=== PATIENT | female | born 1965 | race Caucasian/White ===

== ENCOUNTER 2016-12-23 05:15 | Inpatient (IN) ==
--- NOTE | 2016-12-21 15:31 | EKG Report ---
Test Performed on : 12/21/2016 3:25:10 PM Test Reason : surgery Blood Pressure : / mmHG Vent. Rate : 094 BPM Atrial Rate : 141 BPM P-R Int : 000 ms QRS Dur : 094 ms QT Int : 346 ms P-R-T Axes : 000 045 229 degrees QTc Int : [address] \T\ T wave abnormality, consider inferolateral ischemia Abnormal ECG When compared with ECG of 25-MAR-2016 05:51, No significant change was found Confirmed by Jose Miguel RICO, Kendrick Li ([id number]) on 12/23/2016 2:55:13 PM
[2016-12-21 16:06] LABS: HEMATOCRIT 31.7 % (37.0-47.0); HEMOGLOBIN 9.6 g/dL (12.0-16.0); MCH 25.2 PG (27-31); MCHC 30.3 g/dL (33-37); MCV 83.2 FL (81-99); MPV 9.9 FL (7.4-10.4); RBC 3.81 XMIL (4.2-5.4)
[2016-12-21 16:15] LABS: PROTIME 10.5 Seconds (9.2-11.7); PTT 26.1 Seconds (22.0-36.0)
[2016-12-21 16:46] LABS: CALCIUM 9.8 mg/dL (8.8-10.2); POTASSIUM 3.6 mmol/L (3.5-5.1)
[2016-12-23] MEDS ORDERED: PEPCID ONE (05:48)
[2016-12-23] MEDS ORDERED: TRANSDERM-SCOP ONE (05:48)
[2016-12-23] MEDS ORDERED: VALIUM ONE (05:48)
[2016-12-23] MEDS ORDERED: LR 1,000 ML ONE (05:49)
[2016-12-23] MEDS ORDERED: KEFZOL 2 GM/D5W 2 GM/50 ML IVPB ONE (05:49)
[2016-12-23] MEDS ORDERED: XYLOCAINE-MPF 2% ONE (06:47)
[2016-12-23] MEDS ORDERED: NEO-SYNEPHRINE ONE (07:30)
[2016-12-23] MEDS ORDERED: NORCURON ONE ×3 (07:38→11:06)
[2016-12-23] MEDS ORDERED: SODIUM CHLORIDE 0.9% 10 ML ONE ×2 (07:39→11:06)
[2016-12-23] MEDS ORDERED: QUELICIN (DOSE) ONE (08:11)
[2016-12-23] MEDS ORDERED: SODIUM CHLORIDE 0.9% 20 ML ONE (09:15)
[2016-12-23 09:33] LABS: URINE SOURCE CATH
[2016-12-23 09:43] LABS: BILIRUBIN URINE NEGATIVE (NEGATIVE); BLOOD URINE TRACE (NEGATIVE); COLOR YELLOW; GLUCOSE URINE NEGATIVE (NEGATIVE); LEUKOCYTES URINE LARGE (NEGATIVE); NITRITE URINE NEGATIVE (NEGATIVE); PH URINE 6.5; PROTEIN URINE 70 mg/dL (NEGATIVE); SP GRAVITY URINE 1.007; TURBIDITY URINE HAZY (CLEAR); URINE MICRO REVIEW NEEDED? YES; UROBILINOGEN URINE NORMAL (NORMAL)
[2016-12-23 09:53] LABS: UR EPITHELIAL CELLS <10 /HPF (<10); URINE BACTERIA NEGATIVE /HPF; URINE WBC TNTC /HPF (<10)
[2016-12-23 09:57] LABS: URINE CASTS NONE SEEN; URINE CRYSTALS NONE SEEN; URINE SMALL ROUND CELLS NONE SEEN
[2016-12-23] MEDS ORDERED: ZOFRAN ONE (10:32)
[2016-12-23] MEDS ORDERED: DECADRON ONE (10:33)
[2016-12-23] MEDS ORDERED: HEPARIN ONE (13:42)
[2016-12-23] MEDS ORDERED: DIPRIVAN 1% ONE (14:44)
[2016-12-23] MEDS ORDERED: FENTANYL ONE (14:44)
--- NOTE | 2016-12-23 14:54 | Diag Imaging Result Doc PS360 ---
CHEST-PORTABLE - 12/23/2016 INDICATION: ET tube placement TECHNIQUE: COMPARISON: 10/02/2015 FINDINGS: There is an endotracheal tube in good position at T3. Stable cardiomegaly. The pulmonary vascular congestion and edema has resolved. No pneumothorax or large effusion. IMPRESSION: 1. Good endotracheal tube placement. 2. Cardiomegaly. Electronically signed by Leon Méndez 12/23/2016 2:51 PM
[2016-12-23 15:03] LABS: ALLEN TEST YES; BE -1.8 mmoll (-3.0-3.0); BLOOD TYPE ARTERIAL; DRAW SITE R RADIAL; METHB 1.3 % (0.0-1.5); O2(CT) 11.8 mL/dL (15.0-23.0); PO2(98.6) 109 mmHg (60-100); SAMPLE BLOOD; SAO2 98.6 % (95.0-100.0); SRATE 12 BPM; THB 8.6 g/dL (11.5-17.4); TVOL 800 mL; pH(98.6) 7.29 (7.35-7.45)
[2016-12-23 15:07] LABS: MODALITY VENTILATOR; PCO2(98.6) 52 mmHg (35-45)
[2016-12-23] MEDS: MORPHINE ONE ×2 (15:14→15:20)
[2016-12-23] MEDS ORDERED: LR 3,000 ML ONE ×2 (15:14)
[2016-12-23 15:20] LABS: HEMATOCRIT 31.3 % (37.0-47.0); HEMOGLOBIN 9.4 g/dL (12.0-16.0); MCH 25.2 PG (27-31); MCV 83.9 FL (81-99); MPV 9.4 FL (7.4-10.4); RBC 3.73 XMIL (4.2-5.4)
[2016-12-23 15:59] LABS: ALLEN TEST NO; BE -0.5 mmoll (-3.0-3.0); BLOOD TYPE ARTERIAL; DRAW SITE R BRACHIAL; METHB 1.7 % (0.0-1.5); O2(CT) 11.8 mL/dL (15.0-23.0); PCO2(98.6) 43 mmHg (35-45); PO2(98.6) 71 mmHg (60-100); SAMPLE BLOOD; SAO2 96.6 % (95.0-100.0); SRATE 12 BPM; TVOL 800 mL; pH(98.6) 7.37 (7.35-7.45)
[2016-12-23 16:00] LABS: MODALITY VENTILATOR
[2016-12-23 16:12] LABS: CALCIUM 8.9 mg/dL (8.8-10.2)
[2016-12-23 16:13] LABS: POTASSIUM 6.2 mmol/L (3.5-5.1)
[2016-12-23] MEDS ORDERED: TYLENOL PO PRN (16:23)
[2016-12-23] MEDS ORDERED: SODIUM CHLORIDE 0.9% INJ PRN (16:23)
[2016-12-23] MEDS ORDERED: BENADRYL IV PRN (16:23)
[2016-12-23] MEDS ORDERED: PHENERGAN IV PRN (16:23)
[2016-12-23] MEDS ORDERED: DITROPAN PO PRN (16:23)
[2016-12-23] MEDS ORDERED: B & O 15A SUPP PR PRN (16:23)
[2016-12-23] MEDS ORDERED: PHENERGAN PR PRN (16:23)
[2016-12-23] MEDS ORDERED: ZOFRAN IV PRN (16:23)
[2016-12-23] MEDS ORDERED: BENADRYL LIQUID PO PRN (16:23)
[2016-12-23] MEDS ORDERED: SODIUM BICARBONATE 8.4% IV PUSH ONE (16:25)
[2016-12-23] MEDS ORDERED: HUMULIN R IV ONE (16:26)
[2016-12-23] MEDS ORDERED: D50W SYRINGE IV ONE (16:26)
[2016-12-23] MEDS: ZOSYN 3.375 GM/NS 3.375 GM/50 ML IVPB IV SCH ×2 (16:35→22:21)
[2016-12-23] MEDS: LR 1,000 ML IV SCH ×2 (16:36→20:41)
[2016-12-23 17:23] LABS: ALLEN TEST YES; BE 1.4 mmoll (-3.0-3.0); BLOOD TYPE ARTERIAL; DRAW SITE R BRACHIAL; O2(CT) 11.7 mL/dL (15.0-23.0); PCO2(98.6) 44 mmHg (35-45); PO2(98.6) 72 mmHg (60-100); SAMPLE BLOOD; SAO2 96.8 % (95.0-100.0); THB 8.8 g/dL (11.5-17.4); pH(98.6) 7.39 (7.35-7.45)
[2016-12-23 17:24] LABS: MODALITY VENTILATOR
[2016-12-23] MEDS: LABETALOL IV PRN ×3 (18:23→22:20)
[2016-12-23 18:36] LABS: CALCIUM 9.1 mg/dL (8.8-10.2); MAGNESIUM 1.7 mg/dL (1.5-2.7); POTASSIUM 5.8 mmol/L (3.5-5.1)
[2016-12-23] MEDS ORDERED: NS NEB INH SCH (18:45)
[2016-12-23] MEDS ORDERED: CARDIZEM 100 MG/NS 100 MG/100 ML IVPB IV PRN (18:46)
[2016-12-23] MEDS: MORPHINE IV PRN ×2 (19:19→21:17)
[2016-12-23] MEDS: XOPENEX NEB INH SCH ×2 (19:31→22:46)
[2016-12-23] MEDS: ATROVENT NEB INH SCH ×2 (19:31→22:46)
[2016-12-23] MEDS: PULMICORT INH SCH (19:32)
[2016-12-23] MEDS: NORCO-7.5 PO PRN (19:46)
[2016-12-23] MEDS: COLACE PO SCH (20:41)
[2016-12-23] MEDS: HUMULIN R SUBQ SCH (21:10)
--- NOTE | 2016-12-23 22:41 | OPERATIVE NOTE ---
PROCEDURE DATE: 12/23/2016 PREOPERATIVE DIAGNOSES: 1. Left-sided urothelial cancer. 2. History of right-sided renal cell carcinoma. 3. Cirrhosis. 4. History of diverticulitis. POSTOPERATIVE DIAGNOSES: 1. Left-sided urothelial cancer. 2. History of right-sided renal cell carcinoma. 3. Cirrhosis. 4. History of diverticulitis. PROCEDURES PERFORMED: 1. Robotic mobilization of the sigmoid colon and small intestine with lysis of adhesions. 2. 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 SURGEON: Rakesh Beckwith MD ESTIMATED BLOOD LOSS: Per Dr. Coppola's note but at my portion of the operation was less than 10 mL. SPECIMENS: None. INDICATIONS: This is a 51-year-old female, patient of Dr. Coppola's, who is known to me, for whom I have performed an open liver biopsy. She has a history of renal cell carcinoma on the right, status post partial nephrectomy, and was found to have a 2nd urothelial cancer on the left. Dr. Coppola was planning left nephroureterectomy on the left side robotically. During this operation, he encountered significant adhesions in her sigmoid colon to the lateral pelvic sidewall from previous diverticulitis. He felt that he encountered some mucosa during this dissection and consulted me. OPERATIVE FINDINGS: There was evidence of an enterocolonic colonic fistula between the small bowel and the mid sigmoid colon. There was a contained abscess in the lateral pelvic sidewall with a focal amount of pus here but otherwise healthy proximal and distal small bowel and proximal and distal colon. There were chronic changes consistent with her known diverticulitis. OPERATIVE NOTE: I was consulted intraoperatively. The robot t was already docked to the patient. Dr. Coppola was mobilizing the sigmoid colon. I inspected and it was felt that there was an opening in the sigmoid and possible small bowel. He mobilized this completely off the lateral sidewall with me present. There was exposed mucosa, but it was unclear if this was coming from the colon or small bowel. As such, I took over the robotic console. I dissected these areas and it became clear there was a hole in both the small bowel and the colon where these were fistulized together and stuck to the pelvic sidewall at the site of this contained abscess. We debrided these areas laparoscopically and them robotically and, using a 3-0 Prolene suture, we whipstitched these holes closed to prevent contamination. There was no spillage of succus during this at all. At this point, we placed the small bowel and the colon back in their anatomic location. Dr. Coppola completed this nephroureterectomy with more complete mobilization of the sigmoid colon. For details, please see the dictated operative note of Dr. Coppola. After he made the lower midline incision to extract the specimen, we came back into the operating room to definitively examine and repair these areas. He had created an approximately 10-12 cm lower midline incision and he had extracted the port through this. There was a previous drain from his portion in the left lower quadrant of the abdomen. We placed a large Devon wound protector in this area, identified the area of small bowel that we had tagged with a Prolene suture, removed the suture, and debrided back the edges. There was some granulation tissue here, but we were able to get back to healthy bleeding mucosa and full-thickness bowel. Using a running 3-0 Vicryl suture, we closed transversely full-thickness layer and imbricated this with interrupted 3-0 Vicryl Lembert sutures. There was good closure here with no narrowing of the lumen and felt to be good 2 layered closure. This was a very small opening, approximately 1.5 cm, and was felt amenable to primary repair and not resection. We inspected this and placed it back into the abdomen. There was no spillage of succus during this. At this point, we turned our attention to the colon. It was already mobilized. We brought this out into the wound the best that we could. The patient's abdominal wall was very redundant and she was in modified right lateral decubitus position, but we were able to identify this area. There was quite a lot of indurated granulation tissue, but we debrided this back to healthy, full- thickness colon and, again, this was an approximately 1-2 cm area here and, in similar fashion, transversely, using a running 3-0 Vicryl suture, closed this with full- thickness bites in a running fashion and then imbricated this with interrupted 3-0 Vicryl Lembert sutures. There was felt to be good closure here with no encroachment on the lumen and no stricturing of the area and the proximal and distal colon felt adequate. She was hypercapnic and acidotic throughout this long case and a formal colectomy was felt not appropriate given her clinical condition and given the size of her abdominal wall an end-colostomy would be very difficult. As such, we felt primary repair of both these was safe. There was no gross contamination in the abdomen. We left a drain by the sigmoid colon and placed omentum over this. Dr. Coppola irrigated the wound and closed the fascia. For details, please see his dictated operative note. We will continue to follow the patient. There was no evidence of other injury. We will continue to follow along. cc: MD Moris Bella MD MTDD
[2016-12-24] MEDS: NORCO-7.5 PO PRN ×5 (00:01→16:32)
[2016-12-24] MEDS: ATROVENT NEB INH SCH ×6 (03:11→22:38)
[2016-12-24] MEDS: XOPENEX NEB INH SCH ×6 (03:11→22:38)
[2016-12-24] MEDS: MORPHINE IV PRN ×8 (04:00→22:21)
[2016-12-24] MEDS: LABETALOL IV PRN (04:01)
[2016-12-24] MEDS: ZOSYN 3.375 GM/NS 3.375 GM/50 ML IVPB IV SCH ×4 (04:02→21:14)
[2016-12-24] MEDS: LR 1,000 ML IV SCH ×3 (04:13→20:08)
--- NOTE | 2016-12-24 05:06 | CONSULTATION ---
DATE OF CONSULTATION: 12/23/2016 ADMITTING PHYSICIAN: Viet Coppola MD HISTORY: She had been worked up for a left hydronephrosis, microhematuria. Cystoscopy done on 11/08/2016 showed bilateral retrograde pyelograms. Left ureteroscopy with biopsy of ureteral lesion. Placement of ureteral stent. Bladder biopsy. This is a 50-year-old with a history of right renal cell carcinoma. Had a partial nephrectomy a number months ago. Followup CT revealed no evidence of disease recurrence on the right but it did show left hydronephrosis and noted to have microhematuria. Cystoscopy revealed solitary bladder tumor approximately 1.5 cm that was papillary in nature. The patient underwent surgery today and it was a prolonged surgery with apparently a jd of the small bowel and that was repaired. She had prolonged intubation postop. PAST HISTORY: She had previous perirectal abscess and drainage. SOCIAL HISTORY: Nonsmoker. No alcohol or illicit drugs. FAMILY HISTORY: Noncontributory. ALLERGIES: None. REVIEW OF SYSTEMS: Unable to obtain her review of systems. PHYSICAL EXAMINATION: Vital Signs: In the unit, temp 99.5 degrees, pulse 89, respirations 17, blood pressure 128/71. Height 5 feet 7 inches. HEENT: The pupils are equal. Lungs: Clear in all lung bryant. Cardiovascular: Regular rate without murmur or S3. Abdomen: Soft. Skin: Warm and dry. : Urine output was almost 4 L. LABORATORIES: From today, white count 13,410, hematocrit 31, platelet count 266,000. Sodium 130, potassium 6.2, chloride 93, bicarb 26, BUN 30, creatinine 1.7. Blood sugar was 166, 226 and 374. ASSESSMENT/PLAN: 1. Postoperative intubation. I suspect that we will be able to extubate her fairly quickly. She does have some hyperkalemia. She is a little bit volume depleted with a creatinine up to 1.7. I did give her an amp of bicarb, 1/2 amp of D50 since her blood sugar was 374, and 10 units of insulin. Recheck her electrolytes. She is waking up and requesting to be extubated. Gas exchange looks good. 2. Mild acute kidney injury. I suspect just from the volume. We will give her IV fluids and recheck tomorrow. 3. History of diabetes mellitus type 2. Follow sugars closely. cc: Moris Barakat MD
[2016-12-24 05:20] LABS: HEMATOCRIT 28.1 % (37.0-47.0); HEMOGLOBIN 8.4 g/dL (12.0-16.0); MCH 24.9 PG (27-31); MCHC 29.9 g/dL (33-37); MCV 83.4 FL (81-99); MPV 9.8 FL (7.4-10.4); RBC 3.37 XMIL (4.2-5.4)
--- NOTE | 2016-12-24 06:02 | Diag Imaging Result Doc PS360 ---
EXAM: CHEST-PORTABLE HISTORY: extubated TECHNIQUE: Portable COMPARISON: 12/23/2016 FINDINGS: The lungs are well expanded. The patient is rotated to the right. The heart is enlarged. Increased markings in the left hilum believed to be the vasculature. No consolidation. No pleural effusions identified. IMPRESSION: Cardiomegaly. Electronically signed by Nikolai Noonan 12/24/2016 6:00 AM
--- NOTE | 2016-12-24 06:07 | Diag Imaging Result Doc PS360 ---
EXAM: KUB ABDOMEN HISTORY: s/p surgery TECHNIQUE: Portable supine COMPARISON: None. FINDINGS: There are surgical clips in the right upper quadrant consistent with cholecystectomy. Skin gutierrez overlie the right pelvis. There is a surgical drain in the left pelvis. No bowel obstruction. No organomegaly. IMPRESSION: Recent surgery, but otherwise negative exam. Electronically signed by Nikolai Noonan 12/24/2016 6:05 AM
[2016-12-24 06:41] LABS: CALCIUM 8.9 mg/dL (8.8-10.2); POTASSIUM 4.4 mmol/L (3.5-5.1)
[2016-12-24] MEDS: HUMULIN R SUBQ SCH ×4 (06:52→21:08)
[2016-12-24] MEDS: PULMICORT INH SCH ×2 (07:33→19:17)
[2016-12-24] MEDS: PHENERGAN PO PRN ×2 (08:27→16:32)
[2016-12-24] MEDS: LANOXIN IV SCH (08:29)
[2016-12-24] MEDS: COLACE PO SCH ×2 (08:29→20:09)
--- NOTE | 2016-12-24 10:13 | PROGRESS NOTE ---
DATE: 12/24/2016 SUBJECTIVE: Extubated overnight. Feels well. She is hungry. OBJECTIVE: Vital Signs: No fevers. Low-grade tachycardia, 100s. Blood pressure 125/82. Oxygen saturation 97% on supplemental mask. Abdomen: Soft. Appropriately tender. Incisions clean, dry, intact. Some mild serosanguineous drainage from her dressing. STEVEN drain serosanguineous. Labs: White count is 5, hematocrit is 28. Creatinine is 1.7, glucose 231. ASSESSMENT/PLAN: A 51-year-old female status post left ureteronephrectomy with Dr. Coppola. She had a small bowel to colon fistula from chronic diverticulitis that we took down and repaired at the same time. We will need to monitor these. Would keep her just medications and ice chips for comfort. As she has return of bowel function, we will gradually begin advancing her diet slowly over the next couple days. I would keep her drain in until she is tolerating a diet. We will continue to follow along. cc: MD Moris Bella MD
--- NOTE | 2016-12-24 18:10 | PROGRESS NOTE ---
DATE: 12/24/2016 SUBJECTIVE: She is feeling much better. She is taking sips of water and ice tolerating it well.Vital signs: Temperature 97.2 degrees, pulse 85, respirations 19 and blood pressure 120/70. HEENT: Pupils are equal and round. Lungs: Clear in all lung bryant. Cardiovascular: Regular rhythm and rate without murmur or S3. Abdomen: Soft. Urine output over 1600 mL. REVIEW OF LABORATORY: White count 5980, hematocrit 28, and platelet count 220,000. Sodium 135, potassium 4.4, chloride 96, bicarb 28, BUN 35, and creatinine 1.7. Chest x-ray done this morning. Cardiomegaly otherwise clear. ASSESSMENT AND PLAN: 1. Status post left ureter nephrectomy per She had small bowel and colon fistula from chronic diverticulitis that they took down and repaired DrIngrid and Dr. Beckwith. It seems to be healing well. We will need to monitor this closely. 2. Mild acute kidney injury. Serum creatinine. Will watch and continue fluids. 3. History of diabetes mellitus type 2. Follow sugars. 4. Hyperkalemia, prolonged intubation from Surgery. She was weaned yesterday. Respiratory status appears to be doing good. Review of orders, I do not see anything to change at this point. She is on Zosyn 3.375 mg IV q.6 hours. She is on lactated Ringer's 110 mL an hour. She is on a Cardizem drip if needed. She is getting digoxin 250 mcg IV daily and Colace 100 mg. b.i.d. cc: Moris Barakat MD
--- NOTE | 2016-12-24 19:19 | PROGRESS NOTE ---
DATE: 12/24/2016 SUBJECTIVE: General: Ms. Koch is feeling better today. She is currently on nasal cannula. She reports pain, but it is controlled with pain medications. She wants to get out of bed. Vital signs: Temperature 97.2, pulse 107, blood pressure 120/70. General: No acute distress. Cardiovascular: Tachycardic, but regular rhythm. Pulmonary: Bilateral breath sounds. Abdomen: Nontender. Nondistended. No bowel sounds, incisions are clean, dry, and intact. PERTINENT LABORATORIES: Her white cell count of 6000, hematocrit is 28. Creatinine is 1.7. ASSESSMENT: 1. A 51-year-old female who is morbidly obese and has history of previous abdominal surgery as well as extensive diverticulitis who underwent left robotic assisted laparoscopic nephroureterectomy as well as a primary repair of small and large bowel injury. She is currently doing well. We discussed advancing diet per Dr. Beckwith. 2. Out of bed and ambulate. 3. Keep Marshall to gravity drainage and Paul drain to bulb suction today. We will get rid of both of those tomorrow if permissible. 4. Appreciate Dr. Barakat's recommendations. cc: MD Moris Patrick MD
[2016-12-24] MEDS: PERCOCET-10 PO PRN (19:45)
[2016-12-24 23:45] LABS: CREATININE BODY FLUID 1.4 mg/dL
[2016-12-25] MEDS: PERCOCET-10 PO PRN ×6 (00:13→20:22)
[2016-12-25] MEDS: MORPHINE IV PRN ×8 (00:16→17:18)
[2016-12-25] MEDS: LABETALOL IV PRN ×2 (00:48→06:49)
[2016-12-25] MEDS: ZOSYN 3.375 GM/NS 3.375 GM/50 ML IVPB IV SCH ×3 (03:18→15:47)
[2016-12-25] MEDS: ATROVENT NEB INH SCH ×4 (03:22→15:55)
[2016-12-25] MEDS: XOPENEX NEB INH SCH ×4 (03:23→15:55)
[2016-12-25] MEDS: HUMULIN R SUBQ SCH ×4 (06:45→20:35)
[2016-12-25] MEDS: LR 1,000 ML IV SCH (06:48)
[2016-12-25] MEDS ORDERED: NS 1,000 ML IV SCH (06:54)
[2016-12-25] MEDS: PULMICORT INH SCH ×2 (07:43→19:25)
[2016-12-25 08:15] LABS: HEMOGLOBIN 7.3 g/dL (12.0-16.0); MCH 25.2 PG (27-31); MCHC 29.2 g/dL (33-37); MCV 86.2 FL (81-99); MPV 8.9 FL (7.4-10.4); RBC 2.9 XMIL (4.2-5.4)
[2016-12-25] MEDS: COLACE PO SCH ×2 (08:22→20:21)
[2016-12-25] MEDS: LANOXIN IV SCH (08:22)
[2016-12-25 08:30] LABS: CALCIUM 8.8 mg/dL (8.8-10.2); POTASSIUM 4.5 mmol/L (3.5-5.1)
--- NOTE | 2016-12-25 16:10 | PROGRESS NOTE ---
DATE: 12/25/2016 SUBJECTIVE: Ms. Koch feels much better. They took the drain out of the left side today. She has not had a bowel movement. She does feel like she can feel some rumbling. OBJECTIVE: Vital signs: Temp 97.8 degrees, pulse 119, respirations 19, blood pressure 127/69. HEENT: Pupils are equal, round. Lungs: Clear in all lung bryant. Cardiovascular: Regular rhythm and rate without murmur or S3. Abdomen: Soft. Skin: Warm and dry. Intake and output: Urine output over 4.7 L. LAB: Reviewed from today. White count 6,480, hematocrit 25, platelet count 175,000. Chemistry: Sodium 137, potassium 4.5, chloride 98, bicarb 31, BUN 20, creatinine 1.2. Blood sugar 184, 175, 218. ASSESSMENT AND PLAN: 1. This is a 51-year-old, morbidly obese, history of previous abdominal surgery as well as extensive diverticulitis, underwent left robotic-assisted laparoscopic nephroureterectomy as well as primary repair of small and large bowel injury. She is doing well. Dr. Beckwith is on the case. Drain has been pulled. Hemodynamically good. She was extubated. Breathing, respiratory status good. 2. Out of bed to ambulate. 3. Keep Marshall to gravity drainage and Paul drain to bulb suction today. Hopefully DC both of those tomorrow. 4. Hyperkalemia which has resolved. 5. Review of lab today. Electrolytes look good. Renal function looks good at 1.2. 6. Diabetes mellitus type 2. Continue sliding scale. 7. Review of orders. I do not see any change at this point. cc: Moris Barakat MD
--- NOTE | 2016-12-25 16:44 | PROGRESS NOTE ---
DATE: 12/25/2016 SUBJECTIVE: She feels well with minimal pain. She is passing gas, voiding without difficulty. Dr. Coppola was by and removed her drain and her Marshall catheter. No nausea or vomiting. She is hungry. She has been on a diltiazem drip for her atrial fibrillation. OBJECTIVE: Vital Signs: No fevers overnight. Pulse has been in the low 100s to one teens. Blood pressure 127/69 and oxygen saturation is low 90s on 4 liters nasal cannula. Abdomen: Dressing is in place. Scant amount of drainage. The port sites are intact. The abdomen is soft and appropriately tender. I do not see any left lower quadrant pain. No peritonitis. ASSESSMENT AND PLAN: This is a 51-year-old female, status post left ureteronephrectomy with Dr. Coppola. She had a chronic abscess causing fistula between her small bowel and her colon on the left side that created a colotomy and an enterotomy during mobilization of the colon. These were both repaired primarily. She seems to be doing okay. She is tolerating clear liquids. We will plan to advance her diet over the weekend if she tolerates. Further urologic and medical care per the hospitalist and Dr. Coppola's team. cc: MD Moris Bella MD
[2016-12-25] MEDS ORDERED: INSULIN DEGLUDEC 34 UNIT SQ SCH (17:27)
[2016-12-25] MEDS: LOPRESSOR PO SCH (17:42)
[2016-12-25] MEDS: GLUCOPHAGE PO SCH (17:42)
[2016-12-25] MEDS: FLAGYL PO SCH (20:21)
[2016-12-25] MEDS: LIPITOR PO SCH (20:21)
[2016-12-25] MEDS: KLOR-CON PO SCH (20:22)
[2016-12-25] MEDS: NEURONTIN PO SCH (20:22)
[2016-12-25] MEDS: AMBIEN PO SCH (20:22)
[2016-12-26] MEDS: PERCOCET-10 PO PRN ×4 (00:24→18:08)
[2016-12-26] MEDS: MORPHINE IV PRN ×4 (02:05→22:39)
[2016-12-26] MEDS: FLAGYL PO SCH ×3 (05:18→22:37)
[2016-12-26] MEDS: HUMULIN R SUBQ SCH ×4 (06:17→22:40)
[2016-12-26 06:19] LABS: MANUAL DIFF NEEDED? NO
[2016-12-26 06:33] LABS: BASO% 0.2 % (0.0-0.8); EOS# 0.19 X1000 (0.0-0.7); EOS% 3.6 % (0.0-10.0); HEMATOCRIT 24.5 % (37.0-47.0); HEMOGLOBIN 7.1 g/dL (12.0-16.0); LYMPH# 0.89 X1000 (1.2-3.4); MCH 24.9 PG (27-31); MONO# 0.36 X1000 (0.11-0.59); MONO% 6.9 % (1.7-9.3); MPV 9.7 FL (7.4-10.4); NEUT% 72.3 % (42.2-75.2); PLT 198 X1000 (130-400); RBC 2.85 XMIL (4.2-5.4)
[2016-12-26 06:55] LABS: CALCIUM 8.6 mg/dL (8.8-10.2); POTASSIUM 4.4 mmol/L (3.5-5.1)
[2016-12-26] MEDS: PULMICORT INH SCH (07:56)
[2016-12-26] MEDS: NEURONTIN PO SCH ×2 (08:32→22:38)
[2016-12-26] MEDS: LOPRESSOR PO SCH ×3 (08:32→16:04)
[2016-12-26] MEDS: GLUCOPHAGE PO SCH ×2 (08:32→16:03)
[2016-12-26] MEDS: ALDACTAZIDE 25/25 PO SCH (08:33)
[2016-12-26] MEDS: GLUCOSAMINE 500 MG/CHONDROITIN 400 MG PO SCH (08:33)
[2016-12-26] MEDS: LEVAQUIN PO SCH (08:33)
[2016-12-26] MEDS: LEXAPRO PO SCH (08:33)
[2016-12-26] MEDS: KLOR-CON PO SCH ×2 (08:33→22:38)
[2016-12-26] MEDS: COLACE PO SCH ×2 (08:33→22:38)
[2016-12-26] MEDS: LASIX PO SCH (08:33)
[2016-12-26] MEDS: ZYLOPRIM PO SCH (08:35)
--- NOTE | 2016-12-26 09:11 | PROGRESS NOTE ---
DATE: 12/26/2016 SUBJECTIVE: She feels really well. She is having bowel function and bowel movements. No nausea. She is hungry. She does have a persistent tachycardia. She has been on diltiazem drip. She has been in atrial fibrillation. It is up to the 130s to 140s today. No fevers. Abdomen is soft, nontender. Incision is clean, dry, and intact. She is on 4 L of nasal cannula. LABORATORY DATA: White count down to 5, hematocrit is down, trending to 24. Creatinine is 1.2. Glucose has down 151. ASSESSMENT AND PLAN: A 51-year-old female status post left ureteral nephrectomy for urothelial cancer. She also had a history of a right partial nephrectomy and cirrhosis. She had repair of small bowel and colon fistula from chronic diverticulitis with a contained perforation. From an abdominal standpoint, she seemed to be doing well. She had return of bowel function. I think it would be okay to gradually advance her diet. She is persistently tachycardic and is gradually down trending hematocrit and requiring quite a bit of oxygen. She will need to mobilize today, but I think we could slowly advance her diet to soft today. cc: MD Moris Bella MD
[2016-12-26] MEDS ORDERED: NON-FORMULARY BULK MED SUBQ SCH (09:30)
[2016-12-26] MEDS ORDERED: INSULIN PEN NEEDLES ONE (09:45)
[2016-12-26] MEDS: AZULFIDINE PO SCH ×3 (09:51→22:36)
--- NOTE | 2016-12-26 11:12 | PROGRESS NOTE ---
DATE: 12/26/2016 SUBJECTIVE: Ms. Koch is feeling good. She has had a couple of bowel movements and urinating fine. Marshall catheter out. Her drain is out. She has been getting up and walking, and she is tolerating a soft diet. OBJECTIVE: Temperature 98.7 degrees, pulse 140, respirations 18, blood pressure 110/74. Pupils are equal and round. Lungs are clear in all lung bryant. Cardiovascular: Regular rhythm and rate without murmur or S3. Abdomen is soft. Skin is warm and dry. Urine output almost 2 L. Blood sugar is 184, 202, 191. White blood cell count from yesterday: Hematocrit was 24, white count was 5230, hemoglobin 7.1, platelet count 198,000. Sodium 130, potassium 4.4, chloride 100. BUN 15, creatinine 0.1-0.2. Blood sugar 213, 191. ASSESSMENT AND PLAN: 1. Status post left ureteral nephrectomy per Dr. Coppola. She had a chronic abscess causing fistula between her small bowel and colon on the left side. I created a colotomy enterotomy during mobilization of the colon, and these both repaired primarily productive. According to Dr. Coppola, she is doing well. Advanced diet. Increase activity. 2. Get her out of bed and ambulate. The Marshall catheter is out. Drains out. Clerk Of Court her to a regular floor. 3. Diabetes mellitus. Blood sugars appear well controlled so we will move her to the floor. Ambulate. Note: Renal function looks good with creatinine 1.2. Home either in the morning or possibly this afternoon depending on how she does. She is on Azulfidine 500 mg p.o. She is on spironolactone hydrochlorothiazide combination 25/25 one a day, Ambien 10 mg at bedtime, Bentyl 20 mg p.r.n., Flagyl 500 mg p.o. q. 8 hours, Lopressor 25 mg p.o. t.i.d., Glucophage a 1000 mg b.i.d., Levaquin 500 mg a day, Lasix 40 mg a day, Lipitor 20 mg every evening, Lexapro 10 mg a day. cc: Moris Barakat MD
[2016-12-26] MEDS ORDERED: BENTYL PO SCH (21:00)
[2016-12-26] MEDS: LIPITOR PO SCH (22:37)
[2016-12-26] MEDS: AMBIEN PO SCH (22:38)
[2016-12-27] MEDS: MORPHINE IV PRN (03:46)
[2016-12-27] MEDS: PERCOCET-10 PO PRN ×2 (05:09→09:49)
[2016-12-27] MEDS: FLAGYL PO SCH (05:09)
--- NOTE | 2016-12-27 09:07 | PROGRESS NOTE ---
DATE: 12/27/2016 SUBJECTIVE: She feels very well. She is passing gas. No nausea or vomiting. She tolerated a soft diet. Minimal pain. OBJECTIVE: Vital Signs: No fevers. Heart rate has been much better, 60s to 91 this morning. Blood pressure 155/92. Abdomen: Soft, nontender. Incision is clean, dry, and intact. ASSESSMENT AND PLAN: A 51-year-old female status post left ureteronephrectomy with repair of the small bowel and colon fistula from chronic diverticulitis. She is doing very well. She is tolerating a diet with normal bowel function. I think it is okay for her to go home today. She will follow up with Dr. Coppola. If he has any concerns, she can see me back. They have my contact information as I have operated on her before. If she develops fevers, worsening pain, nausea, vomiting, or changes in her bowel movements, she will need to see me. Otherwise, would recommend a course of oral antibiotics at home for her contained diverticular abscess which she is on currently. cc: MD Moris Bella MD
[2016-12-27] MEDS: AZULFIDINE PO SCH (09:49)
[2016-12-27] MEDS: GLUCOSAMINE 500 MG/CHONDROITIN 400 MG PO SCH (09:50)
[2016-12-27] MEDS: LEXAPRO PO SCH (09:50)
[2016-12-27] MEDS: ALDACTAZIDE 25/25 PO SCH (09:50)
[2016-12-27] MEDS: LASIX PO SCH (09:51)
[2016-12-27] MEDS: ZYLOPRIM PO SCH (09:51)
[2016-12-27] MEDS: COLACE PO SCH (09:52)
[2016-12-27] MEDS: GLUCOPHAGE PO SCH (09:52)
[2016-12-27] MEDS: NEURONTIN PO SCH (09:53)
[2016-12-27] MEDS: LEVAQUIN PO SCH (09:53)
[2016-12-27] MEDS: LOPRESSOR PO SCH (09:53)
[2016-12-27] MEDS: KLOR-CON PO SCH (09:54)
--- NOTE | 2016-12-27 11:51 | DISCHARGE SUMMARY ---
ADMISSION DATE: 12/23/2016 DISCHARGE DATE: HOSPITAL COURSE: She was put in the hospital on 12/23/2016. Dr. Viet Coppola had performed ureteral nephrectomy and she had colon inflammation probably from diverticulosis, diverticulitis with a beginning of a fistula between the small and large bowel. This was repaired and required a little longer surgical time, prolonged intubation but was able to extubate a couple hours after she got out of surgery. She had to drain on the left side left lower quadrant and this was discontinued the following day. She started having bowel activity and having bowel movements and tolerating p.o. food. Hemodynamically stable. We did note that hemoglobin was 7, hematocrit was 24 but was fairly stable. When she came in the hospital hemoglobin was 9.6 and hematocrit 31. She was anxious and ready to go home and so discharged on 12/27/2016. DISCHARGE MEDICATIONS: Lipitor 20 mg a day, allopurinol 300 mg a day, she takes Bentyl p.r.n. 20 mg, Lexapro 10 mg a day, Lasix 40 mg a day, gabapentin 600 mg b.i.d., she takes glucosamine combination with chondroitin 1 a day, she is on Tresiba Flex Touch 34 units I believe she takes once a day. She is on iron tablet already, it is Integra Plus capsule 1 b.i.d. She was taking Levaquin 500 mg a day which I think we can stop. Metformin 1000 mg b.i.d., Lopressor 25 mg t.i.d. She was on Flagyl 500 mg IV t.i.d., I think she had that for 21 days. Percocet 10 1 q.6 h. p.r.n., Klor-Con 20 mEq b.i.d., spironolactone hydrochlorothiazide combination 25/25 1 a day, Sulfazine 500 mg p.o. daily, Ambien 10 mg at bedtime p.r.n. sleep. Follow up with Dr. Coppola. cc: Moris Barakat MD
[2016-12-27 12:15] VITALS: BP 120/68
--- NOTE | 2017-02-10 15:23 | OPERATIVE NOTE ---
PROCEDURE DATE: 12/23/2016 SURGEON: Viet Coppola MD. PREOPERATIVE DIAGNOSES: 1. Left ureteral cancer. 2. Morbid obesity with body mass index of 40. 3. History of previous abdominal surgeries. PRIMARY PROCEDURES: 1. Extensive laparoscopic lysis of adhesions and left robotic-assisted laparoscopic nephroureterectomy. Those were done by mt. 2. Dr. Ean Beckwith who was consulted intraoperatively performed robotic mobilization of the colon with lysis of adhesions and primary repair of enter colonic fistula. INDICATIONS: This is a 51-year-old female who was seen by me in the past secondary to right-sided renal cell carcinoma for which she underwent robotic partial nephrectomy. She presented with hydronephrosis of the opposite side on routine surveillance. 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 She was counselled on partial ureterectomy versus nephroureterectomy and elected to proceed with the latter. She is obese and has had abdominal surgeries before. She was counseled on the multiple risks. FINDINGS: Significant adhesions of mesentery of the bowel to the ventral wall requiring laparoscopic takedown. Significant inflammatory reaction around the kidney and the ureter. A phlegmon of small and large bowel adhered to the left hemipelvis which during dissection resulted in enterotomy that required intraoperative consultation by Dr. Ean Beckwith. PROCEDURE IN DETAIL: After obtaining informed consent, patient was brought to the operating room. Perioperative antibiotics and general endotracheal anesthesia were administered. She was placed at first in a modified flank position with the left side up and upper lower extremities appropriately padded. I used some of the trocar sites from previous partial nephrectomy along her midline. We used the left upper quadrant to make a small stab incision and introduced a Veress needle. We confirmed positive drop test, followed by insufflation of pneumoperitoneum pressure to 15 mmHg. Once that was done, we marked out the trocar sites in a standard nephrectomy fashion. A 5 mm camera was used after 8 mm dental chairside assistant trocar was introduced in the left upper quadrant. We inspected the abdominal cavity and were able to see that there was significant amount of adhesions from the ventral wall involving mainly mesentery. I then placed another 8 mm trocar and under direct vision carefully and sharply took down the adhesions. Once that was done , I was able to place the rest of the trocars under direct vision. We then docked the robot. At the beginning of the operation her bladder was drained by introducing a 16- Chinese Marshall catheter in a sterile field. We began by identifying Gerota's fascia and reflected her descending colon. She appeared to have significant inflammatory reaction throughout her Gerota's fascia and perinephric space. I was eventually able to mobilize the colon enough and incise Gerota's fascia, allowing me to identify the left lower renal pole and the ureter. That was placed by traction and I dissected along the ureter and what I identified as the gonadal vein toward the hilum. Eventually, the renal vein and renal artery were seen. I secured the renal artery with an endovascular ELIZABETH stapler, followed by securing of the vein. That allowed us to have vascular control. I then dissected superiorly, posteriorly, and laterally, allowing us to therefore mobilize the kidney once again. She had quite a bit perinephric inflammation making the procedure difficult. Please note that I spent approximately 30 minutes taking down the adhesions. Once the kidney was free, I dissected alongside of her ureter until it was near crossing over the iliac vessels. At that point, the instruments were removed, robot was undocked , and brought out at the angle fashion from her feet. I then re-docked the robot and introduced 1 other 8 mm trocar. We then used vessel loop and placed it around the ureter and retracted the ureter anteriorly. Due to periureteral inflammatory reaction as well, I spent a considerable amount of time meticulously dissecting the ureter off the iliacs and her reproductive organs. We made sure there was no injury to the ovaries or fallopian tubes. As we dissected more inferiorly it was apparent that there was a loop of bowel overlying and adhered to the pelvic sidewall. I originally assumed and thought it was small bowel but with meticulous dissection , I realized that there was actually a combination of small and large bowel which appeared to be densely adhered to each other and then in turn adhered to the pelvic sidewall. Sharp dissection then took place and in the process of dissecting it from the wall, I made an inadvertent enterotomy. A large amount of purulent material was noted. There appeared to be a phlegmon where the small and large bowel connected together and forming a possible fistula. At that time given the exposure of the bowel integrity, I consulted Dr. Ean Beckwith who graciously came in. Please see his operative report for the details of his procedure. The agreement was for me to complete nephroureterectomy with subsequently him coming back and through an infraumbilical incision repairing the bowel injury. Since I was able to reflect the bowel and exposed the ureter, dissection continued until I was able to appreciate detrusor muscle. I then inflated the bladder with sterile saline to about 180 mL. This allowed me to dissect the detrusor fibers until I was able to see the mucosa of the bladder. I placed a hemoclip distally and then excised the mucosa with an approximately 1 cm margin. There was no obvious evidence of cancer. Following that, 2-0 V-Lock was used to close the bladder mucosa in a figure-of- eight fashion x2. We then and re-distended the bladder and there was no obvious evidence of leakage of urine from the bladder. Following that, the kidney and the ureter were free. I decreased pneumoperitoneal pressure to 3 mmHg without evidence of active bleeding. Again, I re-examined specifically the renal hilar area and it appeared to be hemostatically adequate. We then undocked the robot and I extended the infraumbilical incision which allowed me to remove the kidney and ureter in 1 piece without difficulties. This was sent off to the pathologist. I then asked for Dr. Beckwith to step back in and he completed his part of the operation. After he was satisfied with the results, I used #2 loop PDS to close the patient's fascia in a running fashion. The wound was copiously irrigated. Zero Vicryl was used to reapproximate subcutaneous tissues. Ayden were used to close the skin. Her wound was dressed and taped. The robotic trocars were closed with 4-0 Monocryl suture in a subcuticular fashion followed by application of Dermabond skin adhesive. She was kept on the ventilator and turned over to recovery room for further care. ESTIMATED BLOOD LOSS: 800 mL. COMPLICATIONS: Bowel injury secondary to a phlegmon of the small and large bowel. DRAINS: A 16-Chinese Marshall catheter and Paul drain was introduced at the end of the case via 1 of the trocar sites and secured to skin with 2-0 nylon. cc: MD Moris Patrick MD [facility]
== END 2016-12-27 12:03 | disposition home or self-care (01) ==
LOC: ICU 05:15 → PAT 05:15 → EDSTATUS 07:00 → OBSVTOIN 14:12 → 4N 12-26 16:39
PROVIDERS: ADMIT Emergency Medicine; ATTEND Urology

== ENCOUNTER 2018-10-11 18:06 | Inpatient (IN) ==
[2018-10-11 19:18] LABS: BASO# 0.01 X1000 (0.0-0.2); BASO% 0.1 % (0.0-0.8); EOS# 0.04 X1000 (0.0-0.7); EOS% 0.4 % (0.0-10.0); HEMATOCRIT 26.7 % (37.0-47.0); HEMOGLOBIN 7.9 g/dL (12.0-16.0); IMM GRAN# 0.04 X1000 (0.0-0.04); IMM GRAN% 0.4 % (0.0-0.5); LYMPH# 0.77 X1000 (1.2-3.4); LYMPH% 8.2 % (20.5-51.1); MCH 24.9 PG (27-31); MCHC 29.6 g/dL (33-37); MCV 84.2 FL (81-99); MONO# 0.66 X1000 (0.11-0.59); MONO% 7.1 % (1.7-9.3); MPV 8.8 FL (7.4-10.4); NEUT# 7.83 X1000 (1.4-6.5); NEUT% 83.8 % (42.2-75.2); PLT 334 X1000 (130-400); RBC 3.17 XMIL (4.2-5.4); WBC 9.35 X1000 (4.8-10.8)
[2018-10-11 19:43] LABS: ALB/GLOB RATIO 0.5; ALBUMIN 2.3 g/dL (3.5-5.0); CALCIUM 8.9 mg/dL (8.8-10.2); CREATININE 1.5 mg/dL (0.5-0.9); POTASSIUM 4.1 mmol/L (3.5-5.1); TOTAL BILIRUBIN 0.32 mg/dL (0.20-1.00)
[2018-10-11 19:58] LABS: URINE SOURCE CLEAN CATCH
[2018-10-11 20:06] LABS: BILIRUBIN URINE NEGATIVE (NEGATIVE); BLOOD URINE SMALL (NEGATIVE); COLOR YELLOW; GLUCOSE URINE NEGATIVE (NEGATIVE); KETONE URINE NEGATIVE (NEGATIVE); LEUKOCYTES URINE LARGE (NEGATIVE); NITRITE URINE NEGATIVE (NEGATIVE); PH URINE 5.5; PROTEIN URINE TRACE mg/dL (NEGATIVE); SP GRAVITY URINE 1.013; TURBIDITY URINE CLEAR (CLEAR); UR EPITHELIAL CELLS <10 /HPF (<10); URINE BACTERIA NEGATIVE /HPF; URINE RBC <10 /HPF (<10); URINE WBC TNTC /HPF (<10); UROBILINOGEN URINE NORMAL (NORMAL)
[2018-10-11] MEDS ORDERED: NS 1,000 ML IV ONE (20:55)
[2018-10-11] MEDS ORDERED: VANCOMYCIN 1 GM/NS 1 GM/250 ML IVPB IV ONE (23:38)
[2018-10-11] MEDS ORDERED: ZOSYN 4.5 GM in NS 100 ML IV ONE (23:39)
[2018-10-11] MEDS ORDERED: MORPHINE IV ONE (23:43)
--- NOTE | 2018-10-12 00:46 | PROVIDER DOCUMENTATION ---
This chart was entered by Marva Zaragoza Scribe, acting as scribe for Rocío Mckenzie MD. HPI-Abdominal Pain/GI Problem - General Chief Complaint: Abdominal Pain Stated Complaint: LOWER LEFT ABD PAIN Time Seen by Provider: 10/11/18 21:03 Source: patient, family Allergies/Adverse Reactions: Patient Allergies Allergy/AdvReac Type Severity Reaction Status Date / Time adhesive tape AdvReac Intermediate RASH Verified 10/12/18 00:31 latex AdvReac Intermediate RASH Verified 10/12/18 00:31 Home Medications: Home Medication List Medication Instructions Recorded Confirmed Last Taken Type Allopurinol 300 mg PO DAILY 09/27/15 10/12/18 09/09/18 History Dicyclomine [Bentyl] 20 mg PO BID 09/27/15 10/12/18 09/09/18 History Escitalopram Oxalate [Lexapro] 10 mg PO DAILY 09/27/15 10/12/18 09/09/18 History Furosemide 40 mg PO DAILY 09/27/15 10/12/18 09/09/18 History Gabapentin 600 mg PO TID 09/27/15 10/12/18 09/09/18 History Glucosam/MSM/Chond/Hyaluron AC [Sv 1 tab PO DAILY 09/27/15 10/12/18 09/08/18 History Glucosamine-Chondroitin Tab] Iron Fum,Ps/Folic/Bcomp,C No.9 1 cap PO BID 09/27/15 10/12/18 09/09/18 History [Integra Plus Capsule] Metformin [Glucophage] 1,000 mg PO BID 09/27/15 10/12/18 09/09/18 History Potassium Chloride [Klor-Con] 20 meq PO BID 09/27/15 10/12/18 09/09/18 History ATORVAstatin [Lipitor] 20 mg PO DAILY 03/18/16 10/12/18 09/08/18 History Ondansetron HCl [Zofran] 4 mg PO PRN PRN 03/18/16 10/12/18 09/09/18 History Spironolact/Hydrochlorothiazid 1 each PO DAILY 03/18/16 10/12/18 09/09/18 History [Spironolactone-Hctz 25-25 Tab] Metoprolol [Lopressor] 25 mg PO BID 04/23/16 10/12/18 09/09/18 History Insulin Degludec [Tresiba 85 unit SQ DIRECTED 12/21/16 10/12/18 09/08/18 History Flextouch U-100] Digoxin 250 mcg PO HS 12/17/17 10/12/18 09/08/18 History Mesalamine D.r. [Lialda] 1.2 gm PO DAILY 12/17/17 10/12/18 09/08/18 History Trazodone [Desyrel] 100 mg PO QHS 12/17/17 10/12/18 09/08/18 History Apixaban [Eliquis] 5 mg PO BID #0 12/21/17 10/12/18 09/09/18 Rx Estradiol [Divigel] 1 gm VAG DIRECTED 06/10/18 10/12/18 1 Week Ago History ~09/02/18 Cefdinir 300 mg PO BID #20 cap 09/09/18 10/12/18 Unknown Rx Levofloxacin 1 tab PO DAILY 09/09/18 10/12/18 09/08/18 History Oseltamivir [Tamiflu] 75 mg PO BID #10 cap 09/09/18 10/12/18 Unknown Rx Oxycodone HCl/Acetaminophen 1 tab PO TID 09/09/18 10/12/18 09/09/18 History [Oxycodon-Acetaminophen 7.5-325] - History of Present Illness-ABD Nature of Presenting Problems: 52 yof c/o pt referred to er by pcp. States she began to have llq pain starting wednesday and states this has been becoming gradually worse. pt has diarrhea since pain started and fevers to 102 at home. has a known entero-cutaneous fistula which she states has not been draining much and is being watched and is thought to be due to her crohn's. Was also recently diagnosed with a uti and has been on amoxicillin for this. No nausea or vomiting. Abdominal Pain Onset Location: reports: LLQ Pain Radiation: reports: no radiation Quality of Pain: reports: aching Severity in ED: reports: mild Review of Systems - Adult - REVIEW OF SYSTEMS - ADULT Constitutional: reports: see HPI, fever (at home 103.7 today). denies: chills, fatique, night sweats Eyes: reports: no symptoms reported Ears, Nose, Mouth & Throat: reports: no symptoms reported Cardiovascular: reports: no symptoms reported Respiratory: reports: no symptoms reported Gastrointestinal: reports: see HPI, abdominal pain (llq), diarrhea, other. denies: difficulty swallowing, frequent heartburn, nausea, rectal bleeding, vomiting Genitourinary: reports: no symptoms reported Musculoskeletal: reports: no symptoms reported Integumentary: reports: no symptoms reported Neurological: reports: no symptoms reported Psychiatric: reports: no symptoms reported Endocrine: reports: no symptoms reported Hematologic/Lymphatic: reports: no symptoms reported Allergic/Immunologic: reports: no symptoms reported All Other Systems: Reviewed and Negative Past History - Adult - PAST MEDICAL HISTORY-ADULT Review of Records: reports: Old Records Reviewed, Nursing Assessment Review, Medications Reviewed, Social history reviewed & non-contributory. Major Childhood Illnesses: reports: denies history Cardiovascular: reports: A-Fib, HTN, hyperlipidemia Respiratory: reports: denies history Gastrointestinal: reports: Crohn's, colitis, diverticulosis Obstetrical/Gynecological: reports: denies history Genitourinary: reports: cancer (L sided renal cell carcinoma without mets), kidney disease, kidney stones, other (R ureteral mass) Musculoskeletal: reports: denies history Neurological: reports: denies history Endocrine/Immune: reports: anemia, Diabetes Other Conditions: reports: denies history - PRIOR SURGERIES/PROCEDURES Surgical/Procedure History: reports: cholecystectomy, , other (uterine ablasion) - IMMUNIZATION STATUS Childhood Immunizations: See Nurse Assessment Flu Vaccine: See Nurse Assessment - FAMILY HISTORY Family History: reviewed, not pertinent - SOCIAL HISTORY Smoking: cigarettes, other (former) Substance Use: none/never Physical Exam-General - PHYSICAL EXAM-ADULT Initial Vital Signs Reviewed: Yes - CONSTITUTIONAL General Appearance: appears well, alert, no apparent distress, obese. negative: thin, anxious, lethargic, slow to respond - EYES Eyes: PERRL/EOMI - HEAD, EARS, NOSE, MOUTH & THROAT HENMT: normocephalic/atraumatic, moist mucous membranes, normal ENT inspection - NECK Neck: non-tender, full range of motion, supple, normal inspection - RESPIRATORY Respiratory: chest non-tender, lungs clear, normal breath sounds - CARDIOVASCULAR Cardiovascular: normal peripheral pulses, regular rate, rhythm - GASTROINTESTINAL (ABDOMEN) Abdominal Exam: normal bowel sounds, soft, no organomegaly, no pulsatile mass, tenderness (llq), other (cutaneous fistula at superior aspect of mons pubis, 3cm x 2cm area of eccymosis inferior to this, no active drainage). negative: non tender, abdominal bruit, abnormal bowel sounds, distended, guarding - GENITOURINARY Female Genitalia/Pelvic Exam: negative: active bleeding, blood, tender uterus, ulcers Hemoccult Exam: deferred - LYMPHATIC Lymphatic: no adenopathy - MUSCULOSKELETAL Back Exam: normal inspection, no CVA tenderness, no vertebral tenderness Extremity: normal range of motion, non-tender, normal inspection Peripheral Pulses: radial (R): 2+, radial (L): 2+ - SKIN Integumentary: normal color, normal turgor, warm/dry - NEUROLOGIC Neurologic: grossly normal, no motor/sensory deficits - PSYCHIATRIC Psych/Mental Status: normal mood/affect, normal thought content, normal thought process, oriented x 3 Progress - PLAN OF CARE/RESULTS Progress/Plan/Lab Results: Vital Signs - 8 hr 10/11/18 18:11 10/11/18 20:25 10/11/18 20:31 Temperature 97.8 F Pulse Rate 116 H Respiratory Rate 16 Blood Pressure 144/77 143/78 147/61 O2 Sat by Pulse Oximetry 95 94 L 94 L Laboratory Results - last 24 hr 10/11/18 10/11/18 10/11/18 18:30 18:30 19:38 WBC 9.35 RBC 3.17 L Hgb 7.9 L Hct 26.7 L MCV 84.2 MCH 24.9 L MCHC 29.6 L RDW Std Deviation 20.0 H Plt Count 334 MPV 8.8 Immature Gran % (Auto) 0.4 Neut % (Auto) 83.8 H Lymph % (Auto) 8.2 L Harvey % (Auto) 7.1 Eos % (Auto) 0.4 Baso % (Auto) 0.1 Immature Gran # (Auto) 0.04 Neut # (Auto) 7.83 H Lymph # (Auto) 0.77 L Harvey # (Auto) 0.66 H Eos # (Auto) 0.04 Baso # (Auto) 0.01 Sodium 129 L Potassium 4.1 Chloride 94 L Carbon Dioxide 24 L Anion Gap 11 BUN 30 H Creatinine 1.5 H Estimated GFR/1.73 m2 36 BUN/Creatinine Ratio 20 Glucose 182 H Calculated Osmolality 270 Calcium 8.9 Total Bilirubin 0.32 AST 16 ALT 17 Alkaline Phosphatase 84 Total Protein 7.0 Albumin 2.3 L Globulin 4.7 Albumin/Globulin Ratio 0.5 Lipase 14 Urine Source CLEAN CATCH Urine Color YELLOW Urine Turbidity CLEAR Urine pH 5.5 Ur Specific [place] 1.013 Urine Protein TRACE A Ur Glucose (Stick) NEGATIVE Ur Ketones (Stick) NEGATIVE Urine Blood SMALL A Urine Nitrite NEGATIVE Urine Bilirubin NEGATIVE Urobilinogen Dipstick NORMAL Urine Leukocytes LARGE A Urine WBC (Auto) TNTC A Urine RBC (Auto) <10 U Epithel Cells (Auto) <10 Urine Bacteria (Auto) NEGATIVE Orders Category Date Time Status NPO Diet 10/11/18 18:[address] ABD/PELVIS W/PO AND IV CON [CT] Stat Exams 10/11/18 20:55 Ordered CBC WITH DIFF [HEME] Stat Lab 10/11/18 18:30 Completed COMPREHENSIVE METABOLIC PANEL [CHEM] Stat Lab 10/11/18 18:30 Completed LIPASE [CHEM] Stat Lab 10/11/18 18:30 Completed URINALYSIS [URINALYSIS] Stat Lab 10/11/18 19:38 Completed 0.9% Sodium Chloride Inj [Ns] 1,000 ml Med 10/11/18 20:55 Active IV 999 mls/hr Abd Pain/OB <20 weeks Stat Oth 10/11/18 18:52 Ordered Result Diagrams: 10/11/18 18:30 10/11/18 18:30 - REASSESSMENT Reassessment #1 Status: unchanged (Continued LLQ pain, likely due to large intra-abdominal abscess. Discussed case with Dr. Dudley, general surgeon solar installation helper, who feels abscess would be best treated with percutaneous drainage but will follow care. Treated with kylie del valle and will admit to the Hospitalist. Discussed case with Dr. Boland, hospitalist solar installation helper, who will see and admit pt.) - CT/MRI 1 CT Study: Abdomen, Pelvis (Findings:Bowel/Mesentery: Mild stool and gas within the colon. Diverticulosis of the sigmoid colon. Adjacent to the proximal sigmoid colon is marked inflammation laterally, large left inguinal multicolored abscess measuring about 7 x 7 x 6 cm: surrounding inflammation/phlegmonous changes that extend into the abdominal wall extending inferiorly and superiorly. Additional phelgmonous changes containing gas in the lateral aspect of the left iliac fossa extending into the oblique musculature. Significant progression of these findings compared to previous. Nondilated small bowel. Unremarkable stomach. No free intrapersonal air or fluid. Impression: Multioculated abscess and phlegmonous chanes left inguinal region and left iliac fossa w/marked anterior pelvoabdominal wall edema. Findings comparable with diverticular or small bowel fistula w/abscess formation. Findings show significant progression compared to previous. 2. Stable right adrenal nodule. Stable cirrhotic appearing liver and mild splenomegaly.) Impression: Abnormal Comparison with other Films: changes noted Departure - Departure Date of Disposition Decision: 10/12/18 Time of Disposition Decision: 00:43 DIAGNOSIS: Abscess of abdominal cavity Disposition: ADMITTED INPATIENT 09 Certified Medical Emergency: Emergent Condition: Fair Referrals and Follow-Ups: Jl Hall MD [Primary Care Provider] - - Critical Care Note This patient required my direct & personal management of CC.: No Attestation - Physician/ JOSE DAVID Attestation Patient care was provided by Advanced Practice Provider:: No The physician spent face to face time with patient:: Yes Advanced Practice Provider documentation review:: Supervising physician onsite and consulted in the evaluation and care of this patient. The physician did have a face to face encounter with the patient. This chart was documented by the indicated scribe, (Marva Zaragoza Scribe) and accurately reflects the services I performed and decisions made by me, Rocío Mckenzie MD, as attested by the provider's signature.
[2018-10-12] MEDS ORDERED: TRESIBA FLEXTOUCH U-100 SUBQ SCH (02:57)
[2018-10-12] MEDS ORDERED: ESTRADIOL 1 GM VAG SCH (02:57)
[2018-10-12] MEDS: ZOSYN 3.375 GM in NS 50 ML IV SCH ×4 (04:36→21:47)
[2018-10-12] MEDS: NS 1,000 ML IV SCH ×2 (04:37→14:54)
--- NOTE | 2018-10-12 07:50 | Diag Imaging Result Doc PS360 ---
EXAM: CT ABD/PELVIS W/PO AND IV CON INDICATION: LLQ pain with known Crohn's and fistula TECHNIQUE: This exam was performed using automated exposure control, adjustment of mA or kV according to patient size, and/or use of iterative reconstruction technique. COMPARISON: 07/26/2018 FINDINGS: There is minimal subsegmental atelectasis at the lung bases. There has been a prior cholecystectomy. The contour of the liver is nodular and the liver is prominent suggesting cirrhosis. There is splenomegaly with the spleen measuring up to 18.8 cm in craniocaudal length. There is stable low dense right adrenal nodule measuring up to 2.8 cm, statistically most likely an adenoma. The pancreas is unremarkable. There has been a prior left nephrectomy. There appear to be postsurgical changes at the inferomedial aspect of the right kidney. There is stable mild prominence of the right renal collecting system. The urinary bladder is only slightly distended and is essentially unremarkable, otherwise. At the posterior margin of the uterus on the left, there is an exophytic mass measuring up to 4.1 cm with suggestion of mild calcification at its border, likely an exophytic uterine fibroid but is nonspecific. Consider follow-up with pelvic ultrasound. There is sigmoid colonic diverticulosis. Adjacent to the proximal sigmoid colon, there is extensive inflammation and a fluid collection with internal gas consistent with an abscess measuring 7 x 7 x 6 cm. It tracks along the anterior abdominal/pelvic wall. Phlegmonous changes extend superiorly and inferiorly along the lateral aspect of the iliac fossa into the oblique musculature. These changes have progressed significantly since the previous study. The remainder of the GI tract is essentially unremarkable. There is prominent body wall anasarca. IMPRESSION: 1.Prominent abscess adjacent to the sigmoid colon tracking along the ventral abdominal wall of the pelvis on the left as described. 2.Stable exophytic nodule at the posterior aspect of the uterus on the left as described. 3.Stable right adrenal nodule. 4.Body wall anasarca. 5.Other incidental/nonacute findings detailed above. Electronically signed by Brock Zaragoza 10/12/2018 7:48 AM
--- NOTE | 2018-10-12 08:00 | HISTORY AND PHYSICAL ---
A patient of Dr. Jl Hall. REASON FOR ADMISSION: One-week history of left lower quadrant pain and three to four day history of intermittent fever. HISTORY OF PRESENT ILLNESS: Ms. Padma Koch is a 52-year-old lady with a past medical history of atrial fibrillation, hypertension, type 2 diabetes, hyperlipidemia, Crohn's disease. She also has a history of left ureteral cancer, status post ureteronephrectomy and renal cell cancer on the right side with partial nephrectomy. 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 It was noticed that over the last 1 week, she had been having pain in that area. She said the pain has been constant with paroxysms of transient sharp pain superimposed over a dull achy pain. Pain is exacerbated when she makes sudden movements or tries to bend down. Two days ago, she started having intermittent fevers and chills, about 101. Last night, the fever spiked at 103 with chills. She has also had simultaneous diarrhea which has been slightly increased from 1 to 2 BMs a day to about 3 to 4 loose stools, nonbloody. No genitourinary complaints. Patient says the aforementioned pain does not radiate anywhere. No cardiorespiratory complaints. No palpitations, polyuria, or polydipsia. REVIEW OF SYSTEMS: Twelve system review was done with positive findings per HPI. No heat intolerance. No rash or arthralgias. ALLERGIES: Latex, sulfa, and adhesive tape. HOME MEDICATIONS: Patient is taking trazodone 100 mg at bedtime, allopurinol 200 mg daily, Bentyl 20 mg b.i.d., digoxin 250 mcg at bedtime, estradiol 1 g vaginally as directed, Lasix 40 mg daily, gabapentin 600 mg t.i.d., metformin 1000 mg b.i.d., multivitamin tablets 1 b.i.d., potassium chloride 20 mEq b.i.d., Lexapro 10 mg daily, mesalamine 1.2 g daily, Lipitor 20 mg daily, Lopressor 25 mg b.i.d., Percocet 1 tablet t.i.d., Aldactazide 1 tablet daily, glucosamine/chondroitin 1 tablet daily, Tresiba 85 units daily, Zofran 4 mg q.4 p.r.n., apixaban 5 mg b.i.d. SURGICAL HISTORY: Partial right nephrectomy, a total left nephrectomy with left ureteral excision, and port placement. SOCIAL HISTORY: She does not smoke, drink, or use drugs. Lives with her . FAMILY HISTORY: Notable for renal cell cancer, diabetes, strokes. PAST MEDICAL HISTORY: Includes cirrhosis. LABORATORY WORK: White count 9000, hemoglobin and hematocrit 8 and 26, platelets 334,000 with 20 RDW, normal differential. Sodium is 129, BUN is 30, creatinine is 1.5, glucose is 182. Lipase and lactate are normal. Urinalysis shows WBCs too numerous to count and large leukocytes. CT scan of the abdomen and pelvis shows a multiloculated abscess measuring 7 x 7 x 6. There are phlegmonous changes in the left inguinal region, left lateral iliac fossa with marked anterior pelviabdominal wall edema. These findings are suggestive of a diverticula or small-bowel fistula with abscess formation. PHYSICAL EXAMINATION: GENERAL: Morbidly obese, pleasant, middle-aged, woman who is not in acute distress. VITAL SIGNS: Her blood pressure is 172/83, heart rate is 116, temperature is 97.8, she is 95% on room air. HEENT: Head is normocephalic, atraumatic. Eyes, PERRLA, EOMI. Sclerae anicteric. Not pale. ENT and oropharynx exam is grossly normal. NECK: Supple, short, and thick. No JVD. No carotid bruit. CHEST: Clear to auscultation. Good air entry in both lung bryant. CARDIOVASCULAR: First and second heart sounds heard. A 2/6 ejection systolic murmur is heard. Rhythm is irregular. There is a Mediport in the right pectoral area. No areas of erythema or infection at the site. ABDOMEN: Protuberant, soft, with tenderness confined to the left lower quadrant area, with questionable peritoneal signs. Bowel sounds are hyperactive. No mass or organomegaly appreciated. RECTAL: Examination is deferred. EXTREMITIES: Patient has trace edema in the lower extremities distally. Pulses distally in the lower extremities have good volume, symmetrical but irregular. No clubbing or peripheral cyanosis. NEUROLOGICAL EXAMINATION: No gross focal deficits. SKIN: Intact with no breakdown, lesions, or erythema. ASSESSMENT: 1. Pelvic abscess emanating from enterocutaneous fistula in the left inguinal area. 2. Cirrhosis. 3. Type 2 diabetes. 4. Atrial fibrillation. 5. Hypertension. 6. Anemia of chronic inflammation. 7. Hypotonic, hypovolemic hyponatremia. 8. Stage III chronic kidney disease. 9. Urinary tract infection. PLAN: 1. The patient will be treated with Zosyn and interventional radiology will be consulted for CT- guided versus sonogram-guided drainage, catheter drainage insertion. Conferred with Dr. Westbrook, the patient's business services director, for his input. Antibiotics of Zosyn should be adequate to cover pathogens and abscess, and also cover for urinary tract infection. 2. The patient will continue with Tresiba long-acting insulin along with low-dose sliding scale. Continue other home medications, include digoxin and beta-blockers for rate control. However, we will hold Eliquis pending procedure tomorrow. Once the procedure has been performed, await final cultures from drained abscess specimen sent off. cc: MD Jl Yan MD
[2018-10-12] MEDS: HUMALOG SUBQ SCH ×3 (10:19→21:46)
[2018-10-12] MEDS: ALDACTAZIDE 25/25 PO SCH (10:20)
[2018-10-12] MEDS: LEXAPRO PO SCH (10:21)
[2018-10-12] MEDS: BENTYL PO SCH ×2 (10:21→21:48)
[2018-10-12] MEDS: PERCOCET-5 PO SCH ×3 (10:23→18:12)
[2018-10-12] MEDS: LOPRESSOR PO SCH ×2 (10:24→21:48)
[2018-10-12] MEDS: LIALDA PO SCH (10:24)
[2018-10-12] MEDS: LASIX PO SCH (10:25)
[2018-10-12] MEDS: ZYLOPRIM PO SCH (10:25)
[2018-10-12] MEDS: NEURONTIN PO SCH ×3 (10:25→18:12)
[2018-10-12] MEDS: LIPITOR PO SCH (10:26)
[2018-10-12] MEDS: KLOR-CON POWDER PACKET PO SCH ×2 (10:28→21:48)
--- NOTE | 2018-10-12 14:23 | GASTROENTEROLOGY CONSULTATION ---
DATE: 10/12/2018 REASON FOR CONSULTATION: History of Crohn disease with history of abscess/fistula. HISTORY OF PRESENT ILLNESS: This is a 52-year-old, former patient of Dr. Gann, who had last seen Dr. Gann in the office in June 2018. The patient was started on Remicade following with Dr. Benjamin. She states she was doing fairly well until approximately a week ago she started having left lower quadrant abdominal pain, fever reported up to 103.8 degrees, she has noticed some increase in diarrhea. She has had worsening left lower quadrant abdominal pain that brought her in to the hospital for evaluation. A CT scan was done that showed prominent abscess adjacent to the sigmoid colon tracking along the ventral abdominal wall of the pelvis on the left, stable nodule posterior aspect of the uterus on the left, stable right adrenal nodule, body wall anasarca, sigmoid colonic diverticulosis, inflammation and fluid collection with internal gas consistent with an abscess that measures 7 x 7 x 6 cm tracking along the anterior abdominal pelvic wall. Her last colonoscopy by Dr. Gann was in 2016 that showed colitis, diverticulosis and hemorrhoids. Patient denies chest pain or shortness of breath. She has reported some diarrhea but no reported blood in the stool. She does report left lower quadrant pain and has some occasional drainage around an area at the left pubic area. PAST MEDICAL HISTORY: Atrial fibrillation, hypertension, type 2 diabetes, hyperlipidemia, Crohn disease, history left ureteral cancer, history of renal cancer on the right side. History of enterocutaneous fistulas to the left groin. PAST SURGICAL HISTORY: Surgery for left ureteral cancer, ureteronephrectomy and right partial nephrectomy. section x2. Last colonoscopy was 2015. Cholecystectomy 2003. ALLERGIES: Tape causing a rash. Latex causes rash. HOME MEDICATIONS: Allopurinol 300 mg daily, Eliquis 5 mg twice a day, Lipitor 20 mg daily, Cefdinir 300 mg twice a day, Bentyl 20 mg twice a digoxin 250 mcg every night, Lexapro 10 mg daily, Lasix 40 mg daily, gabapentin 600 mg 3 times a day. Glucosamine Chondroitin daily, insulin, Tresiba 85 units subcutaneous as directed, iron capsule twice daily, levofloxacin daily, Lialda 1.2 g daily, metformin 1000 mg twice a day, Lopressor 25 mg twice a day, Zofran 4 mg as needed, oxycodone 3 times a day, Spironolactone/hydrochlorothiazide 25/25 daily, trazodone 100 mg every night. SOCIAL HISTORY: Denies tobacco or alcohol use. She lives with her . She works in [email or web address]. OBJECTIVE: Vital signs: Temperature 98 degrees pulse 92, respirations 20, blood pressure 130/56. Generally: Patient is awake and alert. No acute distress. Her is at the bedside. HEENT: Normocephalic atraumatic. Pupils equal, round, reactive to light. Sclerae nonicteric. Respiratory: Lung sounds essentially clear. Cardiovascular: Irregular rate, history of atrial fibrillation. Abdomen: Obese. Tenderness in the left lower quadrant. She points to an area in the pubic area that she states drains and had some bleeding and time. Extremities: Mild lower extremity edema noted. Pedal pulses present bilaterally. Neurologic: Cranial nerves 2- 12 grossly intact. Patient is awake, alert, oriented to person, place, and time. LABORATORY: Hematology 9.35, hemoglobin 7.9, hematocrit 26.2, MCV 84.2, platelet 334,000. Chemistry sodium 129, potassium 4.1, chloride 94, CO2 24, BUN 32, creatinine 1.5, glucose 182. Total bilirubin 0.32, AST 16, ALT 17, alkaline phosphatase 84, albumin 2.3. ASSESSMENT AND PLAN: 1. Recent fever. 2. Left lower quadrant abdominal pain. 3. Pelvic abscess noted per CT scan. 4. Anemia. 5. Crohn disease. Patient follows with Dr. Benjamin for Remicade infusions. Patient reports receiving approximately 3 infusions since onset. She is now on every 8 week regimen. PLAN: Continue antibiotics. There was mention about possible radiology guided drainage of abscess. Will follow up on those results. I have discussed this case with Dr. Westbrook. Further plans will be made by him. Thank you for this consultation. Dictated by PETER Doyle for Tito Westbrook MD cc: PETER Chaudhry MD [facility]
[2018-10-12] MEDS: TYLENOL PO PRN (14:54)
--- NOTE | 2018-10-12 15:43 | PROGRESS NOTE ---
DATE: 10/12/2018 INTERVAL HISTORY: The patient still has some left lower quadrant abdominal pain, but fairly well controlled at this time. He is afebrile this morning. Still no nausea, vomiting, or diarrhea. No acute events overnight. No new complaints. REVIEW OF SYSTEMS: Twelve point review of systems negative except as per interval history. LABORATORY: Glucose 135. Lactate 1.5. VITALS: T-max 99.5 degrees, pulse 92, respirations 20, blood pressure 130/56, and O2 saturation 96% on room air. PHYSICAL EXAMINATION: General: No acute distress. Vitals: As above. HEENT: Normocephalic, atraumatic. Moist mucous membranes. No cervical adenopathy. Cardiovascular: Irregular rhythm but normal rate. Pulmonary: Clear to auscultation bilaterally. Abdomen: Soft. Moderate left lower quadrant tenderness remains without rebound or guarding. Bowel sounds essentially normal. Extremities: Peripheral pulses intact. No clubbing, cyanosis, or edema. Neurologic: Cranial nerves grossly intact. No focal deficits identified. Psychiatric: Normal mood and affect. Awake, alert, oriented x3. Skin: No new rashes or lesions identified. ASSESSMENT AND PLAN: 1. Pelvic abscess, likely pericolonic. Patient with previously diagnosed fistula which I suspect is the source of the infection. The patient with reported fevers at home, but none so far here. Continue antibiotics with Zosyn for now. Asking IR to evaluate patient for possible CT- guided drainage in the morning. GI consulted and recommendations pending. If abscess is not amenable to percutaneous drain, then may have to consult surgery. Patient has seen Dr. Beckwith in the past. 2. Crohn's. The patient reports improvement on Remicade. Patient not due for another dose for quite some time. Monitor. 3. Atrial fibrillation, rate controlled at this time. 4. Hypertension, well controlled currently on home hydrochlorothiazide, spironolactone. Lasix, and metoprolol. If any hypotension develops, then we will stop diuretics. 5. Diabetes mellitus. Sugars reasonably well controlled. Continue to monitor. 6. Cirrhosis. LFTs, bilirubin, alkaline phosphatase within normal limits. Continue to monitor. 7. Possible UTI should be treated by Zosyn started for abscess. Urine culture pending. 8. Hyperlipidemia. Continue home statin.
[2018-10-12] MEDS: LANOXIN PO SCH (21:48)
[2018-10-12] MEDS: DESYREL PO SCH (21:48)
[2018-10-13] MEDS: ZOSYN 3.375 GM in NS 50 ML IV SCH ×4 (02:25→21:56)
[2018-10-13] MEDS: TYLENOL PO PRN (05:50)
[2018-10-13] MEDS: HUMALOG SUBQ SCH ×4 (06:36→21:58)
[2018-10-13 07:04] LABS: BASO# 0.01 X1000 (0.0-0.2); BASO% 0.1 % (0.0-0.8); EOS# 0.08 X1000 (0.0-0.7); EOS% 0.9 % (0.0-10.0); HEMATOCRIT 24.5 % (37.0-47.0); HEMOGLOBIN 7.3 g/dL (12.0-16.0); IMM GRAN# 0.02 X1000 (0.0-0.04); IMM GRAN% 0.2 % (0.0-0.5); LYMPH# 0.79 X1000 (1.2-3.4); MCHC 29.8 g/dL (33-37); MCV 83.9 FL (81-99); NEUT# 7.14 X1000 (1.4-6.5); NEUT% 81.8 % (42.2-75.2); PLT 271 X1000 (130-400); RBC 2.92 XMIL (4.2-5.4); WBC 8.74 X1000 (4.8-10.8)
[2018-10-13 07:05] LABS: INR 1.44; PROTIME 18.7 Seconds (11.0-16.0)
[2018-10-13 07:08] LABS: ALB/GLOB RATIO 0.5; CALCIUM 8.6 mg/dL (8.8-10.2); CREATININE 1.5 mg/dL (0.5-0.9); MAGNESIUM 1.7 mg/dL (1.5-2.7); POTASSIUM 4.2 mmol/L (3.5-5.1); TOTAL BILIRUBIN 0.35 mg/dL (0.20-1.00); TOTAL PROTEIN 6.3 g/dL (6.3-8.3)
[2018-10-13] MEDS: ALDACTAZIDE 25/25 PO SCH (08:50)
[2018-10-13] MEDS: PERCOCET-5 PO SCH ×3 (08:50→18:17)
[2018-10-13] MEDS: BENTYL PO SCH ×2 (08:50→21:57)
[2018-10-13] MEDS: LEXAPRO PO SCH (08:51)
[2018-10-13] MEDS: LIPITOR PO SCH (08:51)
[2018-10-13] MEDS: NEURONTIN PO SCH ×3 (08:51→18:18)
[2018-10-13] MEDS: KLOR-CON POWDER PACKET PO SCH ×2 (08:51→21:56)
[2018-10-13] MEDS: ZYLOPRIM PO SCH (08:52)
[2018-10-13] MEDS: LOPRESSOR PO SCH ×2 (08:52→21:57)
[2018-10-13] MEDS: LASIX PO SCH (08:52)
[2018-10-13] MEDS: LIALDA PO SCH (08:52)
--- NOTE | 2018-10-13 13:31 | Diag Imaging Result Doc PS360 ---
EXAM: CT GUIDE ABD DRAINAGE W/CATH INDICATION: CT guided abscess draining TECHNIQUE: COMPARISON: 10/11/2018 FINDINGS: Risks, benefits, and alternatives were discussed with the patient and informed consent was obtained. Patient was prepped and draped in sterile fashion and local anesthesia was achieved with 1% lidocaine solution. Using CT guidance, a 15 cm 10-Monegasque pigtail drainage catheter was inserted into the left lower quadrant peritoneal abscess and bloody purulent fluid was aspirated. There were no known complications. The catheter was secured with a catheter dressing. IMPRESSION: Technically successful CT-guided abdominal pigtail drainage catheter placement. Electronically signed by Brock Zaragoza 10/13/2018 1:29 PM
--- NOTE | 2018-10-13 15:50 | GASTROENTEROLOGY PROGRESS NOTE ---
DATE: 10/13/2018 Ms. Koch will be scheduled for CT-guided drainage of her abscess. I have spoken to Dr. Linn. She will be scheduled and the fluid will be sent for culture and sensitivity. In the meantime, continue antibiotic and continue other treatment. Will follow after the procedure. cc: Tito Westbrook MD
--- NOTE | 2018-10-13 16:40 | PROGRESS NOTE ---
DATE: 10/13/2018 INTERVAL HISTORY: The patient is status post drainage and drain placement of pelvic abscess. Reports some improvement in her abdominal pain after drainage. Afebrile overnight, but did have another fever up to 101 this afternoon. No other new complaints. No other acute events overnight. REVIEW OF SYSTEMS: A 12 point review of systems negative except as per Interval History. LABORATORIES: WBC 8.7, hemoglobin 7.3, hematocrit 24.5, platelets 271,000. Sodium 129, potassium 4.2, BUN 29, creatinine 1.5, glucose 124. VITALS: T-max 101.1 degrees, pulse 112, respirations 20, blood pressure 136/93, O2 saturation 94% on room air. PHYSICAL EXAMINATION: General: No acute distress. Vitals: As above. HEENT: Normocephalic, atraumatic. Moist mucous membranes. No cervical adenopathy. Cardiovascular: Irregular rhythm. Normal rate at the time of my exam. Pulmonary: Clear to auscultation bilaterally. Abdomen: Soft. Mild left lower quadrant tenderness, somewhat improved. No rebound or guarding. Drain tube noted with dark red drainage. Bowel sounds are decreased, but present. Extremities: Peripheral pulses intact. No clubbing, cyanosis, or edema. Neurologic: Cranial nerves grossly intact. No focal deficits identified. Psychiatric: Normal mood and affect. Awake, alert, oriented x3. Skin: No new rashes or lesions identified. ASSESSMENT AND PLAN: 1. Pelvic abscess, likely pericolonic. Patient with previously diagnosed fistula, which is the likely source infection. He has had a couple of fevers here. Status post IR drainage and drain placement. Continue antibiotics with Zosyn for now, and we will await culture data from drain. Gastroenterology on board. Further recommendations pending. 2. Crohn's disease. Patient reports improvement on Remicade. Patient not due for another dose for quite some time. Monitor. 3. Atrial fibrillation has been largely rate controlled with only occasional mild elevation. Continue to monitor. 4. Hypertension, well controlled on home hydrochlorothiazide, spironolactone, Lasix, metoprolol. Monitor. 5. Diabetes mellitus. Sugars are reasonably controlled on current regimen. Continue to monitor. 6. Cirrhosis. LFTs normal. Monitor. 7. Possible urinary tract infection. Will be adequately treated by the Zosyn she is on for her abscess. Culture pending. 8. Hyperlipidemia. Continue home statin.
[2018-10-13] MEDS: LANOXIN PO SCH (21:56)
[2018-10-13] MEDS: DESYREL PO SCH (21:57)
[2018-10-14] MEDS: ZOSYN 3.375 GM in NS 50 ML IV SCH ×5 (04:09→23:54)
[2018-10-14] MEDS: HUMALOG SUBQ SCH ×3 (06:57→17:35)
[2018-10-14] MEDS: BENTYL PO SCH ×2 (09:48→21:45)
[2018-10-14] MEDS: LIPITOR PO SCH (09:49)
[2018-10-14] MEDS: ALDACTAZIDE 25/25 PO SCH (09:49)
[2018-10-14] MEDS: PERCOCET-5 PO SCH (09:50)
[2018-10-14] MEDS: LOPRESSOR PO SCH ×2 (09:51→21:45)
[2018-10-14] MEDS: LEXAPRO PO SCH (09:51)
[2018-10-14] MEDS: LIALDA PO SCH (09:51)
[2018-10-14] MEDS: ZYLOPRIM PO SCH (09:52)
[2018-10-14] MEDS: LASIX PO SCH (09:52)
[2018-10-14] MEDS: NEURONTIN PO SCH ×3 (09:52→17:35)
[2018-10-14] MEDS: KLOR-CON POWDER PACKET PO SCH ×2 (09:52→21:45)
[2018-10-14] MEDS: PERCOCET-5 PO PRN ×3 (13:36→21:46)
--- NOTE | 2018-10-14 14:16 | GASTROENTEROLOGY PROGRESS NOTE ---
DATE: 10/14/2018 The patient was coming back from the bathroom. She did have a drain placed for drainage of pelvic abscess. She currently has drainage noted in the bag rust purulent drainage. Patient states abdominal pain has improved slightly since drain was placed. Microbiology showing gram-negative rods. Gram stain showing gram-negative rods, 3+ gram positive cocci few. Patient is on antibiotics, Zosyn. OBJECTIVE: Vital Signs: Temperature 98.2 degrees, pulse 91, respirations 20, blood pressure 135/75. General: Patient is awake, alert, in no acute distress. She is walking from the bathroom to her bed. She does have her drain in place with rust color purulent drainage noted. LABORATORY: Hematology. WBC 8.74, hemoglobin 7.3, hematocrit 24.5, MCV 83.9. Chemistry. Sodium 129, potassium 4.2, chloride 95, CO2 21, BUN 29, creatinine 1.5, glucose 124. Microbiology showing gram-negative rods and gram-positive cocci. ASSESSMENT AND PLAN: 1. Pelvic abscess. The patient has had drain placed. Continue antibiotics. 2. Crohn disease. Patient is on Remicade. 3. Other medical problems including atrial fibrillation, hypertension, diabetes, history of cirrhosis. Will continue to follow and further plans to be made according to her progress. I have discussed this case with Dr. Westbrook. Dictated by PETER Doyle for Tito Westbrook MD cc: PETER Chaudhry MD
--- NOTE | 2018-10-14 15:53 | PROGRESS NOTE ---
DATE: 10/14/2018 INTERVAL HISTORY: The patient reports feeling better overall but still some left lower quadrant abdominal pain where her drain is placed. Still significant output from the drain. Still with intermittent fevers although they do appear to be trending down slightly. No other acute events. No new complaints. REVIEW OF SYSTEMS: Twelve point review of systems negative except as per interval history. LABS: Glucose 254. VITALS: T-max 100.9 degrees, pulse 91, respirations 20, blood pressure 135/75, O2 saturation 98% on room air. PHYSICAL EXAM: General: No acute distress. Vitals: As above. HEENT: Normocephalic, atraumatic. Moist mucous membranes. No cervical adenopathy. Cardiovascular: Irregular rhythm. Normal rate at the time of my exam. Pulmonary: Clear to auscultation bilaterally. Abdomen: Soft. Still with mild left lower quadrant tenderness. No rebound or guarding. Drainage tube noted in left lower abdomen with continued dark red drainage. Bowel sounds decreased but present. Extremities: Peripheral pulses intact. No clubbing, cyanosis, or edema. Neurologic: Cranial nerves grossly intact. No focal deficits identified. Psychiatric: Normal mood and affect. Awake, alert, oriented x3. Skin: No new rashes or lesions identified. ASSESSMENT AND PLAN: 1. Pelvic abscess, likely pericolonic. Patient with history of Crohn's and previously diagnosed fistula which is the likely source. On Zosyn and status post interventional radiology drainage of abscess with drain placement but still having low-grade fevers. Clinically stable. Will ask for Infectious Disease opinion and if fevers persist then will consider repeat CT scan. Drain cultures growing gram-negative rods. 2. Crohn disease. Patient reports improvement in her disease prior to admission on Remicade. Monitor. 3. Atrial fibrillation, occasional elevations in heart rate but has been largely rate controlled on current medications. Continue to monitor. 4. Hypertension well controlled on home hydrochlorothiazide, spironolactone, Lasix, metoprolol. Continue to monitor. 5. Diabetes mellitus. Some elevated sugars today but has not received any insulin in the last 24 hours. Will see what the sliding scale does. Holding home insulin currently as it seems likely that 85 units of long-acting would be too much at this point. Continue to monitor sugars. 6. Cirrhosis. Liver function tests normal. Monitor. 7. Possible urinary tract infection should be treated adequately by the Zosyn she is on for her abscess. Urine culture pending. 8. Hyperlipidemia. Continue home statin.
[2018-10-14] MEDS ORDERED: ZOSYN 4.5 GM in NS 100 ML IV SCH (16:07)
[2018-10-14 16:51] LABS: BASO# 0.01 X1000 (0.0-0.2); BASO% 0.1 % (0.0-0.8); EOS# 0.06 X1000 (0.0-0.7); EOS% 0.8 % (0.0-10.0); HEMATOCRIT 23.8 % (37.0-47.0); HEMOGLOBIN 7.2 g/dL (12.0-16.0); IMM GRAN# 0.04 X1000 (0.0-0.04); IMM GRAN% 0.5 % (0.0-0.5); LYMPH# 0.54 X1000 (1.2-3.4); MCH 25.1 PG (27-31); MCHC 30.3 g/dL (33-37); MCV 82.9 FL (81-99); MONO# 0.54 X1000 (0.11-0.59); MPV 8.7 FL (7.4-10.4); NEUT# 6.55 X1000 (1.4-6.5); NEUT% 84.6 % (42.2-75.2); PLT 275 X1000 (130-400); RBC 2.87 XMIL (4.2-5.4); RDW 19.3 % (11.5-14.5); WBC 7.74 X1000 (4.8-10.8)
[2018-10-14] MEDS ORDERED: ZOSYN 3.375 GM in NS 100 ML IV SCH (17:00)
[2018-10-14 17:04] LABS: CALCIUM 8.2 mg/dL (8.8-10.2); CREATININE 1.5 mg/dL (0.5-0.9); POTASSIUM 4.3 mmol/L (3.5-5.1)
--- NOTE | 2018-10-14 17:55 | INFECTIOUS DISEASE CONSULT REP ---
DATE: 10/14/2018 CONCLUSION: The patient has a pelvic abscess which has been drained and the patient is on good antibiotic coverage with Zosyn, but the patient still continues to have fever. The abscess has been drained now, and I think that will help bring the patient's fever down. Also, the identity of the gram-negative catrina organism isolated from the abscess will help to see if she is on an appropriate antibiotic in Zosyn, which I suspect will be very appropriate for it. RECOMMENDATIONS: For now, I think we can continue with Zosyn and wait and see what the identity of the organism is, and also waiting a day or 2 will help to drain the abscess, which should bring down the fever. In view of the patient's many infections, I am going to check her immunoglobulins. DISCUSSION: The patient was admitted the hospital with left lower quadrant pain and fever. She was found on CT scan to have a pelvic abscess. This was drained percutaneously. The gram- negative rods are growing from the patient's abscess. The patient has been receiving Zosyn. DIAGNOSTIC STUDIES: Laboratory studies thus far show a CBC with a white count of 8740, hemoglobin 7.3, and platelet count 271,000. The patient's creatinine is 1.5, GFR is 36, the patient's glucose is 124. Liver function studies are normal. Urinalysis shows white cells, but no bacteria. The patient's abdominal abscess as mentioned above are growing gram-negative rods. Blood cultures are sterile. The Gram stain of the abdominal abscess showed gram-negative rods and gram-positive cocci. PAST MEDICAL HISTORY/REVIEW OF SYSTEMS: Eyes and Ears: She does not have any trouble seeing or hearing. Neck: No pain with movement of the neck. Respiratory: No cough or shortness of breath. Cardiac: No chest pain or palpitations. Gastrointestinal: No nausea or vomiting. Genitourinary: No dysuria or flank pain. Neurologic: No seizures. No loss of motor or sensory function recently. Integument: No rash. OBSTETRICAL/GYNECOLOGICAL HISTORY: She is a 3, para 2, AB1. She has had a tubal ligation. PREVIOUS HOSPITALIZATIONS AND OPERATIONS: The patient has had labor and delivery, a miscarriage, a tubal ligation. She has also had a partial right nephrectomy and a total left nephrectomy with left ureteral excision. She has also had placement of a Port-A-Cath. MEDICAL DISEASES: Include atrial fibrillation, hypertension, diabetes mellitus, hyperlipidemia, Crohn's disease, left ureteral cancer, and renal cell cancer. 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 INFECTIOUS DISEASE HISTORY: Positive for urinary tract infection, pelvic abscess, and pneumonia. FAMILY HISTORY: Positive for diabetes mellitus, hypertension, stroke, and cancer. SOCIAL HISTORY: [place] She is . She has cats for pets. 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 ALLERGIES: She is allergic to sulfa HOME MEDICATIONS: Include the following: Allopurinol, Eliquis, Lipitor, Bentyl, digoxin, Lexapro, estradiol, furosemide, gabapentin, mesalamine, metformin, metoprolol, Zofran, oxycodone, spironolactone/hydrochlorothiazide, and Desyrel. PHYSICAL EXAMINATION: Vital Signs: Temperature is 98.8 degrees, pulse 115, respirations 20, blood pressure 153/65. Height/weight: Patient is 5 feet 7 inches tall. She weighs 303 pounds. General: This is an obese, middle-aged female. She is in no acute distress. Head, Eyes, Ears, Nose, and Throat: She can hear my spoken words and see near objects. She does not have any white coating on her tongue. There is no drainage from her nose or ears. Neck: There is no pain when she moves her head. Lungs: Clear to auscultation. Cardiovascular: Regular heart rate. Thorax: The patient has a Port-A-Cath in place. The site is not red or swollen. Abdomen: Soft and nontender. In the left lower quadrant, there is a drain in place, draining the pelvic abscess. The drainage is a dark brown in color. Neurologic: Patient is alert. She can move her extremities. There is no tremor. Her sensation is intact to touch. Her memory as regarding her medical history is intact. Thank you for the consult. cc: Drew Aceves MD
[2018-10-14] MEDS: DESYREL PO SCH (21:45)
[2018-10-14] MEDS: LANOXIN PO SCH (21:51)
[2018-10-15] MEDS: HUMALOG SUBQ SCH ×3 (01:13→19:00)
[2018-10-15] MEDS: PERCOCET-5 PO PRN ×5 (04:18→20:58)
[2018-10-15] MEDS: TYLENOL PO PRN (04:18)
[2018-10-15] MEDS: ZOSYN 3.375 GM in NS 50 ML IV SCH ×3 (04:28→19:53)
[2018-10-15 06:18] LABS: EOS# 0.07 X1000 (0.0-0.7); EOS% 1.2 % (0.0-10.0); HEMATOCRIT 22.2 % (37.0-47.0); HEMOGLOBIN 6.6 g/dL (12.0-16.0); IMM GRAN# 0.02 X1000 (0.0-0.04); IMM GRAN% 0.3 % (0.0-0.5); LYMPH# 0.65 X1000 (1.2-3.4); LYMPH% 11.1 % (20.5-51.1); MCH 24.7 PG (27-31); MCHC 29.7 g/dL (33-37); MCV 83.1 FL (81-99); MONO# 0.57 X1000 (0.11-0.59); MONO% 9.7 % (1.7-9.3); NEUT# 4.54 X1000 (1.4-6.5); NEUT% 77.7 % (42.2-75.2); PLT 252 X1000 (130-400); RBC 2.67 XMIL (4.2-5.4); RDW 19.3 % (11.5-14.5); WBC 5.85 X1000 (4.8-10.8)
[2018-10-15 06:34] LABS: ALB/GLOB RATIO 0.4; ALBUMIN 1.7 g/dL (3.5-5.0); CALCIUM 7.6 mg/dL (8.8-10.2); CREATININE 1.4 mg/dL (0.5-0.9); POTASSIUM 4.2 mmol/L (3.5-5.1); TOTAL BILIRUBIN 0.22 mg/dL (0.20-1.00)
[2018-10-15 06:35] LABS: INR 1.2; PROTIME 16.1 Seconds (11.0-16.0); PTT 35.8 Seconds (22.3-41.8)
--- NOTE | 2018-10-15 07:45 | Diag Imaging Result Doc PS360 ---
EXAM: CHEST-1 VIEW 10/15/2018 HISTORY: sepsis screen TECHNIQUE: AP portable upright at 0702 COMMENT: Considering differences in technique there has been some improvement in subsegmental atelectasis in the left upper lobe but otherwise are has been no appreciable change since 09/09/2018. IMPRESSION: Improved atelectasis. Electronically signed by Clayton Linn 10/15/2018 7:43 AM
[2018-10-15] MEDS: LIPITOR PO SCH (08:40)
[2018-10-15] MEDS: BENTYL PO SCH ×2 (08:41→20:57)
[2018-10-15] MEDS: ALDACTAZIDE 25/25 PO SCH (08:41)
[2018-10-15] MEDS: ZYLOPRIM PO SCH (08:41)
[2018-10-15] MEDS: LIALDA PO SCH (08:41)
[2018-10-15] MEDS: LEXAPRO PO SCH (08:42)
[2018-10-15] MEDS: LOPRESSOR PO SCH ×2 (08:42→20:57)
[2018-10-15] MEDS: LASIX PO SCH (08:42)
[2018-10-15] MEDS: NEURONTIN PO SCH ×3 (08:43→16:32)
[2018-10-15] MEDS: KLOR-CON POWDER PACKET PO SCH ×2 (08:43→20:57)
[2018-10-15] MEDS ORDERED: VANCOMYCIN IV PER PHARMACY MISC SCH (13:15)
[2018-10-15] MEDS ORDERED: VANCOMYCIN 1,800 MG in NS 500 ML IV SCH (14:00)
--- NOTE | 2018-10-15 14:08 | PROGRESS NOTE ---
DATE: 10/15/2018 INTERVAL HISTORY: The patient with worsening fevers this morning. Not really any new symptoms other than the fever itself. Denies nausea or vomiting, cough, dyspnea, dysuria, diarrhea. Abdominal drain still in place and draining dark red fluid. No new complaints. No other acute events overnight. REVIEW OF SYSTEMS: Twelve point review of systems negative, except as per interval history. LABS: WBC is 5.8, hemoglobin 6.6, hematocrit 22.2, platelets 252. Sodium 129, potassium 4.2. BUN 20, creatinine 1.4, glucose 148, lactate is 1.5 and repeat 1.3. OBJECTIVE: Vitals: T-max 102.9 degrees, pulse 128, respirations 18, blood pressure 150/80, O2 saturation 97% on room air. General: On physical examination, no acute distress. Vitals: As above. HEENT: Normocephalic, atraumatic. Moist mucous membranes. Neck: No cervical adenopathy. Cardiovascular: Irregular and slightly tachycardic. No murmurs noted. Port in right upper chest with no erythema, fluctuance, induration, or other sign of infection. Pulmonary: Clear to auscultation bilaterally. No wheezing, rales or rhonchi. Abdomen: Soft, nontender, aside from right around drain. Drain noted in left lower quadrant with continued reddish drainage. Extremities: Peripheral pulses intact. No clubbing, cyanosis or edema. Neurologic: Cranial nerves are grossly intact. No focal deficits identified. Psychiatric: Normal mood and affect. Awake, alert and oriented x3. Skin: No new rashes or lesions identified. ASSESSMENT AND PLAN: 1. Pelvic abscess, likely pericolonic. Patient with history of Crohn and previously-diagnosed fistula, which is the likely source. Remains on Zosyn currently. Status post IR drainage of abscess with drain placement. She is having low-grade fevers, but these fevers are worsening today as below. Clinically stable with no new symptoms, but given ongoing fever and tachycardia, we are repeating blood cultures and adding vancomycin. Infectious Disease consulted yesterday. We will await further recommendations from them. Drain cultures growing Escherichia coli sensitive to Zosyn. Original blood cultures negative so far. 2. Sepsis. Patient with worsening fevers and tachycardia as above. Checking blood cultures. Lactate times two normal. Port site looks good, but there is some concern for possible port infection. Adding vancomycin to Zosyn above until further determination can be made. 3. Crohn disease. Patient reports improvement in her disease prior to admission on Remicade. Monitor. 4. Atrial fibrillation. Some elevations in heart rate associated with fevers, but otherwise has been reasonably controlled. If heart rate remains persistently elevated, then may have to ask Cardiology to see her. Holding home diuretics for now. 5. Hypertension has been well controlled on home hydrochlorothiazide, spironolactone Lasix, metoprolol. Holding diuretics for now given fever and tachycardia. Continue to monitor. 6. Cirrhosis. Liver function tests normal. Monitor. 7. Possible urinary tract infection. Should be treated actually by the Zosyn she is using for abscess. 8. Hyperlipidemia. Continue home statin.
[2018-10-15] MEDS ORDERED: NS 500 ML ONE (15:34)
--- NOTE | 2018-10-15 16:31 | GASTROENTEROLOGY PROGRESS NOTE ---
DATE: 10/15/2018 SUBJECTIVE: Patient states she does not feel well today. She has had a fever up to 102.9. She had an interventional radiology drainage of abscess and drain placement. She is on Zosyn. Patient has also been seen by Dr. Aceves. OBJECTIVE: Vital Signs: Temperature 102.9 degrees, pulse 128, respirations 18, blood pressure 150/80. General: Patient is awake and alert. She states she does not feel well today due to fever. Still has some pain on the left lower quadrant. Abdomen with drainage tube in place with dark red drainage noted in bag. LABORATORY AND HEMATOLOGY: WBC 5.85, hemoglobin 6.6, hematocrit 22.2, MCV 83.1, platelets 252,000. Chemistry: Sodium 129, potassium 4.2, chloride 97, CO2 of 23, BUN 20, creatinine 1.1, glucose 148. Total bilirubin 0.22, AST 23, ALT 22, alkaline phosphatase 78. ASSESSMENT AND PLAN: 1. Pelvic abscess, history of Crohn's disease and history of fistula. Patient has had an interventional radiology drainage of the abscess and drain placed. She has had fevers up to 102.9 today. She is being followed with Infectious Disease on antibiotics. Microbiology showed Escherichia coli and gram-positive cocci. 2. Crohn's disease on Remicade. 3. Other medical problems including atrial fibrillation, hypertension, diabetes, hyperlipidemia, possible cirrhosis. PLAN: We will continue to follow during the hospital course. Further plans will be made according to her progress. Continue to follow with infectious disease for antibiotic coverage. I have discussed this case with Dr. Westbrook. Dictated by PETER Doyle for Tito Westbrook MD cc: PETER Chaudhry MD
[2018-10-15 17:25] LABS: URINE SOURCE CLEAN CATCH
[2018-10-15 17:31] LABS: BILIRUBIN URINE NEGATIVE (NEGATIVE); BLOOD URINE SMALL (NEGATIVE); COLOR YELLOW; GLUCOSE URINE NEGATIVE (NEGATIVE); KETONE URINE NEGATIVE (NEGATIVE); LEUKOCYTES URINE MODERATE (NEGATIVE); NITRITE URINE NEGATIVE (NEGATIVE); PROTEIN URINE NEGATIVE (NEGATIVE); SP GRAVITY URINE 1.003; TURBIDITY URINE CLEAR (CLEAR); UROBILINOGEN URINE NORMAL (NORMAL)
[2018-10-15 17:32] LABS: UR EPITHELIAL CELLS <10 /HPF (<10); URINE BACTERIA NEGATIVE /HPF; URINE RBC <10 /HPF (<10)
[2018-10-15] MEDS: DESYREL PO SCH (20:57)
[2018-10-15] MEDS: LANOXIN PO SCH (21:01)
[2018-10-16] MEDS: PERCOCET-5 PO PRN ×6 (02:00→22:20)
[2018-10-16] MEDS: ZOSYN 3.375 GM in NS 50 ML IV SCH (02:59)
[2018-10-16 06:34] LABS: BASO# 0.01 X1000 (0.0-0.2); BASO% 0.2 % (0.0-0.8); EOS# 0.14 X1000 (0.0-0.7); EOS% 2.1 % (0.0-10.0); HEMATOCRIT 23.7 % (37.0-47.0); HEMOGLOBIN 7.4 g/dL (12.0-16.0); IMM GRAN# 0.09 X1000 (0.0-0.04); IMM GRAN% 1.4 % (0.0-0.5); LYMPH% 10.6 % (20.5-51.1); MCH 25.9 PG (27-31); MCHC 31.2 g/dL (33-37); MCV 82.9 FL (81-99); MPV 9.1 FL (7.4-10.4); NEUT# 5.09 X1000 (1.4-6.5); NEUT% 76.7 % (42.2-75.2); PLT 175 X1000 (130-400); RBC 2.86 XMIL (4.2-5.4); WBC 6.63 X1000 (4.8-10.8)
[2018-10-16 06:51] LABS: CALCIUM 8.2 mg/dL (8.8-10.2); CREATININE 1.3 mg/dL (0.5-0.9); POTASSIUM 4.4 mmol/L (3.5-5.1)
[2018-10-16] MEDS: KLOR-CON POWDER PACKET PO SCH ×2 (08:21→22:25)
[2018-10-16] MEDS: BENTYL PO SCH ×2 (08:21→22:23)
[2018-10-16] MEDS: LEXAPRO PO SCH (08:21)
[2018-10-16] MEDS: ZYLOPRIM PO SCH (08:21)
[2018-10-16] MEDS: LOPRESSOR PO SCH ×2 (08:22→22:24)
[2018-10-16] MEDS: MAXIPIME 2 GM in NS 100 ML IV SCH ×2 (08:22→22:00)
[2018-10-16] MEDS: NEURONTIN PO SCH ×3 (08:22→17:23)
[2018-10-16] MEDS: HUMALOG SUBQ SCH ×4 (08:30→16:02)
[2018-10-16] MEDS ORDERED: TYGACIL 50 MG in NS 50 ML IV SCH (09:00)
--- NOTE | 2018-10-16 09:06 | PROGRESS NOTE ---
DATE: 10/16/2018 SUBJECTIVE: The patient notes that she is feeling fine. Denies any current complaints. No further events. PHYSICAL EXAMINATION: Vital Signs: Temperature 97.9, pulse 87, respiratory rate 18, BP 96/72. General: The patient is a morbidly obese female who is pleasant. She is sitting up in bed, watching television, waiting for breakfast to arrive. HEENT: Normocephalic. Neck: Supple. Cardiovascular: Regular rate. No murmurs. Chest: Clear, nonlabored. Abdomen: Soft, nontender. Drain noted. Extremities: No edema. Moves all extremities. Neurologic: No focal changes. She is awake, alert, and oriented. ASSESSMENT: 1. Pelvic abscess in a patient with a known history of Crohn's and a previously diagnosed fistula. 2. Sepsis with fever and tachycardia. 3. Crohn's disease. 4. Atrial fibrillation. 5. Wound culture with Escherichia coli, extended spectrum beta-lactamase negative, currently on Zosyn, and new culture with Enterococcus faecium, vancomycin resistant. Therefore, we will stop vancomycin, and place her on Tigicillin. Will talk with Infectious Disease about further changes. 6. Cirrhosis. 7. Hypertension. 8. Morbid obesity. cc: Rafita Vallejo MD MTDD
--- NOTE | 2018-10-16 09:23 | INFECTIOUS DISEASE PROGRESS NO ---
DATE: 10/16/2018 The patient's pelvic abscess grew E coli and Enterococcus faecium. I have switched the patient from tigecycline and Zosyn to a combination of daptomycin and Maxipime. I have discontinued atorvastatin because it can interact with daptomycin and increase the risk of muscle toxicity. cc: Drew Aceves MD
[2018-10-16] MEDS: LIALDA PO SCH (09:50)
[2018-10-16] MEDS: CUBICIN 800 MG in NS 100 ML IV SCH (09:51)
--- NOTE | 2018-10-16 14:05 | GASTROENTEROLOGY PROGRESS NOTE ---
DATE: 10/16/2018 The patient is resting comfortably. She has not had any fever since yesterday. She is currently on antibiotic Zosyn. She denies any new complaints.Vital signs: Temperature 98.1 degrees, pulse 113 per minute, breathing 24, blood pressure 137/83. Abdomen: Has got the pigtail drain present otherwise slightly tender, no mass or visceromegaly noted. Bowel sounds are audible. LABS: Reviewed which showed WBC is down to 6.63, hemoglobin 7.4, hematocrit 23.7, MCV 82.5, platelets 175,000. IMPRESSION: Pelvic abscess secondary to Crohn disease and fistula. She is currently on multiple antibiotic for Escherichia coli and enterococcus faecium. No new suggestion from GI perspective. She will be due for her Remicade in November. At this point I would continue current treatment as per suggestion by Dr. Aceves, the infectious disease on board. Will follow. cc: Tito Westbrook MD MTDD
[2018-10-16] MEDS: DESYREL PO SCH (22:23)
[2018-10-16] MEDS: LANOXIN PO SCH (22:26)
[2018-10-17] MEDS: HUMALOG SUBQ SCH ×5 (01:38→21:45)
[2018-10-17] MEDS: PERCOCET-5 PO PRN ×5 (03:49→21:42)
[2018-10-17 06:00] LABS: HEMATOCRIT 23.3 % (37.0-47.0); MCH 25.1 PG (27-31); MCV 83.5 FL (81-99); MPV 8.5 FL (7.4-10.4); RBC 2.79 XMIL (4.2-5.4); RDW 18.8 % (11.5-14.5); WBC 7.1 X1000 (4.8-10.8)
[2018-10-17 06:19] LABS: ALB/GLOB RATIO 0.5; ALBUMIN 1.9 g/dL (3.5-5.0); CALCIUM 8.2 mg/dL (8.8-10.2); CREATININE 1.3 mg/dL (0.5-0.9); MAGNESIUM 1.9 mg/dL (1.5-2.7); POTASSIUM 4.3 mmol/L (3.5-5.1); TOTAL BILIRUBIN 0.24 mg/dL (0.20-1.00)
[2018-10-17] MEDS: MAXIPIME 2 GM in NS 100 ML IV SCH ×2 (08:00→21:44)
[2018-10-17] MEDS: LEXAPRO PO SCH (08:58)
[2018-10-17] MEDS: KLOR-CON POWDER PACKET PO SCH ×2 (08:58→21:45)
[2018-10-17] MEDS: LIALDA PO SCH (08:58)
[2018-10-17] MEDS: LOPRESSOR PO SCH ×2 (08:58→21:37)
[2018-10-17] MEDS: ZYLOPRIM PO SCH (08:58)
[2018-10-17] MEDS: CUBICIN 800 MG in NS 100 ML IV SCH (08:58)
[2018-10-17] MEDS: BENTYL PO SCH ×2 (08:58→21:44)
[2018-10-17] MEDS: NEURONTIN PO SCH ×3 (08:59→18:11)
--- NOTE | 2018-10-17 12:50 | PROGRESS NOTE ---
DATE: 10/17/2018 SUBJECTIVE: Patient reports he is still complaining of abdominal pain in the left quadrant. No fever over the last 24 hours. OBJECTIVE: Vital Signs: Temperature 98 degrees, heart rate 116, respiratory rate 21, blood pressure 124/58, and O2 saturation 96% on room air. General: This is a morbidly obese and chronically ill appearing 52-year-old female lying in bed in no acute distress. HEENT: Head is normocephalic and atraumatic. Neck: No JVD noted. No carotid bruits. No lymphadenopathy. No thyromegaly. Cardiovascular: S1, S2 heard. Irregularly irregular. No murmurs, gallops, or rubs noted. Slightly tachycardic. There is a port in the right upper chest with no erythema, fluctuance or induration. Respiratory: Clear bilaterally to auscultation. No work of breathing or using accessory muscles. Abdomen: Soft. Mildly tender to palpation in the left lower quadrant aside from the right drain. Drain continues to have brownish drainage. Extremities: No clubbing, cyanosis, or edema. Peripheral pulses present in both legs. Neurological: Patient is alert and oriented x3. Moves 4 extremities. Cranial nerves 2-12 grossly normal. LABORATORY DATA: White cell count 7.1, hemoglobin 10, hematocrit 33.3 and platelets 266,000. BMP remarkable for sodium 125, creatinine 1.3, glucose 124 and albumin 1.9. ASSESSMENT AND PLAN: 1. Pelvic abscess. Patient has history of chronic disease. The patient had CT-guided incision and drainage. It looks like there is definitely less drainage noted. Considering that she had recent fever yesterday and also shrimp peeling machine tender to palpation in that left lower quadrant, I prefer to go ahead and check a CT of the abdomen with and without contrast to check how this abscess looks like. Dr. Aceves from Infectious Disease has changed antibiotics to daptomycin and cefepime. Today is day #2 of that treatment. The drain cultures grew E. Coli and also Enterobacter. 2. Crohn's disease. The patient is stable. GI is following this patient. She is on Remicade due next month of November. We will continue to monitor. 3. Atrial fibrillation. Heart rate is under control. We will continue with same management. 4. Hypertension well controlled with current medications. In this case, Lasix, spironolactone and hydrochlorothiazide. 5. Liver cirrhosis. Liver function is normal. 6. Hyperlipidemia. The patient has been held statin because it can interact with daptomycin. At this point, that medication is not going to be given to this patient. 7. Disposition. At this point, we will continue to monitor this patient. We will see what the CT scan shows. cc: Devaughn Joya MD
--- NOTE | 2018-10-17 15:36 | INFECTIOUS DISEASE PROGRESS NO ---
DATE: 10/17/2018 PRESENT ILLNESS: Ms Koch is being treated for a pelvic abscess which has grown a vancomycin-resistant Enterococcus and Escherichia coli. She is complaining of a vaginal yeast infection today. MEDICATIONS: Yesterday she was started on daptomycin 800 mg IV every 24 hours and cefepime 2 g IV every 12 hours. PHYSICAL EXAMINATION: Vital Signs: Temperature is 99.7 degrees, pulse rate 118, respiratory rate 18, blood pressure 124/85, O2 saturation 95% on room air. General: This is a chronically ill- appearing morbidly obese female. She is lying in bed currently in no acute distress. HEENT: Atraumatic, normocephalic. Oral mucous membranes are pink and moist. Conjunctivae are pale. Neck: Supple. Trachea is midline. Cardiovascular: Irregularly irregular. Atrial fibrillation on the monitor. Respiratory: Lung sounds are clear in the upper lobes. There are some rales noted to the left lower lobe and diminished in the bases bilaterally. Abdomen: Soft, obese, nontender on the right, extremely tender on the left where there is an accordion drain with cloudy brown drainage in the bag. Extremities: She has 2+ pitting edema pretibially. Integumentary: There is a right chest Port-A-Cath, site is without edema, erythema or drainage. Neuro: She is awake, alert and oriented. LABORATORY AND X-RAY: Today her white count is 7.1, hemoglobin 7.0, and she is receiving a blood transfusion at this time. Platelet count is 266,000, creatinine 1.3, GFR 43, total bilirubin is 0.24, AST 23, ALT 27, alkaline phosphatase 95. Her abdominal culture has grown Escherichia coli and vancomycin- resistant enterococcus. No imaging reports today. ASSESSMENT AND PLAN: Ms. Koch has vancomycin-resistant Enterococcus and Escherichia coli growing from her pelvic abscess. Yesterday she was switched to daptomycin and cefepime which we will continue. She is also complaining of vaginal burning which we will treat with clotrimazole cream at bedtime. These plans have been discussed with and recommended by Dr. Aceves. COMORBIDITIES: Include that she is morbidly obese with Crohn's disease and a fistula. She is also anemic with atrial fibrillation, diabetes mellitus and stage III chronic kidney disease. Dictated by PETER Salgado for Drew Aceves MD cc: Drew Aceves MD MTDD
[2018-10-17] MEDS: ZOFRAN IV PRN (18:10)
[2018-10-17] MEDS: NS 1,000 ML IV SCH (18:23)
--- NOTE | 2018-10-17 18:29 | GASTROENTEROLOGY PROGRESS NOTE ---
DATE: 10/17/2018 SUBJECTIVE: Patient is now in isolation for a vancomycin-resistant enterococcus and Escherichia coli from her pelvic abscess. Dr. Aceves is following and has adjusted her antibiotics. Patient complains of not being able to sleep. OBJECTIVE: Vital Signs: Temperature 99.2, pulse 118, respirations 20, blood pressure 164/69. General: Patient is awake and alert, in no acute distress. LABORATORY: Hematology: WBC 7.10, hemoglobin 7.0 hematocrit 23.3, MCV 83.5. Chemistry: Sodium 125, potassium 4.3, chloride 97, CO2 of 22, BUN 19, creatinine 1.3, glucose 124. ASSESSMENT AND PLAN: 1. Pelvic abscess with vancomycin resistant enterococcus ad Escherichia coli, continuing antibiotics. Continue recommendations by Dr. Aceves. 2. Crohn disease. The patient had been started on Remicade. 3. Other medical problems, including history of atrial fibrillation, hypertension, liver cirrhosis, hyperlipidemia. 4. GI I will continue to follow and further plans will be made according to her progress. 5. I have discussed this case with Dr. Westbrook. Dictated by PETER Doyle for Tito Westbrook MD cc: PETER Chaudhry MD
[2018-10-17] MEDS: LANOXIN PO SCH (21:37)
[2018-10-17] MEDS: DESYREL PO SCH (21:44)
[2018-10-18] MEDS: GYNE-LOTRIMIN VAGINAL CREAM VAG SCH (01:46)
[2018-10-18] MEDS: PERCOCET-5 PO PRN ×5 (03:12→20:24)
[2018-10-18 06:28] LABS: BASO# 0.01 X1000 (0.0-0.2); BASO% 0.1 % (0.0-0.8); EOS# 0.08 X1000 (0.0-0.7); HEMATOCRIT 24.5 % (37.0-47.0); HEMOGLOBIN 7.5 g/dL (12.0-16.0); IMM GRAN# 0.08 X1000 (0.0-0.04); LYMPH# 0.71 X1000 (1.2-3.4); LYMPH% 8.5 % (20.5-51.1); MCH 25.5 PG (27-31); MCHC 30.6 g/dL (33-37); MCV 83.3 FL (81-99); MONO# 0.76 X1000 (0.11-0.59); MONO% 9.1 % (1.7-9.3); MPV 8.6 FL (7.4-10.4); NEUT% 80.3 % (42.2-75.2); PLT 262 X1000 (130-400); RBC 2.94 XMIL (4.2-5.4); RDW 18.6 % (11.5-14.5); WBC 8.34 X1000 (4.8-10.8)
[2018-10-18] MEDS: HUMALOG SUBQ SCH ×3 (06:49→17:25)
[2018-10-18 06:52] LABS: CALCIUM 8.5 mg/dL (8.8-10.2); CREATININE 1.4 mg/dL (0.5-0.9); POTASSIUM 5.2 mmol/L (3.5-5.1)
[2018-10-18] MEDS: LIALDA PO SCH (08:23)
[2018-10-18] MEDS: LOPRESSOR PO SCH ×2 (08:24→20:35)
[2018-10-18] MEDS: ZYLOPRIM PO SCH (08:24)
[2018-10-18] MEDS: NEURONTIN PO SCH ×3 (08:25→17:25)
[2018-10-18] MEDS: BENTYL PO SCH ×2 (08:25→20:35)
[2018-10-18] MEDS: LEXAPRO PO SCH (08:25)
[2018-10-18] MEDS: MAXIPIME 2 GM in NS 100 ML IV SCH ×2 (08:26→20:35)
[2018-10-18] MEDS: KLOR-CON POWDER PACKET PO SCH (08:26)
[2018-10-18] MEDS: ZOFRAN IV PRN (10:16)
--- NOTE | 2018-10-18 10:28 | PROGRESS NOTE ---
DATE: 10/18/2018 SUBJECTIVE: Patient reports having had fever last night. We have checked and she had 101.2 temperature. Reports tenderness in the left lower quadrant is better. No other complaints noted. OBJECTIVE: Vital Signs: Temperature 98.1, heart rate 87, respiratory rate 19, blood pressure 126/61, O2 saturation 100% on room air. General: This is the morbidly obese, 52-year-old female lying in bed, in no acute distress. HEENT: Head is normocephalic, atraumatic. Neck: No JVD noted. No carotid bruits. No lymphadenopathy. No thyromegaly. Cardiovascular: S1, S2 heard. Irregularly irregular. No murmurs, gallops, or rubs noted. There is a port catheter in the right upper chest with no erythema, fluctuance or induration. Respiratory: Clear bilaterally to auscultation. No work of breathing or using accessory muscles. Abdomen: Soft. A little bit tender to palpation in the left lower quadrant next to the drain which has no drainage during the last 48 hours. Extremities: No clubbing, cyanosis, or edema. Peripheral pulses present in both legs. Neurological: Patient is alert and oriented x3. Moves 4 extremities. LABORATORY DATA: White cell count 8.34, hemoglobin 7.5, hematocrit 24.5, platelets 262,000 with BMP that shows sodium 128, potassium 5.2. ASSESSMENT AND PLAN: 1. Pelvic abscess. The patient had a CT-guided incision and drainage of that abscess performed by interventional radiologist. For the last 48 hours there has not been any drainage noted. Considering that she has an episode of fever yesterday and mildly tender to palpation around that area, I prefer to go ahead and do a CT of the abdomen and pelvis with and without contrast. Dr. Aceves is directing antibiotics. Currently, she is receiving daptomycin and cefepime for vancomycin resistant Enterococcus. Today is day #3 of treatment. We will continue with the same management. 2. Crohn's disease. The patient is stable. The patient is on Remicade she is due for her next dose in November at the beginning. We will continue to monitor. 3. Atrial fibrillation. Heart rate is under control. We will continue with same management. 4. Hypertension. Blood pressure is under control. We will continue with same medications, Lasix, spironolactone and hydrochlorothiazide. 5. Liver cirrhosis. Aware. 6. Hyperlipidemia, aware. 7. Disposition. At this point, we will see what the CT scan shows and will go from there. cc: Devaughn Joya MD
--- NOTE | 2018-10-18 11:36 | Diag Imaging Result Doc PS360 ---
EXAM: CT ABD/PELVIS W/PO AND IV CON 10/18/2018 HISTORY: pelvic abscess TECHNIQUE: This exam was performed using automated exposure control, adjustment of mA or kV according to patient size, and/or use of iterative reconstruction technique. COMMENT: The current study is compared with 10/11/2018. There are platelike opacities present in both lower lobes which are similar in appearance to the previous study and most likely represent atelectasis. There is edema in the subcutaneous fat in both flanks. This was not as severe on the previous examination. The spleen is enlarged measuring over 17.5 cm. This is slightly larger than the 17.1 cm on the previous study. There is marked beam hardening artifact over the abdomen which was not the case previously presumably secondary to the subcutaneous edema. There is stool in the colon. The aorta is not distended. There are atherosclerotic calcifications. The mesenteric and right renal arteries appear to be patent. There is a fluid collection in what appears to be a small ventral hernia superiorly. The liver is nodular in contour consistent with cirrhosis. There has been cholecystectomy. There are some calcifications in the anteromedial inferior right renal capsule which may be due to previous surgery. The pancreas is stable in appearance. There is enlargement of the medial lobe of the right adrenal gland which has not changed significantly since the previous study. There is no evidence of bowel obstruction. Multiple subcentimeter retroperitoneal nodes are present in the periaortic region below the level of the renal vessels. This was also the case previously. Pelvis: There is a large amount of stool present in the colon. The appendix is normal in caliber. There is worsened subcutaneous edema. There is an abscess in the anterior left lateral pelvic wall which has been previously drained with pigtail catheter. This is essentially unchanged in size if not slightly larger than it was. There is also a gas containing fluid collection extending from the area of the iliac crest on the left and iliac fossa caudally to about the level of the other abscess begins. This is very likely in contact with if not contiguous with the sigmoid colon. The possibility of a fistulous connection between the abscesses and the sigmoid colon is suspected. There is some gas in the urinary bladder which is slightly more distended than it was on the previous study. There is also gas in the bladder at that time. Unless there has been instrumentation of the bladder recently, the possibility of a colovesical fistula should be considered. The regional skeleton is stable in appearance. IMPRESSION: Pelvic abscesses which may be fistulously connected to the sigmoid colon. Gas in the urinary bladder which may indicate a colovesical fistula. Worsening anasarca. Electronically signed by Clayton Linn 10/18/2018 11:34 AM
[2018-10-18] MEDS: TYLENOL PO PRN (11:37)
[2018-10-18] MEDS: CUBICIN 800 MG in NS 100 ML IV SCH (11:48)
--- NOTE | 2018-10-18 15:27 | INFECTIOUS DISEASE PROGRESS NO ---
DATE: 10/18/2018 PRESENT ILLNESS: The patient has pelvic abscesses which appear to have a fistulous connection to the colon and the bladder. She also has Mirta vaginitis. MEDICATIONS: The patient is on a combination of daptomycin and cefepime. She also has started yesterday clotrimazole. PHYSICAL EXAMINATION: Vital Signs: Temperature is 98.2 degrees, pulse 130, respirations 20, blood pressure 120/60. General: This is an morbidly obese, ill-appearing female. She is in no acute distress. Head, eyes, ears, nose, throat: She can hear my spoken words and see near objects. She does not have any white patches on her tongue. Neck: There is no pain when the patient turns her head. Cardiovascular: The patient's heart rate is irregular. Abdomen: Soft. It is not tender. The patient has a drain in place. The left flank of the patient's abdomen is erythematous. I think this is due the fact that the patient is morbidly obese and the erythematous area is where fluid is accumulating. Neurologic: The patient is awake. She can move her extremities. There is no tremor. LAB AND X-RAY: CBC today shows a white count of 8,340, hemoglobin 7.5, and platelet count is 262,000. Creatinine is 1.4. GFR is 39. IgG and IgA levels are normal. CT scan of the pelvis shows a possible fistulous connection with the colon and the bladder. CT scan of the chest shows bibasilar atelectasis. ASSESSMENT AND PLAN: The patient has a pelvic abscess with possible fistulous connections to the bladder and colon. A drain is in place. I have consulted Dr. Ean Beckwith. For now I will continue with the daptomycin and cefepime, which is day 2 of treatment with both of those antibiotics. COMORBIDITIES: She is morbidly obese. 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 cc: Drew Aceves MD
[2018-10-18] MEDS: SODIUM CHLORIDE 0.9% INJ SCH (16:22)
[2018-10-18] MEDS: PROTONIX IV SCH (16:22)
[2018-10-18] MEDS: CULTURELLE PO SCH ×2 (16:22→20:35)
[2018-10-18] MEDS: NS 1,000 ML IV SCH (17:48)
--- NOTE | 2018-10-18 18:30 | GASTROENTEROLOGY PROGRESS NOTE ---
DATE: 10/18/2018 SUBJECTIVE: Patient states she was able to sleep a little bit last night. She is still having some fevers. She is following with Dr. Aceves for antibiotics for pelvic abscesses. At the time of my evaluation, she had just had a CT scan. CT scan results now showing pelvic abscesses which maybe fistulously connected to the sigmoid colon. There is gas in the urinary bladder which may indicate a colovesicular fistula, worsening anasarca. I believe [facility] have been consulted. OBJECTIVE: Vital Signs: Temperature 98.2 degrees, pulse 97, respirations 19, blood pressure 145/58. General: Patient is awake, alert, in no acute distress. LABORATORY: Hematology: WBC 8.34, hemoglobin 7.5, hematocrit 24.5, MCV 83.3, platelets 262,000. Chemistry: Sodium 128, potassium 5.2, chloride 100, CO2 of 23, BUN 20, creatinine 1.4, glucose 114. ASSESSMENT AND PLAN: 1. Pelvic abscess with vancomycin-resistant enterococcus and Escherichia coli. Continue on antibiotics. Following by Dr. Aceves. 2. Crohn disease. The patient had been started on Remicade. 3. Imaging. CT today showed pelvic abscesses which may be fistulously connected to the sigmoid colon with gas in the urinary bladder. [facility] has been consulted. Will continue to follow and follow [facility]'s recommendation. I have discussed this case with Dr. Westbrook. Further plans will be made as needed. Dictated by PETER Doyle for Tito Westbrook MD cc: PETER Chaudhry MD
[2018-10-18] MEDS: LANOXIN PO SCH (20:35)
[2018-10-18] MEDS: DESYREL PO SCH (20:35)
[2018-10-19] MEDS: HUMALOG SUBQ SCH ×5 (00:53→22:03)
[2018-10-19] MEDS: GYNE-LOTRIMIN VAGINAL CREAM VAG SCH ×2 (00:54→20:07)
[2018-10-19] MEDS: PERCOCET-5 PO PRN ×5 (03:09→19:56)
[2018-10-19 06:17] LABS: BASO# 0.01 X1000 (0.0-0.2); BASO% 0.1 % (0.0-0.8); EOS# 0.06 X1000 (0.0-0.7); EOS% 0.8 % (0.0-10.0); HEMATOCRIT 25.4 % (37.0-47.0); HEMOGLOBIN 7.7 g/dL (12.0-16.0); IMM GRAN# 0.09 X1000 (0.0-0.04); IMM GRAN% 1.2 % (0.0-0.5); LYMPH# 0.95 X1000 (1.2-3.4); LYMPH% 12.6 % (20.5-51.1); MCH 25.2 PG (27-31); MCHC 30.3 g/dL (33-37); MCV 83.3 FL (81-99); MONO# 0.69 X1000 (0.11-0.59); MONO% 9.1 % (1.7-9.3); MPV 8.8 FL (7.4-10.4); NEUT# 5.76 X1000 (1.4-6.5); NEUT% 76.2 % (42.2-75.2); PLT 281 X1000 (130-400); RBC 3.05 XMIL (4.2-5.4); RDW 18.7 % (11.5-14.5); WBC 7.56 X1000 (4.8-10.8)
[2018-10-19 06:43] LABS: CALCIUM 8.3 mg/dL (8.8-10.2); CREATININE 1.3 mg/dL (0.5-0.9); POTASSIUM 4.8 mmol/L (3.5-5.1)
[2018-10-19] MEDS: LOPRESSOR PO SCH ×2 (08:50→20:02)
[2018-10-19] MEDS: LEXAPRO PO SCH (08:50)
[2018-10-19] MEDS: LIALDA PO SCH (08:50)
[2018-10-19] MEDS: NEURONTIN PO SCH ×4 (08:50→16:03)
[2018-10-19] MEDS: MAXIPIME 2 GM in NS 100 ML IV SCH ×2 (08:50→20:00)
[2018-10-19] MEDS: BENTYL PO SCH ×2 (08:50→20:01)
[2018-10-19] MEDS: ZYLOPRIM PO SCH (08:50)
[2018-10-19] MEDS: CULTURELLE PO SCH ×2 (08:50→20:01)
[2018-10-19] MEDS: CUBICIN 800 MG in NS 100 ML IV SCH (09:40)
--- NOTE | 2018-10-19 12:29 | PROGRESS NOTE ---
DATE: 10/19/2018 SUBJECTIVE: The patient reports that she is still hurting from the left lower quadrant. No other issues noted. OBJECTIVE: Vital Signs: Temperature 98.5 degrees, heart rate 94, respiratory rate 16, blood pressure 123/60, O2 saturation 97% on room air. General: This is a is a chronically ill- appearing, 52-year-old, female, lying in bed in no acute distress. HEENT: Head is normocephalic, atraumatic. Neck: No JVD noted. No carotid bruits. No lymphadenopathy. No thyromegaly. Cardiovascular: S1, S2 heard. No murmurs, gallops, or rubs. Irregularly irregular heart rhythm. There is a port in the right upper chest with no erythema, fluctuance, or induration. Respiratory: Clear bilaterally to auscultation. No work of breathing or using accessory muscles. Abdomen: Soft, mildly tender to palpation in the left lower quadrant. There is a catheter in place with almost no drainage coming out from there. Extremities: No clubbing, cyanosis, or edema. Peripheral pulses present in all legs. Neurological: The patient is alert and oriented x3. Moves all 4 extremities. LABORATORY DATA: White cell count 7.56, hemoglobin 7.7, hematocrit 25.4, platelets 281. Sodium 128, creatinine 1.3. ASSESSMENT AND PLAN: 1. Pelvic abscess. The patient was admitted to the hospital for this condition. Initially, he had CT-guided incision and drainage, but apparently there was not too much drainage coming out lastly, so I decided to do another CT scan considering that she started having fever since yesterday. The CT scan basically showed an abscess that is basically unchanged with fistula, so we have consulted Dr. Beckwith from General Surgery, who has seen this patient before. The patient is going to be taken to the operating room. Will follow recommendations. Dr. Aceves from Infectious Disease is also following this patient. We have found so far, vancomycin- resistant enterococcus VRE, so currently this patient is on daptomycin and cefepime. Today is day #3 of both medications. It also grew Escherichia coli. Will continue with the same management. 2. Crohn's disease. The patient is stable. Gastroenterology is following this patient. The patient is on Remicade that she is due next month, in November. Will continue to monitor. 3. Atrial fibrillation. Heart rate is under control. Will continue with the same management. 4. Hypertension. The patient is well controlled with current medication. Will continue with the same management. 5. Liver cirrhosis. Aware. 6. Hyperlipidemia. Aware. The patient is not getting any statin because she is on daptomycin. 7. Disposition. At this point, we will follow recommendations from General Surgery regarding management of this abscess. Will monitor this patient closely. cc: Devaughn Joya MD
--- NOTE | 2018-10-19 13:59 | INFECTIOUS DISEASE PROGRESS NO ---
DATE: 10/19/2018 PRESENT ILLNESS: Ms. Koch has left-sided pelvic abscesses. Based on repeat CT scan, abscesses have fistulas connecting the sigmoid colon, and possibly the urinary bladder. There is vancomycin resistant Enterococcus and Escherichia coli growing. She also has a vaginal yeast infection. MEDICATIONS: She is on day 3 of daptomycin 800 mg IV every 24 hours and cefepime 2 grams IV every 12 hours. She has also been started on Gyne-Lotrimin vaginally at bedtime. PHYSICAL EXAMINATION: Vital Signs: Temperature is 98.5 degrees, pulse rate 94 respiratory rate 16, blood pressure 123/60. O2 saturations 97% on room air. General: This is a chronically ill- appearing, morbidly obese, middle-aged female. She is sitting up in bed, currently in no acute distress. HEENT: Atraumatic, normocephalic. Oral mucous membranes are pink and moist. Conjunctivae are pale. Neck: Supple. Trachea is midline. Respiratory: Lung sounds are clear to auscultation bilaterally. Cardiovascular: Irregularly irregular with atrial fibrillation on the monitor. Abdomen: Soft, obese and tender on the left side where there is increased edema and scattered erythematous patches as well as an accordion drain with a dressing in place to that site. Integumentary: She has a Port-A-Cath in place to the right chest without edema, erythema, or drainage to the site. Neurologic: She is awake, alert, oriented, able to ambulate with assistance. LABORATORY AND X-RAY: Today her white count is 7.56, hemoglobin 7.7, platelet count 281,000, creatinine is 1.3. GFR 43. Her previous abdominal drainage grew a vancomycin- resistant enterococcal faecium and an Escherichia coli. No imaging reports today. ASSESSMENT AND PLAN: Ms. Koch, unfortunately has had an increase in the size of her pelvic abscesses with fistulas. Today she tells me that Dr. Beckwith plans to do surgery tomorrow to clean out the area of left pelvic infection and place a larger bore drain. She is on day 3 of antibiotics, which include cefepime and daptomycin, which we will continue at this time. She has also been placed on Gyne-Lotrimin vaginally at bedtime for complaints of burning pain from vaginal yeast. These plans have been discussed with and recommended by Dr. Aceves. COMORBIDITIES: For Ms. Koch include that she is morbidly obese with diabetes mellitus, Crohn's disease, anemia, atrial fibrillation and stage III chronic kidney disease. Dictated by PETER Salgado for Drew Aceves MD cc: Drew Aceves MD [facility]
--- NOTE | 2018-10-19 15:11 | GASTROENTEROLOGY PROGRESS NOTE ---
DATE: 10/19/2018 SUBJECTIVE: Patient states she still has some pain. She has been seen by Dr. Beckwith and there are plans for surgery tomorrow. She is being treated for vancomycin-resistant enterococcus and Escherichia coli pelvic abscess. OBJECTIVE: Vital Signs: Temperature 98.5 degrees, pulse 94, respirations 16, blood pressure 123/60. General: Patient is awake, alert, no acute distress. LABORATORY: Hematology: WBC 7.56, hemoglobin 7.7, hematocrit 25.4, MCV 83.3, platelets 201,000. Chemistry: Sodium 128, potassium 4.8, chloride 100, CO2 21, BUN 23, creatinine 1.3, glucose 142. ASSESSMENT AND PLAN: 1. Pelvic abscess. Patient has not had improvement. She continues to have fevers. She is being treated with antibiotics, following with Dr. Aceves. I believe there are plans for surgery tomorrow by Dr. Beckwith. Continue to follow their recommendations. 2. Crohn disease. Patient is on Remicade infusions and will be due for her next infusion in November. Will continue to follow. 3. Other medical problems, atrial fibrillation, hypertension, cirrhosis of the liver, hyperlipidemia. 4. GI will continue to be available as needed. Will follow during her hospital course and recommend she follow up with us as an outpatient after discharge. I have discussed this case with Dr. Westbrook. Dictated by PETER Doyle for Tito Westbrook MD cc: PETER Chaudhry MD
--- NOTE | 2018-10-19 19:49 | GENERAL SURGERY CONSULTATION ---
DATE: 10/19/2018 HISTORY OF PRESENT ILLNESS: This is a 52-year-old female who has an extensive medical history including obesity and cirrhosis. She also has history of Crohn disease, history of right renal cell carcinoma and left urothelial carcinoma. I have met her at several points along the way. Most recently, I was intraoperatively consulted when Dr. Coppola was performing a left nephrectomy. He encountered a coloenteric fistula that we repaired at that time. She did well from this repair and was subsequently diagnosed with Crohn disease. Since, she has had recurrent UTIs. She has also had left flank induration and pain. She was admitted and found to have left anterior abdominal wall and subcutaneous abscess concerning for a fistula and air within the bladder concerning for possible colovesicular fistula. She had a percutaneous drain placed that has not really put anything out, but it did improve to some degree the urologic symptoms. I was consulted for further management. 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 PAST SURGICAL HISTORY: She has had a liver biopsy. She has had repair of a coloenteric fistula, left nephrectomy, partial right nephrectomy. She has also had a port placed. SOCIAL HISTORY: No current tobacco, alcohol or drugs. She is . She works. FAMILY HISTORY: Reviewed and noncontributory. REVIEW OF SYSTEMS: 10 point negative other than HPI PHYSICAL EXAMINATION: On exam, she is febrile at 101.6 degrees, pulse 98, blood pressure 131/68, oxygen saturation is 98%. General: She is obese, in no acute distress. HEENT: There is no scleral icterus. No cervical mass. Cardiovascular: Normal rate. Pulmonary: No increased work of breathing. Abdomen is obese, soft. She has large pannus with induration of the left lower quadrant. Percutaneous drain with minimal feculent-appearing drainage. Integument: Warm and dry. Lower extremity edema. Psychiatric: Appropriate affect. Neurologic: No gross deficits or asterixis. LABORATORY DATA: White count is 7, hematocrit 25, platelets 281,000. Creatinine is 1.3, glucose 150s to 160s. Urinalysis on admission showed moderate leukocytes, white blood cells and small blood, but was clear on urinalysis. DIAGNOSTIC DATA: I reviewed her CT scan and her percutaneous drainage images. 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 She needs more adequate source control. It is possible she has a colovesical fistula. This is all in the setting of Crohn disease. She is on monthly infusions for this. There are numerous other issues. I have discussed options. I have recommended, as initial therapy, more definitive drainage of this in the operating room. Hopefully this one of 2 things resolves this abscess, or number 2, create a more controlled colocutaneous fistula that we can treat with an ostomy appliance. It will hopefully allow, if there is an impending fistula with the bladder, to heal. Otherwise she may require a more significant operation including colon resection, diversion and repair of fistulas. I discussed this in detail with the family. We will make her NPO at midnight and to the operating room tomorrow. cc: Rakesh Beckwith MD [facility]
[2018-10-19] MEDS: DESYREL PO SCH (20:02)
[2018-10-19] MEDS: LANOXIN PO SCH (20:02)
[2018-10-19] MEDS: PROTONIX IV SCH (22:03)
[2018-10-19] MEDS: SODIUM CHLORIDE 0.9% INJ SCH (22:03)
[2018-10-20] MEDS: PERCOCET-5 PO PRN ×3 (01:49→09:34)
[2018-10-20] MEDS: HUMALOG SUBQ SCH ×3 (06:21→16:10)
[2018-10-20 06:25] LABS: BASO# 0.01 X1000 (0.0-0.2); BASO% 0.1 % (0.0-0.8); EOS# 0.06 X1000 (0.0-0.7); EOS% 0.8 % (0.0-10.0); HEMATOCRIT 24.4 % (37.0-47.0); HEMOGLOBIN 7.4 g/dL (12.0-16.0); IMM GRAN# 0.08 X1000 (0.0-0.04); IMM GRAN% 1.1 % (0.0-0.5); LYMPH# 0.75 X1000 (1.2-3.4); LYMPH% 10.2 % (20.5-51.1); MCH 25.6 PG (27-31); MCHC 30.3 g/dL (33-37); MCV 84.4 FL (81-99); MONO# 0.55 X1000 (0.11-0.59); MONO% 7.5 % (1.7-9.3); MPV 8.9 FL (7.4-10.4); NEUT# 5.93 X1000 (1.4-6.5); NEUT% 80.3 % (42.2-75.2); PLT 272 X1000 (130-400); RBC 2.89 XMIL (4.2-5.4); RDW 18.9 % (11.5-14.5); WBC 7.38 X1000 (4.8-10.8)
[2018-10-20 07:10] LABS: CREATININE 1.3 mg/dL (0.5-0.9); POTASSIUM 5.2 mmol/L (3.5-5.1)
[2018-10-20] MEDS: MAXIPIME 2 GM in NS 100 ML IV SCH ×2 (07:55→21:03)
[2018-10-20] MEDS: LOPRESSOR PO SCH ×3 (07:56→21:03)
[2018-10-20] MEDS: CUBICIN 800 MG in NS 100 ML IV SCH (08:34)
[2018-10-20] MEDS: NEURONTIN PO SCH ×3 (11:59→21:04)
[2018-10-20] MEDS ORDERED: XYLOCAINE-MPF 2% ONE (12:23)
[2018-10-20] MEDS ORDERED: DIPRIVAN 1% ONE (12:23)
[2018-10-20] MEDS ORDERED: QUELICIN (DOSE) ONE (12:30)
[2018-10-20] MEDS ORDERED: ZOFRAN ONE (12:54)
[2018-10-20] MEDS ORDERED: FENTANYL ONE (12:58)
[2018-10-20] MEDS ORDERED: DEMEROL ONE (13:27)
[2018-10-20 13:29] LABS: URINE SOURCE CATH
[2018-10-20 13:33] LABS: BILIRUBIN URINE NEGATIVE (NEGATIVE); BLOOD URINE MODERATE (NEGATIVE); COLOR YELLOW; GLUCOSE URINE NEGATIVE (NEGATIVE); KETONE URINE NEGATIVE (NEGATIVE); LEUKOCYTES URINE LARGE (NEGATIVE); NITRITE URINE NEGATIVE (NEGATIVE); PROTEIN URINE 30 mg/dL (NEGATIVE); SP GRAVITY URINE 1.008; TURBIDITY URINE HAZY (CLEAR); UROBILINOGEN URINE NORMAL (NORMAL)
[2018-10-20 13:35] LABS: UR EPITHELIAL CELLS <10 /HPF (<10); URINE BACTERIA 2+ /HPF; URINE WBC TNTC /HPF (<10)
[2018-10-20 13:41] LABS: URINE YEAST NONE SEEN
[2018-10-20] MEDS: DILAUDID ONE ×2 (13:45→13:55)
[2018-10-20] MEDS ORDERED: LOPRESSOR PO ONE (14:46)
[2018-10-20] MEDS ORDERED: LANOXIN IV ONE (14:46)
[2018-10-20 14:57] LABS: IRON SATURATION 9 %; TIBC 108 ug/dL; TOTAL IRON 10 ug/dL (49-151); UNBOUND IRON 98 ug/dL (112-346)
[2018-10-20] MEDS: LIALDA PO SCH (15:23)
[2018-10-20] MEDS: CULTURELLE PO SCH ×2 (15:23→21:04)
[2018-10-20] MEDS: BENTYL PO SCH ×2 (15:23→21:03)
[2018-10-20] MEDS: ZYLOPRIM PO SCH (15:23)
[2018-10-20] MEDS: LEXAPRO PO SCH (15:23)
[2018-10-20] MEDS: NS 1,000 ML IV SCH ×2 (15:38→18:36)
[2018-10-20] MEDS: DILAUDID IV PRN ×2 (15:38→18:36)
--- NOTE | 2018-10-20 15:38 | EKG Report ---
Test Performed on : 10/20/2018 3:18:53 PM Test Reason : Atrial fibrillation Blood Pressure : / mmHG Vent. Rate : 110 BPM Atrial Rate : 267 BPM P-R Int : 000 ms QRS Dur : 084 ms QT Int : 286 ms P-R-T Axes : 000 045 262 degrees QTc Int : 387 ms Atrial fibrillation. with rapid ventricular response. Low voltage QRS Cannot rule out Anterior infarct (cited on or before 17-DEC-2017) Abnormal ECG When compared with ECG of 09-SEP-2018 16:14, Nonspecific T wave abnormality has replaced inverted T waves in Lateral leads Confirmed by Elis RICO, Gee ([id number]) on 10/21/2018 11:41:12 AM
--- NOTE | 2018-10-20 16:22 | PROGRESS NOTE ---
DATE: 10/20/2018 INTERVAL HISTORY: Ms. Koch continued to have fever spike yesterday. She underwent CT scan of the abdomen and pelvis previously which had detected that she had pelvic abscesses which may be causing a fistula connected to the sigmoid colon. There was also gas in the urinary bladder suggestive of colovesical fistula and worsening anasarca. So, surgery was reconsulted and patient underwent a surgical procedure today, the details of which are unclear at the moment since Surgery note is pending. SUBJECTIVE: Patient is denying any chest pain or shortness of breath. She continues to complain of abdominal pain at the site of surgery where a new drain has been placed. OBJECTIVE: Vital signs: Temperature of 98.4 degrees, pulse of 115, respiratory rate 15, blood pressure 140/78, saturating 96% on 2 L nasal cannula. General: Morbidly obese, not in any acute distress. HEENT: Oral cavity is moist. She does have conjunctival pallor. No cyanosis, clubbing, or icterus. Lungs: Air entry bilaterally equal. No wheeze, rhonchi, or crackles. Cardiovascular: Irregularly irregular heart rhythm. Tachycardic. No murmur, rub, or gallop. Abdomen: Soft, obese. Significant tenderness in the left lower quadrant where she has some subcutaneous edema, as well as intra-abdominal edema and an intra-abdominal drain. LABS: Suggestive of no leukocytosis, normocytic anemia, persistent hyponatremia, hyperkalemia, what appears to be elevated BUN and creatinine. The iron panel is suggestive of low saturation with high ferritin, though her TIBC is in normal range. This is likely also a component of iron deficiency. MICROBIOLOGY: Urine culture repeat is in lab. ASSESSMENT AND PLAN: 1. Sepsis due to pelvic abscess which recurred despite CT-guided drainage and now developing into coloenteric fistula and colovesical fistula in the setting of Crohn disease with previous drain culture growing Escherichia coli and enterococcus faecium group D. She is now status post surgical debridement, the details of which are pending. I will continue the patient on intravenous cefepime and intravenous daptomycin as per ID recommendations. Follow up repeat culture and sensitivity report as well as urine analysis report. Continue intravenous hydromorphone for pain management with p.o. Percocet as needed. 2. History of Crohn disease with persistent diarrhea. Continue patient on home dicyclomine and mesalamine. GI on board. Continue also patient on probiotics. 3. Atrial fibrillation with rapid ventricular rate. Give patient 1 time intravenous digoxin and continue home regimen of metoprolol and digoxin. We are holding her Eliquis considering recent surgical procedure and I will resume it as tolerated. 4. Hyponatremia with acute kidney injury. Start patient on intravenous fluid and follow up with BMP tomorrow. 5. History of chronic anemia with a degree of iron deficiency. Start patient on iron, multivitamin. 6. Others including anxiety, insomnia, and chronic pain. Continue patient on home trazodone, escitalopram, gabapentin. 7. Others. 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 8. Disposition. Patient remains inside the hospital for need for intravenous antibiotics and postoperative follow-up. Plan of care discussed with the patient and at bedside. All of their questions have been answered. cc: Farhad Souza MD
--- NOTE | 2018-10-20 18:08 | OPERATIVE NOTE ---
PROCEDURE DATE: 10/20/2018 PREOPERATIVE DIAGNOSES: 1. Crohn's disease. 2. Intra-abdominal abscess with abdominal wall colonic fistula, possible colovesicular fistula. PROCEDURE PERFORMED: Open drainage of intra-abdominal abscess. ANESTHESIA: General. SPECIMENS: Abscess fluid for culture. INDICATIONS: A 52-year-old female with history of Crohn's disease. She also has history of renal cell carcinoma and urothelial cell carcinoma. She has had a coloenteric fistula in the past that has been repaired greater than year ago. She presents now with abdominal wall abscess and intra- abdominal abscess, most likely related to a colocolonic fistula. There is a possibility of a colovesicular fistula based off history and imaging. OPERATIVE FINDINGS: There was a percutaneous drain that had been placed that had not completely accessed the cavity. There was a large purulent and feculent cavity within the deep abdominal wall panniculus, as well as intra-abdominally. OPERATIVE NOTE: Risks, benefits, alternatives were discussed with the patient, and she consented to the procedure. She was seen preoperatively and the surgical site was confirmed. She was taken to the operating room and placed in supine position. General anesthesia was induced without complication. All bony prominences were padded. Her abdomen is prepped with Betadine and draped in the usual fashion. After time-out, we made an incision around the drain and carried this down through subcutaneous tissue and bluntly entered an abscess cavity. This was under a lot of pressure and a large amount of feculent and purulent output was expressed. We disrupted the wall of this cavity. It was a relatively simple cavity, but quite large. It was located in the left lower quadrant of the abdomen and abdominal wall panniculus. We irrigated this copiously, noted hemostasis, and there was no further drainage of feculent material. We then placed a sump-type silicone drain into this, secured it with nylon sutures circumferentially. Dressing was applied. She was woken and transferred to Recovery. We did place a Marshall catheter at the end of the case. She tolerated it well with no complications. cc: Rakesh Beckwith MD [facility]
[2018-10-20] MEDS: LANOXIN PO SCH (21:03)
[2018-10-20] MEDS: SODIUM CHLORIDE 0.9% INJ SCH (21:04)
[2018-10-20] MEDS: PROTONIX IV SCH (21:04)
[2018-10-21] MEDS: PERCOCET-5 PO PRN ×4 (00:39→23:42)
[2018-10-21] MEDS: DESYREL PO SCH (05:49)
[2018-10-21] MEDS: HUMALOG SUBQ SCH ×4 (05:50→18:40)
[2018-10-21] MEDS: NS 1,000 ML IV SCH (05:50)
[2018-10-21] MEDS: PERIDEX MT SCH ×3 (05:50→21:05)
[2018-10-21] MEDS: GYNE-LOTRIMIN VAGINAL CREAM VAG SCH ×2 (05:50→21:08)
[2018-10-21 07:04] LABS: BASO# 0.01 X1000 (0.0-0.2); BASO% 0.2 % (0.0-0.8); EOS# 0.06 X1000 (0.0-0.7); EOS% 1.1 % (0.0-10.0); HEMATOCRIT 23.7 % (37.0-47.0); HEMOGLOBIN 7.1 g/dL (12.0-16.0); IMM GRAN# 0.08 X1000 (0.0-0.04); IMM GRAN% 1.5 % (0.0-0.5); LYMPH# 0.74 X1000 (1.2-3.4); MCH 25.4 PG (27-31); MCV 84.9 FL (81-99); MONO# 0.41 X1000 (0.11-0.59); MONO% 7.7 % (1.7-9.3); NEUT% 75.5 % (42.2-75.2); PLT 267 X1000 (130-400); RBC 2.79 XMIL (4.2-5.4); RDW 19.1 % (11.5-14.5)
[2018-10-21 07:27] LABS: CALCIUM 8.5 mg/dL (8.8-10.2); MAGNESIUM 2.2 mg/dL (1.5-2.7); PHOSPHORUS 4.2 mg/dL (2.7-4.5)
[2018-10-21] MEDS: DILAUDID IV PRN ×4 (08:47→18:36)
[2018-10-21] MEDS: NEURONTIN PO SCH ×3 (09:28→17:50)
[2018-10-21] MEDS: LOPRESSOR PO SCH ×2 (09:29→21:06)
[2018-10-21] MEDS: LIALDA PO SCH (09:30)
[2018-10-21] MEDS: CUBICIN 800 MG in NS 100 ML IV SCH (09:32)
[2018-10-21] MEDS: CULTURELLE PO SCH ×2 (09:33→21:05)
[2018-10-21] MEDS: ZYLOPRIM PO SCH (09:33)
[2018-10-21] MEDS: LEXAPRO PO SCH (09:34)
[2018-10-21] MEDS: BENTYL PO SCH ×2 (09:34→21:05)
[2018-10-21] MEDS: ICAR-C PO SCH (09:34)
[2018-10-21] MEDS: THERA M PLUS PO SCH (09:35)
--- NOTE | 2018-10-21 14:20 | INFECTIOUS DISEASE PROGRESS NO ---
DATE: 10/21/2018 PRESENT ILLNESS: Ms. Koch has left-sided pelvic abscesses and is status post open drainage with the insertion of a larger bore drain. There is an Escherichia coli and enterococcal faecium growing from that wound. There is also a Mirta vaginitis and a possible urinary tract infection. MEDICATIONS: She is on day 5 of cefepime 2 g IV every 12 hours and daptomycin 800 mg IV daily. She also has a Gyne-Lotrimin vaginal cream ordered for bedtime. PHYSICAL EXAMINATION: Vital Signs: Temperature is 98.2 degrees, pulse rate 106, respiratory rate 18, blood pressure 161/55, O2 saturation is 98% on room air. General: This is a morbidly obese chronically ill-appearing middle-aged female. She is lying in bed currently in no acute distress talking on the phone. HEENT: Atraumatic, normocephalic. Oral mucous membranes are pink and moist. Conjunctivae are pale. Neck: Supple. Trachea is midline. Cardiovascular: Irregularly irregular with atrial fibrillation on the monitor. Respiratory: Lung sounds are clear to auscultation bilaterally. Abdomen: Soft, obese and tender to the left side which has some increased edema and erythema as well as a large bore drain which is draining cloudy brown fluid to bedside bag. There is a Port-A-Cath in place to her right chest. That site is without edema, erythema or drainage. Neurologic: She is awake, alert, oriented and able to move around in the bed independently. LABORATORY AND X-RAY: Today her white count is 5.3, hemoglobin 7.1, platelet count 267,000, creatinine is 1, GFR is 58. She has had a Marshall catheter inserted in surgery yesterday and the urinalysis shows 2+ bacteria and WBCs too numerous to count. Urine culture is pending. The Gram stain from her abdominal abscess showed rare WBCs and there is an anaerobic culture and routine culture pending. Initially there was an E coli as well as an enterococcus to her abdominal wound. Blood cultures have shown no growth on this admission. Her EKG shows atrial fibrillation and rapid ventricular response at time. No imaging reports today. ASSESSMENT AND PLAN: Ms. Koch is being treated for enterococcal and Escherichia coli infection to the left pelvic abscess which has been opened and drained. There is also a vaginal yeast infection as well as a urinary tract infection. She is receiving daptomycin, cefepime and Gyne-Lotrimin all of which we will continue at this time. It looks as though there is a urinary tract infection, which is not unusual for this patient. We see her occasionally in the office for symptomatic urinary tract infections. We are awaiting the final culture. These plans have been discussed with and recommended by Dr. Aceves. COMORBIDITIES: Include that she is morbidly obese with diabetes mellitus, Crohn's disease, anemia, chronic kidney disease and atrial fibrillation. Dictated by PETER Salgado for Drwe Aceves MD cc: Drew Aceves MD [facility]
--- NOTE | 2018-10-21 15:25 | GASTROENTEROLOGY PROGRESS NOTE ---
DATE: 10/21/2018 SUBJECTIVE: Patient had open drainage of intra-abdominal abscess by Dr. Beckwith on 10/20/2018. Currently patient denies complaints. She has had some bleeding or leakage around the drain from her incision. OBJECTIVE: Vital Signs: Temperature 98.2 degrees, pulse 100, respirations 18, blood pressure 161/55. General: Patient is awake, alert, in no acute distress. LABORATORY: Hematology: WBC 5.30, hemoglobin 7.1, hematocrit 23.7, MCV 84.9, platelets 267. Chemistry: Sodium 130, potassium 5.0, chloride 102, CO2 of 22. BUN 19, creatinine 1.0, glucose 102. ASSESSMENT AND PLAN: 1. Pelvic abscess with recent open drainage of intra-abdominal abscess. Patient has a drain in place. 2. History of Crohn disease. Continue current management. 3. Other medical problems: Atrial fibrillation, hypertension, cirrhosis of the liver, hyperlipidemia. GI will continue to be available during her hospital course, and recommend she follow up with us as an outpatient after discharge. I have discussed this case with Dr. Westbrook. Dictated by PETER Doyle for Tito Westbrook MD cc: PETER Chaudhry MD [facility]
[2018-10-21] MEDS: MAXIPIME 2 GM in NS 100 ML IV SCH ×2 (17:48→21:04)
--- NOTE | 2018-10-21 18:42 | GENERAL SURGERY PROGRESS NOTE ---
DATE: 10/21/2018 SUBJECTIVE: No more fevers overnight. Some drainage. No obvious feculent output. Her labs were reviewed. Drain is in place. Abdomen is much more soft with less induration. ASSESSMENT AND PLAN: A 52-year-old female status post drainage of left lower quadrant abdominal abscess. We will continue antibiotics. Drain care through the weekend. cc: Rakesh Beckwith MD [facility]
--- NOTE | 2018-10-21 19:03 | PROGRESS NOTE ---
DATE: 10/21/2018 INTERVAL HISTORY: Yesterday after digoxin intravenous loading, her heart rate had started to come under well controlled. The patient's digoxin level was in acceptable range. Her kidney function has improved. Her abdominal drain is draining a lot of pus and blood-filled material OBJECTIVE: Vitals: Currently detect temperature of 99.5 degrees, pulse of 76, respiratory rate of 18, blood pressure of 121/54, saturating 100% on room air. General: Does not appear in any acute distress, morbidly obese. HEENT: Oral cavity is moist. Mild conjunctival pallor. No cyanosis, clubbing or icterus. Respiratory: Air entry bilaterally equal. No wheeze, rhonchi or crackles. Cardiovascular: S1, S2 normal. Irregularly irregular. No murmur, rub, or gallop. Abdomen: Soft, obese, significant tenderness in left lower quadrant where she has subcutaneous edema as well as intraabdominal drain, which is draining pus-like and bloody material. LABORATORY DATA: Today suggestive of normocytic anemia, normal platelet count, improving hyponatremia, improving acute kidney injury. MICROBIOLOGY: Gram stain and abscess culture are pending. IMAGING: No new imaging today. Yesterday, she underwent open drainage of intraabdominal abscess. ASSESSMENT AND PLAN: 1. 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 Continue abdominal drain management as per surgery recommendation. Continue intravenous cefepime and intravenous daptomycin as per ID. Follow up with final abdominal drain culture report. Continue intravenous hydromorphone and p.o. Percocet as needed for pain management. 2. History of Crohn disease with persistent diarrhea. Continue patient on home dicyclomine, mesalamine and probiotics. 3. Chronic atrial fibrillation with current rapid ventricular rate. Continue current dose of digoxin, metoprolol. I am holding Eliquis considering possible further surgical intervention. I will start her on enoxaparin therapeutic dose 48 hours after surgical procedure, which is going to be Wednesday onwards. I will appreciate surgery recommendation if I need to hold it in future. 4. Hyponatremia with acute kidney injury because of volume depletion, now improving. Monitor. I will stop intravenous fluid and encourage p.o. intake. 5. History of chronic iron deficiency anemia. Currently, she does have a mild degree of iron deficiency with low saturation and normal ferritin. Continue iron, multivitamin supplementation. 6. Others: Continue trazodone, escitalopram, and gabapentin for anxiety, insomnia, chronic pain; allopurinol for history of gout. 7. 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 DISPOSITION: Patient remains inside the hospital for need for intravenous antibiotics and postoperative followup. Plan of care discussed with the patient and at bedside. All of the questions have been answered. cc: Farhad Souza MD
[2018-10-21] MEDS: PROTONIX IV SCH (21:05)
[2018-10-21] MEDS: SODIUM CHLORIDE 0.9% INJ SCH (21:05)
[2018-10-21] MEDS: LANOXIN PO SCH (21:05)
[2018-10-22] MEDS: DESYREL PO SCH ×2 (01:07→20:52)
[2018-10-22] MEDS: HUMALOG SUBQ SCH ×6 (01:09→20:53)
[2018-10-22] MEDS: DILAUDID IV PRN ×7 (04:12→22:55)
[2018-10-22] MEDS: PERCOCET-5 PO PRN ×4 (05:22→20:51)
[2018-10-22] MEDS: MAXIPIME 2 GM in NS 100 ML IV SCH ×2 (09:41→20:53)
[2018-10-22] MEDS: LIALDA PO SCH (09:42)
[2018-10-22] MEDS: CUBICIN 800 MG in NS 100 ML IV SCH (09:42)
[2018-10-22] MEDS: BENTYL PO SCH ×2 (09:43→20:52)
[2018-10-22] MEDS: LEXAPRO PO SCH (09:43)
[2018-10-22] MEDS: THERA M PLUS PO SCH (09:43)
[2018-10-22] MEDS: CULTURELLE PO SCH ×2 (09:43→20:52)
[2018-10-22] MEDS: NEURONTIN PO SCH ×3 (09:44→16:44)
[2018-10-22] MEDS: ICAR-C PO SCH (09:44)
[2018-10-22] MEDS: ZYLOPRIM PO SCH (09:44)
[2018-10-22] MEDS: PERIDEX MT SCH ×2 (09:44→20:50)
[2018-10-22] MEDS: LOPRESSOR PO SCH ×2 (09:44→20:51)
--- NOTE | 2018-10-22 09:48 | PROGRESS NOTE ---
DATE: 10/22/2018 SUBJECTIVE: Ms. Koch is a 52-year-old, morbidly obese white female, who has Crohn. She has developed fistula secondary to her Crohn, and one caused an infection of her subcutaneous tissue left pannus, which Dr. Beckwith is treating with a large drain. We are also concerned that she has a fistula involving her bladder with recurrent UTIs. Dr. Westbrook is treating her Crohn and Dr. Beckwith the complications of her Crohn. She has a Marshall catheter tube in place. She is awake, cooperative, seems to be comfortable. OBJECTIVE: Her heart rate is 82 to 107, blood pressure is 158/71, O2 saturation 98%. She is afebrile. She is able to the eat. She has a tube to gravity draining her infection, left abdomen. She has a Marshall catheter tube in place. She is she is on Maxipime and Cubicin. LABS: Her white blood cell count is normal. Her hematocrit is low at 24%. BUN and creatinine 19 and 1.0. Her serum glucose is 142. PLAN: We will continue wound care, left abdomen, Marshall and IV antibiotics. cc: Janeth Dudley MD
--- NOTE | 2018-10-22 17:57 | PROGRESS NOTE ---
DATE: 10/22/2018 INTERVAL HISTORY: No acute events overnight. SUBJECTIVE: She is complaining of left flank pain. She states that the drain was not putting out something, so it was put to low intermittent suction. However, she still continues to have excruciating pain in the left lower quadrant. The patient's is at bedside. I discussed with them about iron deficiency findings. I answered all of their questions. PHYSICAL EXAMINATION: Vitals: Detect temperature of 98.8, pulse 73, respiratory rate 20, blood pressure 150/59, saturating 98% on room air. General: On physical examination, she does not appear in any acute distress. Morbidly obese. HEENT: Oral cavity is moist. Conjunctival pallor. No cyanosis, clubbing or icterus. Lungs: Air entry bilaterally equal. No wheeze, rhonchi or crackles. Cardiovascular: S1, S2 normal. Irregularly irregular, tachycardic. No murmur, rub, or gallop. Abdomen: Soft, obese. Significant tenderness in left lower quadrant where she has subcutaneous edema, as well as intraabdominal drain which is draining bloody pus- like material. LAB DATA: No CBC or BMP today. Microbiology data: The abdomen wound abscess culture is growing gram-positive cocci, gram-negative catrina, likely E coli and Enterococcus. ASSESSMENT AND PLAN: 1. 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 Continue intraabdominal drain management as per surgery recommendation. Continue intravenous hydromorphone for pain, intravenous cefepime and intravenous daptomycin. I will discuss with Infectious disease about changing cefepime to ceftriaxone since E coli was sensitive. Continue Percocet as needed for pain with intravenous hydromorphone. 2. History of Crohn disease with persistent diarrhea. Continue home dicyclomine, mesalamine and probiotics. 3. Chronic atrial fibrillation with rapid ventricular rate, currently rate in acceptable range. Continue home digoxin, and metoprolol. I will hold Eliquis considering her abdominal drain is draining bloody output, as well as because of the fact that she may need further surgical intervention and I will discontinue her on enoxaparin at prophylactic doses. 4. History of chronic iron deficiency anemia due to Crohn disease. Continue iron and multivitamin. She had previously needed intravenous iron by Hematology as outpatient that she should follow up with. 5. Others. Her acute kidney injury because of volume depletion on top of chronic kidney disease stage 3, appears to be stable. I will follow up with [facility] tomorrow; I will continue trazodone, citalopram and gabapentin for anxiety, insomnia and chronic pain; add allopurinol for chronic gout. 6. 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 7. Disposition: Patient remains inside the hospital for need for intravenous antibiotics and intraabdominal drain management. Plan of care discussed with the patient, her at bedside and son on phone. All of their questions have been answered. cc: Farhad Souza MD
[2018-10-22] MEDS: LANOXIN PO SCH (20:51)
[2018-10-22] MEDS: PROTONIX IV SCH (20:52)
[2018-10-22] MEDS: SODIUM CHLORIDE 0.9% INJ SCH (20:53)
[2018-10-22] MEDS: LOVENOX SUBQ SCH (20:56)
[2018-10-23] MEDS: GYNE-LOTRIMIN VAGINAL CREAM VAG SCH ×2 (00:29→21:24)
[2018-10-23] MEDS: DILAUDID IV PRN ×7 (02:55→21:21)
[2018-10-23] MEDS: PERCOCET-5 PO PRN ×5 (03:38→19:50)
[2018-10-23] MEDS: HUMALOG SUBQ SCH ×4 (06:17→21:24)
[2018-10-23 07:00] LABS: BASO# 0.01 X1000 (0.0-0.2); BASO% 0.2 % (0.0-0.8); EOS# 0.09 X1000 (0.0-0.7); EOS% 1.8 % (0.0-10.0); HEMATOCRIT 25.5 % (37.0-47.0); HEMOGLOBIN 7.5 g/dL (12.0-16.0); LYMPH# 0.87 X1000 (1.2-3.4); LYMPH% 17.6 % (20.5-51.1); MCHC 29.4 g/dL (33-37); MONO# 0.37 X1000 (0.11-0.59); MONO% 7.5 % (1.7-9.3); MPV 8.8 FL (7.4-10.4); NEUT# 3.51 X1000 (1.4-6.5); NEUT% 70.9 % (42.2-75.2); PLT 293 X1000 (130-400); RDW 19.1 % (11.5-14.5); WBC 4.95 X1000 (4.8-10.8)
[2018-10-23 07:15] LABS: CALCIUM 8.6 mg/dL (8.8-10.2); MAGNESIUM 2.1 mg/dL (1.5-2.7); PHOSPHORUS 3.9 mg/dL (2.7-4.5); POTASSIUM 4.9 mmol/L (3.5-5.1)
[2018-10-23] MEDS ORDERED: LOVENOX SUBQ SCH ×2 (09:00)
[2018-10-23] MEDS: LIALDA PO SCH (09:17)
[2018-10-23] MEDS: BENTYL PO SCH ×3 (09:18→21:23)
[2018-10-23] MEDS: PERIDEX MT SCH ×3 (09:18→21:23)
[2018-10-23] MEDS: ICAR-C PO SCH (09:18)
[2018-10-23] MEDS: LOPRESSOR PO SCH ×3 (09:20→21:23)
[2018-10-23] MEDS: ZYLOPRIM PO SCH (09:20)
[2018-10-23] MEDS: LEXAPRO PO SCH (09:20)
[2018-10-23] MEDS: NEURONTIN PO SCH ×3 (09:21→17:30)
[2018-10-23] MEDS: MAXIPIME 2 GM in NS 100 ML IV SCH (09:22)
[2018-10-23] MEDS: THERA M PLUS PO SCH (09:28)
[2018-10-23] MEDS: CULTURELLE PO SCH ×3 (09:28→21:24)
[2018-10-23] MEDS: CUBICIN 800 MG in NS 100 ML IV SCH (10:46)
--- NOTE | 2018-10-23 15:46 | PROGRESS NOTE ---
DATE: 10/23/2018 INTERVAL HISTORY: No acute event overnight. Her intra-abdominal drain was put to suction. It was functioning for some time, and then it has stopped functioning again. Right now, she has some fecal material pouring out of her left lower quadrant intra-abdominal drain. Currently, the patient is denying any nausea, vomiting. She is complaining of left lower abdominal pain. I discussed with them about my discussion with the surgical team, and that we might have to wait for the primary surgeon to come by and evaluate her tomorrow to decide if she would need further surgical intervention. The patient's is at bedside. All of the questions have been answered. OBJECTIVE: Vital Signs: Currently, temperature 99.4 degrees, pulse 86, respiratory rate 20, blood pressure 140/66, saturating 99% on room air. General: She is teary because of lower quadrant pain and current situation, not in any acute distress though, morbidly obese. HEENT: Oral cavity is moist. Conjunctival pallor is present. No cyanosis, clubbing, or icterus. Lungs: Air entry bilaterally equal. No wheeze, rhonchi, or crackles. Cardiovascular: S1, S2 normal. Irregularly irregular. Tachycardic. No murmur, rub, or gallop. Her heart rate is in 90s right now. Abdomen: Soft, obese. Significant tenderness in left lower quadrant, where there is subcutaneous edema and feculent material leaking around the intra-abdominal drain. There is also some bloody material in the tube. LABORATORY DATA: Labs are suggestive of normocytic anemia. Normal platelet count. Acceptable range of hyponatremia. What appears to be chronic kidney disease stage IIIA. MICROBIOLOGY: Both cultures have been growing Enterococcus faecium and Escherichia coli. IMAGING: No new imaging. ASSESSMENT AND PLAN: 1. 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 Continue intra-abdominal drain management as per Surgery recommendation. Continue intravenous daptomycin, and change to intravenous ceftriaxone. Continue Percocet and intravenous hydromorphone as needed for pain. Will appreciate Surgery recommendation, if she would need further surgical exploration for her persistent feculent output and dysfunction of the intra-abdominal drain. 2. History of Crohn's disease with complications of colovesical and colocutaneous fistula. Continue home dicyclomine, mesalamine, and probiotics. 3. History of chronic atrial fibrillation with rapid ventricular rate, currently in acceptable range with intermittent tachycardia. Continue home digoxin, and increase metoprolol. I am holding Eliquis considering bloody output through the intra-abdominal drain and anticipating further surgery. Continue enoxaparin at prophylactic dose. 4. History of chronic iron-deficiency anemia due to Crohn's disease. Continue iron and multivitamin. She would need outpatient Hematology followup for need for intravenous iron. 5. Others. Acute kidney injury because of volume depletion on chronic kidney disease stage 3, stable. Continue trazodone, citalopram, and gabapentin for anxiety, insomnia, and chronic pain; allopurinol for chronic gout. 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 6. Disposition. The patient remains inside the hospital for need for intravenous antibiotics and anticipated further surgical exploration of her left abdominal abscess/pelvic abscess. Plan of care discussed with the patient and her at bedside. All of the questions have been answered. cc: Farhad Souza MD
[2018-10-23] MEDS: ROCEPHIN 2 GM in NS 50 ML IV SCH (17:29)
--- NOTE | 2018-10-23 18:04 | PROGRESS NOTE ---
DATE: 10/23/2018 Ms. Koch has Crohn disease. She has a fistula involving her left lower quadrant of her abdomen. She is morbidly obese. We also worry about a fistula to her bladder with multiple urinary tract infections. She has a Marshall catheter tube in place. We have put the drain to suction over the weekend because she felt increasing fullness and pain in the area of her left lower quadrant of her abdomen. She feels better today. Her white blood cell count is normal. Hematocrit is 25%. She is able to eat. She seems to be resting comfortably. IV antibiotics continue. Her heart rate is 88, blood pressure 144/66, O2 saturation 97%. She has a low-grade temperature of 99.4 degrees. cc: Janeth Dudley MD
[2018-10-23] MEDS: LANOXIN PO SCH ×2 (19:52→21:23)
[2018-10-23] MEDS: DESYREL PO SCH ×2 (19:52→21:24)
[2018-10-23] MEDS: SODIUM CHLORIDE 0.9% INJ SCH (19:53)
[2018-10-23] MEDS: PROTONIX IV SCH ×2 (19:53→21:23)
[2018-10-23] MEDS: LOVENOX SUBQ SCH ×2 (19:53→21:23)
[2018-10-24] MEDS: DILAUDID IV PRN ×6 (04:34→20:41)
[2018-10-24] MEDS: PERCOCET-5 PO PRN ×5 (04:58→18:15)
[2018-10-24] MEDS: ROCEPHIN 2 GM in NS 50 ML IV SCH ×2 (05:14→17:13)
[2018-10-24] MEDS: HUMALOG SUBQ SCH ×4 (07:34→22:17)
[2018-10-24] MEDS: BENTYL PO SCH ×2 (08:09→20:12)
[2018-10-24] MEDS: ZYLOPRIM PO SCH (08:09)
[2018-10-24] MEDS: NEURONTIN PO SCH ×3 (08:09→17:13)
[2018-10-24] MEDS: PERIDEX MT SCH ×2 (08:09→20:13)
[2018-10-24] MEDS: LEXAPRO PO SCH (08:09)
[2018-10-24] MEDS: LOPRESSOR PO SCH ×2 (08:09→20:13)
[2018-10-24] MEDS: CULTURELLE PO SCH ×2 (08:09→20:13)
[2018-10-24] MEDS: THERA M PLUS PO SCH (08:09)
[2018-10-24] MEDS: ICAR-C PO SCH (08:10)
[2018-10-24] MEDS: CUBICIN 800 MG in NS 100 ML IV SCH (09:19)
[2018-10-24] MEDS: LIALDA PO SCH (09:19)
[2018-10-24] MEDS: ZOFRAN IV PRN ×2 (10:01→19:22)
--- NOTE | 2018-10-24 15:54 | INFECTIOUS DISEASE PROGRESS NO ---
DATE: 10/24/2018 PRESENT ILLNESS: Ms. Koch has had an open drainage of left pelvic abscesses with abdominal wall colonic fistula. There is a wall suction placed to the left pelvic wound which is growing Escherichia coli and vancomycin resistant Enterococcus. There is also Mirta vaginitis, which has improved. MEDICATIONS: Today is day 8 of daptomycin 800 mg IV daily and day 1 of Rocephin 2 g IV every 12 hours. She is also receiving Gyne-Lotrimin vaginal cream at bedtime. PHYSICAL EXAMINATION: Vital Signs: Temperature earlier was 101 degrees, pulse rate 84, respiratory rate 20, blood pressure 143/64, O2 saturation 99% on room air. General: This is a morbidly obese, chronically ill-appearing, middle-aged female. She is sitting up in bed, currently in no acute distress. HEENT: Atraumatic, normocephalic. Oral mucous membranes are pink and moist. Conjunctivae are pale. Neck: Supple. Trachea is midline. Cardiovascular: Irregularly irregular. Atrial fibrillation on the monitor. Respiratory: Lung sounds are clear in the upper lobes. Diminished in the bases. Abdomen: Soft, obese, tender on the left side with a dressing in place and a large bore drain hooked up to wall suction. She also has a Port-A-Cath to her right chest. That site is without edema, erythema, or drainage. Neurologic: She is awake, alert, oriented, and able to move around with assistance. LABORATORY AND X-RAY: Today her creatinine kinase is 102 0. Yesterday, her white count was 4.95, hemoglobin 7.5, platelet count 293,000. Creatinine 1, GFR 58. Her urine culture has shown no growth. From surgery, she had no anaerobes and grew vancomycin resistant Enterococcus and Escherichia coli to abdominal drainage, the same as the previous drainage culture one week ago. No imaging reports today. ASSESSMENT AND PLAN: Ms. Koch is being treated for a left pelvic abscess that has been opened and drained and is growing an Escherichia coli and vancomycin-resistant Enterococcus. For now, we will continue the Rocephin and daptomycin as ordered. She did have a fever earlier, however, that has resolved. We will continue to watch her progress. She states the vaginal yeast has improved and she is not having any more symptoms. However, I told her to continue to use this at bedtime for prevention. We will continue daptomycin, Rocephin and Gyne-Lotrimin as ordered. These plans have been discussed with and recommended by Dr. Aceves. COMORBIDITIES: For Ms. Koch is that she is morbidly obese with diabetes mellitus, Crohn's disease, anemia, chronic kidney disease and atrial fibrillation. Dictated by PETER Salgado for Drew Aceves MD cc: Drew Aceves MD [facility]
--- NOTE | 2018-10-24 16:56 | GASTROENTEROLOGY PROGRESS NOTE ---
DATE: 10/24/2018 SUBJECTIVE: The patient was seen today by Dr. Westbrook. She had reported some fevers. They have now placed her drainage to intermittent wall suction which seems to have improved her symptoms per her report. She is being treated with antibiotics for Escherichia coli and vancomycin-resistant enterococcus, following with Dr. Aceves. She is also being treated for Mirta vaginitis. OBJECTIVE: Vital Signs: Temperature 101, pulse 84, respirations 20, blood pressure 143/64. General: The patient is awake, alert, no acute distress. LABORATORY DATA: Hematology: WBC 4.95, hemoglobin 7.5, hematocrit 25.5, MCV 85.0, platelets 293,000. Chemistry: Sodium 135, potassium 4.9, chloride 103, CO2 24, BUN 14, creatinine 1.0, glucose 117. ASSESSMENT AND PLAN: 1. Sepsis related to pelvic abscesses following with [facility]. 2. History of Crohn disease. The patient is on Remicade. She will need her next Remicade in November. Continue current medications. 3. Anemia. Continue to monitor and transfuse packed red blood cells as needed. PLAN: The patient continues on antibiotics. She has her drain to intermittent suction. Continue to follow with [facility]. Gastroenterology will continue to be available as needed. The patient was seen by Dr. Westbrook today. Dictated by PETER Doyle for Tito Westbrook MD cc: PETER Chaudhry MD
--- NOTE | 2018-10-24 18:07 | PROGRESS NOTE ---
DATE: 10/24/2018 INTERVAL HISTORY: No acute events overnight. SUBJECTIVE: She is feeling fine. Denies any new complaints. She mentions to me that yesterday night, some changes were made in her intraabdominal drain suction pressure after which it has been draining appropriately, though previously there was recent reports of colovesical fistula. Her urine catheter is just having clean urine output PHYSICAL EXAMINATION: Vital Signs: Currently vitals, temperature of 101, pulse of 84, respiratory rate 20, blood pressure 143/64, saturating 99% on room air. General: On physical examination, morbidly obese, not in any acute distress. Vital Signs: Oral cavity is moist. Conjunctival pallor is present. No cyanosis, clubbing or icterus. lungs: Air entry bilaterally equal. No wheeze, rhonchi, crackles. S1, S2 normal. Irregularly irregular. No murmur, rub, or gallop. Abdomen: Soft obese. Significant tenderness in left lower quadrant where she has bandage and intraabdominal drain, which is hooked up with suction. : There is also urine catheter. The suction has a feculent material. Urine catheter drains are clear urine. LABS: No CBC or BMP today. Her blood sugars have been acceptable range. Microbiology: All cultures growing Enterococcus faecium and E coli. Urine culture did not have any growth. No new imaging. ASSESSMENT AND PLAN: 1. Sepsis due to pelvic abscess due to Escherichia coli and enterococcus faecium due to colocutaneous fistula, status post failed CT-guided drainage initially and now status post surgical exploration and intraabdominal drain on 10/20/2018. Continue intraabdominal drain management as per surgery recommendation. Continue intravenous daptomycin and intravenous ceftriaxone. Continue Percocet and hydromorphone as needed for pain. 2. History of Crohn disease with complication of colocutaneous fistula. Continue home dicyclomine, mesalamine, probiotics and low-fiber diet. Her urine appears clear at the moment though previously there were concerns of colovesical fistula. 3. History of chronic atrial fibrillation with rapid ventricular rate, currently in acceptable range with intermittent tachycardia. Continue home digoxin. Current dose of metoprolol. Holding Eliquis as I am awaiting further surgery recommendation if they would plan any surgical intervention. Continue enoxaparin at prophylactic dose. I will consider increasing the dose according to patient's clinical condition. 4. History of chronic iron deficiency anemia due to Crohn disease. Continue iron, multivitamin and she should follow up outpatient Hematology for intravenous iron. 5. Acute kidney injury because of volume depletion on chronic kidney disease stage 3, stable; continue trazodone, citalopram, and gabapentin for anxiety, insomnia and chronic pain; allopurinol for chronic gout. 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 6. Disposition. Patient remains inside the hospital for surgical management of pelvic abscesses. Plan of care discussed with the patient and her at bedside. All of the questions have been answered. cc: Farhad Souza MD
--- NOTE | 2018-10-24 18:44 | GENERAL SURGERY PROGRESS NOTE ---
DATE: 10/24/2018 SUBJECTIVE: Feels okay. Some low-grade fevers reported by the patient and 101 actually documented. The left lower quadrant abdominal wall is less indurated. There is feculent output through her drain which is placed to wall suction. LABORATORY DATA: Yesterday white count remained normal. Creatinine is 1.0. Glucose 121. No new labs yet this morning. ASSESSMENT AND PLAN: This is a 52-year-old female enterocutaneous fistula or colocutaneous fistula, possible colovesicular fistula. Continue percutaneous drain and management of the drain at this point. Clinically, I do think she is improving. If she were to worsen, we will need to get another scan to evaluate this. We will follow along surgically. cc: Rakesh Beckwith MD MTDD
[2018-10-24] MEDS: LANOXIN PO SCH (20:12)
[2018-10-24] MEDS: LOVENOX SUBQ SCH (20:13)
[2018-10-24] MEDS: PROTONIX IV SCH (20:13)
[2018-10-24] MEDS: SODIUM CHLORIDE 0.9% INJ SCH (20:13)
[2018-10-24] MEDS: DESYREL PO SCH (20:13)
[2018-10-24] MEDS: GYNE-LOTRIMIN VAGINAL CREAM VAG SCH (20:19)
[2018-10-25] MEDS: DILAUDID IV PRN ×6 (03:27→20:17)
[2018-10-25] MEDS: PERCOCET-5 PO PRN ×5 (04:09→21:04)
[2018-10-25] MEDS: ZOFRAN IV PRN ×3 (05:08→13:59)
[2018-10-25] MEDS: ROCEPHIN 2 GM in NS 50 ML IV SCH ×2 (05:45→16:47)
[2018-10-25] MEDS ORDERED: CALMOSEPTINE OINTMENT TOP PRN (06:11)
[2018-10-25 06:36] LABS: BASO# 0.01 X1000 (0.0-0.2); BASO% 0.2 % (0.0-0.8); EOS# 0.09 X1000 (0.0-0.7); EOS% 1.8 % (0.0-10.0); HEMATOCRIT 24.5 % (37.0-47.0); HEMOGLOBIN 7.2 g/dL (12.0-16.0); IMM GRAN# 0.05 X1000 (0.0-0.04); LYMPH# 0.77 X1000 (1.2-3.4); LYMPH% 15.5 % (20.5-51.1); MCH 25.2 PG (27-31); MCHC 29.4 g/dL (33-37); MCV 85.7 FL (81-99); MONO# 0.36 X1000 (0.11-0.59); MONO% 7.2 % (1.7-9.3); NEUT# 3.69 X1000 (1.4-6.5); NEUT% 74.3 % (42.2-75.2); PLT 265 X1000 (130-400); RBC 2.86 XMIL (4.2-5.4); RDW 19.6 % (11.5-14.5); WBC 4.97 X1000 (4.8-10.8)
[2018-10-25] MEDS: HUMALOG SUBQ SCH ×4 (06:46→21:33)
[2018-10-25 07:00] LABS: CALCIUM 8.3 mg/dL (8.8-10.2); CREATININE 1.2 mg/dL (0.5-0.9); MAGNESIUM 1.8 mg/dL (1.5-2.7); PHOSPHORUS 3.5 mg/dL (2.7-4.5); POTASSIUM 4.8 mmol/L (3.5-5.1)
[2018-10-25] MEDS: CUBICIN 800 MG in NS 100 ML IV SCH (08:38)
[2018-10-25] MEDS: CULTURELLE PO SCH ×2 (08:39→20:27)
[2018-10-25] MEDS: LIALDA PO SCH (08:39)
[2018-10-25] MEDS: NEURONTIN PO SCH ×3 (08:39→16:50)
[2018-10-25] MEDS: THERA M PLUS PO SCH (08:39)
[2018-10-25] MEDS: LEXAPRO PO SCH (08:40)
[2018-10-25] MEDS: LOPRESSOR PO SCH ×2 (08:40→20:26)
[2018-10-25] MEDS: ZYLOPRIM PO SCH (08:40)
[2018-10-25] MEDS: ICAR-C PO SCH (08:41)
[2018-10-25] MEDS: PERIDEX MT SCH ×2 (08:41→20:27)
[2018-10-25] MEDS: BENTYL PO SCH ×2 (08:41→20:26)
--- NOTE | 2018-10-25 09:37 | GENERAL SURGERY PROGRESS NOTE ---
DATE: 10/25/2018 SUBJECTIVE: Feels okay. No fevers overnight. OBJECTIVE: White count remains normal. Drainage persist through her drain. Creatinine is 1.2. ASSESSMENT AND PLAN: A 49-year-old female with colocutaneous fistula, status post drainage of intra-abdominal abscess. Will keep drain to suction to help establish this fistulous connection. Hopefully this will serve as a diversion. Unclear she has a colovesicular fistula. It is possible. It is okay to cap the drain to allow her to ambulate, shower. We will continue his drain for indefinite future. She is on appropriate antibiotics. cc: Rakesh Beckwith MD
--- NOTE | 2018-10-25 16:08 | PROGRESS NOTE ---
DATE: 10/25/2018 INTERVAL HISTORY: Patient did have a fever episode with temperature of 101 degrees yesterday, after which she has not had any fever episode. SUBJECTIVE: She is feeling fine. Denies new complaints. She is happy that after increasing suction pressure, it is putting out more drain from intra-abdominal drain. Currently denies new complaints. VITALS: Temperature 98 degrees, pulse 98, respiratory rate is 18, blood pressure 150/67, saturating 97% on room air. PHYSICAL EXAMINATION: General: Morbidly obese. Not in any acute distress. HEENT: Oral cavity is moist. Conjunctival pallor is present. No cyanosis, clubbing or icterus. Lungs: Air entry bilaterally equal. No wheeze, rhonchi, crackles. Heart: S1 and S2 normal. Irregularly irregular. No murmur, rub, or gallop. Abdomen: Soft, obese. Slight tenderness in left lower quadrant where she has bandage over intra-abdominal drain, and some feculent material leaking from around the drain. Genitourinary: There is a urine catheter in place which is draining clear urine. Suction drain is draining a feculent, bloody looking material. Input and output suggests - 3.6 L so far. LABS: Suggestive of normocytic anemia, normal platelet count, normal electrolytes, chronic kidney disease stage III. ASSESSMENT AND PLAN: 1. 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 Continue drain management as per Surgery recommendation. Continue intravenous daptomycin and ceftriaxone as per Infectious Disease. Continue Percocet and hydromorphone as needed for pain. 2. History of Crohn disease with complication of colocutaneous fistula and suspected colovesical fistula. Continue home dicyclomine, mesalamine, probiotics and low-fiber diet. She is also receiving Remicade infusion as an outpatient. 3. History of chronic atrial fibrillation with rapid ventricular rate, currently in acceptable range. Continue home digoxin, metoprolol and continue to hold Eliquis. Continue enoxaparin at prophylactic dose. 4. History of chronic iron deficiency anemia due to Crohn disease. Continue iron, multivitamin and she should follow up with outpatient Hematology for intravenous iron. 5. Chronic kidney disease stage III, appears stable. Her acute kidney injury has resolved. 6. Others: Continue citalopram and trazodone for anxiety and insomnia, gabapentin for chronic peripheral neuropathy, allopurinol for chronic gout. 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 7. Disposition: Patient remains inside the hospital for management of intra-abdominal drain. The eventual plan would be to stop the intra- abdominal drain from suction and attach a portable back to it at the time of discharge. However considering her current output, she would need intra-abdominal drain suction as per Surgery recommendations. cc: Farhad Souza MD
--- NOTE | 2018-10-25 17:58 | GASTROENTEROLOGY PROGRESS NOTE ---
DATE: 10/25/2018 SUBJECTIVE: Patient is lying in bed in no acute distress. She has had her drain suction to intermittent suction, and they have recently increased the suction. She has having purulent bloody drainage into suction canister. OBJECTIVE: Vital Signs: Temperature 98.0 degrees, pulse 98, respirations 18, blood pressure 158/67. Generally, patient is awake and alert, no acute distress. LABORATORY: Hematology: WBC 4.97 hemoglobin 7.2, hematocrit 24.5, MCV 85.7, platelet 265,000. Chemistry: Sodium 133, potassium 4.8, chloride 101, CO2 of 28, BUN 15, creatinine 1.2, glucose 146. ASSESSMENT AND PLAN: 1. Colocutaneous fistula status post drainage of intra-abdominal abscess. She has drain to low intermittent suction. Continue to follow with [facility]. 2. Crohn's disease. Patient is on Remicade. She will be due for her next infusion in November. Would recommend to continue her current Remicade regimen if okay with Infectious Disease due to her current infection status. Will ask for Dr. Aceves' input on whether it is okay for her to have her regularly scheduled Remicade in November. We will continue to follow and recommend she follow up with us as an outpatient. We will continue to follow during her hospital course. 3. Anemia. Continue to monitor hemoglobin and hematocrit and transfuse packed red blood cells as needed. I have discussed this case with Dr. Westbrook. Dictated by PETER Doyle for Tito Westbrook MD cc: PETER Chaudhry MD
[2018-10-25] MEDS: LANOXIN PO SCH (20:26)
[2018-10-25] MEDS: DESYREL PO SCH (20:27)
[2018-10-25] MEDS: GYNE-LOTRIMIN VAGINAL CREAM VAG SCH (20:27)
[2018-10-25] MEDS: PROTONIX IV SCH (20:28)
[2018-10-25] MEDS: SODIUM CHLORIDE 0.9% INJ SCH (20:28)
[2018-10-25] MEDS: ELIQUIS PO SCH (20:32)
[2018-10-26] MEDS: ROCEPHIN 2 GM in NS 50 ML IV SCH ×2 (04:31→17:51)
[2018-10-26] MEDS: DILAUDID IV PRN ×6 (04:37→21:11)
[2018-10-26] MEDS: PERCOCET-5 PO PRN ×5 (06:33→23:12)
[2018-10-26] MEDS: HUMALOG SUBQ SCH ×4 (06:38→21:17)
[2018-10-26] MEDS: PERIDEX MT SCH ×2 (08:05→21:15)
[2018-10-26] MEDS: THERA M PLUS PO SCH (08:06)
[2018-10-26] MEDS: CULTURELLE PO SCH ×2 (08:07→21:16)
[2018-10-26] MEDS: LOPRESSOR PO SCH ×2 (08:08→21:14)
[2018-10-26] MEDS: ZYLOPRIM PO SCH (08:08)
[2018-10-26] MEDS: NEURONTIN PO SCH ×3 (08:08→17:53)
[2018-10-26] MEDS: ELIQUIS PO SCH ×2 (08:08→21:14)
[2018-10-26] MEDS: LEXAPRO PO SCH (08:09)
[2018-10-26] MEDS: BENTYL PO SCH ×2 (08:10→21:15)
[2018-10-26] MEDS: ICAR-C PO SCH (08:10)
[2018-10-26] MEDS: LIALDA PO SCH (08:10)
[2018-10-26] MEDS: CUBICIN 800 MG in NS 100 ML IV SCH (08:10)
--- NOTE | 2018-10-26 14:42 | INFECTIOUS DISEASE PROGRESS NO ---
DATE: 10/26/2018 PRESENT ILLNESS: Ms. Kohc is being treated for a left pelvic abscess infection with colonic fistula that is growing a vancomycin-resistant Enterococcus and an Escherichia coli. She also has a Mirta vaginitis which has improved. MEDICATIONS: Today is day 10 of IV daptomycin 800 mg daily and day 3 of Rocephin 2 g IV every 12 hours. She is also receiving Gyne-Lotrimin cream vaginally at bedtime. PHYSICAL EXAMINATION: Vital Signs: Temperature is 99.8 degrees, pulse rate 85, respiratory rate 16, blood pressure 160/67, O2 saturation is 98% on room air. General: This is a morbidly obese, chronically ill-appearing, middle-aged female. She is sitting up in the bed, currently in better spirits. HEENT: She is atraumatic, normocephalic. Oral mucous membranes are pink and moist. Conjunctivae are pale. Neck: Supple. Trachea is midline. Respiratory: Lung sounds are clear to auscultation bilaterally. Diminished in the bases. Cardiovascular: Irregularly irregular with atrial fibrillation on the monitor. Abdomen: Soft, obese and tender to the left side. The dressing to the left pelvic drain is loose, and the site looks much less erythematous with less edema. The wall suction has more bloody drainage, instead of brown-colored drainage which was coming out previously. There is a Port-A-Cath in place to her right chest without edema, erythema or drainage to the site. Neurologic: She is awake, alert, oriented, and able to get up to the bathroom with assistance. LABORATORY AND X-RAY: None available today. However, yesterday her white count was 4.97, hemoglobin 7.2, platelet count 265,000. Creatinine 1.2. GFR 47. Her abdominal wound has twice grown an Escherichia coli and a vancomycin-resistant Enterococcus. No imaging reports today. ASSESSMENT AND PLAN: Ms. Koch is receiving Rocephin and daptomycin for a left pelvic abscess with colonic fistula. For now, we will continue these medications as ordered. She also has a yeast infection which she states is much better. A note from Dr. Westbrook is inquiring regarding the use of Remicade next month as part of her regular routine. At this point, Dr. Aceves would like to wait on further doses of Remicade until more wound healing has been accomplished. COMORBIDITIES: Comorbidities for Ms. Koch include that she is morbidly obese with diabetes mellitus, chronic pain kidney disease, atrial fibrillation, anemia of chronic disease and Crohn's disease. Dictated by PETER Salgado for Drew Aceves MD cc: Drew Aceves MD [facility]
--- NOTE | 2018-10-26 16:02 | GASTROENTEROLOGY PROGRESS NOTE ---
DATE: 10/26/2018 SUBJECTIVE: Patient is awake and alert. She is eating lunch. She is in no acute distress. She is feeling better with increased drainage from her abscess. They have increased the intermittent suction, and she is having better drainage and less pain. OBJECTIVE: Vital Signs: Temperature 99.8 degrees, pulse 85, respirations 16, blood pressure 160/67. General: Currently patient is awake and alert, in no acute distress. LABORATORY: Hematology: WBC 4.97, hemoglobin 7.2, hematocrit 24.5, MCV 85.7. Chemistry: Sodium 133, potassium 4.8, chloride 101, CO2 of 28, BUN 15, creatinine 1.2, glucose 146. ASSESSMENT AND PLAN: 1. Colocutaneous fistula status post drainage of intra-abdominal abscess and drain in place to intermittent suction. Continuing to follow with [facility]. 2. Anemia. Continue to monitor hemoglobin and hematocrit and transfuse packed red blood cells as needed. 3. Crohn's disease. Patient is on Remicade. Appreciate Infectious Disease input on when to resume that. They recommend holding her May Remicade infusion until her infection is improved. We will continue to follow and resume her Remicade when able. We will continue to follow during her hospital course, and further plans will be made according to her progress. I have discussed this case with Dr. Westbrook. Dictated by PETER Doyle for Tito Westbrook MD cc: PETER Chaudhry MD
--- NOTE | 2018-10-26 18:11 | GENERAL SURGERY PROGRESS NOTE ---
DATE: 10/26/2018 SUBJECTIVE: Doing okay. Feels alright. Persistent drainage from her drain. White count was normal yesterday. OBJECTIVE: I reviewed her vital signs. Abdomen is soft. There is much less and near-complete resolution of the cellulitis of her panniculus and induration here. ASSESSMENT AND PLAN: A 52-year-old female with colocutaneous fistula. We will keep her drain in place. I suspect she will be here next couple of days, maybe plan on CT scan on Wednesday to re- evaluate the abscess, assuming things remain the same. cc: Rakesh Beckwith MD
--- NOTE | 2018-10-26 20:47 | PROGRESS NOTE ---
DATE: 10/26/2018 INTERVAL HISTORY: No acute event overnight. The patient did have a fever spike. She denies new complaints. OBJECTIVE: Vital signs: Temperature of 100.7 degrees, pulse 95, respiratory rate 16, blood pressure 130/62, saturating 97% on room air. General: Does not appear in acute distress, morbidly obese. HEENT: Oral cavity moist. Conjunctival pallor is present. No cyanosis, clubbing or icterus. Respiratory: Air entry bilaterally equal. No wheeze, rhonchi, crackles. Cardiovascular: S1, S2 normal. Irregularly irregular. No murmur, rub, or gallop. Abdomen: Soft, nontender, obese. She does have though tenderness in left lower quadrant where she has bandage over intra-abdominal drain, which is draining feculent bloody material. Genitourinary: There is a urine catheter, which is draining clear urine. LABORATORY DATA: No CBC or BMP today. ASSESSMENT AND PLAN: 1. 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 Continue drain with suction management as per surgery recommendation. Continue intravenous daptomycin, intravenous ceftaroline as per ID. I would appreciate ID recommendation about p.o. antibiotics versus continued IV antibiotics through her chest port at the time of discharge. Continue Percocet and hydromorphone as needed for pain. Surgery is planning a repeat CT scan on or Wednesday, and further recommendations are pending based on that in terms of long-term drain management. 2. History of Crohn disease with complications of colocutaneous fistula and suspected colovesical fistula. Continue home dicyclomine, mesalamine and probiotics and low-fiber diet. She is also receiving Remicade infusion as an outpatient. After discussion with Gastroenterology, it would be okay to postpone Remicade infusion about a week or 2 than her routine schedule if she has ongoing infection going on; however, the schedule would also depend on the duration of antibiotic the patient would remain on. 3. History of chronic atrial fibrillation with rapid ventricular rate, currently in acceptable range. Continue home digoxin, metoprolol and I have resumed her home Eliquis. Follow up with CBC tomorrow. Her drain does have some bloody output, but her hemoglobin has been stable. So based on that, I will decide further Eliquis dosing or stopping it. 4. History of chronic iron deficiency anemia due to Crohn disease. She receives intravenous iron outpatient by Hematology. Continue current home iron multivitamin. 5. Chronic kidney disease stage III, appears stable. Her acute kidney injury on chronic kidney disease has resolved. 6. Others: Continue citalopram and trazodone for anxiety and insomnia, gabapentin for chronic peripheral neuropathy, allopurinol for chronic gout. 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 7. Disposition: The patient is pending a repeat CT evaluation of colocutaneous fistula by surgical team on or Wednesday. Depending on that surgery, we will give recommendation about need for intra-abdominal drain and the drain management. I will also appreciate ID recommendation about long-term antibiotic plan. Plan of care discussed with the patient. All of her questions have been answered. cc: Farhad Souza MD
[2018-10-26] MEDS: SODIUM CHLORIDE 0.9% INJ SCH (21:15)
[2018-10-26] MEDS: LANOXIN PO SCH (21:15)
[2018-10-26] MEDS: PROTONIX IV SCH (21:15)
[2018-10-26] MEDS: DESYREL PO SCH (21:15)
[2018-10-26] MEDS: GYNE-LOTRIMIN VAGINAL CREAM VAG SCH (21:16)
[2018-10-27] MEDS: DILAUDID IV PRN ×8 (00:12→22:58)
[2018-10-27] MEDS: ROCEPHIN 2 GM in NS 50 ML IV SCH ×2 (06:06→16:29)
[2018-10-27] MEDS: PERCOCET-5 PO PRN ×4 (06:15→21:12)
[2018-10-27] MEDS: HUMALOG SUBQ SCH ×4 (07:10→23:38)
[2018-10-27] MEDS: NEURONTIN PO SCH ×3 (10:16→17:17)
[2018-10-27] MEDS: LIALDA PO SCH (10:17)
[2018-10-27] MEDS: THERA M PLUS PO SCH (10:17)
[2018-10-27] MEDS: LOPRESSOR PO SCH ×2 (10:17→21:11)
[2018-10-27] MEDS: BENTYL PO SCH ×2 (10:18→21:11)
[2018-10-27] MEDS: ZYLOPRIM PO SCH (10:18)
[2018-10-27] MEDS: ELIQUIS PO SCH ×2 (10:18→21:10)
[2018-10-27] MEDS: CULTURELLE PO SCH ×2 (10:20→21:10)
[2018-10-27] MEDS: LEXAPRO PO SCH (10:20)
[2018-10-27] MEDS: PERIDEX MT SCH ×2 (10:21→21:10)
[2018-10-27] MEDS: CUBICIN 800 MG in NS 100 ML IV SCH (10:21)
[2018-10-27] MEDS: ICAR-C PO SCH (10:21)
--- NOTE | 2018-10-27 14:48 | INFECTIOUS DISEASE PROGRESS NO ---
DATE: 10/27/2018 PRESENT ILLNESS: Patient has the following infection, a pelvic abscess with a colonic fistula and a vancomycin-resistant Enterococcus and E. coli being cultured from the abscess. The patient also has Mirta vaginitis. MEDICATIONS: This is the 11th day of treatment with daptomycin and the 4th day of treatment with Rocephin. The patient also takes Gyne-Lotrimin vaginally at night. PHYSICAL EXAMINATION: Vital Signs: Temperature is 99 degrees, pulse 80, respirations 20, blood pressure 140/70. General: This is an obese, middle-aged female. She appears to be in no acute distress. Head, eyes, ears, nose, throat: She can hear my spoken words and see near objects. She does not have any white coating on her tongue. Neck: It does not hurt her when she moves her neck. Lungs: Clear to auscultation. Cardiovascular: Regular heart rate. Abdomen: Soft and nontender. A large sump drain is in place. Neurologic: Patient is alert. She can move her extremities. There is no tremor. She is able to ambulate. LAB AND X-RAY: There is no new lab for today except for the culture from the patient's abscess which again grew E. coli and Enterococcus. There is no new radiographic study either. ASSESSMENT AND PLAN: Patient has a pelvic abscess with a colonic fistula. The plan is to continue the current antibiotics and obtain tomorrow a CT scan of the pelvis and then most likely keep the patient over the weekend. The latter processes, namely doing the CT scan and keeping the patient over the weekend was what Dr. Ean Beckwith felt best to do. COMORBIDITIES: She is morbidly obese. She is a diabetic. She has chronic pain and kidney disease. She has anemia of chronic disease and she also has Crohn disease. cc: Drew Aceves MD
--- NOTE | 2018-10-27 15:37 | GENERAL SURGERY PROGRESS NOTE ---
DATE: 10/27/2018 SUBJECTIVE: She feels better. OBJECTIVE: A low-grade temperature but no high spikes. Pulse is 80, blood pressure 151/72. Abdomen is much more soft with less induration. There is persistent purulent drainage. She did have a formed stool, and her urine is clear in her Marshall. ASSESSMENT AND PLAN: A 52-year-old female with colocutaneous fistula. We will keep the drain in place. Plan on repeating her CT scan tomorrow with labs. I suspect she will be here through the weekend for IV antibiotics and drain care. cc: Rakesh Beckwith MD
--- NOTE | 2018-10-27 18:05 | PROGRESS NOTE ---
DATE: 10/27/2018 SUBJECTIVE: No acute events overnight. No new complaints. OBJECTIVE: Vital Signs: Temperature 99.7 degrees, pulse 82, respiratory rate 20, blood pressure 150/69, oxygen saturation 94% on room air. HEENT: Head normocephalic, no trauma. PERRLA. Neck: Supple. No JVD. No masses. Central trachea. Chest: Clear to auscultation. No wheezing. No rales. Cardiovascular: Irregularly irregular rate and rhythm. Abdomen: Soft, obese. She does have some tenderness at the level of the left abdominal area, and she has a drain coming out from that area as well, covered with a dressing. Neurological: The patient is alert and oriented x3. No focal deficits. LABORATORY: Glucose 154. ASSESSMENT AND PLAN: 1. Sepsis due to pelvic abscess due to Escherichia coli and Enterococcus faecium, and this is related to a fistula secondary to her Crohn disease. It is a colocutaneous fistula. The plan is to continue with antibiotics and draining this. Infectious Disease Department on board as well as Surgery Department. Continue pain management. 2. History of Crohn's disease with complication of colocutaneous fistula and suspected colovesical fistula. Continue with the same management. 3. History of chronic atrial fibrillation with rapid ventricular response. Currently heart rate is stable. Continue with same management and anticoagulation. 4. History of chronic iron deficiency anemia. 5. Chronic kidney disease, stage 3, stable. 6. Anxiety. Continue with same management. 7. Peripheral neuropathy. Continue with gabapentin. 8. Gout. Continue with allopurinol. 9. History of renal cell carcinoma status post partial nephrectomy on the right side and left urethral carcinoma, status post left lateral nephrectomy in 2014, Likely this patient will be getting treatment during the weekend. Probably we need to repeat a CT scan again to evaluate the abscess. Continue with antibiotics. She seems to be stable. cc: Davide Sharpe MD
[2018-10-27] MEDS: GYNE-LOTRIMIN VAGINAL CREAM VAG SCH (20:02)
[2018-10-27] MEDS: DESYREL PO SCH (21:10)
[2018-10-27] MEDS: SODIUM CHLORIDE 0.9% INJ SCH (21:11)
[2018-10-27] MEDS: PROTONIX IV SCH (21:11)
[2018-10-27] MEDS: LANOXIN PO SCH (21:15)
[2018-10-28] MEDS: ROCEPHIN 2 GM in NS 50 ML IV SCH ×2 (05:04→16:42)
[2018-10-28] MEDS: DILAUDID IV PRN ×6 (05:08→21:07)
[2018-10-28] MEDS: PERCOCET-5 PO PRN ×5 (06:21→22:58)
[2018-10-28 06:47] LABS: BASO# 0.01 X1000 (0.0-0.2); BASO% 0.3 % (0.0-0.8); EOS# 0.11 X1000 (0.0-0.7); EOS% 2.8 % (0.0-10.0); HEMATOCRIT 22.4 % (37.0-47.0); HEMOGLOBIN 6.6 g/dL (12.0-16.0); LYMPH# 0.65 X1000 (1.2-3.4); LYMPH% 16.6 % (20.5-51.1); MCH 26.1 PG (27-31); MCHC 29.5 g/dL (33-37); MCV 88.5 FL (81-99); MONO# 0.37 X1000 (0.11-0.59); MONO% 9.4 % (1.7-9.3); MPV 8.7 FL (7.4-10.4); NEUT# 2.78 X1000 (1.4-6.5); NEUT% 70.9 % (42.2-75.2); PLT 227 X1000 (130-400); RBC 2.53 XMIL (4.2-5.4); RDW 20.2 % (11.5-14.5); WBC 3.92 X1000 (4.8-10.8)
[2018-10-28] MEDS: HUMALOG SUBQ SCH ×4 (06:48→23:35)
[2018-10-28 07:29] LABS: CALCIUM 8.1 mg/dL (8.8-10.2); POTASSIUM 4.6 mmol/L (3.5-5.1)
[2018-10-28] MEDS: CULTURELLE PO SCH ×2 (08:01→21:06)
[2018-10-28] MEDS: PERIDEX MT SCH ×2 (08:01→21:05)
[2018-10-28] MEDS: THERA M PLUS PO SCH (08:01)
[2018-10-28] MEDS: LIALDA PO SCH (08:01)
[2018-10-28] MEDS: LOPRESSOR PO SCH ×2 (08:01→21:06)
[2018-10-28] MEDS: BENTYL PO SCH ×2 (08:01→21:06)
[2018-10-28] MEDS: ZYLOPRIM PO SCH (08:01)
[2018-10-28] MEDS: LEXAPRO PO SCH (08:01)
[2018-10-28] MEDS: ICAR-C PO SCH (08:01)
[2018-10-28] MEDS: NEURONTIN PO SCH ×3 (08:02→16:42)
[2018-10-28] MEDS: CUBICIN 800 MG in NS 100 ML IV SCH (08:02)
[2018-10-28] MEDS: ELIQUIS PO SCH ×2 (08:02→21:06)
--- NOTE | 2018-10-28 12:15 | GENERAL SURGERY PROGRESS NOTE ---
DATE: 10/28/2018 SUBJECTIVE: Feels okay. No dysuria. She is having bowel function. Her drain output comes and goes. White count is 3, hematocrit 22, creatinine is 1.0. ASSESSMENT/PLAN: A 52-year-old female with Crohn and an intra-abdominal abscess. I am going to order a CT scan on her today to follow this up and monitor her improvement. Otherwise, continue antibiotics, drain care. cc: Rakesh Beckwith MD
--- NOTE | 2018-10-28 13:28 | GASTROENTEROLOGY PROGRESS NOTE ---
DATE: 10/28/2018 SUBJECTIVE: The patient denies complaints today .she states she will be getting a CT scan today for evaluation of abscess and fistula. OBJECTIVE: Vital Signs: Temperature 98.6 degrees, pulse 91, respirations 22, blood pressure 149/69. General: Patient is awake and alert. No acute distress. LABORATORY: Hematology. WBC 3.92, hemoglobin 6.6, hematocrit 22.4, MCV 88.5. Chemistry. Sodium 133, potassium 4.6, chloride 99, CO2 27, BUN 14, creatinine 1.0, glucose 122, calcium 8.1. ASSESSMENT AND PLAN: 1. Sepsis due to abscess and colocutaneous fistula. Patient has drain in place. Following with [facility] and Infectious Disease. 2. History of Crohn disease. Patient would have her regular scheduled Remicade dose in November. I have spoken with Dr. Aceves who recommends postponing the Remicade for 1 to 2 weeks from when she was due so we will recommend she have the Remicade infusion the 3rd week or end of November. She receives the Remicade infusions from Dr. Benjamin. She can call and reschedule that infusion depending on her progress. 3. Chronic atrial fibrillation. Continue management. 4. Anemia. Continue to monitor. Transfuse packed red blood cells as needed. I believe she has orders to receive 2 units of packed red blood cells today because of her drop in hemoglobin and hematocrit. 5. GI will continue to follow. Further plans will be made according to her progress. I have discussed this case with Dr. Westbrook. I have also discussed the case with Dr. Aceves. Dictated by PETER Doyle for Tito Westbrook MD cc: PETER Chaudhry MD
--- NOTE | 2018-10-28 14:09 | Diag Imaging Result Doc PS360 ---
EXAM: CT ABDOMEN/PELVIS W/WO CONTRAS - 10/28/2018 HISTORY: abscess TECHNIQUE: CT abdomen/pelvis without and with contrast. Images are obtained prior to and following intravenous contrast administration. There is oral contrast administered. COMPARISON: 10/18/2018 FINDINGS: The abscess at the left anterior pelvis/anterior pelvic wall has decreased in size by about 80-90%. There is a percutaneous drainage catheter which extends to the superior medial most portion of this abscess. There is residual gas in the more superior lateral left pelvic wall. These may have fistulous connections with the sigmoid colon. The urinary bladder is largely decompressed by Marshall catheter. There is no evidence of bowel obstruction. There is no free intracranial air identified in the abdomen. There is hepatosplenomegaly similar to prior. There is no pancreatic mass or inflammation identified. The left kidney is absent. IMPRESSION: Substantial interval decrease in size of the abscess at the anterior left pelvis/pelvic wall. There is residual gas in the more superior lateral left pelvic wall. These may have fistulous connections with the sigmoid colon. This exam was performed using automated exposure control, adjustment of mA or kV according to patient size, and/or use of iterative reconstruction technique. Electronically signed by Dereck Calderon 10/28/2018 2:06 PM
[2018-10-28] MEDS ORDERED: NS 500 ML ONE (14:21)
--- NOTE | 2018-10-28 15:53 | INFECTIOUS DISEASE PROGRESS NO ---
DATE: 10/28/2018 PRESENT ILLNESS: Ms. Koch is being treated for pelvic abscess with a colonic fistula and has grown a vancomycin-resistant Enterococcus and an Escherichia coli. There is also candidal vaginitis. MEDICATIONS: Today is day 12 of treatment with daptomycin 800 mg IV daily and day 5 of treatment with her Rocephin 2 g IV every 12 hours. She is also receiving Gyne-Lotrimin vaginal cream at bedtime. PHYSICAL EXAMINATION: Vital Signs: Temperature is 98.6 degrees, pulse rate 91, respiratory rate 22, blood pressure 149/69, O2 saturation is 96% on room air. General: This is a chronically ill- appearing morbidly obese female. She is lying in the bed, currently in no acute distress. HEENT: Atraumatic, normocephalic. Oral mucous membranes are pink and moist. Conjunctivae are pale. Neck is supple. Trachea is midline. Respiratory: Lung sounds are clear to auscultation bilaterally. Cardiovascular: Heart rate irregularly irregular. Abdomen is soft, obese, nontender on the right, with mild tenderness on the left side. Integumentary: There is a pelvic drain in place to the left. The site has a small amount of bloody drainage, but there is no erythema, and edema has decreased considerably to the left abdomen. Neurologic: She is awake, alert, oriented, and able to ambulate with assistance. DIAGNOSTIC STUDIES: Today her white count is 3.92, hemoglobin 6.6, platelet count 227,000. Creatinine is 1, GFR is 58. Creatine kinase is 229. Both of her abdominal cultures on this admission have grown Escherichia coli and enterococcus. Abdominal/pelvic CT done today shows substantial interval decrease in the size of the abscess with possible fistulous connections to the sigmoid colon. ASSESSMENT AND PLAN: Ms. Koch is being treated for left pelvic abscess with colonic fistula which has significantly decreased in size based on her CT today. For now, we will continue her daptomycin and Rocephin as ordered. There is also a vaginal Mirta so we will continue the Gyne- Lotrimin as well. These plans have been discussed with and recommended by Dr. Aceves. COMORBIDITIES: For Ms. Koch include: 1. Morbid obesity. 2. Diabetes mellitus. 3. Chronic kidney disease. 4. Anemia of chronic disease. 5. Crohn's disease. Dictated by PETER Salgado for Drew Aceves MD cc: Drew Aceves MD [facility]
--- NOTE | 2018-10-28 16:54 | PROGRESS NOTE ---
DATE: 10/28/2018 SUBJECTIVE: No acute events overnight, hemoglobin today 6.6 and I will transfuse this lady with 2 units of PRBCs. OBJECTIVE: Vital Signs: Temperature 98.9 degrees, pulse 72, respiratory rate 16, blood pressure 147/73, oxygen saturation 94 on room air. HEENT: Head normocephalic. No trauma. PERRLA. Neck: Supple. No JVD. No masses. Central trachea. Chest: Clear to auscultation. No wheezing. No rales. Cardiovascular: Irregularly irregular rate and rhythm. Abdomen: Soft, obese. She does have some tenderness to palpation at the level of the left abdominal area, she has a drain coming out from that area as well covered with a dressing, looks clean. Neurological: Alert and oriented x3. No focal deficits. LABORATORY: WBC 3.2, hemoglobin 6.6, hematocrit 22.4, platelets 227,000. Sodium 133, potassium 4.6, chloride 99, bicarbonate 27, BUN 14, creatinine 1, glucose 122, calcium 8.1. ASSESSMENT AND PLAN: 1. Sepsis due to pelvic abscess due to Escherichia coli and enterococcus faecium, Infectious Disease Department following this patient closely. Will continue with antibiotics. CT scan of the abdomen showed a significant interval decrease in size of the abscess at the anterior left pelvic wall. 2. History of Crohn disease with complication of colocutaneous fistula and suspected colovesical fistula, continue with same management. 3. History of chronic atrial fibrillation with rapid ventricular response, currently heart rate controlled, continue with same management and anticoagulation. 4. History of chronic iron deficiency anemia aware. 5. Chronic kidney disease stage 3 stable. 6. Anxiety. Continue with same management. 7. Peripheral neuropathy. Continue with treatment 8. Gout. Continue with allopurinol. 9. 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 10. Anemia, hemoglobin dropped to 6.6. She is getting 2 units of packed red blood cells. cc: Davide Sharpe MD MTDD
[2018-10-28] MEDS: PROTONIX IV SCH (21:06)
[2018-10-28] MEDS: DESYREL PO SCH (21:06)
[2018-10-28] MEDS: LANOXIN PO SCH (21:06)
[2018-10-28] MEDS: SODIUM CHLORIDE 0.9% INJ SCH (21:07)
[2018-10-28] MEDS: GYNE-LOTRIMIN VAGINAL CREAM VAG SCH (23:33)
[2018-10-29] MEDS: DILAUDID IV PRN ×7 (05:45→23:20)
[2018-10-29] MEDS: ROCEPHIN 2 GM in NS 50 ML IV SCH ×2 (05:45→16:48)
[2018-10-29] MEDS: ZOFRAN IV PRN (06:22)
[2018-10-29] MEDS: PERCOCET-5 PO PRN ×5 (06:22→22:19)
[2018-10-29 06:28] LABS: HEMATOCRIT 26.1 % (37.0-47.0); HEMOGLOBIN 7.8 g/dL (12.0-16.0); MCH 25.7 PG (27-31); MCHC 29.9 g/dL (33-37); MCV 86.1 FL (81-99); MPV 9.2 FL (7.4-10.4); RBC 3.03 XMIL (4.2-5.4); WBC 4.94 X1000 (4.8-10.8)
[2018-10-29] MEDS: HUMALOG SUBQ SCH ×4 (06:41→22:18)
[2018-10-29 06:44] LABS: CALCIUM 8.4 mg/dL (8.8-10.2); CREATININE 1.1 mg/dL (0.5-0.9); POTASSIUM 4.6 mmol/L (3.5-5.1)
[2018-10-29] MEDS: PERIDEX MT SCH ×2 (08:55→20:38)
[2018-10-29] MEDS: CULTURELLE PO SCH ×2 (08:55→20:37)
[2018-10-29] MEDS: CUBICIN 800 MG in NS 100 ML IV SCH (08:55)
[2018-10-29] MEDS: BENTYL PO SCH ×2 (08:56→20:37)
[2018-10-29] MEDS: NEURONTIN PO SCH ×3 (08:56→16:48)
[2018-10-29] MEDS: LOPRESSOR PO SCH ×2 (08:56→20:38)
[2018-10-29] MEDS: LIALDA PO SCH (08:56)
[2018-10-29] MEDS: ELIQUIS PO SCH ×2 (08:56→20:38)
[2018-10-29] MEDS: LEXAPRO PO SCH (08:56)
[2018-10-29] MEDS: THERA M PLUS PO SCH (08:56)
[2018-10-29] MEDS: ZYLOPRIM PO SCH (08:57)
[2018-10-29] MEDS: ICAR-C PO SCH (08:57)
--- NOTE | 2018-10-29 10:26 | PROGRESS NOTE ---
DATE: 10/29/2018 SUBJECTIVE: No acute events overnight. Hemoglobin improved from 6.6 to 7.8 after 2 PRBCs. She is still getting some moderate amount of fluid coming out from her abdomen. Surgery Department on board. We will continue to monitor. OBJECTIVE: Vital Signs: Temperature 98.7 degrees, pulse 94, respiratory rate 16, blood pressure 145/76, oxygen saturation 97% on room air. HEENT: Head normocephalic, no trauma. PERRLA. Neck: Supple. No JVD. No masses. Central trachea. Chest: Clear to auscultation. No wheezing. Some crepitus on the left base. Cardiovascular: Irregularly irregular rate and rhythm. Abdomen: Soft, obese. She does have some tenderness to palpation at the level of the left abdominal area, and also abdominal wall edema, especially on the left flank. She has a drain coming out from that area and is working fine. Neurological examination: Alert and oriented x3. No focal deficits. LABORATORY: WBC 4.9, hemoglobin 7.8, hematocrit 26.1, platelets 236. Sodium 132, potassium 4.6, chloride 101, bicarbonate 23. BUN 14, creatinine 1.1, glucose 135, calcium 8.4. ASSESSMENT AND PLAN: 1. Sepsis due to pelvic abscess due to Escherichia coli and enterococcal faecium. Infectious Disease Department following this patient closely. We will continue with antibiotics. CT scan of the abdomen showed a significant interval decrease in size of the abscess at the anterior pelvic area. 2. History of Crohn disease with complication of colocutaneous fistula and suspected colovesical fistula. Continue with the same management. Surgery Department on board. 3. History of chronic atrial fibrillation with rapid ventricular response, currently rate controlled. Continue with same management. She is on blood thinners. 4. History of chronic iron-deficiency anemia, aware. She is status post 2 packed red blood cells. Hemoglobin improved from 6.6 to 7.8. 5. Chronic kidney disease stage III, stable. 6. Anxiety. Continue with same management. 7. Peripheral neuropathy. Continue with gabapentin. 8. Gout. Continue with allopurinol. 9. History of renal cell carcinoma, status post partial nephrectomy on the right side, and left urethral carcinoma, status post left lateral nephrectomy in 2014, aware. 10. Anemia. Like I mentioned before, hemoglobin dropped to 6.6. She received 2 units of packed red blood cells. Now the hemoglobin is 7.8. cc: Davide Sharpe MD
--- NOTE | 2018-10-29 13:01 | GENERAL SURGERY PROGRESS NOTE ---
DATE: 10/29/2018 SUBJECTIVE: She is feeling well. Urine is clear. Drain output is about the same. Her CT yesterday showed significant improvement in intra-abdominal abscess. There is still some inflammatory changes on the abdominal wall. OBJECTIVE: On exam, there is some persistent edema here, but the cellulitis and induration is improving. LABS: White count is normal at 4, hematocrit is 26 and creatinine is 1.1. ASSESSMENT AND PLAN: This is a 52-year-old female with an intra-abdominal abscess related to Crohn disease. There has been percutaneous drains. There was not obvious feculent output from her drain. It is purulent and bloody appearing. Her urine is clear. She is on appropriate antibiotics. We will see how she does through the weekend, and make determination for drain care. I do think she is going to need intravenous antibiotics at home for a long period of time. cc: Rakesh Beckwith MD
[2018-10-29] MEDS: LANOXIN PO SCH (20:37)
[2018-10-29] MEDS: SODIUM CHLORIDE 0.9% INJ SCH (20:38)
[2018-10-29] MEDS: DESYREL PO SCH (20:38)
[2018-10-29] MEDS: PROTONIX IV SCH (20:38)
[2018-10-29] MEDS: GYNE-LOTRIMIN VAGINAL CREAM VAG SCH (22:18)
[2018-10-30] MEDS: DILAUDID IV PRN ×7 (03:03→21:06)
[2018-10-30] MEDS: ROCEPHIN 2 GM in NS 50 ML IV SCH ×2 (05:44→17:56)
[2018-10-30 06:37] LABS: BASO# 0.01 X1000 (0.0-0.2); BASO% 0.2 % (0.0-0.8); EOS# 0.11 X1000 (0.0-0.7); EOS% 2.1 % (0.0-10.0); HEMATOCRIT 26.4 % (37.0-47.0); HEMOGLOBIN 7.9 g/dL (12.0-16.0); IMM GRAN# 0.02 X1000 (0.0-0.04); IMM GRAN% 0.4 % (0.0-0.5); LYMPH# 0.76 X1000 (1.2-3.4); LYMPH% 14.8 % (20.5-51.1); MCH 25.6 PG (27-31); MCHC 29.9 g/dL (33-37); MCV 85.7 FL (81-99); MONO# 0.44 X1000 (0.11-0.59); MONO% 8.6 % (1.7-9.3); MPV 8.9 FL (7.4-10.4); NEUT% 73.9 % (42.2-75.2); PLT 243 X1000 (130-400); RBC 3.08 XMIL (4.2-5.4); RDW 20.1 % (11.5-14.5); WBC 5.14 X1000 (4.8-10.8)
[2018-10-30 06:54] LABS: CALCIUM 8.3 mg/dL (8.8-10.2); CREATININE 1.1 mg/dL (0.5-0.9)
[2018-10-30] MEDS: PERCOCET-5 PO PRN ×4 (07:36→21:43)
[2018-10-30] MEDS: HUMALOG SUBQ SCH ×3 (07:37→18:59)
[2018-10-30] MEDS: LEXAPRO PO SCH (08:59)
[2018-10-30] MEDS: BENTYL PO SCH ×2 (08:59→21:04)
[2018-10-30] MEDS: ZYLOPRIM PO SCH (08:59)
[2018-10-30] MEDS: PERIDEX MT SCH ×2 (08:59→21:06)
[2018-10-30] MEDS: ELIQUIS PO SCH ×2 (08:59→21:04)
[2018-10-30] MEDS: LOPRESSOR PO SCH ×2 (08:59→21:05)
[2018-10-30] MEDS: ICAR-C PO SCH (08:59)
[2018-10-30] MEDS: NEURONTIN PO SCH ×3 (08:59→17:56)
[2018-10-30] MEDS: THERA M PLUS PO SCH (08:59)
[2018-10-30] MEDS: CULTURELLE PO SCH ×2 (08:59→21:04)
[2018-10-30] MEDS: LIALDA PO SCH (08:59)
[2018-10-30] MEDS: CUBICIN 800 MG in NS 100 ML IV SCH (09:58)
--- NOTE | 2018-10-30 13:43 | PROGRESS NOTE ---
DATE: 10/30/2018 SUBJECTIVE: Patient is resting in bed. OBJECTIVE: Vital Signs: Temperature 98.7 degrees, pulse 95, respiratory rate is 16, blood pressure 140/69, oxygen saturation is 98%. HEENT: Atraumatic, normocephalic. Cardiovascular System: S1, S2. Respiratory System: Has evidence of good air entry bilaterally. Abdomen: Soft, nontender. No masses felt. Extremities: No evidence of edema. Central Nervous System: No obvious focal deficits noted. Labs: WBC is 5.14, hematocrit is 26.4, with a platelet count of 243,000. Sodium is 134, potassium is 5.0, chloride is 102, bicarb is 25, BUN 7, creatinine 1.1. ASSESSMENT AND PLAN: 1. Sepsis due to intra-abdominal abscess. Cultures from those lesions are positive for Escherichia coli as well as Enterococcus faecium. The patient does have percutaneous drains. She is currently on intravenous antibiotics. The patient will need intravenous antibiotics to be arranged post discharge from the hospital. She is being followed by the infectious disease team. 2. Crohn's disease complicated with colocutaneous fistula as well as a suspected colovesical fistula. Surgery team on board. 3. Atrial fibrillation with rapid ventricular rate. Current rate is controlled. She is currently on beta blockers, digoxin, as well as apixaban. 4. History of iron deficiency anemia. Maintain patient on iron supplementation. Follow up on hemoglobin and hematocrit. Transfuse packed red blood cells as needed. 5. Chronic kidney disease. Aware. Follow up on renal function. Avoid nephrotoxic agents. Medication for this will need to be adjusted for renal function if needed. 6. Anxiety disorder. Use anxiolytics as needed. 7. Peripheral neuropathy. Continue gabapentin. 8. Gout. Continue allopurinol. 9. History of renal cell cancer, status post partial nephrectomy on the right side and also left ureteral carcinoma, status post left lateral nephrectomy. 10. Deep vein thrombosis prophylaxis. The patient is on apixaban. 11. Gastrointestinal prophylaxis. Proton pump inhibitor. cc: Andre Ma MD
--- NOTE | 2018-10-30 15:12 | GENERAL SURGERY PROGRESS NOTE ---
DATE: 10/30/2018 SUBJECTIVE: No fevers recorded in the last 24 hours. No tachycardia. Some seropurulent fluid as well as feculent output. OBJECTIVE: Pulse 81, blood pressure 140/58, oxygen saturation 96%. General: She is alert. Abdomen: Panniculus is much softer. Less induration. No erythema. Drain is in place. White count is 5. Creatinine is 1.1. ASSESSMENT AND PLAN: A 52-year-old female with left lower quadrant abscess related to colocutaneous fistula. Continue draining for now. She will need intravenous antibiotics at home for long-term. We will continue to drain. Anticipate placement to gravity tomorrow. cc: Rakesh Beckwith MD
[2018-10-30] MEDS: SODIUM CHLORIDE 0.9% INJ SCH (21:04)
[2018-10-30] MEDS: PROTONIX IV SCH (21:04)
[2018-10-30] MEDS: DESYREL PO SCH (21:05)
[2018-10-30] MEDS: LANOXIN PO SCH (21:05)
[2018-10-30] MEDS: TYLENOL PO PRN (21:44)
[2018-10-31] MEDS: DILAUDID IV PRN ×7 (00:06→21:27)
[2018-10-31] MEDS: GYNE-LOTRIMIN VAGINAL CREAM VAG SCH (01:09)
[2018-10-31] MEDS: HUMALOG SUBQ SCH ×5 (01:09→21:27)
[2018-10-31] MEDS: ROCEPHIN 2 GM in NS 50 ML IV SCH ×2 (05:44→17:53)
[2018-10-31] MEDS: PERCOCET-5 PO PRN ×4 (06:17→20:24)
[2018-10-31] MEDS: CUBICIN 800 MG in NS 100 ML IV SCH (08:47)
[2018-10-31] MEDS: BENTYL PO SCH ×2 (08:47→20:23)
[2018-10-31] MEDS: LIALDA PO SCH (08:48)
[2018-10-31] MEDS: NEURONTIN PO SCH ×3 (08:48→17:53)
[2018-10-31] MEDS: ZYLOPRIM PO SCH (08:48)
[2018-10-31] MEDS: LEXAPRO PO SCH (08:48)
[2018-10-31] MEDS: THERA M PLUS PO SCH (08:49)
[2018-10-31] MEDS: ELIQUIS PO SCH ×2 (08:49→20:23)
[2018-10-31] MEDS: ICAR-C PO SCH (08:49)
[2018-10-31] MEDS: LOPRESSOR PO SCH ×2 (08:49→20:23)
[2018-10-31] MEDS: CULTURELLE PO SCH ×2 (08:49→20:23)
[2018-10-31] MEDS: PERIDEX MT SCH ×2 (08:51→20:22)
--- NOTE | 2018-10-31 09:53 | GENERAL SURGERY PROGRESS NOTE ---
DATE: 10/31/2018 SUBJECTIVE: Doing okay still. Has some drainage. No fevers. No tachycardia. Urine is clear. OBJECTIVE: Abdomen: Abdomen has a drain in place with seropurulent fluid. LABORATORY DATA: Glucose 148. White count was normal yesterday. ASSESSMENT AND PLAN: This is a 52-year-old female with Crohn's and left lower quadrant abscess, possible colovesicular fistula. Plan on removing her Marshall catheter and drains. Send her home IV antibiotics for the next several weeks with plan for outpatient CT scan in the future. cc: Rakesh Beckwith MD
--- NOTE | 2018-10-31 12:23 | PROGRESS NOTE ---
DATE: 10/31/2018 SUBJECTIVE: Patient resting in bed. Not in any obvious distress. OBJECTIVE: Vital signs: Temperature 97.6 degrees, pulse 90, respiratory rate 18, blood pressure is 168/63, oxygen is 94%. HEENT: Atraumatic, normocephalic. Cardiovascular: S1, S2. Respiratory system: Has evidence of good air entry bilaterally. Abdomen: Obese nontender. No masses felt. Extremities: No evidence of edema. Central nervous system: No obvious focal deficits noted. LABS: Blood sugar 188. ASSESSMENT AND PLAN: 1. Sepsis secondary to intra-abdominal abscess. Culture from intra-abdominal lesion positive for Escherichia coli as well as Enterococcus effusion. The patient does have percutaneous drains. She is currently on intravenous antibiotics. Infectious Disease managing antibiotics. 2. Crohn's disease complicated with colocutaneous stool as well as a suspected colovesical fistula. Surgery is on board. 3. Atrial fibrillation with rapid ventricular rate. Current heart rate is controlled. Continue beta manuel. Digoxin as well as apixaban. 4. History of iron deficiency anemia. Continue iron supplementation. Follow up on hemoglobin and hematocrit. Transfuse PRBCs as needed. 5. Chronic kidney disease. Follow up on renal function. Avoid nephrotoxic agents and medication will need to be adjusted for renal function. 6. Anxiety disorder. Continue anxiolytic as needed. 7. Peripheral neuropathy. Continue gabapentin. 8. Gout. Continue allopurinol. 9. History of renal cell cancer status post partial nephrectomy on the right side . 10. Deep vein thrombosis prophylaxis, apixaban. 11. Gastrointestinal prophylaxis, PPI cc: Andre Ma MD [facility]
--- NOTE | 2018-10-31 12:51 | GASTROENTEROLOGY PROGRESS NOTE ---
DATE: 10/31/2018 SUBJECTIVE: Patient currently resting, asleep, in no acute distress. OBJECTIVE: Vital Signs: Temperature 97.6 degrees, pulse 112, respirations 16, blood pressure 160/63. General: Patient was asleep in no acute distress. LABORATORY: Hematology: WBC 5.14, hemoglobin 7.9, hematocrit 26.4, MCV 85.7, platelets 243,000. Chemistry: Sodium 134, potassium 5, chloride 102, CO2 25, BUN 17, creatinine 1.1, glucose 123. ASSESSMENT AND PLAN: 1. Left lower quadrant abscess, possible colovesicular fistula. Patient had Marshall catheter and drain in place. She has been seen by Dr. Beckwith. I believe there are plans to remove her Marshall catheter and drain. She will be discharged home on antibiotics and to follow up for repeat CT scan. 2. Crohn's disease. I have spoken with Dr. Aceves about timing of continuing her Remicade. She was actually due for Remicade the 1st week of September. We will extend that out to mid to week of September to allow further improvement in her infections. Patient knows to reschedule that and recommend she follow up with us in the office after discharge. I have discussed this case with Dr. Westbrook. Dictated by PETER Doyle for Tito Westbrook MD cc: PETER Chaudhry MD
--- NOTE | 2018-10-31 16:45 | INFECTIOUS DISEASE PROGRESS NO ---
DATE: 10/31/2018 PRESENT ILLNESS: Ms Koch is being treated for a pelvic abscess with colonic fistula which has grown vancomycin-resistant Enterococcus and Escherichia coli. She also has a Mirta vaginitis which is improving. MEDICATIONS: She is receiving Rocephin 2 gram IV every 12 hours, Daptomycin 800 mg IV daily, and Gyne-Lotrimin vaginal cream at hour of sleep. PHYSICAL EXAMINATION: Vital Signs: Temperature is 97.6 degrees, pulse rate 90, respiratory rate 18, blood pressure 168/63, O2 saturation 98% on room air. General: This is a chronically ill- appearing, morbidly obese female who is lying in bed, currently in no acute distress. HEENT: Atraumatic, normocephalic. Oral mucous membranes are pink and moist. Conjunctivae are pink. Neck: Supple. Trachea is midline. Cardiovascular: Irregularly irregular. Respiratory: Lung sounds are clear to auscultation. Abdomen: Soft, obese, nontender on the right. Tender on the left with a dressing and drain in place which is draining to gravity. Neurologic: She is awake, alert, and oriented. Able to move around in the bed with assistance. Integumentary: The Port-a-Cath site to her right chest is without edema, erythema or drainage. LABORATORY AND X-RAY: None available today. However yesterday her he her white count was 5.14, hemoglobin 7.9, platelet count 243,000, creatinine 1.1. GFR 52. Her abdominal wound has grown a vancomycin-resistant Enterococcus and Escherichia coli. No imaging reports today. ASSESSMENT AND PLAN: Ms. Koch is going to be treated for left pelvic abscess and colonic fistula for at least 3 more weeks. Based on her CT results the abscess is improving. For now we will continue her daptomycin and Rocephin as ordered. She is having some mild aches and pains which are generalized so we will recheck her CK in the morning. She states the vaginal Mirta has improved. I have talked to her about continuing Gyne-Lotrimin while she is on antibiotics. Tentative plans are for her to go home tomorrow with IV antibiotics. Orders have been put in for [facility] for 3 weeks of daptomycin and Rocephin. These plans have been discussed with and recommended by Dr. Aceves. COMORBIDITIES: For Ms. Koch include morbid obesity, diabetes mellitus, chronic kidney disease, anemia of chronic disease and Crohn's disease. Dictated by PETER Salgado for Drew Aceves MD cc: Drew Aceves MD MTDD
[2018-10-31] MEDS: PROTONIX IV SCH (20:22)
[2018-10-31] MEDS: SODIUM CHLORIDE 0.9% INJ SCH (20:22)
[2018-10-31] MEDS: DESYREL PO SCH (20:23)
[2018-10-31] MEDS: LANOXIN PO SCH (20:23)
[2018-11-01] MEDS: DILAUDID IV PRN ×4 (00:39→14:07)
[2018-11-01] MEDS: PERCOCET-5 PO PRN ×3 (00:48→11:43)
[2018-11-01] MEDS: ROCEPHIN 2 GM in NS 50 ML IV SCH (06:44)
[2018-11-01] MEDS: HUMALOG SUBQ SCH ×2 (08:15→11:38)
[2018-11-01 09:48] LABS: BASO# 0.01 X1000 (0.0-0.2); BASO% 0.3 % (0.0-0.8); EOS# 0.07 X1000 (0.0-0.7); EOS% 1.9 % (0.0-10.0); HEMATOCRIT 24.9 % (37.0-47.0); HEMOGLOBIN 7.4 g/dL (12.0-16.0); IMM GRAN# 0.02 X1000 (0.0-0.04); IMM GRAN% 0.5 % (0.0-0.5); LYMPH% 16.3 % (20.5-51.1); MCH 25.8 PG (27-31); MCHC 29.7 g/dL (33-37); MCV 86.8 FL (81-99); MONO# 0.24 X1000 (0.11-0.59); MONO% 6.5 % (1.7-9.3); MPV 8.7 FL (7.4-10.4); NEUT# 2.73 X1000 (1.4-6.5); NEUT% 74.5 % (42.2-75.2); PLT 241 X1000 (130-400); RBC 2.87 XMIL (4.2-5.4); WBC 3.67 X1000 (4.8-10.8)
[2018-11-01] MEDS: CUBICIN 800 MG in NS 100 ML IV SCH (10:00)
[2018-11-01] MEDS: THERA M PLUS PO SCH (10:00)
[2018-11-01] MEDS: BENTYL PO SCH (10:00)
[2018-11-01] MEDS: LOPRESSOR PO SCH (10:00)
[2018-11-01] MEDS: LEXAPRO PO SCH (10:01)
[2018-11-01] MEDS: ICAR-C PO SCH (10:01)
[2018-11-01] MEDS: ELIQUIS PO SCH (10:02)
[2018-11-01] MEDS: CULTURELLE PO SCH (10:02)
[2018-11-01] MEDS: LIALDA PO SCH (10:02)
[2018-11-01] MEDS: NEURONTIN PO SCH ×2 (10:02→14:07)
[2018-11-01] MEDS: PERIDEX MT SCH (10:02)
[2018-11-01] MEDS: ZYLOPRIM PO SCH (10:02)
[2018-11-01 10:25] LABS: AGAP 9; ALB/GLOB RATIO 0.5; ALKALINE PHOSPHATASE 90 U/L (32-104); BUN 18 mg/dL (8-22); CHLORIDE 104 mmol/L (98-107); COSMO 279; CREATININE 1.2 mg/dL (0.5-0.9); ESTIMATED GFR 47; GLUCOSE 189 mg/dL (70-104); GOT 13 U/L (10-30); GPT 14 U/L (10-36); POTASSIUM 4.2 mmol/L (3.5-5.1); SODIUM 136 mmol/L (136-145); TCO2 23 mmol/L (25-35); TOTAL BILIRUBIN < 0.15 mg/dL (0.20-1.00); TOTAL PROTEIN 5.9 g/dL (6.3-8.3)
--- NOTE | 2018-11-01 13:47 | GENERAL SURGERY PROGRESS NOTE ---
DATE: 11/01/2018 SUBJECTIVE: Doing okay. She is voiding after her Marshall came out. Her drain is in place, some drainage around the drain. Overall, the cellulitis and induration laterally is improving and the skin is surprisingly healthy around the incision. OBJECTIVE: White count is 3, hematocrit is 24, creatinine is 1.2, glucose overall about the same, 140s to 180s. ASSESSMENT AND PLAN: A 52-year-old female with colocutaneous fistula. Continue the drain for now. Plan to ultimately remove the drain and place an ostomy appliance but we will keep it for now. Okay with her going home with home health and IV antibiotics. We will follow her as an outpatient if we can arrange that today. cc: Rakesh Beckwith MD
--- NOTE | 2018-11-01 14:04 | GASTROENTEROLOGY PROGRESS NOTE ---
DATE: 11/01/2018 SUBJECTIVE: Patient is in no acute distress. She believes she may go home today. OBJECTIVE: Vital Signs: Temperature 98.6 degrees, pulse 90, respirations 18, blood pressure 155/62. General: Patient is awake, alert, no acute distress. Her is at the bedside. LABORATORY: Hematology: WBC 3.67 hemoglobin 7.4, hematocrit 24.9, MCV 86.8, platelets 241,000. Chemistry: Sodium 136, potassium 4.2, chloride 104, CO2 of 23, BUN 18, creatinine 1.2, glucose 189. ASSESSMENT AND PLAN: 1. Left lower quadrant abscess, possible colovesicular fistula. [facility] and Dr. Aceves. I believe she will be discharged today. 2. Crohn's disease. Continue current medications. Her Remicade infusion was due the 1st or 2nd week of November. I had spoken with Dr. Aceves and he recommended postponing the Remicade infusion for approximately 2 weeks. The patient will call and reschedule her Remicade infusion with Dr. Benjamin either the 3rd week or end of November. 3. Recommend she follow up with us as an outpatient. 4. I have discussed this case with Dr. Westbrook. Dictated by PETER Doyle for Tito Westbrook MD cc: PETER Chaudhry MD [facility]
[2018-11-01 14:18] VITALS: BP 139/85
--- NOTE | 2018-11-01 21:15 | DISCHARGE SUMMARY ---
ADMISSION DATE: 10/11/2018 DISCHARGE DATE: 11/01/2018 DIAGNOSES: 1. 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 2. Cirrhosis. 3. Diabetes mellitus type 2. 4. Atrial fibrillation. 5. Hypertension. 6. Anemia of chronic disease. 7. Hypotonic hypovolemic hyponatremia resolved. 8. History of Crohn disease with Remicade infusions every [address] Benjamin. 9. Morbid obesity. CONSULTS: 1. Dr. Drew Aceves, Infectious Disease. 2. Dr. Tito Westbrook, Gastroenterology. 3. Dr. Ean Beckwith, General Surgery. DIAGNOSTICS: 1. CT of the abdomen and pelvis 10/11/2018 revealed prominent abscess adjacent to the sigmoid colon tracking to the ventral abdominal wall and pelvis with a stable right adrenal nodule, stable exophytic nodule at the posterior aspect of the uterus on the left. 2. Body wall anasarca. 3. CT-guided drainage and drain placement of pelvic abscess 10/13/2018. 4. 10/18/2018 CT of the abdomen and pelvis revealed pelvic abscesses which may be fistula sleeves connected to the sigmoid colon with worsening anasarca. 5. 10/28/2018 CT abdomen and pelvis revealed substantial interval decrease in the size of the abscess at the left anterior pelvis, pelvic wall with residual gas in the superior lateral left pelvic wall. 6. Microbiology. Blood cultures x2 10/12/2018 and 10/15/2018 revealed no growth after 5 days. 7. Urine culture revealed no growth. 8. Abdominal culture, wound culture revealed E coli ESBL negative and VRE. 9. Clostridium difficile antigen was negative. HOSPITAL COURSE: Ms. Koch presented to the emergency room complaining of left lower quadrant pain with intermittent fevers for 4 days. She was found to have colocutaneous fistulas and pelvic abcesses. She underwent CT-guided a drainage and drain placement of pelvic abscess on October 13 cultures revealing VRE and E coli. Initially she received antibiotic coverage of Zosyn, once cultures returned she was placed on Daptomycin and Maxipime per Infectious Disease. On the 20 of October she underwent open drainage of the intraabdominal abscess per Dr. Beckwith. Dr. Beckwith felt that the patient should be discharged with her drain with an ostomy appliance in place and he would reevaluate on her return appointment November 08. During the hospitalization we trended electrolytes and repleted as appropriate. Blood sugars ranged in the 1-teen to 150s. She was transfused a total of 4 units of packed cells. The patient was evaluated by PT who felt that the patient did not need any skilled PT intervention and thankfully she is ready for discharge home with self-care and her . DISCHARGE MEDICATIONS: 1. Trazodone 100 mg p.o. at bedtime. 2. Allopurinol 300 mg p.o. daily. 3. Bentyl 20 mg p.o. b.i.d. 4. Digoxin 250 mcg p.o. at bedtime. 5. Lasix 40 mg p.o. daily. 6. Gabapentin 600 mg p.o. t.i.d. 7. Metformin 1000 mg p.o. b.i.d. 8. Iron 1 capsule p.o. b.i.d. 9. Klor-Con 20 mEq p.o. b.i.d. 10. Lexapro 10 mg p.o. daily. 11. Lialda 1.2 g p.o. daily. 12. Spironolactone hydrochlorothiazide 1 daily. 13. Tresiba 85 units subcu daily as directed. 14. Zofran 4 mg p.o. p.r.n. nausea. 15. Lactobacillus 1 p.o. b.i.d. 16. Eliquis 5 mg p.o. b.i.d. 17. Lopressor 100 mg p.o. b.i.d. 18. Omeprazole 40 mg p.o. daily. 19. Percocet 10 one q.4 hours p.r.n. pain. 20. Multivitamin 1 p.o. daily. 21. Daptomycin 800 mg IV daily for 3 weeks. 22. Rocephin 2 g IV q.12 hours for 3 weeks. These will be followed by Dr. Drew Aceves. FOLLOWUP: 1. She will be followed by [facility]. 2. [facility] for IV infusions. 3. Dr. Tito Westbrook 11/22/2018 at [address] Drew Aceves 11/16/2018 at 9 a.m. 5. J[facility] Hall 11/09/2018 2:[address] Ean Beckwith 11/08/2018 2:45 p.m. She has been instructed to call to be seen sooner or return to the ER for any syncope, dizziness, chest pain, palpitations, nausea, vomiting, diarrhea, constipation, any black or bloody vomitus or stools, hematuria, dysuria frequency, urgency, temperature greater than 101, for any purulent or bloody drainage from her abdominal drain or for any questions or concerns that she may have. She is being discharged home in stable condition with family members. TIME SPENT: Greater than 30 minutes. Dictated by PETER Weinstein for Davide Sharpe MD cc: PETER Weinstein MD MTDD
== END 2018-11-01 16:32 | disposition home health service (06) | DRG 356 ==
LOC: ED 18:06 → SUATTDRO 18:07 → 4N 10-12 02:14 → SUATTDRO 10-12 02:14
PROVIDERS: ATTEND Internal Medicine
CPT/HCPCS: 36430; 49041; 49405; 49406; 71010; 71045; 74177; 74178; 80048; 80053; 80162; 81001; 82550; 82728; 82784; 82948; 83540; 83550; 83605; 83690; 83735; 84100; 84484; 85025; 85027; 85610; 85730; 86850; 86900; 86901; 86920; 87040; 87045; 87046; 87070; 87075; 87077; 87088; 87186; 87205; 87324; 87449; 89055; 93005; 93010; 94760; 94761; 94799; 96365; 96375; 97161; 97163; 99284; A9270; C9113; J0330; J0692; J0696; J0878; J1160; J1170; J1650; J1815; J2175; J2270; J2405; J2543; J3010; J3370; J7030; J7040; P9016; Q9966; Q9967; S0164; XXXXX

== ENCOUNTER 2018-11-13 12:15 | Inpatient (IN) ==
[2018-11-13] MEDS: MAXIPIME 2 GM in NS 100 ML IV SCH (18:34)
[2018-11-13] MEDS ORDERED: CUBICIN 600 MG in NS 100 ML IV SCH (19:15)
--- NOTE | 2018-11-13 19:40 | HISTORY AND PHYSICAL ---
REASON FOR ADMISSION: Is intraabdominal abscess. This is a 52-year-old female. She has a very complicated medical history. She was here from 10/12 until 11/01 with a think an intraabdominal abscess associated with a colocutaneous fistula which she has a related to Crohn disease which is a chronic diagnosis for her. She was discharged I believe on IV antibiotics per Dr. Aceves if I remember correctly dapto and Rocephin and she has been getting treatment, unfortunately that was on the , on the she fell off her recliner. She said she had to mule kick it back and then she fell and she essentially shattered her distal femur, that could not be handled locally and she was transferred to [facility] for treatment and she has had open reduction internal fixation. I think while she was there she had the colocutaneous drainage and she had the abscess which had progressed in size and discussions were had with Dr. Rodriguez and she was transferred back here for management, also based on patient request she wanted Dr. Beckwith to handle her medication. She is still as far as I can tell getting dapto and Rocephin looks like it was 800. 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 She is on apixaban. She has been fairly anemic. Reportedly she has gotten 4 units of packed red blood cells there. Her CBC initially 9 and 28, 7 and 24 yesterday. Her A1c is actually only 5.4 and she got packed red blood cells including 1 level here. She is on Eliquis chronically for atrial fibrillation. Dr. Duarte is her primary chief meteorologist. I do not have a hemoglobin and hematocrit from today and for some reason they gave us the discharge instructions but there is no imaging or anything like that. In any case patient was admitted for further treatment. She is pleasant. She looks okay. Vital signs are stable. When she left here her hemoglobin and hematocrit I think was around 7 and 26 but reportedly she got up to 4 units there including 1 unit today. I am not 100% on that because I got the patient discharge instruction, we did not get any EMR records per se although there is some lab results, I think she has gotten 2 units that was on the so I think she got 2 units today. I am not sure she has had a total of 4 but she got 2 units today. PAST MEDICAL HISTORY: 1. 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 2. She has had renal cell carcinoma which was resected per Dr. Coppola. 3. Atrial fibrillation paroxysmal. 4. Hyperlipidemia. 5. Type 2 diabetes apparently diet controlled. 6. Hypertension. 7. Ureteral cancer. 8. She had cirrhosis PAST SURGICAL HISTORY: 1. She has had the partial nephrectomy right kidney. 2. She has had a ureteronephrectomy on the left side associated with ureteral cancer. 3. She has had an I and D of her fistula and then now she has had a distal femur fracture repair, open reduction and internal fixation. FAMILY HISTORY: Is reviewed noncontributory. SOCIAL HISTORY: No tobacco. No ethanol. 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 That is what got her through her days. ALLERGIES: To latex and adhesive tape. FAMILY HISTORY: Per record she has a family history of renal cell cancer. MEDICATIONS: She is on trazodone, it says metformin but she says she does not take that anymore, allopurinol, Bentyl, digoxin, Lasix, gabapentin, Lexapro, Lialda, apixaban, Lopressor, I am not sure if she is still taking some of these medications because she has not been taking these medications. REVIEW OF SYSTEMS: Otherwise negative times a 10 point review of systems. PHYSICAL EXAM: Blood pressure is 113/63, heart rate of 87, respiratory 16, temperature 98.9 degrees. CARDIOVASCULAR: Regular rate. GENERAL: Well-developed female in no acute distress. HEENT: Head was normocephalic, atraumatic. Pupils equal, round, reactive to light. Extraocular movements were intact. Moist mucous membranes. NECK: Supple. CARDIOVASCULAR: Was irregularly irregular. PULMONARY: Clear to auscultation anteriorly. GI: Soft, nontender. She has an ostomy filled with fecal contents nonbloody, non dark, non melenic and she has erythema, swelling, tenderness in her left lower quadrant associated with her abscess. NEUROLOGIC: Nonfocal. She seems a little bit sedated but not profoundly . MUSCULOSKELETAL: Was 4/5 on 3 extremities, her right extremity is fixated, she has a fixated external hardware that is fixating her joint that it is isolating her joint on the right side. SKIN: Clean, dry, intact. Eye exam pupils equal, round, reactive to light. Extraocular movements were intact. Sclerae are anicteric. NECK: Supple. LABORATORY DATA: I have none. Cardiovascular regular rate and rhythm. Pulmonary as described. Now her most recent data that I have done today her most recent data shows an hemoglobin and hematocrit I think is 7, 27, rest of her labs are okay. Creatinine 1.2. ASSESSMENT: 1. 52-year-old female with a pelvic abscess that has apparently clinically worsened. Plan is to re-consult surgery Dr. Beckwith and contact, patient may need further drainage. I am going to repeat her imaging, again I do not have access to the imaging from [place]. We will continue antibiotics. I put her on cefepime and we will do daptomycin as well not entirely sure she has got her dose here. We will consult Dr. Aceves and follow. 2. Diabetes. We will follow her blood sugars, continue sliding scale insulin and follow closely. Based on her data though she does not seem to be severely diabetic despite her obesity it may be just because of her poor intake. 3. Right distal femoral fracture. I am going to get Orthopedics to follow along that because I am not sure what she needs short-term long-term she may end up needing rehab as complicated these issues have been. 4. Crohn's. Will continue regular medications and follow. She previously saw Dr. Gann so I am not sure who her primary GI doctor as far as I can tell is not active issue. She sees Dr. Benjamin for her Remicade infusions but she does not seem to be having exacerbation. 5. Anemia probably related to surgery, acute blood loss. We will continue follow hemoglobin and hematocrit, transfuse as necessary and monitor closely. 6. Disposition pending her clinical status. cc: MD Dr. Rafael Lee Dr., Dr.
--- NOTE | 2018-11-13 19:53 | HISTORY AND PHYSICAL ---
ADMITTING DIAGNOSIS: Subcutaneous abscess. HISTORY OF PRESENT ILLNESS: A 52-year-old female who has been a chronic patient of my partner, Dr. Beckwith. He has been seeing her for some time for intra-abdominal abscess. She has had multiple procedures and interventions for it, and all originates from likely Crohn disease and a fistula at that point. Regardless, she had come in relatively recently to the ER with a fracture. She was sent over to [facility]. [facility] evaluated her, dealt with her fracture, and sent her back over here. She is draining from what looks like an ostomy in her left lower quadrant. PAST MEDICAL HISTORY: Includes obesity, cirrhosis, alcohol use, renal cell urothelial cancer, and Crohn disease. PAST SURGICAL HISTORY: Includes liver biopsy, repair of coloenteric fistula, left nephrectomy, right partial nephrectomy, and port placement. SOCIAL HISTORY: No alcohol, tobacco, or illicit drugs. FAMILY HISTORY: Reviewed with the patient and noncontributory. ALLERGIES: Adhesives and latex. HOME MEDICATIONS: Reviewed. REVIEW OF SYSTEMS: A full 10-point review of systems obtained and negative as specified in HPI. PHYSICAL EXAMINATION: VITAL SIGNS: Patient is currently afebrile. Her vital signs are stable. GENERAL: No acute distress. Alert, interactive, obese female looks stated age. HEENT: Normocephalic, atraumatic. Pupils equal, round, reactive to light. Mucous membranes moist. Oropharynx benign. NECK: Supple. Trachea midline. CARDIOVASCULAR: Regular rate and rhythm. LUNGS: Grossly clear. ABDOMEN: Soft, obese. Ostomy in the left lower quadrant draining what looks like stool. EXTREMITIES: Moves all extremities. NEUROLOGIC: Grossly intact. SKIN: No signs of jaundice. VASCULAR: All extremities perfused. LABORATORY: None right now. IMAGING: None. ASSESSMENT AND PLAN: A 52-year-old with chronic abscess in the abdomen. 1. Chronic abscess. At this time, we will inform Dr. Beckwith that she is back in the hospital. We will defer further management to him. She may need to be transferred to [facility]. 2. Multiple medical comorbidities currently being managed by the hospitalist service. I appreciate their help. cc: MD Devon Grant MD
[2018-11-13 19:55] LABS: BASO# 0.01 X1000 (0.0-0.2); BASO% 0.2 % (0.0-0.8); EOS# 0.14 X1000 (0.0-0.7); EOS% 2.3 % (0.0-10.0); HEMATOCRIT 26.3 % (37.0-47.0); HEMOGLOBIN 8.2 g/dL (12.0-16.0); IMM GRAN# 0.03 X1000 (0.0-0.04); IMM GRAN% 0.5 % (0.0-0.5); LYMPH# 0.78 X1000 (1.2-3.4); LYMPH% 12.6 % (20.5-51.1); MCHC 31.2 g/dL (33-37); MCV 86.5 FL (81-99); MONO# 0.49 X1000 (0.11-0.59); MONO% 7.9 % (1.7-9.3); MPV 8.8 FL (7.4-10.4); NEUT# 4.73 X1000 (1.4-6.5); NEUT% 76.5 % (42.2-75.2); PLT 203 X1000 (130-400); RBC 3.04 XMIL (4.2-5.4); RDW 18.6 % (11.5-14.5); WBC 6.18 X1000 (4.8-10.8)
[2018-11-13] MEDS: HUMULIN R SUBQ SCH (20:14)
[2018-11-13] MEDS: TYLENOL PO PRN (20:14)
[2018-11-13 20:20] LABS: CALCIUM 7.9 mg/dL (8.8-10.2); CREATININE 1.1 mg/dL (0.5-0.9); POTASSIUM 4.1 mmol/L (3.5-5.1)
[2018-11-13 20:43] LABS: ALBUMIN 1.9 g/dL (3.5-5.0); CALCIUM 8.4 mg/dL (8.8-10.2); CREATININE 1.2 mg/dL (0.5-0.9); PHOSPHORUS 3.2 mg/dL (2.7-4.5); POTASSIUM 3.8 mmol/L (3.5-5.1)
[2018-11-13] MEDS: MORPHINE IV PRN (20:47)
--- NOTE | 2018-11-13 21:57 | Diag Imaging Result Doc PS360 ---
EXAM: CT ABD/PELVIS W/PO AND IV CON INDICATION: pelvic abscess TECHNIQUE: This exam was performed using automated exposure control, adjustment of mA or kV according to patient size, and/or use of iterative reconstruction technique. COMPARISON: 10/28/2018 FINDINGS: There are trace pleural effusions and there is bibasilar subsegmental atelectasis. The liver is cirrhotic and there is hepatosplenomegaly, stable. There is a stable low dense right adrenal nodule, statistically most likely an adenoma. There has been a prior left nephrectomy. There is a surgical staple line at the medial aspect of the right kidney suggesting a partial nephrectomy. The Marshall catheter on the previous study has been removed. There is a fair amount of gas in the lumen of the urinary bladder that may be due to recent catheterization. However, the left side of the urinary bladder is somewhat thickened and there is a loop of colon that is closely associated with the urinary bladder and part of the known abscess on the left extends to the urinary bladder wall. A colovesicular fistula cannot be excluded. During the interval, the drainage catheter has been removed and the known abscess at the left lower quadrant ventral abdominal wall that involves both the subcutaneous soft tissues and extends into the peritoneum has increased in size. There is extensive patchy gas within the abscess. The extraperitoneal portion extends along the abdominal wall through the pannus to the mons pubis. The abscess extends via a tract medially to the urinary bladder wall. There is also a portion of the abscess that extends through the inguinal ring where it abuts the left groin musculature. There is extensive body wall anasarca. There is no evidence of bowel obstruction. The GI tract is essentially stable, otherwise. IMPRESSION: 1.Interval increase in size of the complex left lower quadrant abscess with intraperitoneal and extraperitoneal components. 2.Moderate amount of gas in the urinary bladder lumen with wall thickening laterally on the left where the bladder abuts the abscess and a loop of the colon. Although the gas could be due to a recent catheter, a colovesicular fistula cannot be excluded. Electronically signed by Brock Zaragoza 11/13/2018 9:55 PM
[2018-11-14] MEDS ORDERED: LANOXIN IV ONE (05:15)
[2018-11-14] MEDS: MORPHINE IV PRN ×3 (05:18→13:45)
[2018-11-14] MEDS: MAXIPIME 2 GM in NS 100 ML IV SCH ×3 (06:15→21:06)
[2018-11-14] MEDS: HUMULIN R SUBQ SCH ×4 (06:20→20:37)
[2018-11-14 06:50] LABS: EOS# 0.07 X1000 (0.0-0.7); EOS% 1.2 % (0.0-10.0); HEMATOCRIT 27.7 % (37.0-47.0); HEMOGLOBIN 8.6 g/dL (12.0-16.0); IMM GRAN# 0.04 X1000 (0.0-0.04); IMM GRAN% 0.7 % (0.0-0.5); LYMPH# 0.64 X1000 (1.2-3.4); LYMPH% 10.6 % (20.5-51.1); MCH 26.9 PG (27-31); MCV 86.6 FL (81-99); MONO# 0.47 X1000 (0.11-0.59); MONO% 7.8 % (1.7-9.3); MPV 9.1 FL (7.4-10.4); NEUT% 79.7 % (42.2-75.2); PLT 219 X1000 (130-400); RDW 18.8 % (11.5-14.5); WBC 6.02 X1000 (4.8-10.8)
[2018-11-14 06:55] LABS: INR 1.2; PROTIME 16.2 Seconds (11.0-16.0)
[2018-11-14 06:56] LABS: PTT 35.2 Seconds (22.3-41.8)
[2018-11-14] MEDS: TYLENOL PO PRN (07:11)
[2018-11-14 07:20] LABS: ALB/GLOB RATIO 0.4; ALBUMIN 1.7 g/dL (3.5-5.0); CALCIUM 8.4 mg/dL (8.8-10.2); CREATININE 1.1 mg/dL (0.5-0.9); POTASSIUM 4.3 mmol/L (3.5-5.1); TOTAL BILIRUBIN 0.43 mg/dL (0.20-1.00); TOTAL PROTEIN 5.7 g/dL (6.3-8.3)
[2018-11-14] MEDS ORDERED: ALDACTAZIDE 25/25 PO SCH (09:00)
--- NOTE | 2018-11-14 09:24 | INFECTIOUS DISEASE PROGRESS NO ---
DATE: 11/14/2018 PRESENT ILLNESS: The patient has a colocutaneous fistula which has resulted in an intra-abdominal abscess. She, unfortunately, just recently fractured her right femur. MEDICATIONS: The patient currently is on cefepime and daptomycin. PHYSICAL EXAMINATION: Vital Signs: Temperature is 99 degrees, pulse 135, respirations 23, blood pressure 154/97. The patient weighs 341 pounds. General: This is a morbidly obese, middle-aged female. She did not appear to be in any acute distress. Head, Eyes, Ears, Nose, and Throat: She can hear my spoken words and see near objects. She does not have any white coating on her tongue. Neck: There is no pain with movement of the neck. Lungs: Clear to auscultation. Cardiovascular: Heart rate is irregular. Abdomen: Soft. In the left lower part of the abdomen, there is a colostomy bag which is draining the intra-abdominal abscess. The contents are brown in color. Extremities. The patient has an external fixator on her right leg because of the femur fracture. Neurologic: The patient is awake. She can move her extremities. There is no tremor. Integument: No rash noted. LAB AND X-RAY: CBC shows a white count of 6020, hemoglobin 8.6, platelet count 219,000. Creatinine is 1.1. GFR is 52. Alkaline phosphatase is 116. The AST is 41. ASSESSMENT AND PLAN: The patient has an intra-abdominal abscess secondary to a colocutaneous fistula. I have ordered a culture from the drainage from the abdomen and pending these results, I have discontinued daptomycin and instead put the patient on Tygacil. Also, I have increased the dose of cefepime. COMORBIDITIES: The patient is morbidly obese. She has diabetes. She previously has had a partial right nephrectomy and she has had a ureteronephrectomy on the left side. She has a colocutaneous fistula resulting in an intra-abdominal abscess. cc: MD Devon Encinas MD
[2018-11-14] MEDS: LIALDA PO SCH ×2 (09:30→21:07)
[2018-11-14] MEDS: LEXAPRO PO SCH (09:30)
[2018-11-14] MEDS: ZYLOPRIM PO SCH (09:30)
[2018-11-14] MEDS: GLUCOSAMINE 500 MG/CHONDROITIN 400 MG PO SCH (09:30)
[2018-11-14] MEDS: LASIX PO SCH (09:30)
[2018-11-14] MEDS: CULTURELLE PO SCH ×2 (09:30→21:07)
[2018-11-14] MEDS: HEMOCYTE-F TABLET PO SCH ×2 (09:31→21:07)
[2018-11-14] MEDS: NEURONTIN PO SCH ×3 (09:31→16:00)
[2018-11-14] MEDS: LOPRESSOR PO SCH ×2 (09:31→21:07)
[2018-11-14] MEDS: BENTYL PO SCH ×2 (09:31→21:07)
[2018-11-14] MEDS ORDERED: CARDIZEM 100 MG/NS 100 MG/100 ML IVPB IV SCH (09:45)
[2018-11-14] MEDS ORDERED: TYGACIL 100 MG in NS 100 ML IV ONE (10:00)
--- NOTE | 2018-11-14 10:42 | PROGRESS NOTE ---
DATE: 11/14/2018 SUBJECTIVE: She has not had any major complaints. She seems to be doing okay, although she says her pain is not controlled. The nurse reports though that she is sometimes difficult to arouse, so I am not quite sure. Her heart rate though has systematically been tachycardic overnight. She had to require IV digoxin. OBJECTIVE: Vital Signs: Blood pressure is 147/71, heart rate in the 120s, respiratory rate of 22, temperature was 97.1 degrees. Cardiovascular: Regular rate and rhythm. Pulmonary: Bilateral breath sounds, diminished at the bases. Abdomen: Soft, nontender, nondistended. Bowel sounds are positive. LABORATORY DATA: Her white count is normal, hemoglobin and hematocrit 8 and 27, platelets of 219,000. INR 1.2. Creatinine of 1.1. Albumin very low at 1.7. PROBLEM LIST: 1. Pelvic abscess associated with a colocutaneous fistula related to her Crohn's. Per CT, abscesses increased in size. It is complicated so I am not quite sure what her drainage process will be. Dr. Beckwith has been consulted. Dr. Aceves has evaluated the patient and has adjusted her antibiotics. She had been on daptomycin and cefepime, and he put her on Tygacil and I think he increased the dose of cefepime. She is morbidly obese at 341 pounds with a BMI 53. Appreciate his assistance and will see how things go. 2. Diabetes. We will continue sliding scale. Her blood sugar actually has been fairly stable and her A1c is only 5, so at this point, she is probably just diet controlled. 3. Atrial fibrillation with rapid ventricular response that is not controlled. I have initiated IV Cardizem. She is on digoxin. She had been on Lopressor. We will continue to follow. I am holding anticoagulation right now because we do not know if she is going to require instrumentation and then also she was fairly anemic, but she will need anticoagulation because she has had a recent orthopedic procedure. 4. Right distal femoral fracture. Will follow with Orthopedics, as far as recommendations. 5. Crohn's. We will continue her current Lialda. We will continue to follow closely. She is on IV Cardizem, so I think we will maintain her in the unit just because she is on the infusion and we will follow closely. cc: Devon Garces MD
[2018-11-14] MEDS: PERCOCET-10 PO PRN ×2 (11:04→16:01)
[2018-11-14] MEDS ORDERED: LOPRESSOR IV PRN (11:58)
--- NOTE | 2018-11-14 12:12 | EKG Report ---
Test Performed on : 11/14/2018 10:59:06 AM Test Reason : AFIB Blood Pressure : / mmHG Vent. Rate : 084 BPM Atrial Rate : 113 BPM P-R Int : 000 ms QRS Dur : 084 ms QT Int : 316 ms P-R-T Axes : 000 065 252 degrees QTc Int : 373 ms Atrial fibrillation. Low voltage QRS ST & T wave abnormality, consider lateral ischemia Abnormal ECG No previous ECGs available Confirmed by Jose Miguel RICO, Kendrick Li ([id number]) on 11/14/2018 12:49:28 PM
--- NOTE | 2018-11-14 14:07 | Diag Imaging Result Doc PS360 ---
EXAM: KNEE 3 VIEWS RIGHT HISTORY: fall TECHNIQUE: Right knee, three views COMPARISON: None. FINDINGS: There is a comminuted fracture to the distal femoral shaft. This extends into the lateral femoral condyle. There is displacement of multiple fracture fragments. There is angulation of the proximal and distal portions of the femur by at least 15 degrees. IMPRESSION: Comminuted distal femoral fracture. Electronically signed by Nikolai Noonan 11/14/2018 2:04 PM
--- NOTE | 2018-11-14 14:09 | Diag Imaging Result Doc PS360 ---
EXAM: LOWER LEG-RIGHT HISTORY: Fall TECHNIQUE: Right tibia and fibula, two views COMPARISON: None. FINDINGS: No fracture. No dislocation. IMPRESSION: No acute bony injury. Electronically signed by Nikolai Noonan 11/14/2018 2:07 PM
--- NOTE | 2018-11-14 14:21 | Diag Imaging Result Doc PS360 ---
EXAM: FEMUR MIN 2 VIEWS RIGHT INDICATION: Fall TECHNIQUE: 4 views COMPARISON: Right knee radiograph dated 11/08/2018 FINDINGS: There is a known comminuted fracture involving the distal fibula. The position of the fracture fragments are stable. An external fixation device is now noted. There are mild degenerative changes of the right hip. No new fracture is identified. IMPRESSION: Stable known fracture involving the distal fibula. No new fracture is identified. Electronically signed by Brock Zaragoza 11/14/2018 2:19 PM
--- NOTE | 2018-11-14 14:57 | ORTHOPAEDICS CONSULTATION ---
DATE: 11/14/2018 ADMITTING DIAGNOSIS: 1. Subcutaneous abscess the abdomen. 2. Recent fall with right femur fracture. HISTORY OF PRESENT ILLNESS: This 53-year-old female has recently came to the emergency department on 11/08/2018 with a fracture of her right distal femur. She was referred over to [place] where Dr. Lemos performed pinning and external fixation of her right femur and tibia-fibula. The patient reports she had some problems with the nursing staff at [place]. She was then transferred over here to [facility] where she is currently residing. PAST MEDICAL HISTORY: Includes obesity, cirrhosis, alcohol use, renal cell urothelial cancer and Crohn disease. PAST SURGICAL HISTORY: Includes liver biopsy, coloenteric fistula repair, nephrectomy on the left, partial right nephrectomy and port placement. SOCIAL HISTORY: She denies alcohol, tobacco or drug use. ALLERGIES: She is allergic to adhesives and latex. REVIEW OF SYSTEMS: Full 10 point review of systems was performed and all pertinent positives listed in HPI. PHYSICAL EXAM: General: Patient is awake and sitting in the bed uncomfortably. Vital Signs: Temperature 98.2 degrees, pulse rate 84, respirations 18, blood pressure 120/61, oxygen saturation 99% on 2 L. HEENT: Head is atraumatic, normocephalic. Pupils equal round. Mucous membranes moist. Neck: Supple, trachea midline. Cardiovascular: Regular rate and rhythm. The recent EKG showed atrial fibrillation. Lungs: There is equal chest rise and fall. Abdomen: Soft and there is an ostomy in the left lower quadrant draining what looks like stool. Extremities: The right lower extremity has pins with an external fixation device attached to it noted in the right femur and right tibia-fibula. The leg is straight. There is good pedal pulses. There is good capillary refill. Negative Homans sign at this time. The bandages are clean and dry. There is good sensation to the extremity at this time. IMAGING: We will obtain images of her right lower extremity today. LABS: White blood cells 6.02, red blood cells 3.20, hemoglobin 8.6, hematocrit 27.7, platelets 219,000, INR 1.20. Sodium 130, potassium 4.3, chloride 99, BUN 30, creatinine 1.1, glucose 151. ASSESSMENT: Right distal femur fracture with external fixation by Dr. Lemos. PLAN: We will obtain x-rays at this time to reevaluate the external fixation components. She will need to be referred back to Dr. Lemos to have further management of this fracture. Will recheck the x-rays make sure all is well before we send her back to him. She can follow him as directed. Dictated by PETER Guallpa for Brock Alexandre MD cc: PETER Guallpa MD Alexis R. Penot, MD
--- NOTE | 2018-11-14 14:59 | CARDIOLOGY CONSULTATION ---
DATE: 11/14/2018 REASON FOR ADMISSION: Abdominal abscess. HISTORY OF PRESENT ILLNESS: Ms. Tafoya is a 53-year-old, white female with a history of chronic atrial fibrillation. She presented for evaluation after original treatment over in [facility] for a fractured right femur. She had some abdominal abscess issues which she previously was over here for, and then subsequently the agreement it seems like was to reaccept the patient over here for continued management of her intra-abdominal abscess. She has chronic atrial fibrillation for which she previously was on Eliquis for. The patient is lying in bed and comfortable. She has an external fixation device on her right lower leg. PAST MEDICAL HISTORY: 1. Crohn disease with colocutaneous fistulas as well as previous colovesicular fistulas and apparent intra-abdominal abscess currently. 2. History of renal cell carcinoma previously resected by Dr. Coppola. 3. Chronic atrial fibrillation. 4. Hyperlipidemia. 5. Diabetes. 6. Hypertension. SOCIAL HISTORY: No tobacco, alcohol, or illicit drugs. FAMILY HISTORY: Renal cell cancer. REVIEW OF SYSTEMS: A 10-system review of systems is negative except for those things mentioned in HPI. PHYSICAL EXAMINATION: Vital Signs: She is afebrile. Her heart rate currently during my evaluation was in the 70s. Blood pressure 120/61. General: No acute distress. HEENT: Oropharynx is moist. Normal dentition. Eye examination, pink conjunctivae. White sclerae. Neck: Examination shows no obvious thyromegaly or thyroid tenderness. Cardiovascular: She sounds to be in an irregularly regular rhythm which is consistent with her history of atrial fibrillation. She has no lower extremity edema. She has warm and well-perfused extremities. Chest: Sounds clear but somewhat distant secondary to her body habitus. Abdomen: Soft, nontender. No obvious organomegaly. Skin: Warm and dry throughout without any rashes. Neurological: She seems to be moving all extremities well. She is limited in the right lower extremity secondary to the external fixation device. PERTINENT DATA: She had an EKG reviewed by me showing atrial fibrillation at a rate of 84 beats per minute. Her abdominal CT shows an overall increase in a complex left lower quadrant abscess with intraperitoneal and extraperitoneal components. Gas in the bladder lumen with wall thickening. Laboratory data shows a white count of 6, hematocrit 27, platelet count 219,000. INR 1.2. Sodium 130, potassium is 4.3, BUN 30, creatinine is 1.1. Her albumin is 1.7. ASSESSMENT: Ms. Koch is a 53-year-old female with chronic atrial fibrillation. PLAN: At this point, we will add in a p.r.n. dose of Lopressor. I will try to wean the Cardizem to keep her heart rate below 120. Certainly considering her pain issues with her right lower extremity fracture as well as her current infection issues, she may have continuing rate control issues. She is chronically in atrial fibrillation, so I would not try to achieve a rhythm control strategy. She may resume her anticoagulation when deemed safe from a surgical standpoint. Please contact us if we can be of further assistance. cc: MD Devon Ward MD
--- NOTE | 2018-11-14 17:34 | GENERAL SURGERY PROGRESS NOTE ---
DATE: 11/14/2018 SUBJECTIVE: She is very tearful. She is in the ICU. She has been hemodynamically stable, in and out of atrial fibrillation. The cardiologists are seeing her. Orthopedic surgeons have also examined her. She has an external fixator in place on the right leg related to severely comminuted distal femur fracture. Her ostomy appliance is adherent with stool in the bag. There is some boggy edema and thickening of the lateral skin, but no amber cellulitis. No crepitus. White count normal at count 6, hematocrit 27. Creatinine is 1.1. Glucose 130s is 154. Bilirubin is normal. Albumin is 1.7. I reviewed her CT scan and her x-rays of the lower extremity as well as Orthopedic, Infectious Disease, and Cardiology notes. ASSESSMENT AND PLAN: This is a 53-year-old female who is an extremely complicated case. She has had both renal cell and urothelial cancer. She has Crohn disease as well as cirrhosis and has developed a colovesicular and colocutaneous fistula. We drained an intra-abdominal abscess related to this previously and we are hopeful that a more organized colocutaneous fistula develop and would serve as a proximal diversion as she would be very high risk for an abdominal operation. Unfortunately, in the interim, she fell fracturing her femur and now has an external fixator in place. She has been evaluated by our orthopedic surgeons who have recommended transfer back to Dr. Lemos, orthopedic doctor in [place], however, the general surgeons there do not feel they wanted to manage her surgical case. From purely a GI standpoint, it is a very complicated situation. The most definitive recommendations would be a left-sided colectomy with end colostomy. This would be wrought with complications and would be difficult to accomplish given the size of her abdominal wall, almost 7-8 inches from peritoneum the skin in some locations making a colostomy difficult. It is also difficult given her acute right femur fracture. OBJECTIVE: On exam, her foot is perfused. Neurovascularly, it seems to be intact. At this juncture, given her multi-system issues, she may be most best served at an academic center. She is apprehensive to undergo transfer to one of these locations but from a multidisciplinary approach, this may be what is indicated. In the meantime, I do think she has reasonable source control. The abdominal wall abscess is consistent with a colocutaneous fistula and is draining into an ostomy appliance. We may need to more formally drain this and open it more widely, but she is not clinically septic from this. We will continue to follow her closely. She is on antibiotics. Difficult situation. cc: MD Devon Bella MD
[2018-11-14 18:53] LABS: URINE SOURCE CATH
[2018-11-14 19:01] LABS: BILIRUBIN URINE NEGATIVE (NEGATIVE); BLOOD URINE LARGE (NEGATIVE); COLOR YELLOW; GLUCOSE URINE NEGATIVE (NEGATIVE); KETONE URINE NEGATIVE (NEGATIVE); LEUKOCYTES URINE LARGE (NEGATIVE); NITRITE URINE NEGATIVE (NEGATIVE); PROTEIN URINE TRACE mg/dL (NEGATIVE); TURBIDITY URINE HAZY (CLEAR); UROBILINOGEN URINE NORMAL (NORMAL)
[2018-11-14 19:31] LABS: UR EPITHELIAL CELLS <10 /HPF (<10); URINE BACTERIA 2+ /HPF; URINE RBC TNTC /HPF (<10); URINE WBC TNTC /HPF (<10)
[2018-11-14 19:43] LABS: URINE CASTS NONE SEEN; URINE CRYSTALS NONE SEEN; URINE YEAST PRESENT
[2018-11-14] MEDS ORDERED: GLUCOPHAGE PO SCH (21:00)
[2018-11-14] MEDS ORDERED: LANOXIN IV SCH (21:00)
[2018-11-14] MEDS: TYGACIL 50 MG in NS 50 ML IV SCH (21:06)
[2018-11-14] MEDS: DESYREL PO SCH (21:07)
[2018-11-14] MEDS: LANOXIN PO SCH (21:07)
[2018-11-15] MEDS: MORPHINE IV PRN ×2 (01:12→13:11)
[2018-11-15] MEDS: ZOFRAN IV PRN (01:52)
[2018-11-15] MEDS: PERCOCET-10 PO PRN ×4 (03:50→21:16)
[2018-11-15] MEDS: HUMULIN R SUBQ SCH ×4 (06:36→21:47)
[2018-11-15 06:49] LABS: BASO# 0.01 X1000 (0.0-0.2); BASO% 0.2 % (0.0-0.8); EOS# 0.06 X1000 (0.0-0.7); EOS% 1.1 % (0.0-10.0); HEMATOCRIT 26.3 % (37.0-47.0); HEMOGLOBIN 8.1 g/dL (12.0-16.0); IMM GRAN# 0.05 X1000 (0.0-0.04); IMM GRAN% 0.9 % (0.0-0.5); LYMPH# 0.68 X1000 (1.2-3.4); LYMPH% 11.9 % (20.5-51.1); MCH 26.6 PG (27-31); MCHC 30.8 g/dL (33-37); MCV 86.2 FL (81-99); MONO# 0.68 X1000 (0.11-0.59); MONO% 11.9 % (1.7-9.3); MPV 9.2 FL (7.4-10.4); NEUT# 4.23 X1000 (1.4-6.5); PLT 224 X1000 (130-400); RBC 3.05 XMIL (4.2-5.4); RDW 18.7 % (11.5-14.5); WBC 5.71 X1000 (4.8-10.8)
[2018-11-15] MEDS: MAXIPIME 2 GM in NS 100 ML IV SCH ×3 (06:54→21:13)
[2018-11-15] MEDS: PRILOSEC PO SCH (06:56)
[2018-11-15 07:26] LABS: AGAP 9; BUN 32 mg/dL (8-22); CALCIUM 8.3 mg/dL (8.8-10.2); CHLORIDE 100 mmol/L (98-107); COSMO 273; CREATININE 0.9 mg/dL (0.5-0.9); ESTIMATED GFR > 60; GLUCOSE 127 mg/dL (70-104); MAGNESIUM 1.9 mg/dL (1.5-2.7); POTASSIUM 4.3 mmol/L (3.5-5.1); SODIUM 132 mmol/L (136-145); TCO2 23 mmol/L (25-35)
[2018-11-15] MEDS: ZYLOPRIM PO SCH (08:09)
[2018-11-15] MEDS: NEURONTIN PO SCH ×3 (08:09→15:59)
[2018-11-15] MEDS: GLUCOSAMINE 500 MG/CHONDROITIN 400 MG PO SCH (08:10)
[2018-11-15] MEDS: LIALDA PO SCH ×2 (08:10→21:16)
[2018-11-15] MEDS: LOPRESSOR PO SCH ×2 (08:10→21:15)
[2018-11-15] MEDS: BENTYL PO SCH ×2 (08:10→21:16)
[2018-11-15] MEDS: LASIX PO SCH (08:10)
[2018-11-15] MEDS: HEMOCYTE-F TABLET PO SCH ×2 (08:10→21:16)
[2018-11-15] MEDS: CULTURELLE PO SCH ×2 (08:10→21:16)
[2018-11-15] MEDS: LEXAPRO PO SCH (08:10)
[2018-11-15] MEDS: TYGACIL 50 MG in NS 50 ML IV SCH ×2 (09:31→21:13)
--- NOTE | 2018-11-15 10:34 | INFECTIOUS DISEASE PROGRESS NO ---
DATE: 11/15/2018 PRESENT ILLNESS: The patient has a colocutaneous fistula which has resulted in an intra-abdominal abscess. She also has a very extensive fracture of her right femur which involves the knee joint. MEDICATIONS: The patient is receiving cefepime and Tygacil. PHYSICAL EXAMINATION: Vital Signs: Temperature is 96.9 degrees, pulse 67, respirations 20, blood pressure 111/59. The patient' weight is 339 pounds. General: The patient is morbidly obese. She does not appear to be in any acute distress. Head, Eyes, Ears, Nose, and Throat: She can hear my spoken words and see near objects. She does not have any white patches on her tongue. Neck: There is no stiffness. Lungs: Clear to auscultation. Cardiovascular: Regular heart rate. Abdomen: Soft. In the left lower quadrant, there is a colostomy bag which is draining the intra-abdominal abscess. Extremities: The patient has an extensive external fixator on the patient's right leg. Neurologic: The patient is alert. She can move her extremities. It is very limited what she can do, however, with her right leg because of the extensive external fixator she has on. There is no tremor. Integument: No rash noted. LAB AND X-RAY: CBC shows a white count of 5710, hemoglobin 8.1, platelet count is 224,000. Creatinine is 0.9. GFR is greater than 60. Alkaline phosphatase is 116. Urine and abdominal abscess cultures are pending. ASSESSMENT AND PLAN: Patient has intra-abdominal abscess with a colocutaneous fistula. For now, I plan to continue Tygacil and cefepime pending culture results. COMORBIDITIES: She is morbidly obese and she is a diabetic. She has had a partial right nephrectomy and she has had a ureteronephrectomy on the left side. She has a colocutaneous fistula with resulting intra-abdominal abscess and unfortunately now she has an extensively fractured right leg. cc: Drew Aceves MD
[2018-11-15] MEDS: ALBUMIN 25% IV SCH (11:34)
--- NOTE | 2018-11-15 20:24 | GENERAL SURGERY PROGRESS NOTE ---
DATE: 11/15/2018 SUBJECTIVE: Clinically, she remains about the same. Some leg pain but no paresthesias of her foot. I do not see any fevers or tachycardia documented overnight. OBJECTIVE: Blood pressure is 120s to 140s. On exam, she has an ostomy appliance left side. Left lateral edema and cellulitis. Right external fixator. Foot is warm otherwise. LABORATORY DATA: White count is normal at 5, hematocrit 26, creatinine 0.9, glucose 120s. She had INR on the 13 of 1.20, bilirubin 0.43. ASSESSMENT AND PLAN: This is a 53-year-old female with colocutaneous and colovesicular fistula, recent femur fracture, cirrhosis, Crohn disease, recent urothelial carcinoma, status post left nephrectomy and a right-sided renal carcinoma and morbid obesity with a BMI of 53. She needs a left colectomy with diverting colostomy, at the least diverting colostomy. I have talked to Dr. Scott in the orthopedic service. From an external fixator standpoint her fracture is stable and they will follow with weekly x-rays and pin site care. Otherwise, no plans for intervention until her intra-abdominal process is dealt with. I have had a long discussion with the patient and her today regarding the severe condition she is in and her need for a large operation or a high possibility of morbidity and mortality. I have offered them transfer to a tertiary center, although I do feel we can handle her case surgically here and they adamantly want to stay in [place] and have her care done here. We discussed risk of bleeding, infection, , prolonged intubation, wound complications including dehiscence and hernia which she sustained from her previous surgeries and other imponderables. We also discussed the need for further surgery and anticipated wound care for her left flank abscess cavity. They seemed to understand all this and consent. We will make her NPO at midnight and post her for tomorrow for diverting colostomy, left colectomy. cc: Rakesh Beckwith MD
[2018-11-15 21:00] LABS: IRON SATURATION 20 %; TIBC 82 ug/dL; TOTAL IRON 16 ug/dL (49-151); UNBOUND IRON 66 ug/dL (112-346)
[2018-11-15] MEDS: LASIX IV SCH (21:14)
[2018-11-15] MEDS: DESYREL PO SCH (21:16)
[2018-11-15] MEDS: LANOXIN PO SCH (21:16)
[2018-11-15 21:19] LABS: FERRITIN 477 ng/mL (13-150)
[2018-11-16] MEDS: MORPHINE IV PRN ×5 (02:55→23:44)
--- NOTE | 2018-11-16 06:30 | PROGRESS NOTE ---
DATE: 11/15/2018 SUBJECTIVE: The patient complains of generalized aches and pains, mainly in her right leg. OBJECTIVE: Vital Signs: Temperature 97.3 degrees, blood pressure 119/75, heart rate 88, respirations 18, O2 saturation 96 on 2 L nasal cannula. Intake 1.6 L; output 4.3 L. General: This is a morbidly obese female, lying in bed in no acute distress. Heart: S1, S2, normal. Lungs: Equal air entry bilaterally. No crackles. No rales. Abdomen: Positive bowel sounds. Soft, obese. Extremities: 3+ edema bilaterally. Neurologic: The patient is alert and oriented x4. LABS: White blood cell count 5.7, hemoglobin 8.1, hematocrit 26, platelets 224,000. Sodium 132, potassium 4.3, chloride 100, CO2 23, BUN 32, creatinine 0.9, glucose 127, magnesium 1.9, calcium 8.3. ASSESSMENT AND PLAN: 1. Colocutaneous fistula with an intraabdominal abscess. Continue with antibiotic therapy as directed by Dr. Aceves. General Surgery is following. 2. Complicated right femur fracture. The patient currently has external fixation. 3. Atrial fibrillation. The patient is currently off of the Cardizem drip. We will start Cardizem CD. 4. Crohn's disease. Aware. 5. Morbid obesity. Aware. 6. Anasarca. The patient's albumin is 1.7. We will start the patient on albumin and switch the patient to intravenous Lasix. 7. Urinary tract infection. The urine culture so far is showing no growth. The patient is on broad-spectrum antibiotics at this time. 8. Deep vein thrombosis prophylaxis. Continue with sequential compression devices. cc: Pia Reyes MD
[2018-11-16 06:46] LABS: BASO# 0.01 X1000 (0.0-0.2); BASO% 0.2 % (0.0-0.8); EOS# 0.06 X1000 (0.0-0.7); EOS% 1.1 % (0.0-10.0); HEMATOCRIT 27.9 % (37.0-47.0); HEMOGLOBIN 8.6 g/dL (12.0-16.0); IMM GRAN# 0.03 X1000 (0.0-0.04); IMM GRAN% 0.6 % (0.0-0.5); LYMPH# 0.69 X1000 (1.2-3.4); LYMPH% 12.9 % (20.5-51.1); MCH 26.6 PG (27-31); MCHC 30.8 g/dL (33-37); MCV 86.4 FL (81-99); MONO# 0.42 X1000 (0.11-0.59); MONO% 7.8 % (1.7-9.3); MPV 9.2 FL (7.4-10.4); NEUT# 4.15 X1000 (1.4-6.5); NEUT% 77.4 % (42.2-75.2); PLT 234 X1000 (130-400); RBC 3.23 XMIL (4.2-5.4); RDW 18.5 % (11.5-14.5); WBC 5.36 X1000 (4.8-10.8)
[2018-11-16] MEDS: MAXIPIME 2 GM in NS 100 ML IV SCH ×3 (06:50→21:13)
[2018-11-16] MEDS: PRILOSEC PO SCH ×2 (06:53→07:30)
[2018-11-16] MEDS: HUMULIN R SUBQ SCH ×4 (06:53→21:16)
[2018-11-16] MEDS: CARDIZEM CD PO SCH ×2 (07:31→08:51)
[2018-11-16] MEDS: LOPRESSOR PO SCH ×3 (07:31→21:12)
[2018-11-16 07:56] LABS: AGAP 12; ALB/GLOB RATIO 0.5; ALKALINE PHOSPHATASE 99 U/L (32-104); BUN 37 mg/dL (8-22); CALCIUM 8.8 mg/dL (8.8-10.2); CHLORIDE 99 mmol/L (98-107); COSMO 281; CREATININE 0.9 mg/dL (0.5-0.9); ESTIMATED GFR > 60; GLUCOSE 132 mg/dL (70-104); GOT 20 U/L (10-30); GPT 21 U/L (10-36); POTASSIUM 4.4 mmol/L (3.5-5.1); SODIUM 135 mmol/L (136-145); TCO2 24 mmol/L (25-35); TOTAL BILIRUBIN 0.42 mg/dL (0.20-1.00); TOTAL PROTEIN 5.9 g/dL (6.3-8.3)
[2018-11-16] MEDS: PERCOCET-10 PO PRN ×2 (08:37→21:12)
[2018-11-16] MEDS: NEURONTIN PO SCH ×3 (08:43→18:51)
[2018-11-16] MEDS: ALBUMIN 25% IV SCH (08:44)
[2018-11-16] MEDS: BENTYL PO SCH ×2 (08:49→21:11)
[2018-11-16] MEDS: ZYLOPRIM PO SCH (08:50)
[2018-11-16] MEDS: LIALDA PO SCH ×2 (08:50→21:15)
[2018-11-16] MEDS: HEMOCYTE-F TABLET PO SCH ×2 (08:51→21:11)
[2018-11-16] MEDS: LEXAPRO PO SCH (08:51)
[2018-11-16] MEDS: LASIX IV SCH ×2 (08:51→21:11)
[2018-11-16] MEDS: CULTURELLE PO SCH ×2 (08:52→21:13)
[2018-11-16] MEDS: GLUCOSAMINE 500 MG/CHONDROITIN 400 MG PO SCH (08:52)
[2018-11-16] MEDS: TYGACIL 50 MG in NS 50 ML IV SCH ×2 (09:40→21:13)
--- NOTE | 2018-11-16 09:47 | GENERAL SURGERY PROGRESS NOTE ---
DATE: 11/16/2018 SUBJECTIVE: No events overnight. She is having some discomfort mostly in her leg. Abdomen feels better. Ostomy appliance in place. No fevers. No tachycardia. OBJECTIVE: Blood pressure 140/67. General: She is alert. Cardiovascular: Normal rate. LABS: I have reviewed her labs. White count remains normal at 5, hematocrit 27. Stable creatinine 0.9. Electrolytes are okay. Glucose 130 to 120s. ASSESSMENT/PLAN: This is a 53-year-old female with colocutaneous fistula and possible colovesicular fistula. Given all these findings and the persistent accumulation of drainage in her abdominal wall, I have recommended diversion with either loop colostomy but will also plan for possible left colectomy and repair of colovesicular fistula. I do think given her abundance of medical issues she is at risk perioperatively and we have had a amber discussion regarding this. I have discussed risk of bleeding, infection, other wound complications including hernia, which she has developed in the past, cardiopulmonary complications, worsening hepatic function, recurrent Crohn's, persistent infection, need for subsequent procedures. She understands and consents and will go the operating room today. cc: Rakesh Beckwith MD
--- NOTE | 2018-11-16 10:11 | INFECTIOUS DISEASE PROGRESS NO ---
DATE: 11/16/2018 HISTORY: The patient has a colocutaneous and colovesicular fistula with an associated abscess. The patient also has an extensive fracture of her right femur which required an external fixator. MEDICATIONS: The patient is on cefepime and Tygacil. PHYSICAL EXAMINATION: Vital Signs: Temperature is 98.8 degrees, pulse 82, respirations 19, blood pressure 142/67. General: This is a morbidly obese, middle-aged female. She is in no acute distress today. Head, Eyes, Ears, Nose, and Throat: She can hear my spoken words and see near objects. She does not have any white coating on her tongue. Neck: There is no pain when she moves her neck. Lungs: Clear to auscultation. Cardiovascular: Heart rate is regular. Abdomen: Soft and nontender. In the left lower quadrant, there is an ostomy bag in place which is draining the intra-abdominal abscess. Extremities: The patient has a large external fixator in place on the right leg. Neurologic: The patient is alert. She can move her extremities. There is no tremor. LAB AND X-RAY: There is no x-ray for today. Lab studies for today show a CBC with a white count of 5360, hemoglobin 8.6, and platelet count 234,000. Creatinine is 0.9. GFR is greater than 60. Culture from the abdominal abscess is growing a gram-negative catrina. ASSESSMENT AND PLAN: The patient has an intra-abdominal abscess with a colocutaneous and colovesicular fistula. She is growing, from the most recent culture, a gram-negative catrina. I plan to continue for the time being on cefepime and Tygacil. I thoroughly agree with Dr. Beckwith operating on the patient and doing a diverting colostomy and hopefully a left colectomy. I do not think that without these procedures, the patient will be able to ever heal her abdominal infection. COMORBIDITIES: Include morbid obesity, diabetes mellitus, partial right nephrectomy, ureteronephrectomy on the left side. cc: Drew Aceves MD
[2018-11-16] MEDS ORDERED: XYLOCAINE-MPF 2% ONE (10:48)
[2018-11-16] MEDS ORDERED: SENSORCAINE-MPF 0.5%/EPI 1:200,000 ONE (10:48)
[2018-11-16] MEDS ORDERED: VERSED ONE (10:49)
[2018-11-16] MEDS ORDERED: QUELICIN (DOSE) ONE (10:49)
[2018-11-16] MEDS ORDERED: DIPRIVAN 1% ONE (10:49)
[2018-11-16] MEDS ORDERED: SODIUM CHLORIDE 0.9% 10 ML ONE (10:49)
[2018-11-16] MEDS ORDERED: NORCURON ONE (10:49)
[2018-11-16] MEDS ORDERED: FENTANYL ONE (10:49)
[2018-11-16] MEDS ORDERED: ROBINUL ONE (13:57)
[2018-11-16] MEDS ORDERED: NEOSTIGMINE ONE (13:57)
[2018-11-16] MEDS ORDERED: DECADRON ONE (13:59)
[2018-11-16] MEDS ORDERED: ZOFRAN ONE (13:59)
[2018-11-16] MEDS: ZOFRAN IV PRN (14:58)
--- NOTE | 2018-11-16 15:50 | PROGRESS NOTE ---
DATE: 11/16/2018 SUBJECTIVE: The patient is resting comfortably in bed. Her urine output has increased since the addition of IV Lasix and albumin. She is scheduled for surgery today. OBJECTIVE: Vital Signs: Temperature 98.6 degrees, blood pressure 125/47, heart rate 71, respirations 16, O2 saturation 96% on 2 L nasal cannula. Intake 2.4 L; output 7.8 L. General: This is a morbidly obese female, lying in bed in no acute distress. Heart: S1, S2 normal. Irregularly irregular rhythm. Lungs: Clear to auscultation bilaterally. Abdomen: Positive bowel sounds. Soft, nontender, nondistended. Extremities: 2+ edema in the lower extremities. Neurologic: The patient is alert and oriented x4. LABS: White blood cell count 5.3, hemoglobin 8.6, hematocrit 27, platelets 234. Sodium 135, potassium 4.4, chloride 99, CO2 24. BUN 37, creatinine 0.9, glucose 132, albumin 2. ASSESSMENT AND PLAN: 1. Colocutaneous and colovesicular fistula with an abscess. The patient is scheduled for surgery today. Management as per the general surgeon. 2. Complicated right femur fracture. Continue with the external fixation. 3. Atrial fibrillation. We will continue on Cardizem CD and Lopressor. The patient will likely need her anticoagulants restarted soon. 4. Morbid obesity. Aware. 5. Crohn disease. Aware. 6. Anasarca. Continue with intravenous diuretic therapy plus albumin. 7. Situational depression. Continue on Lexapro. 8. Gastrointestinal prophylaxis. Continue on Prilosec. cc: Pia Reyes MD
--- NOTE | 2018-11-16 18:35 | OPERATIVE NOTE ---
PROCEDURE DATE: 11/16/2018 PREOPERATIVE DIAGNOSES: 1. Crohn disease. 2. Colocutaneous and colovesicular fistula. 3. Left lower quadrant deep abdominal and abdominal wall abscess. POSTOPERATIVE DIAGNOSES: 1. Crohn disease. 2. Colocutaneous and colovesicular fistula. 3. Left lower quadrant deep abdominal and abdominal wall abscess. PROCEDURE PERFORMED: 1. Diverting loop transverse colostomy. 2. Partial omentectomy. 3. Drainage of deep intra-abdominal and abdominal wall abscess with drain placement. ESTIMATED BLOOD LOSS: 100 mL. SPECIMENS: None. ANESTHESIA: General. INDICATIONS: A 53-year-old female who has developed a colocutaneous fistula with colovesicular fissure related to Crohn disease. Has failed local attempts at controlling the fistula and needs fecal diversion. OPERATIVE FINDINGS: 1. There were dense inflammatory changes in the pelvis. There was no gross purulence intra- abdominally. There were adhesions to the lower midline from previous surgery, matting of the sigmoid colon against the lateral pelvic wall. 2. There was a large abscess cavity containing stool and purulence in the left lower quadrant extending down to the pelvic sidewall. OPERATIVE NOTE: Risks, benefits and alternatives discussed with patient. She consented to the procedure. proper surgical site was confirmed. She was taken to the operating room and placed in supine position. General anesthesia induced without complication. All bony prominences were padded. Please note, she had a right lower extremity external fixator that we confirmed was in appropriate positioning. She had a Marshall catheter in place. Her abdomen is prepped Betadine, excluding the left lower quadrant wound and draped in usual fashion. After time out, I made a supraumbilical incision, carried this down through the level of the fascia, opening the abdomen in usual fashion. We inspected, the omentum was caked in the pelvis. We mobilized this out. This required partial omentectomy to do this. We gained exposure at this point. We evaluated the segment of disease: It was matted from previous surgery with redundant sigmoid loops adherent up to the pelvic sidewall and exposure was very limited in this area given her large pannus and size of the abdominal wall. As such, we felt this would be a multi hour operation and we elected to perform a lesser operation through a more limited incision to hopefully prevent postoperative complications. There was no purulence in the pelvis. We did mobilize all the small bowel out of the pelvis and there was no evidence of a small bowel fistula and this is consistent with her preoperative imaging. At this point, we took the greater omentum off the transverse colon, mobilizing it widely, entering the lesser sac to provide adequate reach the abdominal wall. The abdominal wall in the upper abdomen was 3-4 inches thick, but was much smaller than it was in the lower quadrants. An ostomy incision was made in the right upper quadrant and the rectus muscles were split and posterior fascia was incised. A Beryl was placed through this and we were able to eviscerate out the transverse colon in the loop fashion. We made a mesenteric window, protecting the mesenteric arteries and placed an ostomy bar through this. At this point, we irrigated the abdomen and confirmed hemostasis. We closed the midline fascia with a running #1 looped PDS suture and with interrupted 0 Vicryl internal retention sutures, irrigating the superficial wound and closed the skin. Excluding the incision, we made a transverse colotomy and using Brooking type sutures we matured the colostomy, placed an appliance. Both afferent and efferent limbs were patent well below the fascia. It is pink and perfused. Ostomy appliance was placed. We excluded all this after placing a dressing. Turned our attention to the left lower quadrant and then her previous incision here was opened and probed deeply with a hendricks of feculent purulent material. We extended this laterally and opened the cavity widely. We irrigated this out. There was no significant necrosis here. We placed a sump type drain in this and secured with Prolene suture and then packed the wound as it was quite oozy with Kerlix. Dressings were applied at each location. She tolerated it well. She has woken transferred back to ICU. I spoke to family. cc: Rakesh Beckwith MD [facility]
[2018-11-16] MEDS: LANOXIN PO SCH (21:12)
[2018-11-16] MEDS: DESYREL PO SCH (21:13)
[2018-11-17] MEDS: PERCOCET-10 PO PRN ×5 (03:47→21:09)
[2018-11-17] MEDS: MAXIPIME 2 GM in NS 100 ML IV SCH ×3 (05:34→21:10)
[2018-11-17] MEDS: PRILOSEC PO SCH (06:02)
[2018-11-17 06:20] LABS: HEMATOCRIT 27.7 % (37.0-47.0); HEMOGLOBIN 8.5 g/dL (12.0-16.0); IMM GRAN# 0.09 X1000 (0.0-0.04); IMM GRAN% 1.6 % (0.0-0.5); LYMPH# 0.69 X1000 (1.2-3.4); LYMPH% 12.6 % (20.5-51.1); MCH 26.5 PG (27-31); MCHC 30.7 g/dL (33-37); MCV 86.3 FL (81-99); MONO# 0.29 X1000 (0.11-0.59); MONO% 5.3 % (1.7-9.3); MPV 9.7 FL (7.4-10.4); NEUT# 4.42 X1000 (1.4-6.5); NEUT% 80.5 % (42.2-75.2); PLT 257 X1000 (130-400); RBC 3.21 XMIL (4.2-5.4); RDW 18.4 % (11.5-14.5); WBC 5.49 X1000 (4.8-10.8)
[2018-11-17 06:27] LABS: AGAP 8; ALB/GLOB RATIO 0.6; ALBUMIN 2.2 g/dL (3.5-5.0); ALKALINE PHOSPHATASE 90 U/L (32-104); BUN 40 mg/dL (8-22); CALCIUM 8.5 mg/dL (8.8-10.2); CHLORIDE 101 mmol/L (98-107); COSMO 284; CREATININE 0.9 mg/dL (0.5-0.9); ESTIMATED GFR > 60; GLUCOSE 142 mg/dL (70-104); GOT 12 U/L (10-30); GPT 15 U/L (10-36); POTASSIUM 4.8 mmol/L (3.5-5.1); SODIUM 136 mmol/L (136-145); TCO2 27 mmol/L (25-35); TOTAL BILIRUBIN 0.46 mg/dL (0.20-1.00); TOTAL PROTEIN 5.6 g/dL (6.3-8.3)
[2018-11-17] MEDS: HUMULIN R SUBQ SCH ×4 (06:39→20:35)
[2018-11-17] MEDS: LASIX IV SCH ×2 (09:11→20:00)
[2018-11-17] MEDS: LEXAPRO PO SCH (09:12)
[2018-11-17] MEDS: ZYLOPRIM PO SCH (09:12)
[2018-11-17] MEDS: CULTURELLE PO SCH ×2 (09:12→20:00)
[2018-11-17] MEDS: NEURONTIN PO SCH ×3 (09:12→16:03)
[2018-11-17] MEDS: HEMOCYTE-F TABLET PO SCH ×2 (09:12→20:28)
[2018-11-17] MEDS: GLUCOSAMINE 500 MG/CHONDROITIN 400 MG PO SCH (09:12)
[2018-11-17] MEDS: BENTYL PO SCH ×2 (09:13→20:00)
[2018-11-17] MEDS: LIALDA PO SCH ×2 (09:13→20:28)
[2018-11-17] MEDS: ALBUMIN 25% IV SCH (09:14)
[2018-11-17] MEDS: MORPHINE IV PRN (09:50)
[2018-11-17] MEDS: CARDIZEM CD PO SCH (10:08)
[2018-11-17] MEDS: LOPRESSOR PO SCH ×2 (10:09→22:20)
[2018-11-17] MEDS: TYGACIL 50 MG in NS 50 ML IV SCH ×2 (10:48→21:10)
[2018-11-17] MEDS: HEPARIN SUBQ SCH ×2 (12:59→20:00)
[2018-11-17] MEDS: DILAUDID IV PRN ×5 (13:00→22:40)
--- NOTE | 2018-11-17 15:25 | PROGRESS NOTE ---
DATE: 11/17/2018 SUBJECTIVE: The patient is resting comfortably in bed. She states that she slept well last night. OBJECTIVE: Vital Signs: Temperature 98.6, blood pressure 108/51, heart rate 74, respirations 16, O2 saturation is 100% on room air. General: This is a morbidly obese female, lying in bed in no acute distress. Heart: S1, S2 normal. Regular rate and rhythm. Lungs: Clear to auscultation bilaterally. Abdomen: Positive bowel sounds. Soft, nontender, nondistended. Extremities: 1+ edema bilaterally. Neurologic: The patient is alert and oriented x4. LABS: White blood cell count 5.4, hemoglobin 8.5, hematocrit 27, platelets 257. Sodium 136, potassium 4.8, chloride 101, CO2 27. BUN 40, creatinine 0.9, glucose 142, AST 12, ALT 15, alkaline phosphatase 90. ASSESSMENT AND PLAN: 1. Status post diverting loop transverse colostomy with partial omentectomy with drainage of an intraabdominal and abdominal wall abscess. Continue with antibiotic therapy. Further management as per the general surgeon. 2. Complicated right femur fracture. Continue with external fixation. 3. Atrial fibrillation. The patient is rate controlled. Continue on Cardizem CD and Lopressor. 4. Morbid obesity. Aware. 5. Crohn's disease. Aware. 6. Anasarca,. Improved. Continue with diuretic therapy. 7. Situational depression. Continue on Lexapro. 8. Gastrointestinal prophylaxis. Continue on Prilosec. 9. Deep venous thrombosis prophylaxis. Continue on heparin. cc: Pia Reyes MD [facility]
--- NOTE | 2018-11-17 16:20 | INFECTIOUS DISEASE PROGRESS NO ---
DATE: 11/17/2018 PRESENT ILLNESS: The patient is status post a diverting colostomy in order to clear up the patient's colocutaneous and colon vesicular fistulae. Also Dr. Beckwith put in a large drain in the intra-abdominal wall abscess. MEDICATIONS: The patient is receiving Tygacil and cefepime. PHYSICAL EXAMINATION: Vital Signs: Temperature is 97.6 degrees, pulse 63, respirations 21, blood pressure 133/69. General: This is a somewhat ill-appearing, middle-aged female. She is in no acute distress. Head, eyes, ears, nose, and throat: She can hear my spoken words and see near objects. She does not have any white coating on her tongue. Neck: There is no pain when she turns her head. Lungs: Clear to auscultation. Cardiovascular: Regular heart rate. Abdomen: The patient has a diverting colostomy on the right side of the abdomen. There is a large dressing over the left abdominal wound and there is a drain coming from the wound. Neurologic: Patient is alert. She can move her extremities. There is no tremor. LAB AND X-RAY: CBC today shows a white count of 5490, hemoglobin 8.5, and platelet count 257,000. Creatinine is 0.9, GFR is greater than 60. Liver function studies are normal. Culture taken from the patient's abdominal abscess grew multiple drug-resistant E coli. ASSESSMENT AND PLAN: Patient is status post surgery as mentioned above. My plan is to continue cefepime and Tygacil. COMORBIDITIES: Morbid obesity, diabetes mellitus, partial right nephrectomy, ureteronephrectomy on the left side. cc: Drew Aceves MD
--- NOTE | 2018-11-17 18:56 | GENERAL SURGERY PROGRESS NOTE ---
DATE: 11/17/2018 SUBJECTIVE: Doing well. She is alert, and there was no hemodynamic instability overnight. OBJECTIVE: Her ostomy is pink, viable, with gas in the bag. Serosanguineous output from her left lower quadrant drain. LABORATORY DATA: White count 5, hematocrit 27. Creatinine 0.9, glucose 140s to 160s. LFTs are okay. ASSESSMENT AND PLAN: 53-year-old female with Crohn's with a colocutaneous fistula. I have diverted her with a loop colostomy and facilitated drainage of her left lower quadrant abscess. Continue antibiotics, local wound care. I will advance her diet to soft, as she is having ostomy output. Orthopaedics to follow her external fixator. cc: Rakesh Beckwith MD
[2018-11-17] MEDS: DESYREL PO SCH (20:29)
[2018-11-17] MEDS: LANOXIN PO SCH (22:20)
[2018-11-18] MEDS: PERCOCET-10 PO PRN ×4 (01:45→20:47)
[2018-11-18] MEDS: DILAUDID IV PRN ×9 (03:14→23:59)
[2018-11-18] MEDS: MAXIPIME 2 GM in NS 100 ML IV SCH (05:32)
[2018-11-18] MEDS: HEPARIN SUBQ SCH ×3 (05:33→20:48)
[2018-11-18 06:04] LABS: HEMATOCRIT 26.5 % (37.0-47.0); HEMOGLOBIN 8.2 g/dL (12.0-16.0); MCH 27.3 PG (27-31); MCHC 30.9 g/dL (33-37); MCV 88.3 FL (81-99); MPV 9.6 FL (7.4-10.4); RDW 18.4 % (11.5-14.5); WBC 6.13 X1000 (4.8-10.8)
[2018-11-18] MEDS: PRILOSEC PO SCH (06:19)
[2018-11-18] MEDS: HUMULIN R SUBQ SCH ×4 (06:19→20:48)
[2018-11-18 06:43] LABS: ALB/GLOB RATIO 0.7; ALBUMIN 2.4 g/dL (3.5-5.0); CALCIUM 8.6 mg/dL (8.8-10.2); POTASSIUM 4.2 mmol/L (3.5-5.1); TOTAL BILIRUBIN 0.4 mg/dL (0.20-1.00); TOTAL PROTEIN 5.8 g/dL (6.3-8.3)
[2018-11-18] MEDS: CARDIZEM CD PO SCH (08:49)
[2018-11-18] MEDS: GLUCOSAMINE 500 MG/CHONDROITIN 400 MG PO SCH (08:49)
[2018-11-18] MEDS: CULTURELLE PO SCH ×2 (08:49→20:47)
[2018-11-18] MEDS: BENTYL PO SCH ×2 (08:49→20:47)
[2018-11-18] MEDS: HEMOCYTE-F TABLET PO SCH ×2 (08:50→20:48)
[2018-11-18] MEDS: NEURONTIN PO SCH ×3 (08:50→16:47)
[2018-11-18] MEDS: LIALDA PO SCH ×2 (08:50→20:47)
[2018-11-18] MEDS: LEXAPRO PO SCH (08:50)
[2018-11-18] MEDS: LOPRESSOR PO SCH ×2 (08:50→20:49)
[2018-11-18] MEDS: ZYLOPRIM PO SCH (08:51)
[2018-11-18] MEDS: VITAMIN D PO SCH (08:51)
[2018-11-18] MEDS: TYGACIL 50 MG in NS 50 ML IV SCH ×2 (10:21→21:00)
[2018-11-18] MEDS: ROCEPHIN 2 GM in NS 50 ML IV SCH ×2 (11:00→21:00)
--- NOTE | 2018-11-18 14:52 | PROGRESS NOTE ---
DATE: 11/18/2018 SUBJECTIVE: The patient is awake and in good spirits. She has no complaints at this time. OBJECTIVE: Vital Signs: Temperature 98 degrees, blood pressure 94/61, heart rate 100, respirations 16, and O2 saturation 99% on room air. Intake 2 L and output 7 L. General: This is a morbidly obese female lying in bed in no acute distress. Heart: S1 and S2. Lungs: Clear to auscultation bilaterally. Abdomen: Positive bowel sounds. Soft, nontender, and nondistended. Extremities: 3+ edema in the left leg, and trace edema in the right leg. Neurologic: The patient is alert and oriented x4. LABORATORY: White blood cell count 6, hemoglobin 8.2, hematocrit 26, and platelets 248,000. Sodium 134, potassium 4.2, chloride 97, CO2 27, BUN 54, creatinine 1, and glucose 113. ASSESSMENT AND PLAN: 1. Status post diverting loop transverse colostomy with partial omentectomy with drainage of an intra-abdominal abscess. Continue with antibiotic therapy. Management as per the general surgeon. 2. Complicated right femur fracture. Stable. Continue with external fixation. 3. Atrial fibrillation. Continue on Cardizem CD and Lopressor. 4. Morbid obesity. Aware. 5. Acute kidney injury. We will hold the diuretic therapy today. The patient's urine output has been excellent for the last several days. 6. Anasarca. Improved. 7. Crohn's disease. Aware. 8. Situational depression. Continue on Lexapro. 9. Gastrointestinal prophylaxis. Continue on Prilosec. 10. Deep vein thrombosis prophylaxis. Continue on heparin. 11. Disposition. The patient is stable for transfer to the surgical floor. cc: Pia Reyes MD [facility]
--- NOTE | 2018-11-18 16:18 | INFECTIOUS DISEASE PROGRESS NO ---
DATE: 11/18/2018 PRESENT ILLNESS: The patient is status post diverting colostomy done by Dr. Beckwith. She has colocutaneous and colovesicular fistulae and an intraabdominal abscess. MEDICATIONS: Patient is on Tygacil and cefepime. PHYSICAL EXAMINATION: Vital Signs: Temperature is 97 degrees, pulse 60, respirations 14, blood pressure 98/66. General: This is an obese, middle-aged female. She is in no acute distress. Head/eyes/ears/nose/throat: She can hear my spoken words and see near objects. She does not have any white patches on her tongue. Neck: No pain with movement. Lungs: Clear to auscultation. Cardiovascular: Regular heart rate. Abdomen: On the right side, the patient has a diverting colostomy which is functional. On the left side, the patient has a drain in place. Neurologic: Patient is alert. She can move her extremities. There is no tremor. Extremities: The patient has external fixator on the right leg. Neurologic: The patient is alert. She can move her arms and left leg but the right leg has a large external fixator in place, making movement not possible. LAB AND X-RAY: CBC today shows a white count of 6130, hemoglobin 8.2, platelet count 248,000. Creatinine is 1. GFR is 58. There is no new radiographic study. ASSESSMENT AND PLAN: The patient has had a diverting colostomy in order to help clear up the colocutaneous and colovesicular fistulae and also to clear up the patient's intraabdominal abscess. COMORBIDITIES: Morbid obesity, diabetes mellitus, partial right nephrectomy, ureteronephrectomy on the left side. cc: Drew Aceves MD
[2018-11-18] MEDS: DESYREL PO SCH (20:47)
[2018-11-18] MEDS: LANOXIN PO SCH (20:49)
--- NOTE | 2018-11-18 21:16 | Extremity Venous Study ---
PROCEDURE NAME: Venous U/S Left Leg - 11/16/2018 REFERRING PHYSICIAN: Dr. Pia Reyes. INTERPRETING PHYSICIAN.: Dr. Jose Colunga. PRODUCT INSPECTION SUPERVISOR: Justina. FINDINGS: The study is limited due to the patient's obesity. She has edema in the left leg. The left common femoral, superficial femoral, deep femoral, and popliteal veins are imaged. The veins imaged are compressible. Below that, it is difficult to image any other veins. The study is limited obviously due to the patient's size. INTERPRETATION: No evidence of deep or superficial venous thrombosis in the veins identified, which are in the thigh region. cc: MD Pia White MD
[2018-11-19] MEDS: PERCOCET-10 PO PRN ×6 (00:52→22:38)
[2018-11-19] MEDS: HEPARIN SUBQ SCH ×3 (04:34→22:23)
[2018-11-19] MEDS: DILAUDID IV PRN ×9 (04:34→22:26)
[2018-11-19] MEDS: PRILOSEC PO SCH (06:32)
[2018-11-19] MEDS: HUMULIN R SUBQ SCH ×4 (06:37→22:28)
[2018-11-19 06:53] LABS: HEMATOCRIT 28.1 % (37.0-47.0); HEMOGLOBIN 8.5 g/dL (12.0-16.0); MCH 26.7 PG (27-31); MCHC 30.2 g/dL (33-37); MCV 88.4 FL (81-99); MPV 9.6 FL (7.4-10.4); RBC 3.18 XMIL (4.2-5.4); RDW 18.7 % (11.5-14.5); WBC 6.91 X1000 (4.8-10.8)
[2018-11-19 07:29] LABS: ALB/GLOB RATIO 0.7; ALBUMIN 2.2 g/dL (3.5-5.0); CALCIUM 8.4 mg/dL (8.8-10.2); CREATININE 1.1 mg/dL (0.5-0.9); POTASSIUM 4.5 mmol/L (3.5-5.1); TOTAL BILIRUBIN 0.28 mg/dL (0.20-1.00); TOTAL PROTEIN 5.4 g/dL (6.3-8.3)
[2018-11-19] MEDS: BENTYL PO SCH ×2 (08:45→22:23)
[2018-11-19] MEDS: LIALDA PO SCH ×2 (08:46→22:26)
[2018-11-19] MEDS: NEURONTIN PO SCH ×3 (08:46→19:01)
--- NOTE | 2018-11-19 08:47 | GENERAL SURGERY PROGRESS NOTE ---
DATE: 11/18/2018 SUBJECTIVE: Doing well. Her ostomy is functioning. There is serosanguineous drainage from the left lower quadrant wound, but no stool and no fevers. No tachycardia. I reviewed her laboratories. OBJECTIVE: On exam, ostomy is pink, viable, with stool in the bag. Drain is in place. I removed the packing. Hemostasis was noted. 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 PLAN: We will keep her drain in the left lower quadrant wound for now. We will plan on removing this in the near future, but we will keep it there to ensure there is no residual feculent drainage. She is on appropriate antibiotics ;Dr. Aceves is following, as well as the hospitalists. From a surgical standpoint, she can transfer floor. We will continue pin site care with her orthopedic doctors following her right lower extremity external fixator. cc: Rakesh Beckwith MD MTDD
[2018-11-19] MEDS: CULTURELLE PO SCH ×2 (08:48→22:26)
[2018-11-19] MEDS: HEMOCYTE-F TABLET PO SCH ×2 (08:48→22:23)
[2018-11-19] MEDS: ZYLOPRIM PO SCH (08:48)
[2018-11-19] MEDS: CARDIZEM CD PO SCH (08:48)
[2018-11-19] MEDS: GLUCOSAMINE 500 MG/CHONDROITIN 400 MG PO SCH (08:48)
[2018-11-19] MEDS: LEXAPRO PO SCH (08:49)
[2018-11-19] MEDS: LOPRESSOR PO SCH ×2 (08:49→22:28)
[2018-11-19] MEDS: ROCEPHIN 2 GM in NS 50 ML IV SCH ×2 (09:00→22:27)
[2018-11-19] MEDS: TYGACIL 50 MG in NS 50 ML IV SCH ×2 (10:15→22:27)
[2018-11-19] MEDS: NS 1,000 ML IV SCH ×2 (10:18→22:28)
[2018-11-19 11:20] LABS: URINE SOURCE CATH
[2018-11-19 11:30] LABS: BILIRUBIN URINE NEGATIVE (NEGATIVE); BLOOD URINE TRACE (NEGATIVE); COLOR YELLOW; GLUCOSE URINE NEGATIVE (NEGATIVE); KETONE URINE NEGATIVE (NEGATIVE); LEUKOCYTES URINE MODERATE (NEGATIVE); NITRITE URINE NEGATIVE (NEGATIVE); PH URINE 6.5; PROTEIN URINE TRACE mg/dL (NEGATIVE); SP GRAVITY URINE 1.005; TURBIDITY URINE CLEAR (CLEAR); UR EPITHELIAL CELLS <10 /HPF (<10); URINE BACTERIA NEGATIVE /HPF; URINE RBC <10 /HPF (<10); UROBILINOGEN URINE NORMAL (NORMAL)
[2018-11-19 13:34] LABS: UR CREAT RANDOM 25.8 mg/dL (11-20); UR PROT RANDOM 25.8 mg/dL
[2018-11-19] MEDS ORDERED: CALMOSEPTINE OINTMENT TOP PRN (21:33)
[2018-11-19] MEDS: LANOXIN PO SCH (22:25)
[2018-11-19] MEDS: DESYREL PO SCH (22:26)
[2018-11-20] MEDS: DILAUDID IV PRN ×10 (00:33→22:58)
--- NOTE | 2018-11-20 05:28 | GENERAL SURGERY PROGRESS NOTE ---
DATE: 11/19/2018 SUBJECTIVE: Doing well. Ostomy is functioning. She is tolerating a diet. OBJECTIVE: There is no feculent drainage from her wound, only serosanguineous. External fixator is in place. Pin sites are clean. LABS: White count is 6, hematocrit is stable at 28. Creatinine is 1.1. ASSESSMENT AND PLAN: A 53-year-old female with Crohn disease, colocutaneous fistula. She has a femur fracture with external fixator. I talked to the Orthopedic service. They will continue pin site care. They have reviewed her x-rays and will plan for further management of her femur fracture more definitively once her ongoing infectious symptoms are better. Overall, clinically she is doing very well. Plan for rehab placement next week. She is on appropriate antibiotics per the ID service. cc: Rakesh Beckwith MD
[2018-11-20] MEDS: PRILOSEC PO SCH (06:19)
[2018-11-20] MEDS: PERCOCET-10 PO PRN ×5 (06:19→23:00)
[2018-11-20] MEDS: HEPARIN SUBQ SCH ×3 (06:20→20:47)
[2018-11-20 06:40] LABS: HEMATOCRIT 28.1 % (37.0-47.0); HEMOGLOBIN 8.6 g/dL (12.0-16.0); MCH 27.5 PG (27-31); MCHC 30.6 g/dL (33-37); MCV 89.8 FL (81-99); MPV 9.2 FL (7.4-10.4); RBC 3.13 XMIL (4.2-5.4); RDW 19.1 % (11.5-14.5); WBC 5.84 X1000 (4.8-10.8)
[2018-11-20 07:12] LABS: ALBUMIN 2.3 g/dL (3.5-5.0); CALCIUM 8.4 mg/dL (8.8-10.2); POTASSIUM 4.8 mmol/L (3.5-5.1)
[2018-11-20] MEDS: HUMULIN R SUBQ SCH ×4 (08:02→20:48)
[2018-11-20] MEDS: TYGACIL 50 MG in NS 50 ML IV SCH ×3 (08:28→22:35)
[2018-11-20] MEDS: LIALDA PO SCH ×2 (08:29→20:46)
[2018-11-20] MEDS: ZYLOPRIM PO SCH (08:29)
[2018-11-20] MEDS: NEURONTIN PO SCH ×3 (08:29→18:19)
[2018-11-20] MEDS: CULTURELLE PO SCH ×2 (08:29→20:47)
[2018-11-20] MEDS: LEXAPRO PO SCH (08:29)
[2018-11-20] MEDS: LOPRESSOR PO SCH ×2 (08:29→20:48)
[2018-11-20] MEDS: GLUCOSAMINE 500 MG/CHONDROITIN 400 MG PO SCH (08:29)
[2018-11-20] MEDS: BENTYL PO SCH ×2 (08:29→20:46)
[2018-11-20] MEDS: HEMOCYTE-F TABLET PO SCH ×2 (08:29→20:46)
[2018-11-20] MEDS: CARDIZEM CD PO SCH (08:30)
--- NOTE | 2018-11-20 08:34 | PROGRESS NOTE ---
DATE: 11/19/2018 SUBJECTIVE: The patient is resting comfortably in bed. She has no complaints at this time. OBJECTIVE: Vital Signs: Temperature 98.2 degrees, blood pressure 135/64, heart rate 64, respirations 18, O2 saturation is 98% on room air. Intake 1 L, output 5.7 L. General: This is a morbidly obese female lying in bed, in no acute distress. Heart: S1, S2 normal. Regular rate and rhythm. Lungs: Clear to auscultation bilaterally. No wheezing, rales, or rhonchi. Abdomen: Positive bowel sounds. Soft, nontender, nondistended. Extremities: The left leg has 3+ pitting edema. Right leg has an external fixator attached. Neurologic: The patient is alert and oriented x4. Labs: White blood cell count 6.9, hemoglobin 8.5, hematocrit 28, platelets 247,000. Sodium 136, potassium 4.5, chloride 102, CO2 25, BUN 57, creatinine 1.1, glucose 118, calcium 8.4. ASSESSMENT AND PLAN: 1. Status post diverting loop transverse colostomy with partial omentectomy with drainage of an intraabdominal and abdominal wall abscess. Continue with antibiotic therapy. Further management as per the general surgeon. 2. Complicated right femur fracture. Continue with the external fixation. 3. Acute kidney injury. We will check urine studies. 4. Atrial fibrillation. The patient is rate controlled. Continue on Cardizem CD and Lopressor. 5. Morbid obesity. Aware. 6. Crohn's disease. Aware. 7. Anasarca. Improved. 8. Situational depression. Continue on Lexapro. 9. s/p left nephroureterectomy. Aware. 10. Vitamin D deficiency. Continue on vitamin D supplementation. 11. Gastrointestinal prophylaxis. Continue on Prilosec. 12. Deep vein thrombosis prophylaxis. Continue on heparin. cc: Pia Reyes MD MTDD
[2018-11-20] MEDS: ROCEPHIN 2 GM in NS 50 ML IV SCH ×2 (10:28→22:00)
[2018-11-20] MEDS: ZOFRAN IV PRN ×2 (14:29→23:01)
--- NOTE | 2018-11-20 14:46 | PROGRESS NOTE ---
DATE: 11/20/2018 SUBJECTIVE: The patient is resting comfortably in bed. She has no complaints at this time. OBJECTIVE: Vital Signs: Temperature 98.1 degrees, blood pressure 155/67, heart rate 85, respirations 16, O2 saturations 98% on room air. General: This is a morbidly obese female lying in bed in no acute distress. Heart: S1, S2 normal. Regular rate and rhythm. Lungs: Clear to auscultation bilaterally. Abdomen: Positive bowel sounds. Soft, nontender, nondistended. Extremities: With 2+ edema in the left leg. Trace edema in the right leg. There is external fixation of the right leg. Neurologic: The patient is alert and oriented x4. LABORATORY DATA: White blood cell count 5.8, hemoglobin 8.6, hematocrit 28, platelets 213,000. Sodium 138, potassium 4.8, chloride 104, CO2 of 26, BUN 49, creatinine 1, glucose 118, albumin 2.3. TSH 4.9, free T4-1. ASSESSMENT AND PLAN: 1. Status post diverting loop transverse colostomy with partial omentectomy with drainage of an intra abdominal and abdominal wall abscess. Continue with antibiotic therapy as directed by Dr. Aceves. Further management as per the general surgeon. 2. Right femur fracture. Continue with external fixation. 3. Acute kidney injury. Improved. We will continue to hold diuretic therapy since the patient continues to have adequate urine output. 4. Atrial fibrillation. Continue on Cardizem CD and Lopressor. 5. Crohn's disease. Aware. 6. Morbid obesity. Aware. 7. Anasarca. Improved. 8. Situational depression. Continue on Lexapro. 9. Status post left nephroureterectomy. Aware. 10. Iron deficiency anemia. Stable. 11. Deep vein thrombosis prophylaxis. Continue on heparin. cc: Pia Reyes MD MTDD
[2018-11-20] MEDS: DESYREL PO SCH (20:47)
[2018-11-20] MEDS: LANOXIN PO SCH (20:47)
--- NOTE | 2018-11-20 20:52 | GENERAL SURGERY PROGRESS NOTE ---
DATE: 11/20/2018 SUBJECTIVE: Doing well, ostomy functioning, tolerating a diet. Only serosanguineous drainage from wound. No fevers, no tachycardia. I reviewed her labs. White count remains normal. Creatinine is 1.0. ASSESSMENT AND PLAN: 53-year-old female status post diverting loop colostomy for colovesicular and colocutaneous fistula. She is doing well. Will continue ostomy care, wound care with her drain and pending rehab next week. cc: Rakesh Beckwith MD
[2018-11-21] MEDS: HEPARIN SUBQ SCH ×2 (06:32→12:29)
[2018-11-21] MEDS: DILAUDID IV PRN ×8 (06:33→23:19)
[2018-11-21] MEDS: ZOFRAN IV PRN ×2 (06:33→11:34)
[2018-11-21] MEDS: PRILOSEC PO SCH (06:34)
[2018-11-21 07:52] LABS: HEMATOCRIT 27.6 % (37.0-47.0); HEMOGLOBIN 8.4 g/dL (12.0-16.0); MCH 26.8 PG (27-31); MCHC 30.4 g/dL (33-37); MCV 88.2 FL (81-99); MPV 9.9 FL (7.4-10.4); RBC 3.13 XMIL (4.2-5.4); WBC 7.41 X1000 (4.8-10.8)
[2018-11-21 07:52] LABS: ALBUMIN 2.1 g/dL (3.5-5.0); CALCIUM 8.1 mg/dL (8.8-10.2); CREATININE 1.2 mg/dL (0.5-0.9); PHOSPHORUS 3.5 mg/dL (2.7-4.5); POTASSIUM 4.6 mmol/L (3.5-5.1)
[2018-11-21] MEDS: NEURONTIN PO SCH ×3 (08:05→16:16)
[2018-11-21] MEDS: HEMOCYTE-F TABLET PO SCH ×2 (08:05→20:56)
[2018-11-21] MEDS: ZYLOPRIM PO SCH (08:06)
[2018-11-21] MEDS: CULTURELLE PO SCH ×2 (08:06→20:55)
[2018-11-21] MEDS: PERCOCET-10 PO PRN ×4 (08:06→20:55)
[2018-11-21] MEDS: CARDIZEM CD PO SCH (08:06)
[2018-11-21] MEDS: LEXAPRO PO SCH (08:06)
[2018-11-21] MEDS: LIALDA PO SCH ×2 (08:06→20:55)
[2018-11-21] MEDS: BENTYL PO SCH ×2 (08:06→20:56)
[2018-11-21] MEDS: HUMULIN R SUBQ SCH ×4 (08:07→21:01)
[2018-11-21] MEDS: LOPRESSOR PO SCH (08:09)
[2018-11-21] MEDS ORDERED: ALBUMIN 25% IV ONE (08:37)
[2018-11-21] MEDS ORDERED: NS 1,000 ML IV SCH (08:45)
--- NOTE | 2018-11-21 09:11 | Diag Imaging Result Doc PS360 ---
EXAM: CHEST-PORTABLE HISTORY: dyspnea TECHNIQUE: Chest single view COMPARISON: 10/15/2018 FINDINGS: The heart is enlarged. No change in the right-sided portacatheter. No pneumothorax. There are no infiltrates. No pleural effusions identified. There is central vascular prominence. IMPRESSION: Cardiomegaly with central vascular distention. Electronically signed by Nikolai Noonan 11/21/2018 9:08 AM
[2018-11-21] MEDS: ROCEPHIN 2 GM in NS 50 ML IV SCH ×2 (09:40→23:57)
[2018-11-21] MEDS: TYGACIL 50 MG in NS 50 ML IV SCH ×2 (10:18→22:04)
[2018-11-21] MEDS: NS 1,000 ML IV SCH ×2 (11:26→20:54)
[2018-11-21] MEDS: GLUCOSAMINE 500 MG/CHONDROITIN 400 MG PO SCH (11:27)
[2018-11-21 12:40] LABS: IRON SATURATION 32 %; TIBC 90 ug/dL; TOTAL IRON 29 ug/dL (49-151); UNBOUND IRON 61 ug/dL (112-346)
[2018-11-21 12:41] LABS: UR CREAT RANDOM 57.8 mg/dL (11-20)
[2018-11-21 12:56] LABS: FERRITIN 305 ng/mL (13-150)
--- NOTE | 2018-11-21 14:50 | PROGRESS NOTE ---
DATE: 11/21/2018 SUBJECTIVE: The patient is resting comfortably in the bed. She states that she feels okay this morning, but she did have a fever. OBJECTIVE: T-max 100 degrees, blood pressure 109/53, heart rate 62, respirations 16 and O2 saturation 95% on room air. Intake 400, output 4.3 L.General: This is a morbidly obese female lying in bed in no acute distress. HEENT: Head normocephalic atraumatic. Heart: S1, S2 normal. Regular rate and rhythm. Lungs: Equal air entry bilaterally. No crackles. No rales. Abdomen: Positive bowel sounds. Soft, nontender, and nondistended. Extremities: 2+ edema in the left leg, and 1+ edema in the right leg. External fixation device is in place on the right leg. Neurologic: The patient is alert and oriented x4. LABORATORY: White blood cell count 7.4, hemoglobin 8.4, hematocrit 27, and platelets 200,000. Sodium 134, potassium 4.6, chloride 102, CO2 25, BUN 46, creatinine 1.2, and glucose 150. ASSESSMENT AND PLAN: 1. Status post diverting loop transverse colostomy with partial omentectomy with drainage of an intra abdominal and abdominal wall abscess secondary to E.coli. Continue with antibiotic therapy as directed by Dr. Aceves. General Surgery is following. 2. Fever. Repeat blood cultures have been ordered as well as a UA and chest x ray. 3. Acute kidney injury. The FENA is less than 1%. We will start the patient on IV fluids and monitor her response closely. Urine output remains adequate. Avoid nephrotoxic agents. 4. Right femur fracture. Continue with external fixation. 5. Atrial fibrillation. The patient is rate controlled. Continue on Cardizem, Eliquis, and Lopressor. 6. Iron deficiency anemia. We will continue to monitor closely. 7. Situational depression. Continue on Lexapro. 8. Severe protein calorie malnutrition. Continue with liquacel. 9. Status post left nephroureterectomy. Aware. 10. Morbid obesity. Aware. 11. Deep vein thrombosis prophylaxis. The patient is on eliquis. cc: MD EULALIA Bardales
--- NOTE | 2018-11-21 16:02 | GENERAL SURGERY PROGRESS NOTE ---
DATE: 11/21/2018 SUBJECTIVE: Ostomy is functioning. She is tolerating a diet. OBJECTIVE: There is serosanguineous drainage from her wound. Urine is clear. I reviewed her labs and vital signs. No fevers. ASSESSMENT AND PLAN: A 53 -year-old female with colovesicular/ colocutaneous fistula, Crohn's disease. She got a diverting loop colostomy. We are going to continue pin site care and pending rehab disposition later this week. She is on IV antibiotics. We will continue that and her drain for now. cc: Rakesh Beckwith MD
--- NOTE | 2018-11-21 17:32 | INFECTIOUS DISEASE PROGRESS NO ---
DATE: 11/21/2018 PRESENT ILLNESS: The patient is status post diverting colostomy for an abdominal abscess with colocutaneous and colovesicular fistulae. MEDICATIONS: The patient is on Tygacil and cefepime. The Tygacil has been going for 7 days and the patient was on cefepime and now is switched to Rocephin, which makes it 7 days for both of those 2 antibiotics together, namely the Rocephin and the cefepime. PHYSICAL EXAMINATION: Vital Signs: Temperature is 100.2 degrees, pulse 62, respirations 16, blood pressure 109/53. General: This is an obese, middle-aged female. She is in no acute distress. Today she told me she just does not feel as good. She is tired. Head/eyes/ears/nose/throat: She can hear my spoken words and see near objects. She does not have any white coating of her tongue. Neck: She moves her neck without any pain. Lungs: Clear to auscultation. Cardiovascular: Regular heart rate. Abdomen: Soft, nontender. On the right side, patient has a colostomy which is functional. On the left side, there is a drain in place and in the middle there is an incision which has a dressing on it. The dressing is intact. Neurologic: The patient is awake. She can move her extremities. There is no tremor. Extremities: Patient has a large external fixator on her right leg. LAB AND X-RAY STUDIES: Chest x-ray shows cardiomegaly with vascular congestion. CBC shows a white count of 7410, hemoglobin 8.4, and platelet count 200,000. Creatinine is 1.2. GFR is 47. ASSESSMENT AND PLAN: The patient has a diverting colostomy to help clear up an intraabdominal abscess with a colocutaneous and colovesicular fistulae. COMORBIDITIES: The patient has morbid obesity. She is a diabetic. She has had a partial right nephrectomy and a ureteronephrectomy on the left side. cc: Drew Aceves MD
--- NOTE | 2018-11-21 18:17 | HEMO/ONC CONSULTATION ---
DATE: 11/21/2018 CHIEF COMPLAINT: Being consulted for further management of patient's anemia. HISTORY OF PRESENT ILLNESS: Ms. Koch is a 52-year-old female who was admitted with what looks like to be an intra-abdominal abscess in the colocutaneous fistula related to her Crohn disease. The patient was recently in [facility] where she was admitted to the hospital due to a fracture of her femur. The patient also had pelvic abscess drained at that time at [facility]. Due to this, was on IV antibiotics at that time as well. Since being admitted, the patient went back to the OR where she had a diverting loop transverse colostomy, omentectomy and drainage of intra-abdominal and abdominal wall abscess with drain placement on 11/13/2017. Ms. Koch is known to us in our clinic where she had been following up for Crohn's disease and on infliximab. The patient also has a history of iron-deficiency anemia. The patient did have Injectafer once and had an anaphylactic reaction at that time. Plan was to give her Feraheme. She received her last dose of Feraheme on 09/22/2018. Her last dose of Remicade was given on 09/14/2018. PAST MEDICAL HISTORY: 1. Crohn disease. 2. Renal cell carcinoma that was resected. 3. Atrial fibrillation. 4. Hyperlipidemia. 5. Type 2 diabetes. 6. Hypertension. 7. Ureteral cancer. 8. Cirrhosis. PAST SURGICAL HISTORY: 1. Partial nephrectomy of the right kidney. 2. Ureteronephrectomy on the left side due to ureteral cancer and a fistula. 3. Distal femur fracture repair FAMILY HISTORY: Noncontributory. SOCIAL HISTORY: No tobacco, alcohol or illicit drug use. ALLERGIES: 1. Latex. 2. Adhesive tape. FAMILY HISTORY: Renal cell cancer. HOME MEDICATIONS: 1. Allopurinol. 2. Eliquis. 3. Bentyl. 4. Digoxin. 5. Lexapro. 6. Furosemide. 7. Gabapentin. 8. Integra Plus. 9. Culturelle. 10. Lialda. 11. Glucophage. 12. Lopressor. 13. Omeprazole. 14. Zofran. 15. Percocet 10. 16. Spironolactone/hydrochlorothiazide. 17. Desyrel. REVIEW OF SYSTEMS: Negative except as per HPI. PHYSICAL EXAMINATION: Vital Signs: Temperature 98.8 degrees, heart rate 62, respiratory rate 16, blood pressure 109/53, saturation 95% on room air. General: The patient is awake, lying in bed, no acute distress noted. HEENT: Anicteric. PERRLA. Mucous membranes moist. Neck: Supple. Trachea midline. Lymph nodes survey: no palpable lymphadenopathy. Cardiovascular: S1, S2. Regular rate and rhythm. Lungs: Bilateral breath sounds clear to auscultation. Abdomen: Soft, nontender, nondistended. Bowel sounds present all 4 quadrants. Tubes and dressing in place. Skin: Warm, dry and intact. Neurologic: Alert and oriented x3. No focal deficits noted. LABORATORY DATA: Blood cell count 7.1, hemoglobin 8.4, hematocrit 27.6, platelets are 200,000. Sodium 134, potassium 4.6, BUN 46, creatinine 1.2. ASSESSMENT AND PLAN: 1. Anemia: Hemoglobin and hematocrit to be stable. Iron percent saturation on 11/15/2018 was 20. On 11/15/2018 ferritin was 477. Continue to monitor closely and transfuse as needed. 2. Status post diverting loop transverse colostomy with partial omentectomy with drainage of intra-abdominal wall abscess: Continue antibiotics as ordered by Dr. Aceves. Continue with recommendations by Surgery and primary medical team. 3. Right femur fracture: Continue recommendations by primary team. 4. Acute kidney injury: Continue recommendations by primary medical team. 5. Atrial fibrillation: Continue recommendations per primary medical team. 6. Crohn's disease, aware. Continue recommendations per primary medical team. 7. Depression: Continue Lexapro as ordered. Continue recommendations by primary medical team. 8. Deep venous thrombosis prophylaxis: Continue heparin as ordered. Plan of care discussed with Dr. Benjamin. Dictated by PETER Mercer for Payam Benjamin MD Patient seen and examined. As above. She is significantly anemic. Check anemia related labs and plan intravenous iron if needed. Previously she has received IV iron. Also in the past she has received Remicade for Crohns disease. Currently it is held. I will follow with you. Payam Benjamin M.D. cc: PETER Mercer MD [facility]
[2018-11-21] MEDS: LANOXIN PO SCH (20:55)
[2018-11-21] MEDS: ELIQUIS PO SCH (20:55)
[2018-11-21] MEDS: DESYREL PO SCH (22:05)
[2018-11-22] MEDS: LOPRESSOR PO SCH ×3 (02:06→21:46)
[2018-11-22] MEDS: PERCOCET-10 PO PRN ×5 (05:49→23:31)
[2018-11-22] MEDS: PRILOSEC PO SCH ×2 (05:49→07:04)
[2018-11-22] MEDS: DILAUDID IV PRN ×8 (05:50→23:56)
[2018-11-22 06:08] LABS: BASO# 0.01 X1000 (0.0-0.2); BASO% 0.2 % (0.0-0.8); EOS% 3.8 % (0.0-10.0); HEMATOCRIT 25.8 % (37.0-47.0); HEMOGLOBIN 7.8 g/dL (12.0-16.0); IMM GRAN# 0.07 X1000 (0.0-0.04); IMM GRAN% 1.3 % (0.0-0.5); LYMPH# 0.91 X1000 (1.2-3.4); LYMPH% 17.1 % (20.5-51.1); MCH 26.6 PG (27-31); MCHC 30.2 g/dL (33-37); MCV 88.1 FL (81-99); MONO# 0.33 X1000 (0.11-0.59); MONO% 6.2 % (1.7-9.3); MPV 9.7 FL (7.4-10.4); NEUT# 3.81 X1000 (1.4-6.5); NEUT% 71.4 % (42.2-75.2); PLT 184 X1000 (130-400); RBC 2.93 XMIL (4.2-5.4); RDW 18.9 % (11.5-14.5); WBC 5.33 X1000 (4.8-10.8)
[2018-11-22 06:26] LABS: POTASSIUM 4.6 mmol/L (3.5-5.1)
[2018-11-22 06:27] LABS: ALBUMIN 2.2 g/dL (3.5-5.0); CALCIUM 7.9 mg/dL (8.8-10.2); CREATININE 1.4 mg/dL (0.5-0.9); PHOSPHORUS 3.5 mg/dL (2.7-4.5)
[2018-11-22] MEDS: NS 1,000 ML IV SCH ×3 (07:03→21:54)
[2018-11-22] MEDS: HUMULIN R SUBQ SCH ×3 (07:04→16:12)
[2018-11-22] MEDS: ELIQUIS PO SCH ×3 (07:58→21:45)
[2018-11-22] MEDS: LIALDA PO SCH ×3 (07:58→21:46)
[2018-11-22] MEDS: NEURONTIN PO SCH ×5 (07:58→16:14)
[2018-11-22] MEDS: CULTURELLE PO SCH ×3 (07:58→21:46)
[2018-11-22] MEDS: CARDIZEM CD PO SCH ×2 (07:58→10:46)
[2018-11-22] MEDS: GLUCOSAMINE 500 MG/CHONDROITIN 400 MG PO SCH ×2 (07:58→10:45)
[2018-11-22] MEDS: BENTYL PO SCH ×3 (07:58→21:46)
[2018-11-22] MEDS: LEXAPRO PO SCH ×2 (07:58→10:45)
[2018-11-22] MEDS: ZYLOPRIM PO SCH ×2 (07:58→10:44)
[2018-11-22] MEDS: HEMOCYTE-F TABLET PO SCH ×2 (07:59→21:45)
[2018-11-22] MEDS: ZOFRAN IV PRN ×3 (07:59→21:47)
[2018-11-22] MEDS: ROCEPHIN 2 GM in NS 50 ML IV SCH ×2 (10:50→22:52)
[2018-11-22] MEDS: TYGACIL 50 MG in NS 50 ML IV SCH ×2 (11:58→21:45)
--- NOTE | 2018-11-22 13:53 | Diag Imaging Result Doc PS360 ---
EXAM: US RENAL 1 (LIMITED)-RIGHT HISTORY: renal failure TECHNIQUE: Renal ultrasound COMPARISON: None. FINDINGS: The right kidney measured 12.1 x 7.9 x 6.5 cm. Normal renal echotexture and cortical thickness. No renal stone or hydronephrosis. No renal mass. The left kidney has been removed. IMPRESSION: Normal right renal ultrasound. Electronically signed by Nikolai Noonan 11/22/2018 1:51 PM
--- NOTE | 2018-11-22 14:01 | NEPHROLOGY PROGRESS NOTE ---
DATE: 11/22/2018 REASON FOR ADMISSION: Intra-abdominal abscess. REASON FOR CONSULTATION: Acute kidney disease. CONSULTING PHYSICIAN: Dr. Reyes. HISTORY OF PRESENT ILLNESS: This is a 52-year-old female with a significant recent medical history secondary to intra-abdominal abscess with a colocutaneous fistula, who was getting treatment per Infectious Disease. She has been discharged home, was continuing IV treatment. Apparently, she fell off the recliner at home. She shattered her left distal femur. She was transferred to [place] for treatment with ORIF. She was found to have increasing size of her abscesses and, because she has been following with Surgery, she was transferred over here for further treatment. Since admission, she has underwent diverting colostomy secondary to the intra- abdominal abscess and colocutaneous colovesicular fistula. Initially, her creatinine was 0.9 on admission. It has slowly risen and today is 1.4. She has had urine studies that indicated a low FENa and was started on IV fluids yesterday. She does have imaging ordered which has not been completed yet. When I see her today, she denies any nausea, vomiting, or other uremic type symptoms. Her urine output has been excellent with greater than 3 L via Marshall catheter. 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 Those were performed by Dr. Coppola some time in the past. 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 She is being followed by Infectious Disease and has been treated with tetracycline and cefepime. She is currently on Rocephin. Patient has received several units of blood over the last couple of weeks, and her hemoglobin has been dropping, but there is no active bleeding that we can tell. The patient normally follows with Hematology/Oncology for her Crohn disease and anemia. She has received IV iron in the past, and was last treated for that in September of this year. For her Crohn disease, she continues on infliximab. PAST MEDICAL HISTORY: Crohn disease with colocutaneous fistula and colovesicular fistula with diverting colostomy placed during this hospitalization, history of renal cell carcinoma, history of ureteral cancer, atrial fibrillation, hyperlipidemia, type 2 diabetes, hypertension, history of cirrhosis. SURGICAL HISTORY: She has had a partial nephrectomy to the right kidney and a ureteral nephrectomy on the left. She has had an I and D of her fistula. She had the distal femur ORIF and now the diverting colostomy. ALLERGIES: Adhesive tape and latex. CURRENT MEDICATIONS: Listed as Tylenol, Zyloprim, Eliquis, Rocephin, Bentyl, Lanoxin, Cardizem, vitamin D, Lexapro, ferrous fumarate, Neurontin, glucosamine chondroitin, Dilaudid, Humulin, Culturelle, Lialda, Lopressor, Prilosec, Zofran, Percocet, normal saline, tigecycline, Desyrel. Could not find in the chart that she has received any Toradol. Patient currently has normal saline infusing at 100 mL an hour. FAMILY HISTORY: Renal cell cancer. SOCIAL HISTORY: Denies EtOH, tobacco, or illicit drug use. 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 REVIEW OF SYSTEMS: Lower extremity edema. PHYSICAL EXAMINATION: Vital Signs: Temperature 98.1 degrees, pulse 72, respiratory rate 14, blood pressure 128/55. Intake 2 L; output 3.7 L. General: This is a middle- aged female resting in bed. She does not appear in acute distress, although she does have some mild abdominal pain. HEENT: Normocephalic, atraumatic. CLEO. Conjunctivae are pale. Oral mucosa moist. Neck: Thick. Unable to determine JVD. Cardiovascular: Irregularly irregular rhythm. Controlled rate. Pulmonary: She has equal excursion. There is no wheeze or rales noted. Abdomen: Obese, tender. Incision and colostomy bag noted. : Marshall catheter. Extremities: She has external fixation on the right. Left lower extremity with 2+ edema on the right. She is moving upper extremities without difficulty. Integumentary: Skin is warm and dry and pale otherwise. Neurologic: Grossly nonfocal. LAB DATA: WBC of 5.3, hemoglobin 7.8 (8.4). Sodium 133, potassium 4.6, chloride 103, CO2 24. BUN 44, creatinine 1.4 (1.2, 1.1, 0.9), albumin is 2.2, calcium is 7.9. She has a FENa score of 0.7. Her last urine on the eighteenth had trace protein, trace blood, moderate leukocyte. ASSESSMENT AND PLAN: 1. Status post diverting loop transverse colostomy with partial omentectomy and drainage of intra- abdominal and abdominal wall abscess. She is followed by Surgery. Antibiotic therapy per Infectious Disease. 2. Acute kidney injury. The patient does have a low FENa, but significantly increased urine output. She is making greater than 3 liters of urine in the last 24 hours. She does have intravenous fluids 100 infusing. We will continue this. The patient does have significantly reduced renal mass. She only has a partial right kidney. The patient's medications have been reviewed, and I do not see any nephrotoxic combinations at this time. We will make no changes to current regimen. The patient has a couple of episodes with blood pressure in the 90s and, although she had a low FENa, acute tubular necrosis would not be excluded secondary to the extensive procedure she has had to undergo during this hospitalization. She does not have any indications for intervention, such as dialysis, but we will monitor closely. She does have an ultrasound ordered for later today. 3. Atrial fibrillation, rate controlled. Followed by Cardiology. 4. Anemia. Crohn disease is followed by Hematology/Oncology. 5. Electrolytes, acid-base balance. These are acceptable. With the significant urine output, it really does not appear that she is retaining urine sodium. Continue fluids. 6. Anemia. Patient has received transfusions while in the hospital, and she is modestly anemic now. Her decreased blood flow can cause some issues with increased wasteload. I anticipate that she will be transfused again either today or tomorrow per Primary and Hematology/Oncology. Dictated by PETER Anton for Jeffrey Mcelroy MD Face to face encounter, data reviewed, discussed with Power Sexton on 11/22/18. I agree with the above assessment and plan of care. cc: Jeffrey Mcelroy MD [facility]
--- NOTE | 2018-11-22 14:54 | INFECTIOUS DISEASE PROGRESS NO ---
DATE: 11/22/2018 PRESENT ILLNESS: The patient is status post diverting colostomy performed by Dr. Beckwith for the patient who had an abdominal abscess with colocutaneous and colovesicular fistulae. MEDICATIONS: The patient has been on antibiotics for a total of 8 days, namely Tygacil. Then the patient was on cefepime and switched to Rocephin. Both of the antibiotics were 8 days. The combinations of cefepime and then Rocephin also has been going now for 8 days. PHYSICAL EXAMINATION: Vital Signs: Temperature is 99 degrees, pulse 86, respirations 16, blood pressure 141/61. General: This is an obese, middle-aged female. She is in no acute distress. Head, Eyes, Ears, Nose, and Throat: She can hear my spoken words and see near objects. She does not have any white coating on her tongue. Neck: She does not have any pain when she moves her neck. Lungs: Clear to auscultation. Cardiovascular: Heart rate is regular. Abdomen: Soft and nontender on the right side. The patient has a colostomy which is functioning well. On the left side, there is a drain in place and the drainage is noted to be not nearly as thick as it had been the day before. The patient also has an incision in the mid part of her abdomen which has a dressing on it. Extremities: The patient has a large external fixator on her right leg. Thorax: The patient has a Port-A-Cath present on the right side. The site is not erythematous or swollen. LAB AND X-RAY: The patient's CBC today shows a white count of 5330, hemoglobin 7.8, and platelet count 184,000. Creatinine is 1.4. GFR is 39. There is not a new radiographic study today. ASSESSMENT AND PLAN: The plan is to continue with the diverting colostomy and hopefully her intra- abdominal abscess and the fistulae she have will clear. COMORBIDITIES: The patient is morbidly obese. She is a diabetic. She has had a partial right nephrectomy and a ureteronephrectomy on the left side. cc: Drew Aceves MD
--- NOTE | 2018-11-22 15:22 | HEMO/ONC PROGRESS NOTE ---
DATE: 11/22/2018 SUBJECTIVE: The patient is comfortable, lying in her bed. Her is cleaning and redressing her fistula drain. The patient has external fixation to her right leg. The patient is in very pleasant spirits. OBJECTIVE: Vital Signs: Temperature 99 degrees, pulse rate 86, respiratory rate 16, blood pressure 141/61, pulse oximetry 97 percent on room air, 7/10 pain. Physical Examination: General: The patient is awake, lying in bed, in no acute distress. HEENT: Anicteric. PERRLA. Mucous membranes are moist. Lymph Node Survey: No palpable lymphadenopathy. Cardiovascular: S1 and S2 noted. Regular rate and rhythm. Respiratory: Bilateral breath sounds were clear to auscultation. Abdomen: Soft, nontender, nondistended. Tube with dressing in place. The dressing is clean, dry, and intact. Neurological: Alert and oriented x3. No focal deficits noted. Laboratory Data: WBC 5.33, hemoglobin 7.8, hematocrit 25.8, platelet count 184,000. Sodium 133, creatinine 1.4. ASSESSMENT AND PLAN: 1. Anemia. Hemoglobin and hematocrit appear to be low. Iron profile appears adequate. 2. Status post diverting loop transverse colostomy with partial omentectomy with drainage of intra-abdominal wall abscess. Continue with antibiotics as ordered by Dr. Aceves. Agree with the recommendations by the surgery and primary medical team. 3. Right femur fracture. Continue recommendations per primary medical team. 4. Acute kidney injury. Continue recommendations per primary medical team. 5. Atrial fibrillation. Continue recommendations per cardiology and primary medial team. 6. Crohn's disease. We are aware and treat the patient with Remicade in the clinic. We will continue the recommendations per primary medical team in the hospital. Continue her treatments when she is able to come outpatient. 7. Depression. Continue Lexapro as ordered. Continue any recommendations made by the primary medical team. 8. Deep venous thrombosis prophylaxis. Continue the heparin as ordered. This plan of care was discussed with Dr. Benjamin. Dictated by PETER Harris for Payam Benjamin MD Patient seen and examined. As above. Anemia evaluations performed at this point unrevealing. Some of the labs are pending. For now transfuse as needed. Continue current management. Payam Benjamin M.D. cc: Payam Benjamin MD [facility]
--- NOTE | 2018-11-22 16:30 | PROGRESS NOTE ---
DATE: 11/22/2018 SUBJECTIVE: Patient is resting comfortably in bed. OBJECTIVE: Vital signs: Temperature 99.3 degrees, pulse 86, respirations 14, blood pressure 153/50 and oxygen saturation 99%. HEENT: Atraumatic and normocephalic. Cardiovascular: S1, S2. Respiratory: There is evidence of good air entry bilaterally. Abdomen: Obese. Nontender. He has a colostomy bag. Extremities: The patient has external fixation on right lower extremity. No significant edema. Central nervous system: No obvious focal deficits noted. LABORATORY: WBC is 5.3, hematocrit 25.8 with a platelet count of 184,000. Sodium is 138, potassium 4.6, chloride is 103, bicarb is 24, BUN is 44, and creatinine is 1.4. ASSESSMENT AND PLAN: 1. Status post diverting colostomy with history of abdominal abscess with colocutaneous and colovesicular fistula. The patient is being followed up by the surgical team. 2. Intra-abdominal infection. Antibiotics per Dr. Drew Aceves. 3. Acute kidney injury. Nephrology Team following. 4. Crohn's disease. Consult with Gastroenterology. 5. Right femoral fracture. External fixation in place. Orthopedics following. 6. Atrial fibrillation. Continue rate controlling agent as well as anticoagulation. 7. History of left nephroureterectomy. Aware. 8. Morbid obesity. Aware. 9. Severe protein calorie malnutrition. Continue nutritional supplements. 10. Situational depression. Continue Lexapro. 11. Deep vein thrombosis prophylaxis. Patient is on Eliquis. cc: Andre Ma MD
--- NOTE | 2018-11-22 18:29 | GENERAL SURGERY PROGRESS NOTE ---
DATE: 11/22/2018 SUBJECTIVE: Doing okay, ostomy is functioning. Some more purulent appearing drainage from her abscess. No fevers, no tachycardia. I reviewed her labs. White count is 5, creatinine is 1.4, has been rising steadily over the last couple days, glucose 124 to 130. ASSESSMENT/PLAN: 53-year-old female colovesicular colocutaneous fistula. She is being worked up for worsening renal function. She had a renal ultrasound is pending .infectious disease following. Her pin sites on her ex fix look okay. Continue pin site care and ostomy and teaching. cc: Rakesh Beckwith MD MTDD
[2018-11-22] MEDS: LANOXIN PO SCH (21:46)
[2018-11-22] MEDS: DESYREL PO SCH (21:46)
[2018-11-23] MEDS: DILAUDID IV PRN ×9 (04:52→22:00)
[2018-11-23] MEDS: PERCOCET-10 PO PRN ×5 (05:36→21:59)
[2018-11-23] MEDS: NS 1,000 ML IV SCH (05:37)
[2018-11-23 06:10] LABS: BASO# 0.01 X1000 (0.0-0.2); BASO% 0.2 % (0.0-0.8); EOS# 0.19 X1000 (0.0-0.7); EOS% 3.6 % (0.0-10.0); HEMOGLOBIN 7.9 g/dL (12.0-16.0); IMM GRAN# 0.06 X1000 (0.0-0.04); IMM GRAN% 1.1 % (0.0-0.5); LYMPH# 0.96 X1000 (1.2-3.4); LYMPH% 18.1 % (20.5-51.1); MCH 26.9 PG (27-31); MCHC 30.4 g/dL (33-37); MCV 88.4 FL (81-99); MONO# 0.31 X1000 (0.11-0.59); MONO% 5.8 % (1.7-9.3); MPV 9.9 FL (7.4-10.4); NEUT# 3.78 X1000 (1.4-6.5); NEUT% 71.2 % (42.2-75.2); PLT 191 X1000 (130-400); RBC 2.94 XMIL (4.2-5.4); RDW 19.3 % (11.5-14.5); WBC 5.31 X1000 (4.8-10.8)
[2018-11-23 06:16] LABS: ALBUMIN 2.1 g/dL (3.5-5.0); CALCIUM 7.8 mg/dL (8.8-10.2); PHOSPHORUS 3.6 mg/dL (2.7-4.5); POTASSIUM 4.5 mmol/L (3.5-5.1)
[2018-11-23] MEDS: PRILOSEC PO SCH (06:34)
[2018-11-23] MEDS: HUMULIN R SUBQ SCH ×4 (07:00→21:58)
[2018-11-23 07:11] LABS: RETIC% 1.7 % (0.8-2.1); RETIC-HE 34.8 PG (28.2-36.6)
--- NOTE | 2018-11-23 08:55 | NEPHROLOGY PROGRESS NOTE ---
DATE: 11/23/2018 SUBJECTIVE: She states she feels better this morning. No new complaints. No shortness of breath, swelling, nausea, etc. OBJECTIVE: Vital signs: Blood pressure 132/48, heart rate 112, respiration 20, afebrile. General: No acute distress. Skin: Warm and dry. HEENT: Conjunctiva are pink. Neck: Necks veins are not visible. Heart: Regular, no gallops. Lungs: Equal, no crackles. Abdomen: Soft. Extremities: Trace edema. No clubbing or cyanosis. IMPRESSION: Acute kidney injury. Creatinine is 1.0 today, BUN improved to 36. Polyuric. Volume status appears euvolemic to modestly volume expanded today. I will stop her IV fluids. I will sign off today, but if I can be of further assistance, please do not hesitate to call. cc: Jeffrey Mcelroy MD
[2018-11-23] MEDS: ELIQUIS PO SCH ×2 (09:31→22:00)
[2018-11-23] MEDS: HEMOCYTE-F TABLET PO SCH ×2 (09:31→21:59)
[2018-11-23] MEDS: LOPRESSOR PO SCH (09:31)
[2018-11-23] MEDS: CULTURELLE PO SCH ×2 (09:31→21:59)
[2018-11-23] MEDS: CARDIZEM CD PO SCH (09:31)
[2018-11-23] MEDS: LEXAPRO PO SCH (09:31)
[2018-11-23] MEDS: ZYLOPRIM PO SCH (09:31)
[2018-11-23] MEDS: NEURONTIN PO SCH ×3 (09:31→17:47)
[2018-11-23] MEDS: BENTYL PO SCH ×2 (09:32→21:59)
[2018-11-23] MEDS: GLUCOSAMINE 500 MG/CHONDROITIN 400 MG PO SCH (09:32)
[2018-11-23] MEDS: LIALDA PO SCH ×2 (09:32→21:59)
[2018-11-23] MEDS: TYGACIL 50 MG in NS 50 ML IV SCH (09:34)
[2018-11-23] MEDS: ROCEPHIN 2 GM in NS 50 ML IV SCH ×2 (11:29→21:58)
--- NOTE | 2018-11-23 11:30 | HEMO/ONC PROGRESS NOTE ---
DATE: 11/23/2018 SUBJECTIVE: The patient sitting up in bed eating breakfast this morning. She states she is feeling much better and is very happy regarding news that her 1 kidney is functioning effectively. She has no new complaints today. OBJECTIVE: Temperature 98.5, heart rate is 112, respiratory rate 20, blood pressure 132/48, 100% on room air, and she gives an 8/10 pain. PHYSICAL EXAMINATION: General: The patient is awake, sitting up in bed. Cardiovascular: S1, S2 noted. Regular rate and rhythm. Respiratory: Bilateral breath sounds clear to auscultation. Abdomen: Soft, nontender, nondistended. Colostomy bag in place. Dressing is clean, dry, and intact. Extremities: There is external fixation on the right lower extremity. No significant edema. Neurologic: Alert and oriented x3. No focal deficits noted. LABORATORY: White blood cells 5.31, hemoglobin 7.9, hematocrit 26.0, platelet count 191. Creatinine 1.0, calcium 7.8, albumin 2.1. ASSESSMENT AND PLAN: 1. Anemia. Hemoglobin and hematocrit appear to be low. Iron profile is also low. We will consider giving the patient IV iron, as she is intolerant to oral iron. 2. Status post diverting colostomy with history of abdominal abscess with colocutaneous and colovesicular fistula. The patient is being followed up on by the Surgical team. Agree with any recommendations. 3. Acute kidney injury. Nephrology team is following. Creatinine is 1.0. Nephrology is signing off as kidney appears to be functioning appropriately. 4. Atrial fibrillation. Continue recommendations per Cardiology. 5. Crohn's disease. We treat the patient in office regarding her Crohn's disease with Remicade. We will see her outpatient to continue treatment when she is able. 6. Severe protein calorie malnutrition. We will encourage the patient to drink protein shakes and continue to follow up on outpatient. 7. Deep venous thrombosis prophylaxis. The patient is on Eliquis b.i.d. Dictated by PETER Harris for Payam Benjamin MD Patient seen and examined. As above. Anemia evaluation reveals poor reticulocytosis for the degree of anemia. This is likely bone marrow suppression due to her acute illnesses. For now transfuse as needed. Continue current management. At this point I will sign off. Please call with any questions. Payam Benjamin M.D. cc: Payam Benjamin MD [facility]
--- NOTE | 2018-11-23 12:47 | PROGRESS NOTE ---
DATE: 11/23/2018 SUBJECTIVE: The patient is resting in bed. Has present in the room. OBJECTIVE: Vital Signs: Temperature 98.6 degrees, pulse 70, respiratory rate 16, blood pressure 142/61, oxygen saturation 100%. HEENT: Atraumatic, normocephalic. Cardiovascular: S1, S2. Respiratory: Has evidence of good entry bilaterally. Abdomen: Obese, nontender. No masses felt. Extremities: The patient does have external fixation around the right lower extremity. Has minimal edema in the lower extremities. Central Nervous System: No obvious focal deficits noted. LABORATORY DATA: WBC 5.31, hematocrit is 26, with a platelet count of 191,000. Sodium is 136, potassium 4.5, chloride is 105, bicarb 24, BUN is 36, creatinine is 1.0. ASSESSMENT AND PLAN: 1. Status post diverting colostomy with a history of abdominal abscess as well as colocutaneous and colovesicular fistula. The patient is being followed by the Surgical Team. 2. Intra-abdominal infection. Antibiotics per Dr. Drew Aceves, Infectious Disease. 3. Acute kidney injury. Renal function noted to be improving. The patient has been followed by the Nephrology Team. 4. Crohn's disease, stable. Gastroenterology consulted. 5. Right femoral fracture. External fixation in place. Orthopedics is following. 6. Atrial fibrillation. Continue rate-controlling agent as well as anticoagulation. 7. Morbid obesity. Aware. 8. Severe protein calorie malnutrition. Continue nutritional supplements. 9. Situational depression. Continue Lexapro. 10. Deep vein thrombosis prophylaxis. The patient is on Eliquis. cc: Andre Ma MD
--- NOTE | 2018-11-23 14:44 | GENERAL SURGERY PROGRESS NOTE ---
DATE: 11/23/2018 SUBJECTIVE: Doing okay. They changed her ostomy appliance. No fevers. No tachycardia. There was continued drainage from her abscess drain. Pin sites are okay. I reviewed her labs. White count is normal. Creatinine is 1.0. ASSESSMENT AND PLAN: A 53-year-old female status post diverting colostomy for colovesicular, colocutaneous fistula. We will continue current care, rehab disposition soon. We will keep her drain until outputs clear. One of my partners is going to follow for me while I am out of town in the next couple days. cc: Rakesh Beckwith MD
--- NOTE | 2018-11-23 17:49 | INFECTIOUS DISEASE PROGRESS NO ---
DATE: 11/23/2018 PRESENT ILLNESS: The patient is status post diverting colostomy performed by Dr. Beckwith for the patient who had an abdominal abscess with colocutaneous and colovesicular fistulae. MEDICATIONS: The patient has been on antibiotics for 8 days which are Tygacil and Rocephin. PHYSICAL EXAMINATION: Vital Signs: Temperature is 98.6 degrees, pulse 70, respirations 16, blood pressure 142/61. General: This is an obese, middle-aged female. She is in no acute distress. Head, eyes, ears, nose, and throat: She can hear my spoken words and see near objects. She does not have any white coating on her tongue. Neck: She can move her neck and not have any pain. Lungs: Clear to auscultation. Cardiovascular: Heart rate is regular. Abdomen: Soft and nontender. The patient on the right side has a colostomy which is functioning well. In the middle, the incision is intact. There is no erythema or drainage coming from it. On the left side, there is a drain that has been placed. The dressing over the drain is intact. Thorax: The patient has a Port-A-Cath which is on the right side. The site is not erythematous or purulent. Extremities: The patient has a long external fixator on her right leg. LAB AND X-RAY: CBC shows a white count of 5,310, hemoglobin 7.9, platelet count is 191,000. Creatinine is 1.0. ASSESSMENT AND PLAN: The patient has had a diverting colostomy and drainage of a abdominal abscess which had a colocutaneous and colovesicular fistulae. I am going to continue Rocephin because of the E. coli that was grown from the abscess, but I am discontinuing Tygacil since we do not have a recent culture that would require the need for Tygacil. COMORBIDITIES: She is morbidly obese. She also is a diabetic. She has had a partial right nephrectomy and a ureteronephrectomy on the left side. The partial right nephrectomy was on the right side. cc: Drew Aceves MD
[2018-11-23] MEDS: ZOFRAN IV PRN (19:48)
--- NOTE | 2018-11-23 20:11 | GASTROENTEROLOGY CONSULTATION ---
DATE: 11/23/2018 REASON FOR CONSULTATION: Crohn disease. HISTORY OF PRESENT ILLNESS: This is a 53-year-old, female. She was just recently in the hospital for an extended stay due to colocutaneous and colovesicular fistula. She was managed conservatively trying to avoid surgery. She was discharged, but continued to have problems. She failed attempts at controlling the fistula and required surgery. She had surgery on 11/16/[address] Beckwith, diverting loop transverse colostomy, partial omentectomy and drainage of the intraabdominal and abdominal wall abscesses with drain placement. We are asked to see the patient due to her history of Crohn disease. She had been started on Remicade and is following with Dr. Benjamin. Unfortunately due to her recent infection, she had to postpone her last infusion. She is currently taking mesalamine, Lialda. Unfortunately, when patient was at home prior to this admission, she fell and fractured her femur. She currently has external fixation to the right extremity. She is following with orthopedist and will have surgery for repair once she is stable enough to proceed. PAST MEDICAL HISTORY: 1. Crohn disease, with colocutaneous fistula/colovesicular fistula. 2. Renal cell carcinoma. 3. Atrial fibrillation. 4. Type 2 diabetes. 5. History of urethral cancer. 6. Hypertension. PAST SURGICAL HISTORY: 1. Partial nephrectomy, right kidney. 2. Ureteronephrectomy, left-side, associated to urethral cancer. 3. Distal femur fracture with external fixation. 4. Recent surgery, diverting loop transverse colonoscopy with partial omentectomy and drainage of intraabdominal abscess and drain placement. ALLERGIES: Adhesive and latex causing rash. HOME MEDICATIONS: Allopurinol 300 mg daily. Eliquis 5 mg twice a day. Bentyl 20 mg twice a day, digoxin 250 mcg every night, Lexapro 10 mg daily. Furosemide 40 mg daily. Gabapentin 600 mg 3 times a day. Glucosamine chondroitin daily. Iron, folic acid, and B complex 1 twice a day. Culturelle 1 twice a day. Lialda 1.2 g twice a day. Glucophage 1000 mg every night. Lopressor 100 mg twice a day, omeprazole 40 mg daily. Zofran 4 mg as needed. Percocet 10/325 mg every 4 hours as needed. Spironolactone, hydrochlorothiazide 1 daily. Desyrel 100 mg every night. REVIEW OF SYSTEMS: Per history of present illness. PHYSICAL EXAMINATION: Vital Signs: Temperature 98.6, pulse 70, respirations 16, blood pressure 142/61. General: The patient is awake and alert, no acute distress. Her is at the bedside. Respiratory: Lung sounds essentially clear. Cardiovascular: Regular rate and rhythm. Abdomen: With ostomy intact. Drain to left quadrant intact. Abdomen soft. [place] open to air to other incision. Extremities: Bilateral lower extremity edema noted. She does have external fixation to right lower extremity. Neurological: Cranial nerves 2-12 grossly intact. Patient is awake and alert, oriented to person, place, and time. DIAGNOSTIC RESULTS: Laboratory: Hematology: WBC 5.31 hemoglobin 7.9, hematocrit 26.0, MCV 88.4, platelet 191. Chemistry: Sodium 136, potassium 4.5, chloride 105, CO2 of 24, BUN 36, creatinine 1.1, glucose 91. ASSESSMENT AND PLAN: 1. Status post diverting colostomy with history of abdominal abscesses, colocutaneous and colovesicular fistula, following with [facility]. 2. An intraabdominal infection following with Dr. Aceves. 3. Acute kidney injury. She has been followed by Nephrology. 4. Recent right femoral fracture with external fixation in place. Orthopedics are following. 5. Crohn disease. The patient is currently on Lialda. She was on Remicade. She is following with Dr. Benjamin. The Remicade has had to be held due to her recent infections and surgery. Would recommend holding for 4 to 6 weeks at least, but recommend following per recommendation of Dr. Aceves and Dr. Benjamin. We will continue to follow as far as gastroenterology will be available as needed. I have discussed this case with Dr. Westbrook. Dictated by PETER Doyle for Tito Westbrook MD cc: PETER Chaudhry MD
[2018-11-23] MEDS: LANOXIN PO SCH (21:59)
[2018-11-23] MEDS: DESYREL PO SCH (22:00)
[2018-11-24] MEDS: ZOFRAN IV PRN ×4 (00:10→19:51)
[2018-11-24] MEDS: DILAUDID IV PRN ×8 (00:10→23:04)
[2018-11-24] MEDS: PERCOCET-10 PO PRN ×5 (02:09→23:03)
[2018-11-24] MEDS: LOPRESSOR PO SCH ×2 (02:39→08:44)
[2018-11-24 06:32] LABS: BASO# 0.01 X1000 (0.0-0.2); BASO% 0.2 % (0.0-0.8); EOS# 0.21 X1000 (0.0-0.7); EOS% 4.9 % (0.0-10.0); HEMATOCRIT 25.6 % (37.0-47.0); HEMOGLOBIN 7.8 g/dL (12.0-16.0); IMM GRAN# 0.03 X1000 (0.0-0.04); IMM GRAN% 0.7 % (0.0-0.5); LYMPH# 0.95 X1000 (1.2-3.4); LYMPH% 22.3 % (20.5-51.1); MCHC 30.5 g/dL (33-37); MCV 88.6 FL (81-99); MONO# 0.28 X1000 (0.11-0.59); MONO% 6.6 % (1.7-9.3); MPV 9.7 FL (7.4-10.4); NEUT# 2.78 X1000 (1.4-6.5); NEUT% 65.3 % (42.2-75.2); PLT 194 X1000 (130-400); RBC 2.89 XMIL (4.2-5.4); RDW 19.5 % (11.5-14.5); WBC 4.26 X1000 (4.8-10.8)
[2018-11-24 06:54] LABS: CALCIUM 7.8 mg/dL (8.8-10.2); CREATININE 1.1 mg/dL (0.5-0.9); DIGOXIN 0.9 ng/mL (0.9-2.0); POTASSIUM 4.4 mmol/L (3.5-5.1)
[2018-11-24] MEDS: BENTYL PO SCH ×2 (08:41→21:40)
[2018-11-24] MEDS: CULTURELLE PO SCH ×2 (08:41→21:41)
[2018-11-24] MEDS: ELIQUIS PO SCH ×2 (08:42→21:41)
[2018-11-24] MEDS: PRILOSEC PO SCH (08:42)
[2018-11-24] MEDS: ZYLOPRIM PO SCH (08:42)
[2018-11-24] MEDS: LIALDA PO SCH ×2 (08:43→21:41)
[2018-11-24] MEDS: CARDIZEM CD PO SCH (08:43)
[2018-11-24] MEDS: GLUCOSAMINE 500 MG/CHONDROITIN 400 MG PO SCH (08:44)
[2018-11-24] MEDS: HEMOCYTE-F TABLET PO SCH ×2 (08:44→21:41)
[2018-11-24] MEDS: LEXAPRO PO SCH (08:44)
[2018-11-24] MEDS: HUMULIN R SUBQ SCH ×4 (08:45→23:03)
[2018-11-24] MEDS: NEURONTIN PO SCH ×3 (08:45→17:22)
[2018-11-24] MEDS: ROCEPHIN 2 GM in NS 50 ML IV SCH ×2 (12:19→21:41)
[2018-11-24] MEDS ORDERED: LASIX IV ONE (13:24)
[2018-11-24] MEDS: MIRALAX PO SCH (13:54)
--- NOTE | 2018-11-24 15:47 | PROGRESS NOTE ---
DATE: 11/24/2018 SUBJECTIVE: The patient is resting comfortable in bed. OBJECTIVE: Vital signs: Temperature 98.4 degrees, pulse 84, respirations 14, blood pressure is 118/52 and oxygen saturation 98%. HEENT: She is atraumatic, normocephalic. Cardiovascular: S1, S2. Respiratory: There is evidence of good air entry bilaterally. Abdomen: Obese nontender. No masses felt. Extremities: External fixation of the right lower extremities. There is edema present in the left lower extremity. Central nervous system: No obvious focal deficits noted. LABORATORY DATA: WBC is 4.6, hematocrit is 25.6, with a platelet count of 194,000. Sodium is 131, potassium 4.4, chloride is 100, bicarb 26, BUN 37, and creatinine is 1.1. ASSESSMENT AND PLAN: 1. Status post diverting colostomy with history of intra-abdominal abscess as well as colocutaneous and colovesicular fistula. The patient has been followed by the surgical team. 2. Intra-abdominal infection. Antibiotics per Infectious Disease team. 3. Acute kidney injury. Renal function improving. Continue to follow up on renal panel. Avoid nephrotoxic agent. 4. Chronic Crohn's disease. Stable. GI consulted. 5. Right femoral fracture. External fixation in place. Orthopedics following. 6. Atrial fibrillation. Continue rate controlling agent as well as anticoagulation. 7. Morbid obesity. Aware. 8. Severe protein calorie malnutrition. Continue nutritional supplements. 9. Situational depression. Continue Lexapro. 10. DVT prophylaxis. The patient is on Eliquis. cc: Andre Ma MD
--- NOTE | 2018-11-24 20:38 | HEMO/ONC PROGRESS NOTE ---
DATE: 11/24/2018 SUBJECTIVE: The patient is sitting up in bed, eating breakfast this morning. She states her appetite is good and she is feeling well today. She said yesterday she had a pretty emotional day, in thinking about all that is going on with her, but she does remain positive and she is eager to do what is asked of her. OBJECTIVE: Vital signs: Pulse rate 110, respiratory rate 22, blood pressure 166/70, O2 saturation 100% on room air. She is in 8/10 pain. General: The patient is awake and alert, sitting up in her bed and eating breakfast. Cardiovascular: S1, S2 noted. Regular rate and rhythm. Respiratory: Bilateral breath sounds are clear to auscultation. Abdomen obese, soft, nontender, nondistended. Colostomy bag in place. Dressing is clean, dry and intact. Extremities: Right leg has external fixation. Mild edema noted. Left leg has a significant amount of edema, +2. Neurologic: Alert and oriented x3. No focal deficits noted. LABORATORY: WBC 4.26, hemoglobin 7.8, hematocrit 25.6, platelets 194,000. Sodium 131, potassium 4.4, creatinine 1.1, calcium 7.8. ASSESSMENT AND PLAN: 1. Anemia: Hemoglobin and hematocrit are low. Iron profile is adequate. We will continue to monitor. Transfuse as needed. No further recomendations. Will follow peripherally. 2. Status post diverting colostomy with history of abdominal abscess and colocutaneous and colovesical fistula: The patient is being followed up on by the surgical team. We agree with any recommendations. 3. Acute kidney injury: Nephrology was consulted and have signed off, as she had appropriate kidney function. Creatinine is 1.1. 4. Crohn's disease: The patient is known to us regarding her Crohn's disease, as we treat her with Remicade. We will see her on an outpatient basis. 5. Severe protein-calorie malnutrition: I encouraged the patient to drink protein shakes and continue to follow up on an outpatient basis. 6. Deep venous thrombosis prophylaxis: The patient is on Eliquis b.i.d. 7. Bilateral lower extremity edema: The patient is requesting to be placed back on her Lasix 40 mg once a day. She states that she normally takes this on a regular basis and that controls her edema. This plan of care was discussed with Dr. Benjamin. Dictated by PETER Harris for Payam Benjamin MD cc: Payam Benjamin MD [facility]
[2018-11-24] MEDS: DESYREL PO SCH (21:41)
[2018-11-24] MEDS: LANOXIN PO SCH (21:41)
[2018-11-25] MEDS: SODIUM CHLORIDE 0.9% INJ PRN (00:34)
[2018-11-25] MEDS: PHENERGAN IV PRN (00:34)
--- NOTE | 2018-11-25 02:56 | GENERAL SURGERY PROGRESS NOTE ---
DATE: 11/24/2018 SUBJECTIVE: The patient is doing well. No significant abdominal pain, nausea, or vomiting. She is tolerating her soft diet. She is having good ostomy function. OBJECTIVE: Vital signs: She is afebrile. Vital signs are stable. General: She is awake, alert, oriented x3. No acute distress. Gastrointestinal: Soft. Incision is clean, dry, and intact. Her loop colostomy is pink and patent. The drain has brown purulent looking drainage in it. LABORATORY: Reviewed and unremarkable. ASSESSMENT/PLAN: A 53-year-old female status post loop colostomy and drainage of abdominal wall abscess. We will continue her current antibiotic care and drain, and I will advance her to a regular diet. cc: Pedro Ramos MD
[2018-11-25 07:33] LABS: BASO# 0.01 X1000 (0.0-0.2); BASO% 0.3 % (0.0-0.8); EOS# 0.17 X1000 (0.0-0.7); EOS% 4.3 % (0.0-10.0); HEMATOCRIT 24.8 % (37.0-47.0); HEMOGLOBIN 7.5 g/dL (12.0-16.0); LYMPH# 0.82 X1000 (1.2-3.4); LYMPH% 20.7 % (20.5-51.1); MCHC 30.2 g/dL (33-37); MCV 89.2 FL (81-99); MONO# 0.26 X1000 (0.11-0.59); MONO% 6.5 % (1.7-9.3); MPV 9.7 FL (7.4-10.4); NEUT# 2.71 X1000 (1.4-6.5); NEUT% 68.2 % (42.2-75.2); PLT 188 X1000 (130-400); RBC 2.78 XMIL (4.2-5.4); RDW 19.8 % (11.5-14.5); WBC 3.97 X1000 (4.8-10.8)
[2018-11-25 07:35] LABS: CALCIUM 8.2 mg/dL (8.8-10.2); CREATININE 1.2 mg/dL (0.5-0.9); POTASSIUM 3.9 mmol/L (3.5-5.1); TOTAL BILIRUBIN 0.21 mg/dL (0.20-1.00); TOTAL PROTEIN 5.2 g/dL (6.3-8.3)
[2018-11-25 07:36] LABS: ALB/GLOB RATIO 0.6
[2018-11-25] MEDS: ZOFRAN IV PRN (08:43)
[2018-11-25] MEDS: PERCOCET-10 PO PRN ×4 (08:43→20:24)
[2018-11-25] MEDS: DILAUDID IV PRN ×6 (08:43→23:25)
[2018-11-25] MEDS: MIRALAX PO SCH (08:48)
[2018-11-25] MEDS: LEXAPRO PO SCH (08:49)
[2018-11-25] MEDS: ELIQUIS PO SCH ×2 (08:49→20:23)
[2018-11-25] MEDS: VITAMIN D PO SCH (08:49)
[2018-11-25] MEDS: LIALDA PO SCH ×2 (08:50→20:22)
[2018-11-25] MEDS: CULTURELLE PO SCH ×2 (08:50→20:23)
[2018-11-25] MEDS: BENTYL PO SCH ×2 (08:50→20:23)
[2018-11-25] MEDS: ZYLOPRIM PO SCH (08:50)
[2018-11-25] MEDS: NEURONTIN PO SCH ×3 (08:51→17:45)
[2018-11-25] MEDS: LOPRESSOR PO SCH ×3 (08:51→20:24)
[2018-11-25] MEDS: CARDIZEM CD PO SCH (08:56)
[2018-11-25] MEDS: ROCEPHIN 2 GM in NS 50 ML IV SCH ×2 (09:05→22:07)
[2018-11-25] MEDS: GLUCOSAMINE 500 MG/CHONDROITIN 400 MG PO SCH (10:36)
[2018-11-25] MEDS: HEMOCYTE-F TABLET PO SCH ×2 (10:37→20:27)
[2018-11-25] MEDS: HUMULIN R SUBQ SCH ×3 (10:57→22:07)
[2018-11-25] MEDS: PRILOSEC PO SCH (11:46)
--- NOTE | 2018-11-25 14:19 | PROGRESS NOTE ---
DATE: 11/25/2018 SUBJECTIVE: Patient is resting comfortably in bed. OBJECTIVE: Temperature is 98.3 degrees, pulse 102, respirations 20, blood pressure is 157/87 and oxygen saturation 99%.HEENT: Atraumatic, normocephalic. Cardiovascular: S1, S2. Respiratory: There is evidence of good entry bilaterally. Abdomen: Obese. Nontender. No masses felt. Extremities: Patient does have external fixation on the right lower extremity. He has edema in the left lower extremity. LABORATORY: WBC is 3.97, hematocrit 24.8 with a platelet count of 188,000. Chemistry: Sodium is 137, potassium 3.9, chloride is 104, bicarb 26, BUN is 34, and creatinine is 1.2. ASSESSMENT AND PLAN: 1. Status post diverting colostomy with history of intra-abdominal abscess . The patient has been followed by the surgical team. 2. Intra-abdominal infection. Antibiotics by recommendation of Infectious Disease team. 3. Acute kidney injury improving. Follow up on renal panel. Avoid nephrotoxic agent. 4. Chronic disease. Stable. GI consulted. 5. Right femoral fracture. External fixation in place. Orthopedics following. 6. Atrial fibrillation. Continue rate controlling agent as well as anticoagulation. 7. Morbid obesity. Aware. 8. Protein calorie malnutrition. Continue nutritional supplements. 9. Situational depression. Continue Lexapro. 10. Deep vein thrombosis prophylaxis. Patient is on Eliquis. cc: Andre Ma MD [facility]
--- NOTE | 2018-11-25 15:01 | INFECTIOUS DISEASE PROGRESS NO ---
DATE: 11/25/2018 HISTORY OF PRESENT ILLNESS: The patient has a diverting colostomy and drainage of an abdominal abscess. She has a colocutaneous and colovesicular fistula. MEDICATIONS: This is the 10th day of treatment with Rocephin. The patient has been on Rocephin now for 10 days. She had been on Tygacil, but I discontinued it 2 days ago. PHYSICAL EXAMINATION: Vital Signs: Temperature is 98.3 degrees, pulse 102, respirations 20, blood pressure 157/87. General: This is an obese, middle-aged female. She is in no acute distress. Head/eyes/ears/nose/throat: She can hear my spoken words and see near objects. She does not have any white patches on her tongue. Neck: She does not have any pain when she moves her neck. Lungs: Clear to auscultation. Cardiovascular: Regular heart rate. Abdomen: Soft and nontender on the right side. The patient has a diverting colostomy which is functioning well in the midline. The patient has an incision. The incision is intact. It is not draining or erythematous and on the left side, the patient has a drain in. Extremities: The patient has on the right leg a large external fixator. Thorax: The patient has a Port-A-Cath on the right side. The site is not erythematous or tender. Neurologic: The patient is awake. She can move her extremities. She has that large external fixator on her right leg, but she can move her toes. LABS AND X-RAY: CBC shows a white count of 3970, hemoglobin 7.5, and platelet count 188,000. Creatinine is 1.2. GFR is 47. Liver function studies are normal except for a small elevation of the alkaline phosphatase to 123. There are no new radiographic studies today. ASSESSMENT AND PLAN: I plan to continue the patient's Rocephin for her persistent Escherichia coli culture from the patient's abdominal abscess. The patient has a diverting colostomy and has a drain in place in the abdomen draining her abdominal abscess. I plan to continue her Rocephin. COMORBIDITIES: She is morbidly obese. She is diabetic and she has had partial right nephrectomy and a left ureteral nephrectomy. cc: Drew Aceves MD
--- NOTE | 2018-11-25 15:27 | GENERAL SURGERY PROGRESS NOTE ---
DATE: 11/25/2018 SUBJECTIVE: The patient is doing well. No new complaints. She is tolerating her diet. No abdominal pain, nausea, or vomiting. OBJECTIVE: Vital Signs: She is afebrile. Vital signs are stable. General: She is awake, alert, oriented x3. No acute distress. Gastrointestinal: Soft, nontender. The sump drain has purulent drainage. The loop colostomy is pink and patent. LABORATORY DATA: Reviewed. ASSESSMENT AND PLAN: A 53-year-old female status post diverting loop colostomy for abdominal wall abscess and colocutaneous and colovesicular fistula. Antibiotics are ongoing. Drainage is ongoing. If the drainage does not clear, I think Dr. Beckwith would consider a trip back to the operating room for a washout of the wound. She also has a right femoral fracture with external fixation in place and the definitive management of this is being deferred until after her abdominal infection has cleared. cc: Pedro Ramos MD
[2018-11-25] MEDS ORDERED: LASIX IV ONE (17:39)
--- NOTE | 2018-11-25 18:23 | GASTROENTEROLOGY PROGRESS NOTE ---
DATE: 11/25/2018 SUBJECTIVE: The patient states she is feeling better. She is in no acute distress. OBJECTIVE: Vital Signs: Temperature 98.3 degrees, pulse 102, respirations 20, blood pressure 157/87. General: The patient is awake, alert, in no acute distress. LABORATORY: Hematology: WBC 3.97 hemoglobin 7.5, hematocrit 24.8, MCV 89.2, platelet 188,000. Chemistry: Sodium 137, potassium 3.9, chloride 104, CO2 26, BUN 34, creatinine 1.2, glucose 133, calcium 8.2. ASSESSMENT AND PLAN: 1. Status post loop colostomy and drainage of abdominal wall abscess, following with [facility]. 2. Recent right femoral fracture with external fixation in place, following with Orthopedics. 3. Crohn disease. Recommend to continue her mesalamine. Her Remicade is on hold during current active infection. She follows with Dr. Benjamin for Remicade infusions. She will need to hold and postpone her infusion for at least 4 to 6 weeks. I recommend following up with Dr. Benjamin on restarting Remicade when appropriate. Recommend she follow up with us as an outpatient. I have discussed the case with Dr. Westbrook. Dictated by PETER Doyle for Tito Westbrook MD cc: PETER Chaudhry MD
--- NOTE | 2018-11-25 18:41 | PROGRESS NOTE ---
DATE: 11/25/2018 ADDENDUM: I was informed by the Case Management team that the patient does have a bed in LT[facility], but having reviewed the surgical note for today, in my opinion I do not think the patient will be ready to be discharged tomorrow. However, at any point the surgical and orthopedic teams clears patient, she can then be discharged . cc: Andre Ma MD [facility]
[2018-11-25] MEDS: LANOXIN PO SCH (20:23)
[2018-11-25] MEDS: DESYREL PO SCH (20:24)
[2018-11-26] MEDS: PHENERGAN IV PRN ×3 (00:23→23:30)
[2018-11-26] MEDS: PERCOCET-10 PO PRN ×6 (00:23→21:17)
[2018-11-26] MEDS: DILAUDID IV PRN ×6 (05:02→21:17)
[2018-11-26] MEDS: HUMULIN R SUBQ SCH ×3 (06:35→18:07)
[2018-11-26] MEDS: PRILOSEC PO SCH (06:35)
[2018-11-26] MEDS: ELIQUIS PO SCH ×2 (08:17→21:19)
[2018-11-26] MEDS: ZYLOPRIM PO SCH (08:17)
[2018-11-26] MEDS: NEURONTIN PO SCH ×3 (08:17→17:10)
[2018-11-26] MEDS: MIRALAX PO SCH (08:17)
[2018-11-26] MEDS: BENTYL PO SCH ×2 (08:17→21:19)
[2018-11-26] MEDS: CULTURELLE PO SCH ×2 (08:17→21:19)
[2018-11-26] MEDS: LOPRESSOR PO SCH ×2 (08:17→21:22)
[2018-11-26] MEDS: CARDIZEM CD PO SCH (08:17)
[2018-11-26] MEDS: LEXAPRO PO SCH (08:18)
[2018-11-26] MEDS: GLUCOSAMINE 500 MG/CHONDROITIN 400 MG PO SCH (09:27)
[2018-11-26] MEDS: LIALDA PO SCH ×2 (09:28→21:19)
[2018-11-26] MEDS: HEMOCYTE-F TABLET PO SCH ×2 (09:28→21:18)
[2018-11-26] MEDS: ROCEPHIN 2 GM in NS 50 ML IV SCH ×2 (11:07→21:16)
[2018-11-26] MEDS ORDERED: LASIX IV ONE (11:17)
--- NOTE | 2018-11-26 20:02 | PROGRESS NOTE ---
DATE: 11/26/2018 INTERVAL HISTORY: No acute events overnight. SUBJECTIVE: She is feeling fine. She states that her abdominal drain is still draining feculent material and the urine catheter also has feculent material. We discussed physical exam findings. I answered all of her questions. OBJECTIVE: Currently temperature 98.8 degrees, pulse 80, respiratory rate 20, blood pressure 130/50, saturating 97% on room air. General: Does not appear in any acute distress. Oral cavity is moist. Air entry bilaterally equal. No wheeze, rhonchi or crackles. S1, S2 normal. No murmur, rub or gallop. Abdomen is soft, nontender. She has a midline scar of laparotomy with gutierrez on. She also has a colostomy with stool output. She has left lower quadrant drain which is connected with the suction. She also has a urine catheter which is draining feculent material. Cumulative input and output suggests -37 L. The patient also has a right-sided lower extremity external fixator. LABORATORY DATA: No CBC or BMP today. Microbiology: Abdomen culture growing E. coli. DIAGNOSTIC DATA: No new imaging today. ASSESSMENT AND PLAN: 1. History of inflammatory bowel disease, leading to intra-abdominal adhesions and intra- abdominal abscesses with colovesical and colocutaneous fistulae, status post diverting loop colostomy. Continue intraabdominal drain as per Surgery recommendations, as well as Marshall catheter for colovesical fistula. Continue intravenous ceftriaxone as per Infectious Disease recommendations. 2. Acute kidney injury on chronic kidney disease stage 3. Currently appears stable. She does appear to have mild volume overload with bilateral lower extremity edema and bilateral hand edema. I am going to go ahead and give her a dose of Lasix right now. 3. Right femoral fracture after mechanical fall, status post external fixator. The eventual surgical plan is after her intraabdominal abscess and infection resolves. 4. History of atrial fibrillation with rapid ventricular rate. Currently rate well controlled. Continue home medications of digoxin, diltiazem and Eliquis. She is also on p.o. metoprolol. 5. Others: Continue trazodone, dicyclomine, escitalopram, gabapentin for chronic pain and depression; mesalamine for her history of inflammatory bowel disease; ferrous sulfate for history of chronic anemia; allopurinol for chronic gout. 6. Disposition: The patient does have a bed at long-term acute care facility, and the plan is for her to be discharged to long-term acute care once cleared by Surgery. Plan of care discussed with her. All of her questions have been answered. cc: Farhad Souza MD
[2018-11-26] MEDS: DESYREL PO SCH (21:18)
[2018-11-26] MEDS: LANOXIN PO SCH (21:23)
[2018-11-27] MEDS: DILAUDID IV PRN ×6 (06:47→22:21)
[2018-11-27] MEDS: PERCOCET-10 PO PRN ×5 (06:48→23:59)
[2018-11-27] MEDS: PRILOSEC PO SCH (06:48)
[2018-11-27] MEDS: HUMULIN R SUBQ SCH ×4 (07:45→21:34)
[2018-11-27] MEDS ORDERED: LASIX IV ONE (08:51)
[2018-11-27] MEDS: LIALDA PO SCH ×2 (09:51→21:33)
[2018-11-27] MEDS: NEURONTIN PO SCH ×3 (09:51→17:32)
[2018-11-27] MEDS: CULTURELLE PO SCH ×2 (09:51→21:33)
[2018-11-27] MEDS: CARDIZEM CD PO SCH (09:51)
[2018-11-27] MEDS: LOPRESSOR PO SCH ×2 (09:51→21:34)
[2018-11-27] MEDS: HEMOCYTE-F TABLET PO SCH ×2 (09:52→21:33)
[2018-11-27] MEDS: ZYLOPRIM PO SCH (09:52)
[2018-11-27] MEDS: ELIQUIS PO SCH ×2 (09:52→21:34)
[2018-11-27] MEDS: GLUCOSAMINE 500 MG/CHONDROITIN 400 MG PO SCH (09:52)
[2018-11-27] MEDS: BENTYL PO SCH ×2 (09:52→21:33)
[2018-11-27] MEDS: MIRALAX PO SCH (09:53)
[2018-11-27] MEDS: LEXAPRO PO SCH (09:53)
[2018-11-27] MEDS: ROCEPHIN 2 GM in NS 50 ML IV SCH ×2 (09:54→21:32)
--- NOTE | 2018-11-27 14:27 | GENERAL SURGERY PROGRESS NOTE ---
DATE: 11/27/2018 SUBJECTIVE: She is doing okay. She does have some worsening swelling in her legs and desires another dose of Lasix. OBJECTIVE: She is afebrile. Vital signs are stable. General: She is awake and alert, oriented x3. No acute distress. Gastrointestinal: Soft, nontender. Incision is clean, dry, intact. Stoma is pink and patent. Drain is purulent with 400 mL measured yesterday. ASSESSMENT AND PLAN: 1. A 53-year-old female status post diverting loop colostomy for colovesical fistula and abdominal wall abscess. 2. She also has an external fixator on the right femur. We will give her 40 mg of Lasix for her edema and continue her antibiotics and drainage of the abscess. cc: Pedro Ramos MD
--- NOTE | 2018-11-27 15:24 | PROGRESS NOTE ---
DATE: 11/27/2018 SUBJECTIVE: Patient resting comfortably in bed. OBJECTIVE: Vital Signs: Temperature 99.1 degrees, pulse 105, respiratory rate 16, blood pressure 137/69, oxygen saturation 97%. HEENT: Atraumatic, normocephalic. Cardiovascular: S1, S2. Respiratory: Has evidence of good entry bilaterally. Abdomen: Obese, nontender. No masses felt. Extremities: Has external fixation on right lower extremity. Central nervous system: No obvious focal deficits noted. LABS: None. ASSESSMENT AND PLAN: 1. Status post diverting colostomy with history of intra-abdominal abscess as well as colocutaneous and colovesicular fistula. The patient is being followed by the surgical team. 2. Intra-abdominal infection. Antibiotics per infectious disease team. 3. Acute kidney injury. Avoid nephrotoxic agents. Follow up on renal function. 4. Crohn's disease. Gastroenterology consulted. 5. Right femoral fracture. External fixation in place. Orthopedics following. 6. Atrial fibrillation. Continue rate controlling agent as well as anticoagulation. 7. Morbid obesity. Aware. 8. Protein calorie malnutrition. Continue nutritional supplements. 9. Situational depression. Continue Lexapro. 10. Deep vein thrombosis prophylaxis. [facility]. cc: Andre Ma MD
--- NOTE | 2018-11-27 15:24 | INFECTIOUS DISEASE PROGRESS NO ---
DATE: 11/27/2018 PRESENT ILLNESS: The patient is status post diverting colostomy and drainage of an abdominal abscess and colocutaneous and colovesicular fistula. MEDICATIONS: This is the 12th day of treatment with Rocephin. PHYSICAL EXAMINATION: Vital Signs: Temperature is 91.1 degrees, pulse 105, respirations 16, blood pressure is 137/69. General: This is an obese, middle-aged female. She is in no acute distress. Head, Eyes, Ears, Nose, and Throat: She can hear my spoken words and see near objects. She does not have any white coating of her tongue. Neck: No pain with movement. Lungs: Clear to auscultation. Cardiovascular: Regular heart rate. Abdomen: Soft and nontender. On the right side, there is a diverting loop colostomy which is functioning well. In the midline, the patient has an incision. The incision is intact. On the left side, the patient has a drain in for drainage of the abdominal abscess. Thorax: The patient has a Port-A-Cath present on the right side. The site is not erythematous or purulent. Extremities: The patient has a large external fixator involving the right leg. Neurologic: The patient is awake. She can move her extremities. There is no tremor. LAB AND X-RAY: There is no lab for today. Also there is no chest x-ray for today. ASSESSMENT AND PLAN: The patient has had a diverting loop colostomy for an abdominal abscess and colocutaneous and colovesicular fistula. For now, I plan on continuing Rocephin for the abdominal abscess and fistula. COMORBIDITIES: She is morbidly obese. She also is a diabetic and has had a partial right nephrectomy and a left ureteral nephrectomy. cc: Drew Aceves MD
[2018-11-27] MEDS: LANOXIN PO SCH (21:33)
[2018-11-27] MEDS: DESYREL PO SCH (21:34)
[2018-11-28] MEDS: PHENERGAN IV PRN
[2018-11-28] MEDS: DILAUDID IV PRN ×6 (05:32→21:10)
[2018-11-28] MEDS: PERCOCET-10 PO PRN ×5 (05:47→21:09)
[2018-11-28] MEDS: PRILOSEC PO SCH (06:14)
[2018-11-28 06:34] LABS: CALCIUM 8.5 mg/dL (8.8-10.2); CREATININE 1.3 mg/dL (0.5-0.9); POTASSIUM 4.4 mmol/L (3.5-5.1)
[2018-11-28] MEDS: HUMULIN R SUBQ SCH ×4 (06:44→21:51)
[2018-11-28 06:56] LABS: BASO# 0.01 X1000 (0.0-0.2); BASO% 0.3 % (0.0-0.8); EOS# 0.19 X1000 (0.0-0.7); EOS% 5.2 % (0.0-10.0); HEMATOCRIT 24.9 % (37.0-47.0); HEMOGLOBIN 7.4 g/dL (12.0-16.0); IMM GRAN# 0.02 X1000 (0.0-0.04); IMM GRAN% 0.5 % (0.0-0.5); LYMPH# 0.71 X1000 (1.2-3.4); LYMPH% 19.3 % (20.5-51.1); MCH 27.2 PG (27-31); MCHC 29.7 g/dL (33-37); MCV 91.5 FL (81-99); MONO# 0.27 X1000 (0.11-0.59); MONO% 7.4 % (1.7-9.3); MPV 9.5 FL (7.4-10.4); NEUT# 2.47 X1000 (1.4-6.5); NEUT% 67.3 % (42.2-75.2); PLT 205 X1000 (130-400); RBC 2.72 XMIL (4.2-5.4); RDW 20.3 % (11.5-14.5); WBC 3.67 X1000 (4.8-10.8)
[2018-11-28] MEDS: ROCEPHIN 2 GM in NS 50 ML IV SCH ×2 (09:56→21:07)
[2018-11-28] MEDS: MIRALAX PO SCH (09:56)
[2018-11-28] MEDS: LIALDA PO SCH ×2 (09:56→21:11)
[2018-11-28] MEDS: ZYLOPRIM PO SCH (09:56)
[2018-11-28] MEDS: NEURONTIN PO SCH ×3 (09:57→17:54)
[2018-11-28] MEDS: GLUCOSAMINE 500 MG/CHONDROITIN 400 MG PO SCH (09:57)
[2018-11-28] MEDS: CULTURELLE PO SCH ×2 (09:57→21:08)
[2018-11-28] MEDS: LEXAPRO PO SCH (09:57)
[2018-11-28] MEDS: LOPRESSOR PO SCH ×2 (09:57→21:09)
[2018-11-28] MEDS: ELIQUIS PO SCH ×2 (09:58→21:09)
[2018-11-28] MEDS: HEMOCYTE-F TABLET PO SCH ×2 (09:58→21:07)
[2018-11-28] MEDS: BENTYL PO SCH ×2 (09:58→21:09)
[2018-11-28] MEDS: CARDIZEM CD PO SCH (09:58)
[2018-11-28] MEDS: ZOFRAN IV PRN (09:58)
--- NOTE | 2018-11-28 11:47 | INFECTIOUS DISEASE PROGRESS NO ---
DATE: 11/28/2018 PRESENT ILLNESS: The patient is status post diverting colostomy and drainage of an abdominal abscess and colocutaneous and colovesicular fistula. MEDICATIONS: This is the 13th day of treatment with Rocephin. PHYSICAL EXAMINATION: Vital Signs: Temperature is 99.2 degrees, pulse 90, respirations 20, blood pressure 150/60. General: This is an obese, middle-aged female. She is in no acute distress. Head/eyes/ears/nose/throat: She can hear my spoken words and see near objects. She does not have any white patches in her mouth. Neck: She does not have any pain when she moves her neck. Lungs: Clear to auscultation. Cardiovascular: Regular heart rate. Abdomen: Soft and nontender. The patient's midline incision is intact. On the right side, there is an ostomy present. On the left side, the patient has a drain in place. Thorax: The patient has a Port-A- Cath present on the right side. The site is not erythematous or swollen. Extremities: The patient has a large external fixator involving her whole right leg. Neurologic: The patient is alert. She can move her extremities, except there is minimal movement of the right leg because of the external fixator being present. LABORATORY AND X-RAY: CBC today shows a white count of 3670, hemoglobin 7.4, and platelet count 205,000. Creatinine is 1.3. GFR is 43. ASSESSMENT AND PLAN: 1. I plan to continue treatment with Rocephin for the patient's abdominal abscess. 2. Comorbidities: The patient is morbidly obese. She also is a diabetic. She has had a partial right nephrectomy and a left ureteral nephrectomy. cc: Drew Aceves MD
[2018-11-28] MEDS ORDERED: LASIX IV ONE (13:14)
[2018-11-28] MEDS: DURAGESIC 25 MICROGM/HR PATCH TD SCH (13:46)
--- NOTE | 2018-11-28 13:55 | PROGRESS NOTE ---
DATE: 11/28/2018 SUBJECTIVE: Patient resting in bed has present in the room. OBJECTIVE: Vital signs: Temperature 99.3 degrees, pulse is 82, respiratory 18, blood pressure 144/55, oxygen saturation 97%. HEENT: Atraumatic, normocephalic. Cardiovascular: S1, S2. Respiratory: Has evidence of good entry bilaterally. Abdomen: Obese, nontender. Extremities: Has edema in both lower extremities. Has external fixation right lower extremity. Central nervous system: No obvious focal deficit noted. LABS: WBC is 3.67, hematocrit is 24.9 with a platelet count of 205,000, sodium is 136, potassium 4.4, chloride is 104, bicarb 23, BUN is 26, creatinine is 1.3. ASSESSMENT AND PLAN: 1. Status post diverting colostomy with history of intraabdominal abscess as well as colocutaneous and colovesicular fistula. Patient has been followed by the surgical team. 2. Intraabdominal infection. Antibiotic management per Infectious Disease team. 3. Acute kidney injury. Avoid nephrotoxic agent, follow up on renal function. 4. Crohn disease. GI consulted. 5. Right femoral fracture external fixation in place. Orthopedics following. 6. Atrial fibrillation. Continue rate controlling agent as well as anticoagulation. 7. Morbid obesity aware. 8. Protein calorie malnutrition. Continue nutritional supplements. 9. Situational depression. Continue Lexapro. 10. Deep vein thrombosis prophylaxis Eliquis. 11. Disposition: Patient has a bed in [facility], and can be discharged once cleared by General Surgery and Orthopedics. cc: Andre Ma MD MTDD
[2018-11-28] MEDS: LANOXIN PO SCH (21:08)
[2018-11-28] MEDS: DESYREL PO SCH (21:09)
[2018-11-29] MEDS: PERCOCET-10 PO PRN ×6 (00:47→21:16)
[2018-11-29] MEDS: PHENERGAN IV PRN (00:47)
[2018-11-29] MEDS: DILAUDID IV PRN ×6 (00:48→21:19)
--- NOTE | 2018-11-29 03:54 | GENERAL SURGERY PROGRESS NOTE ---
DATE: 11/28/2018 SUBJECTIVE: Doing okay. No fevers. No tachycardia. OBJECTIVE: Abdomen is soft. More feculent appearing output in her drain. Ostomy is pink, viable. White count is 3, hematocrit is 24. ASSESSMENT/PLAN: A 53-year-old female status post diverting loop colostomy with left lower quadrant colocutaneous abscess and colovesicular fistula. Plans for long-term acute care soon. We will keep the drain for now, antibiotics. I have encouraged them to keep the bag empty as I suspect some of the increased drainage is from spillover into the functional left limb of her colon. Otherwise, her wound looks okay. cc: Rakesh Beckwith MD
[2018-11-29] MEDS: PRILOSEC PO SCH (06:26)
[2018-11-29 07:28] LABS: BASO# 0.01 X1000 (0.0-0.2); BASO% 0.3 % (0.0-0.8); EOS# 0.16 X1000 (0.0-0.7); EOS% 4.5 % (0.0-10.0); HEMATOCRIT 24.1 % (37.0-47.0); HEMOGLOBIN 7.2 g/dL (12.0-16.0); IMM GRAN# 0.02 X1000 (0.0-0.04); IMM GRAN% 0.6 % (0.0-0.5); LYMPH# 0.68 X1000 (1.2-3.4); LYMPH% 19.2 % (20.5-51.1); MCH 27.2 PG (27-31); MCHC 29.9 g/dL (33-37); MCV 90.9 FL (81-99); MONO# 0.28 X1000 (0.11-0.59); MONO% 7.9 % (1.7-9.3); MPV 9.4 FL (7.4-10.4); NEUT% 67.5 % (42.2-75.2); PLT 216 X1000 (130-400); RBC 2.65 XMIL (4.2-5.4); WBC 3.55 X1000 (4.8-10.8)
[2018-11-29] MEDS: HUMULIN R SUBQ SCH ×4 (07:34→21:06)
[2018-11-29 07:45] LABS: ALB/GLOB RATIO 0.7; ALBUMIN 2.4 g/dL (3.5-5.0); CALCIUM 8.2 mg/dL (8.8-10.2); POTASSIUM 4.2 mmol/L (3.5-5.1); TOTAL BILIRUBIN 0.2 mg/dL (0.20-1.00); TOTAL PROTEIN 5.9 g/dL (6.3-8.3)
[2018-11-29] MEDS: CARDIZEM CD PO SCH (10:02)
[2018-11-29] MEDS: LOPRESSOR PO SCH (10:02)
[2018-11-29] MEDS: LIALDA PO SCH ×2 (10:02→21:15)
[2018-11-29] MEDS: LEXAPRO PO SCH (10:03)
[2018-11-29] MEDS: GLUCOSAMINE 500 MG/CHONDROITIN 400 MG PO SCH (10:03)
[2018-11-29] MEDS: CULTURELLE PO SCH ×2 (10:03→21:15)
[2018-11-29] MEDS: NEURONTIN PO SCH ×3 (10:03→17:34)
[2018-11-29] MEDS: ELIQUIS PO SCH ×2 (10:04→21:15)
[2018-11-29] MEDS: MIRALAX PO SCH (10:04)
[2018-11-29] MEDS: ZYLOPRIM PO SCH (10:04)
[2018-11-29] MEDS: BENTYL PO SCH ×2 (10:04→21:15)
[2018-11-29] MEDS: HEMOCYTE-F TABLET PO SCH ×2 (10:04→21:16)
[2018-11-29] MEDS: ROCEPHIN 2 GM in NS 50 ML IV SCH ×2 (10:05→21:15)
--- NOTE | 2018-11-29 12:11 | GASTROENTEROLOGY PROGRESS NOTE ---
DATE: 11/29/2018 SUBJECTIVE: Patient is resting in bed, in no acute distress. She states she does not feel very well today. She states she did not sleep much last night. She is complaining of some generalized pain. OBJECTIVE: Vital Signs: Temperature 99.2 degrees, pulse 90, respirations 18, blood pressure 148/54. General: The patient is awake and alert. No acute distress. Laboratory: Hematology: WBC 3.55, hemoglobin 7.2, hematocrit 24.1, MCV 90.9, platelets 216,000. Chemistry: Sodium 134, potassium 4.2, chloride 101, CO2 26, BUN 25, creatinine 1.0, glucose 131. Total bilirubin 0.20, AST 11, ALT 10, alkaline phosphatase 100. ASSESSMENT AND PLAN: 1. Diverting colostomy with history of intra-abdominal abscess, colocutaneous and colovesicular fistula. [facility] with [facility]. 2. Intra-abdominal infection, on antibiotics. Followed by infectious disease. 3. Crohn's disease. Continue her oral mesalamine. Her Remicade is currently on hold until her infection resolves. She will need to wait approximately 4 to 6 weeks before restarting the Remicade. Recommend she follow up with Dr. Benjamin on exact date of infusion. 4. Right femoral fracture with external fixation in place. Following with orthopedics. 5. Continue current medications. Continue current management. Gastroenterology will continue to follow and be available as needed. I have discussed this case with Dr. Westbrook. Dictated by PETER Doyle for Tito Westbrook MD cc: PETER Chaudhry MD
[2018-11-29] MEDS ORDERED: LASIX IV ONE (13:00)
--- NOTE | 2018-11-29 14:33 | GENERAL SURGERY PROGRESS NOTE ---
DATE: 11/29/2018 SUBJECTIVE: She has had a little bit more colicky abdominal pain but overall she has no fevers. Her ostomy is functioning. Drain output is decreasing. OBJECTIVE: White count is 3, hematocrit is 24. Creatinine is 1.0. ASSESSMENT AND PLAN: A 53-year-old female status post diverting loop colostomy. Overall, clinically, she seems to be about the same. We will follow her closely going forward. I think place in long-term acute care soon. We will keep her drain for now. cc: Rakesh Beckwith MD
--- NOTE | 2018-11-29 20:33 | PROGRESS NOTE ---
DATE: 11/29/2018 SUBJECTIVE: The patient is resting comfortably in bed. No acute events noted overnight. OBJECTIVE: Vital Signs: Temperature 99 degrees, blood pressure 110/56, heart rate 75, respirations 16, O2 saturation 96% on room air.General: This is a morbidly obese female lying in bed in no acute distress. Heart: S1, S2 normal. Regular rate and rhythm. Lungs: Clear to auscultation bilaterally. No wheezing. No rales. No rhonchi. Abdomen: Positive bowel sounds. Soft, obese, nontender, nondistended. Extremities: 2+ edema in the left leg and 1+ in the right leg. Neurologic: The patient is alert and oriented x4. LABORATORY DATA: White blood cell count 3.5, hemoglobin 7.2, hematocrit 24, platelets 216,000. Sodium 134, potassium 4.2, chloride 101, CO2 26, BUN 25, creatinine 1, glucose 131. ASSESSMENT AND PLAN: 1. Status post diverting loop transverse colostomy with partial omentectomy with drainage of an intra-abdominal and abdominal wall abscess secondary to Escherichia coli. Continue with antibiotic therapy as directed by Dr. Aceves. Management as per the general surgeon. 2. Complicated right femur fracture. Continue with external fixation. 3. Paroxysmal atrial fibrillation. The patient is rate controlled. Continue on Cardizem, Eliquis and Lopressor. 4. Iron deficiency anemia. Stable. 5. Situational depression. Continue on Lexapro. 6. Status post left nephroureterectomy. Aware. 7. Morbid obesity. Aware. 8. Chronic kidney disease. Stable. 9. Crohn disease. Aware. GI is following. cc: Pia Reyes MD MTDD
[2018-11-29] MEDS: LANOXIN PO SCH (21:15)
[2018-11-29] MEDS: DESYREL PO SCH (21:16)
[2018-11-30] MEDS: DILAUDID IV PRN ×7 (00:37→22:18)
[2018-11-30] MEDS: PERCOCET-10 PO PRN ×6 (00:37→23:03)
[2018-11-30] MEDS: PHENERGAN IV PRN ×2 (01:16→23:03)
[2018-11-30] MEDS: LOPRESSOR PO SCH ×2 (05:12→10:09)
[2018-11-30] MEDS: PRILOSEC PO SCH (06:20)
[2018-11-30] MEDS: HUMULIN R SUBQ SCH ×4 (07:27→22:18)
[2018-11-30 07:28] LABS: HEMATOCRIT 23.4 % (37.0-47.0); MCH 27.7 PG (27-31); MCHC 29.9 g/dL (33-37); MCV 92.5 FL (81-99); MPV 9.3 FL (7.4-10.4); RBC 2.53 XMIL (4.2-5.4); RDW 20.3 % (11.5-14.5); WBC 3.44 X1000 (4.8-10.8)
[2018-11-30 07:33] LABS: AGAP 11; BUN 25 mg/dL (8-22); CALCIUM 8.5 mg/dL (8.8-10.2); CHLORIDE 100 mmol/L (98-107); COSMO 277; CREATININE 0.9 mg/dL (0.5-0.9); ESTIMATED GFR > 60; GLUCOSE 144 mg/dL (70-104); POTASSIUM 4.1 mmol/L (3.5-5.1); SODIUM 135 mmol/L (136-145); TCO2 24 mmol/L (25-35)
[2018-11-30] MEDS ORDERED: B & O 15A SUPP PR ONE (08:38)
[2018-11-30] MEDS ORDERED: LASIX IV ONE (08:40)
[2018-11-30] MEDS: ROCEPHIN 2 GM in NS 50 ML IV SCH ×2 (10:07→22:19)
[2018-11-30] MEDS: MIRALAX PO SCH (10:07)
[2018-11-30] MEDS: ZYLOPRIM PO SCH (10:08)
[2018-11-30] MEDS: BENTYL PO SCH ×2 (10:08→20:54)
[2018-11-30] MEDS: ELIQUIS PO SCH ×2 (10:08→20:54)
[2018-11-30] MEDS: HEMOCYTE-F TABLET PO SCH ×2 (10:09→20:54)
[2018-11-30] MEDS: GLUCOSAMINE 500 MG/CHONDROITIN 400 MG PO SCH (10:09)
[2018-11-30] MEDS: LEXAPRO PO SCH (10:09)
[2018-11-30] MEDS: CULTURELLE PO SCH ×2 (10:09→20:55)
[2018-11-30] MEDS: NEURONTIN PO SCH ×3 (10:09→20:54)
[2018-11-30] MEDS: LIALDA PO SCH ×2 (10:10→20:55)
[2018-11-30] MEDS: CARDIZEM CD PO SCH (10:10)
[2018-11-30 10:44] LABS: URINE SOURCE CLEAN CATCH
[2018-11-30 11:03] LABS: BILIRUBIN URINE NEGATIVE (NEGATIVE); BLOOD URINE MODERATE (NEGATIVE); COLOR ORANGE; GLUCOSE URINE NEGATIVE (NEGATIVE); KETONE URINE NEGATIVE (NEGATIVE); LEUKOCYTES URINE LARGE (NEGATIVE); NITRITE URINE NEGATIVE (NEGATIVE); PROTEIN URINE 50 mg/dL (NEGATIVE); TURBIDITY URINE TURBID (CLEAR); UROBILINOGEN URINE NORMAL (NORMAL)
[2018-11-30 11:04] LABS: UR EPITHELIAL CELLS <10 /HPF (<10); URINE BACTERIA 4+ /HPF; URINE RBC TNTC /HPF (<10); URINE WBC TNTC /HPF (<10)
--- NOTE | 2018-11-30 11:04 | INFECTIOUS DISEASE PROGRESS NO ---
DATE: 11/30/2018 PRESENT ILLNESS: The patient is status post diverting colostomy and drainage of an abdominal abscess. The patient also has a colocutaneous and colovesicular fistula. MEDICATIONS: This is the 15th day of treatment with IV Rocephin. PHYSICAL EXAMINATION: Vital Signs: The patient had a maximum fever of 100.4. Currently the patient's temperature is 98.7 degrees, pulse 90, respirations 20, blood pressure 140/61. General: This is an obese middle-aged female. She appears to be in no acute distress. HEENT: She can hear my spoken words and see near objects. She does not have any white coating on her tongue. Neck: She does not have any pain when she moves her neck. Lungs: Clear to auscultation. Cardiovascular: Heart rate is regular. Thorax: The patient has a Port-A-Cath present on the right side, the site is not erythematous or purulent. Abdomen: Soft and not tender. On the right side there is a colostomy which is functioning well. In the middle there is an incision which is intact and not erythematous. On the left side the patient has a drain in place. Neurologic: The patient is alert. She can move her extremities. There is no tremor. LABORATORIES AND X-RAY: CBC today shows a white count of 3440, hemoglobin is 7, platelet count is a 191,000. Creatinine is 0.9. GFR is greater than 60. She does not have any other labs for today and she does not have a radiographic study for today. ASSESSMENT AND PLAN: The patient has an abdominal abscess which is being drained and she also has a diverting colostomy. I have ordered a culture from the patient's intra-abdominal abscess, a urine culture, a chest x-ray to look for pneumonia and blood cultures. COMORBIDITIES: Include morbid obesity, diabetes mellitus, partial right nephrectomy, left ureteral nephrectomy. cc: Drew Aceves MD
--- NOTE | 2018-11-30 12:09 | Diag Imaging Result Doc PS360 ---
EXAM: CHEST-1 VIEW 11/30/2018 HISTORY: pneumonia TECHNIQUE: AP portable at 1134 COMMENT: There is a Port-A-Cath on the right with its tip in the superior vena cava. There is cardiomegaly. There is atelectasis present in the lingula. This was also probably present on 11/21/2018. Overall there has been no appreciable change otherwise. IMPRESSION: Subsegmental atelectasis left upper lobe. Electronically signed by Clayton Linn 11/30/2018 12:07 PM
--- NOTE | 2018-11-30 14:23 | PROGRESS NOTE ---
DATE: 11/30/2018 SUBJECTIVE: The patient complains of persistent bladder spasms. OBJECTIVE: Vital Signs: Temperature 98.7 degrees, blood pressure 140/61, heart rate 90, respirations 20, O2 saturation is 94% on room air. General: This is a morbidly obese female lying in bed, in no acute distress. Heart: S1, S2 normal. Regular rate and rhythm. Lungs: Equal air entry bilaterally. No crackles. No rales. Abdomen: Positive bowel sounds. Soft, nontender, nondistended. Extremities: There is 2+ edema in the left leg. There is an external fixation device present on the right leg. Neurologic: The patient is alert and oriented x4. Labs: White blood cell count 3.4, hemoglobin 7, hematocrit 23, platelets 191,000. Sodium 135, potassium 4.1, chloride 100, CO2 24, BUN 25, creatinine 0.9. Chest x-ray shows atelectasis in the left upper lobe. ASSESSMENT AND PLAN: 1. Low grade fever. Dr. Aceves has ordered repeat blood cultures, urinalysis, urine culture, and chest x-ray. 2. Status post diverting loop transverse colostomy with partial omentectomy with drainage of an intraabdominal and abdominal wall abscess secondary to Escherichia coli. Continue with antibiotic therapy. 3. Complicated right femur fracture. Continue with the external fixation. 4. Iron deficiency anemia. The patient's hemoglobin and hematocrit continue to trend downward. The patient will likely require a blood transfusion tomorrow. 5. Situational depression. Continue on Lexapro. 6. Paroxysmal atrial fibrillation. The patient is rate controlled. Continue on Cardizem, Lopressor, and Eliquis. 7. Status post left nephroureterectomy. Aware. 8. Morbid obesity. Aware. 9. Crohn's disease. Aware. cc: Pia Reyes MD MTDD
[2018-11-30] MEDS: B & O 15A SUPP PR PRN (16:21)
[2018-11-30] MEDS: DESYREL PO SCH (20:55)
[2018-11-30] MEDS: LANOXIN PO SCH (20:55)
--- NOTE | 2018-11-30 21:21 | GENERAL SURGERY PROGRESS NOTE ---
DATE: 11/30/2018 SUBJECTIVE: Overall clinically about the same. Ostomy is functioning. She had to have her Marshall replaced. She has had some bladder spasms. No fevers. No tachycardia. OBJECTIVE: Ostomy is functioning. Abdomen is soft. Drain is in place with less output. Creatinine 0.9. White count 3.04. Urine is clear. ASSESSMENT AND PLAN: A 53-year-old female with colovesicular fistula and colocutaneous fistula. She has been diverted. Overall clinically she is about the same. She is on antibiotics. We will continue current care. cc: Rakesh Beckwith MD
[2018-12-01] MEDS: LOPRESSOR PO SCH ×3 (00:40→20:52)
[2018-12-01] MEDS: B & O 15A SUPP PR PRN ×4 (01:57→20:54)
[2018-12-01] MEDS: DILAUDID IV PRN ×7 (02:02→20:54)
[2018-12-01] MEDS: PERCOCET-10 PO PRN ×4 (06:06→22:06)
[2018-12-01] MEDS: PRILOSEC PO SCH (06:07)
[2018-12-01] MEDS: HUMULIN R SUBQ SCH ×3 (06:44→16:17)
[2018-12-01 07:04] LABS: CALCIUM 8.7 mg/dL (8.8-10.2); POTASSIUM 4.2 mmol/L (3.5-5.1)
[2018-12-01 07:09] LABS: BASO# 0.01 X1000 (0.0-0.2); BASO% 0.3 % (0.0-0.8); EOS# 0.18 X1000 (0.0-0.7); EOS% 5.4 % (0.0-10.0); HEMATOCRIT 22.4 % (37.0-47.0); HEMOGLOBIN 6.9 g/dL (12.0-16.0); IMM GRAN# 0.02 X1000 (0.0-0.04); IMM GRAN% 0.6 % (0.0-0.5); LYMPH# 0.78 X1000 (1.2-3.4); LYMPH% 23.6 % (20.5-51.1); MCH 28.2 PG (27-31); MCHC 30.8 g/dL (33-37); MCV 91.4 FL (81-99); MONO# 0.22 X1000 (0.11-0.59); MONO% 6.6 % (1.7-9.3); MPV 9.2 FL (7.4-10.4); NEUT% 63.5 % (42.2-75.2); PLT 195 X1000 (130-400); RBC 2.45 XMIL (4.2-5.4); RDW 20.4 % (11.5-14.5); WBC 3.31 X1000 (4.8-10.8)
[2018-12-01] MEDS: ZYLOPRIM PO SCH (09:09)
[2018-12-01] MEDS: LIALDA PO SCH ×2 (09:09→20:51)
[2018-12-01] MEDS: HEMOCYTE-F TABLET PO SCH ×2 (09:09→20:52)
[2018-12-01] MEDS: ELIQUIS PO SCH ×2 (09:09→20:53)
[2018-12-01] MEDS: NEURONTIN PO SCH ×3 (09:10→20:51)
[2018-12-01] MEDS: MIRALAX PO SCH (09:10)
[2018-12-01] MEDS: CULTURELLE PO SCH ×2 (09:10→20:51)
[2018-12-01] MEDS: GLUCOSAMINE 500 MG/CHONDROITIN 400 MG PO SCH (09:10)
[2018-12-01] MEDS: CARDIZEM CD PO SCH (09:11)
[2018-12-01] MEDS: LEXAPRO PO SCH (09:11)
[2018-12-01] MEDS: BENTYL PO SCH ×2 (09:11→20:51)
[2018-12-01] MEDS: ROCEPHIN 2 GM in NS 50 ML IV SCH ×2 (09:13→23:31)
[2018-12-01] MEDS ORDERED: DURAGESIC 12 MICROGM/HR PATCH TD SCH (13:00)
[2018-12-01] MEDS: DITROPAN PO SCH ×3 (13:57→20:52)
[2018-12-01] MEDS: DURAGESIC 25 MICROGM/HR PATCH TD SCH (13:59)
[2018-12-01] MEDS ORDERED: NS 500 ML ONE ×2 (15:53→20:51)
[2018-12-01] MEDS ORDERED: LASIX IV SCH (17:00)
[2018-12-01] MEDS ORDERED: VANCOMYCIN IV PER PHARMACY MISC SCH (17:30)
[2018-12-01] MEDS ORDERED: VANCOMYCIN 2,500 MG in NS 500 ML IV ONE (18:30)
--- NOTE | 2018-12-01 18:38 | PROGRESS NOTE ---
DATE: 12/01/2018 SUBJECTIVE: The patient is resting comfortably in bed. She has been complaining of bladder spasms and spasms in her lower back. She states that the opium/belladonna suppositories have been helping. OBJECTIVE: Vital signs: Temperature 98.6 degrees, blood pressure 133/51, heart rate 71, respirations 18, O2 saturation 97% on room air.General: This is a morbidly obese female, lying in bed in no acute distress. Heart: S1, S2 normal. Regular rate and rhythm. Lungs: Equal air entry bilaterally. No crackles. No rales. Abdomen: Positive bowel sounds. Soft, nontender, nondistended. Extremities: No edema, no cyanosis. Neurologic: The patient is alert and oriented x4. LABORATORY DATA: White blood cell count 3.3, hemoglobin 6.9, hematocrit 22, platelets 195,000. Sodium 134, potassium 4.2, chloride 100, CO2 is 27, BUN 24, creatinine 1, glucose 121. ASSESSMENT AND PLAN: 1. Status post diverting loop transverse colostomy with partial omentectomy, with drainage of an intra-abdominal and abdominal wall abscess secondary to Escherichia coli. Continue with antibiotic therapy. 2. Urinary tract infection. The patient remains on antibiotic therapy. The urine culture results are currently pending. 3. Right femur fracture. Continue with external fixation. 4. Iron deficiency anemia. The patient's hemoglobin is 6.9 today. We will transfuse 2 units of packed red blood cells. 5. Paroxysmal atrial fibrillation. Continue on Cardizem, Lopressor and Eliquis. 6. Bladder spasms. Continue on opium and belladonna suppositories. Urology is following. 7. Status post left nephroureterectomy. Aware. 8. Crohn disease. Aware. 9. Morbid obesity. Aware. 10. Deep venous thrombosis prophylaxis. The patient is on Eliquis. 11. Disposition. The patient will be discharged to the long-term acute care in [place] once all specialists are in agreement. cc: Pia Reyes MD
[2018-12-01] MEDS: DESYREL PO SCH (20:52)
[2018-12-01] MEDS: LANOXIN PO SCH (21:11)
--- NOTE | 2018-12-01 22:38 | GENERAL SURGERY PROGRESS NOTE ---
DATE: 12/01/2018 SUBJECTIVE: Clinically about the same. Ostomy is functioning. Bladder spasms are better. Drain output is less. OBJECTIVE: White count is 3, hematocrit is 22. Creatinine is 1.0, glucose 120s to 187. She is receiving a unit of blood. On exam, her abdomen is soft. Drain is with less output today. Urine output remains particulate. ASSESSMENT AND PLAN: A 53-year-old female with Crohn-related fistula. She has been diverted. I have encouraged them to keep the bag as empty as they can as I suspect some of the increase in drain and urinary output is related to overflow into the distal limb. Continue antibiotics and drain management. cc: Rakesh Beckwith MD
[2018-12-02] MEDS: DILAUDID IV PRN ×7 (00:25→21:50)
[2018-12-02] MEDS: PHENERGAN IV PRN (01:23)
[2018-12-02] MEDS: SODIUM CHLORIDE 0.9% INJ PRN (01:23)
[2018-12-02] MEDS: HUMULIN R SUBQ SCH ×5 (01:50→21:53)
[2018-12-02] MEDS: PERCOCET-10 PO PRN ×5 (01:55→23:33)
[2018-12-02] MEDS: B & O 15A SUPP PR PRN ×3 (06:24→18:40)
[2018-12-02] MEDS: PRILOSEC PO SCH (06:24)
[2018-12-02 07:03] LABS: BASO# 0.01 X1000 (0.0-0.2); BASO% 0.3 % (0.0-0.8); EOS# 0.23 X1000 (0.0-0.7); EOS% 6.5 % (0.0-10.0); HEMATOCRIT 27.3 % (37.0-47.0); HEMOGLOBIN 8.3 g/dL (12.0-16.0); IMM GRAN# 0.06 X1000 (0.0-0.04); IMM GRAN% 1.7 % (0.0-0.5); LYMPH# 0.68 X1000 (1.2-3.4); LYMPH% 19.3 % (20.5-51.1); MCH 27.4 PG (27-31); MCHC 30.4 g/dL (33-37); MCV 90.1 FL (81-99); MONO# 0.28 X1000 (0.11-0.59); MONO% 7.9 % (1.7-9.3); MPV 8.9 FL (7.4-10.4); NEUT# 2.27 X1000 (1.4-6.5); NEUT% 64.3 % (42.2-75.2); PLT 201 X1000 (130-400); RBC 3.03 XMIL (4.2-5.4); RDW 20.5 % (11.5-14.5); WBC 3.53 X1000 (4.8-10.8)
[2018-12-02 07:42] LABS: CALCIUM 8.7 mg/dL (8.8-10.2); POTASSIUM 4.2 mmol/L (3.5-5.1)
[2018-12-02] MEDS: ZOFRAN IV PRN ×3 (09:07→23:43)
[2018-12-02] MEDS ORDERED: ALBUMIN 25% IV ONE (09:17)
[2018-12-02] MEDS: BENTYL PO SCH ×2 (10:55→21:52)
[2018-12-02] MEDS: CARDIZEM CD PO SCH (10:55)
[2018-12-02] MEDS: NEURONTIN PO SCH ×3 (10:55→21:52)
[2018-12-02] MEDS: ELIQUIS PO SCH ×2 (10:56→21:52)
[2018-12-02] MEDS: DITROPAN PO SCH ×3 (10:56→21:52)
[2018-12-02] MEDS: HEMOCYTE-F TABLET PO SCH ×2 (10:56→21:52)
[2018-12-02] MEDS: LEXAPRO PO SCH (10:56)
[2018-12-02] MEDS: LIALDA PO SCH ×2 (10:57→21:52)
[2018-12-02] MEDS: VITAMIN D PO SCH (10:57)
[2018-12-02] MEDS: ZYLOPRIM PO SCH (10:57)
[2018-12-02] MEDS: LOPRESSOR PO SCH ×2 (10:57→21:55)
[2018-12-02] MEDS: CULTURELLE PO SCH ×2 (10:57→21:52)
[2018-12-02] MEDS: GLUCOSAMINE 500 MG/CHONDROITIN 400 MG PO SCH (10:57)
[2018-12-02] MEDS: MIRALAX PO SCH (10:58)
[2018-12-02] MEDS: LASIX IV SCH (11:15)
[2018-12-02] MEDS: ROCEPHIN 2 GM in NS 50 ML IV SCH (11:17)
[2018-12-02] MEDS: MAXIPIME 2 GM in NS 100 ML IV SCH ×2 (13:25→23:32)
--- NOTE | 2018-12-02 16:54 | PROGRESS NOTE ---
DATE: 12/02/2018 SUBJECTIVE: The patient is resting comfortably in bed. No acute events noted overnight. OBJECTIVE: Vital Signs: Temperature 98.6 degrees, blood pressure 120/57, heart rate 64, respirations 16, O2 saturation 94% on room air. General: This is a morbidly obese female, lying in bed in no acute distress. Heart: S1, S2 normal. Regular rate and rhythm. Lungs: Clear to auscultation bilaterally. Abdomen: Positive bowel sounds. Soft, obese, nontender, nondistended. Extremities: 3+ edema in the left leg, 2+ edema in the right leg. Neurologic: The patient is alert and oriented x4. LABORATORY DATA: White blood cell count 3.5, hemoglobin 8.3, hematocrit 27, platelets 201,000. Sodium 138, potassium 4.2, chloride 103, CO2 24, BUN 22, creatinine 1, glucose 127. ASSESSMENT AND PLAN: 1. Status post diverting loop transverse colostomy with partial omentectomy with drainage of an intraabdominal and abdominal wall abscess secondary to Escherichia coli. The abdominal culture fluid is growing Pseudomonas and Escherichia coli. Antibiotic therapy as directed by Dr. Aceves. 2. Urinary tract infection. The urine culture is growing gram-positive cocci and gram-negative rods. We will await the final culture results. 3. Bacteremia. One bottle of the repeat blood cultures are growing gram- positive cocci. We will continue to cover the patient with vancomycin pending culture results. 4. Bladder spasms. Improved. Continue with the opium and belladonna suppositories and oxybutynin. 5. Status post left nephroureterectomy. Aware. 6. Iron deficiency anemia. Improved. The patient received 2 units of packed red blood cells yesterday. 7. Right femur fracture. Continue with external fixation. 8. Morbid obesity. Aware. 9. Crohn disease. Aware. 10. Deep vein thrombosis prophylaxis. The patient is on Eliquis. cc: Pia Reyes MD [facility]TD[facility]ine
[2018-12-02] MEDS ORDERED: VANCOMYCIN 2,000 MG in NS 500 ML IV SCH (18:00)
[2018-12-02] MEDS: DESYREL PO SCH (21:53)
[2018-12-02] MEDS: LANOXIN PO SCH (21:54)
[2018-12-03] MEDS: B & O 15A SUPP PR PRN ×3 (00:38→19:54)
[2018-12-03] MEDS: DILAUDID IV PRN ×8 (01:04→22:38)
[2018-12-03] MEDS: PERCOCET-10 PO PRN ×5 (05:05→21:56)
[2018-12-03] MEDS: MAXIPIME 2 GM in NS 100 ML IV SCH ×3 (05:06→21:58)
[2018-12-03] MEDS: PRILOSEC PO SCH (06:29)
[2018-12-03] MEDS: HUMULIN R SUBQ SCH ×4 (07:04→23:10)
[2018-12-03 07:14] LABS: BASO# 0.01 X1000 (0.0-0.2); BASO% 0.3 % (0.0-0.8); EOS% 5.6 % (0.0-10.0); HEMATOCRIT 26.4 % (37.0-47.0); IMM GRAN# 0.05 X1000 (0.0-0.04); IMM GRAN% 1.4 % (0.0-0.5); LYMPH# 0.56 X1000 (1.2-3.4); LYMPH% 15.6 % (20.5-51.1); MCH 27.6 PG (27-31); MCHC 30.3 g/dL (33-37); MONO# 0.22 X1000 (0.11-0.59); MONO% 6.1 % (1.7-9.3); MPV 9.3 FL (7.4-10.4); NEUT# 2.55 X1000 (1.4-6.5); PLT 198 X1000 (130-400); RDW 20.4 % (11.5-14.5); WBC 3.59 X1000 (4.8-10.8)
[2018-12-03 07:44] LABS: AGAP 12; BUN 22 mg/dL (8-22); CHLORIDE 102 mmol/L (98-107); COSMO 281; CREATININE 0.9 mg/dL (0.5-0.9); ESTIMATED GFR > 60; GLUCOSE 176 mg/dL (70-104); POTASSIUM 4.2 mmol/L (3.5-5.1); SODIUM 137 mmol/L (136-145); TCO2 23 mmol/L (25-35)
[2018-12-03] MEDS: HEMOCYTE-F TABLET PO SCH ×2 (11:09→21:56)
[2018-12-03] MEDS: CUBICIN IV SCH (11:09)
[2018-12-03] MEDS: NS IV SCH (11:09)
[2018-12-03] MEDS: MIRALAX PO SCH (11:09)
[2018-12-03] MEDS: LIALDA PO SCH ×2 (11:10→21:56)
[2018-12-03] MEDS: NEURONTIN PO SCH ×3 (11:10→21:57)
[2018-12-03] MEDS: BENTYL PO SCH ×2 (11:10→21:55)
[2018-12-03] MEDS: CULTURELLE PO SCH ×2 (11:11→21:57)
[2018-12-03] MEDS: DITROPAN PO SCH ×3 (11:11→21:55)
[2018-12-03] MEDS: GLUCOSAMINE 500 MG/CHONDROITIN 400 MG PO SCH (11:11)
[2018-12-03] MEDS: LEXAPRO PO SCH (11:11)
[2018-12-03] MEDS: CARDIZEM CD PO SCH (11:11)
[2018-12-03] MEDS: LOPRESSOR PO SCH ×2 (11:12→23:10)
[2018-12-03] MEDS: ELIQUIS PO SCH ×2 (11:12→21:57)
[2018-12-03] MEDS: ZYLOPRIM PO SCH (11:12)
[2018-12-03] MEDS: LASIX IV SCH ×2 (11:13→23:10)
[2018-12-03] MEDS: ZOFRAN IV PRN ×2 (16:36→21:17)
[2018-12-03] MEDS ORDERED: ALBUMIN 25% IV ONE (18:57)
--- NOTE | 2018-12-03 19:08 | INFECTIOUS DISEASE PROGRESS NO ---
DATE: 12/03/2018 PRESENT ILLNESS: The patient is status post diverting colostomy and drainage of an abdominal abscess. The patient also has a colocutaneous and colovesicular fistula. Patient has 1 of 2 blood cultures positive for coagulase-negative Staph. This is a contaminant and does not require antibiotic treatment. MEDICATIONS: I have changed the patient's antibiotics around. She was on Rocephin. I changed her to a combination of cefepime and daptomycin. PHYSICAL EXAMINATION: Vital Signs: Temperature is 99.5 degrees, pulse 83, respirations 20, blood pressure 164/57. General: This is an obese, middle-aged female. She is in no acute distress. Head/eyes/ears/nose/throat: She can hear my spoken words and see near objects. She does not have any white coating on her tongue. Neck: She does not have any pain when she moves her head. Lungs: Clear to auscultation. Cardiovascular: Heart rate is regular. Thorax: The patient has a Port-A-Cath on the right side. The site is not erythematous or tender. Abdomen: Soft and nontender. The patient's midline incision is good. It is healing well. The patient's ostomy is working well. The patient's left lower part of the abdomen where she had it drained unfortunately it came out. There still is some drainage coming from the wound. Neurologic: Patient is alert. She can move her extremities. There is no tremor. Extremities: The right leg has a large external fixator in place. LAB AND X-RAY STUDIES: Creatinine is 0.9. GFR is greater than 60. CBC shows a white count of 3590, hemoglobin 8 and platelet count 198,000. Urinalysis showed white cells and bacteria. Urine culture grew Enterococcus and Pseudomonas. The patient's abdominal drainage grew Pseudomonas and E coli. Chest x-ray showed partial atelectasis of the left upper lobe. As mentioned above, 1 of 2 blood cultures grew a coagulase-negative Staph. This is a contaminant and does not require treatment. ASSESSMENT AND PLAN: The patient has abdominal abscess and urinary tract infection. I have switched her antibiotics to cefepime and daptomycin. COMORBIDITIES: Morbid obesity, diabetes mellitus, partial right nephrectomy, and left ureteral nephrectomy. cc: Drew Aceves MD
--- NOTE | 2018-12-03 20:23 | PROGRESS NOTE ---
DATE: 12/03/2018 SUBJECTIVE: The patient is resting comfortably. She states that her bladder spasms have improved. OBJECTIVE: Vital Signs: Temperature 98.7, blood pressure 135/67, heart rate 64, respirations 20, O2 saturation 96% on room air. General: This is a morbidly obese female lying in bed in no acute distress. Heart: S1, S2 normal. Regular rate and rhythm. Lungs: Equal air entry bilaterally. No crackles. No rales. Abdomen: Positive bowel sounds. Soft, obese, nontender, nondistended. Extremities: 2-3+ edema bilaterally. There is an external fixator on the right leg. Neurologic: The patient is alert and oriented x4. LABS: White blood cell count 3.5, hemoglobin 8, hematocrit 26, platelets 198. Sodium 137, potassium 4.2, chloride 102, CO2 of 23, BUN 22, creatinine 0.9. ASSESSMENT AND PLAN: 1. Urinary tract infection secondary to Pseudomonas and Enterococcus. The patient's antibiotics have been adjusted. 2. Status post diverting loop transverse colostomy with partial omentectomy with drainage of an intraabdominal and abdominal wall abscess secondary to Escherichia coli and Pseudomonas. Continue with antibiotic therapy as directed by Dr. Aceves. 3. Bladder spasms. Continue on oxybutynin. 4. Iron deficiency anemia. Stable. 5. Status post left nephroureterectomy. Aware. 6. Right femur fracture. Continue with external fixation. 7. Severe protein calorie malnutrition. Continue with meal supplements. 8. Crohn's disease. Continue on mesalamine. 9. Atrial fibrillation. Continue on current medications. 10. Morbid obesity. Aware. 11. Diabetes mellitus type 2. Continue on sliding scale insulin. 12. Deep vein thrombosis prophylaxis. The patient is on Eliquis. cc: [facility]yes MD [facility]
--- NOTE | 2018-12-03 21:23 | GENERAL SURGERY PROGRESS NOTE ---
DATE: 12/03/2018 SUBJECTIVE: Her stoma was inspected and looks healthy. Her midline wound looks fine. OBJECTIVE: Vital Signs: Temperature 99.5, heart rate 83, blood pressure 164/57. ASSESSMENT/PLAN: She requests to have her gutierrez removed. We will do so. No other new recommendations. cc: Jose Colunga MD
[2018-12-03] MEDS: DESYREL PO SCH (21:57)
[2018-12-03] MEDS: LANOXIN PO SCH (21:57)
[2018-12-03] MEDS: PHENERGAN IV PRN (23:08)
[2018-12-04] MEDS: PERCOCET-10 PO PRN ×6 (01:44→22:04)
[2018-12-04] MEDS: DILAUDID IV PRN ×7 (01:44→21:02)
[2018-12-04] MEDS: MAXIPIME 2 GM in NS 100 ML IV SCH ×3 (05:22→21:04)
[2018-12-04] MEDS: B & O 15A SUPP PR PRN ×3 (05:28→22:04)
[2018-12-04] MEDS: PRILOSEC PO SCH ×2 (05:55→09:42)
[2018-12-04] MEDS: HUMULIN R SUBQ SCH ×3 (06:49→18:03)
[2018-12-04 07:51] LABS: AGAP 10; BUN 22 mg/dL (8-22); CHLORIDE 100 mmol/L (98-107); COSMO 276; CREATININE 0.8 mg/dL (0.5-0.9); ESTIMATED GFR > 60; GLUCOSE 144 mg/dL (70-104); POTASSIUM 4.2 mmol/L (3.5-5.1); SODIUM 135 mmol/L (136-145); TCO2 25 mmol/L (25-35)
[2018-12-04] MEDS ORDERED: ALBUMIN 25% IV ONE (08:13)
[2018-12-04] MEDS: CULTURELLE PO SCH ×2 (09:34→21:01)
[2018-12-04] MEDS: MIRALAX PO SCH (09:34)
[2018-12-04] MEDS: BENTYL PO SCH ×2 (09:35→21:00)
[2018-12-04] MEDS: ZYLOPRIM PO SCH (09:35)
[2018-12-04] MEDS: HEMOCYTE-F TABLET PO SCH ×2 (09:35→21:01)
[2018-12-04] MEDS: DITROPAN PO SCH ×3 (09:35→18:18)
[2018-12-04] MEDS: GLUCOSAMINE 500 MG/CHONDROITIN 400 MG PO SCH (09:35)
[2018-12-04] MEDS: NS IV SCH (09:35)
[2018-12-04] MEDS: LIALDA PO SCH ×2 (09:35→21:01)
[2018-12-04] MEDS: ELIQUIS PO SCH ×2 (09:35→21:01)
[2018-12-04] MEDS: CUBICIN IV SCH (09:35)
[2018-12-04] MEDS: LEXAPRO PO SCH (09:36)
[2018-12-04] MEDS: LASIX IV SCH ×2 (09:36→21:02)
[2018-12-04] MEDS: LOPRESSOR PO SCH ×2 (09:36→21:01)
[2018-12-04] MEDS: CARDIZEM CD PO SCH (09:36)
[2018-12-04] MEDS: NEURONTIN PO SCH ×3 (09:36→21:01)
[2018-12-04] MEDS: DURAGESIC 50 MICROGM/HR PATCH TD SCH (10:02)
--- NOTE | 2018-12-04 17:03 | PROGRESS NOTE ---
DATE: 12/04/2018 SUBJECTIVE: The patient states that she feels good today. No acute events noted overnight. OBJECTIVE: Vital Signs: Temperature 99, blood pressure 142/61, heart rate 101, respiratory rate 22. O2 sats 94% on room air. General: This is a morbidly obese female lying in bed in no acute distress. Heart: S1, S2 normal. Regular rate and rhythm. Lungs: Equal air entry bilaterally. No crackles. No rales. Abdomen: Positive bowel sounds. Soft, nontender, nondistended. Extremities: 2+ edema bilaterally. There is an external fixation device on the right leg. Neurologic: The patient is alert and oriented x 4. LABS: Sodium 135, potassium 4.2, BUN 22, creatinine 0.8, glucose 144. ASSESSMENT AND PLAN: 1. Urinary tract infection secondary to Pseudomonas and Enterococcus. Continue with antibiotic therapy. 2. Status post diverting loop transverse colostomy with partial omentectomy with drainage of an intraabdominal and abdominal wall abscess secondary to E coli and Pseudomonas. Continue with antibiotic therapy. 3. Bladder spasms. Continue on oxybutynin. 4. Iron deficiency anemia. Continue to monitor closely. 5. Status post left nephroureterectomy. Aware. 6. Right femur fracture. Continue with external fixation. 7. Crohn disease. Continue on mesalamine. 8. Severe protein calorie malnutrition. Continue with meal supplementation. 9. Atrial fibrillation. Continue on the current medications. 10. Morbid obesity. Aware. 11. Diabetes mellitus type 2. Continue on sliding scale insulin. 12. DVT prophylaxis. The patient is currently on Eliquis. 13. Disposition. The patient will be discharged to the LTAC in [place] once cleared by all the specialists. cc: Pia Reyes MD [facility]
--- NOTE | 2018-12-04 17:10 | PROGRESS NOTE ---
DATE: 12/04/2018 Ms. Koch reports that started on oxybutynin 5 mg 3 times a day has helped her but she still has had to use B and O suppositories. I have explained to her that when she does go to a long- term acute care facility she will likely not have access to B and O suppository. She reports some dry mouth and hardening of her stool per colostomy but no significant constipation. T 99.9 degrees, P 101, BP 142/61, urine output was recorded amount of 3125 mL.General: No acute distress. Abdomen: Non tender, non distended. : Bladder nontender to palpation. Marshall catheter in place draining straw-colored urine. PERTINENT LABS: Creatinine 0.8. ASSESSMENT/PLAN: A 53-year-old female with a significant bladder spasms and colovesical fistula who has done better on Ditropan 5 mg 3 times a day. I discussed with the patient that we could increase the dose to 10 mg 3 times a day and see if she can wean herself of the B and O suppositories. Her and her are in agreement. PLAN: 1. Change the dose from 5 mg 3 times a day to 10 mg 3 times a day. 2. I have asked the patient to only use B and O suppository for significant breakthrough spasms. 3. She will likely go home on the 10 mg 3 times a day dose of Ditropan and I will see her then on outpatient basis in clinic. cc: Viet Cpopola MD MTDD
[2018-12-04] MEDS: DESYREL PO SCH (21:01)
[2018-12-04] MEDS: LANOXIN PO SCH (21:01)
[2018-12-05] MEDS: DILAUDID IV PRN ×7 (00:02→22:13)
[2018-12-05] MEDS: PHENERGAN IV PRN ×2 (00:32→23:50)
[2018-12-05] MEDS: HUMULIN R SUBQ SCH ×5 (01:23→22:23)
[2018-12-05] MEDS: PRILOSEC PO SCH ×2 (05:53→06:33)
[2018-12-05] MEDS: PERCOCET-10 PO PRN ×5 (05:53→22:13)
[2018-12-05] MEDS: MAXIPIME 2 GM in NS 100 ML IV SCH ×3 (05:54→22:14)
[2018-12-05 06:43] LABS: HEMATOCRIT 26.2 % (37.0-47.0); HEMOGLOBIN 7.9 g/dL (12.0-16.0); MCH 28.1 PG (27-31); MCHC 30.2 g/dL (33-37); MCV 93.2 FL (81-99); MPV 9.5 FL (7.4-10.4); RBC 2.81 XMIL (4.2-5.4); RDW 20.8 % (11.5-14.5); WBC 4.58 X1000 (4.8-10.8)
[2018-12-05 07:06] LABS: CALCIUM 9.3 mg/dL (8.8-10.2); POTASSIUM 4.1 mmol/L (3.5-5.1)
[2018-12-05] MEDS: CUBICIN IV SCH (09:05)
[2018-12-05] MEDS: NS IV SCH (09:05)
[2018-12-05] MEDS: LEXAPRO PO SCH (09:06)
[2018-12-05] MEDS: BENTYL PO SCH ×2 (09:06→22:15)
[2018-12-05] MEDS: ZYLOPRIM PO SCH (09:06)
[2018-12-05] MEDS: CULTURELLE PO SCH ×2 (09:07→22:15)
[2018-12-05] MEDS: GLUCOSAMINE 500 MG/CHONDROITIN 400 MG PO SCH (09:07)
[2018-12-05] MEDS: CARDIZEM CD PO SCH (09:07)
[2018-12-05] MEDS: LOPRESSOR PO SCH ×2 (09:07→22:15)
[2018-12-05] MEDS: NEURONTIN PO SCH ×3 (09:07→22:16)
[2018-12-05] MEDS: HEMOCYTE-F TABLET PO SCH ×2 (09:07→22:16)
[2018-12-05] MEDS: MIRALAX PO SCH (09:08)
[2018-12-05] MEDS: LASIX IV SCH ×2 (09:08→22:16)
[2018-12-05] MEDS: LIALDA PO SCH ×2 (09:08→22:14)
[2018-12-05] MEDS: ELIQUIS PO SCH ×2 (09:08→22:14)
[2018-12-05] MEDS: DITROPAN PO SCH ×3 (09:08→17:47)
[2018-12-05] MEDS: ZOFRAN IV PRN (10:12)
[2018-12-05] MEDS: B & O 15A SUPP PR PRN ×3 (12:55→23:50)
--- NOTE | 2018-12-05 15:21 | PROGRESS NOTE ---
DATE: 12/05/2018 SUBJECTIVE: The patient is resting comfortably. She states that her bladder spasms have improved. OBJECTIVE: Vital Signs: Temperature 98.5 degrees, blood pressure 114/61, heart rate 68, respirations 16, O2 saturation is 97% on room air. General: This is a morbidly obese female lying in bed, in no acute distress. Heart: S1, S2 normal. Regular rate and rhythm. Lungs: Clear to auscultation bilaterally. Abdomen: Positive bowel sounds. Soft, nontender, nondistended. Extremities: There is 2+ edema bilaterally. There is an external fixator device on the right leg. Neurologic: The patient is alert and oriented x4. Labs: Hemoglobin 7.9, hematocrit 26, platelets 160,000. Sodium 136, potassium 4.1, chloride 101, CO2 29, BUN 26, creatinine 1. ASSESSMENT AND PLAN: 1. Urinary tract infection secondary to pseudomonas and enterococcus. Continue with antibiotic therapy. 2. Status post diverting loop transverse colostomy with partial omentectomy with drainage of an intra-abdominal and abdominal wall abscess secondary to Escherichia coli and pseudomonas. Continue with antibiotic therapy as directed by Dr. Aceves. 3. Bladder spasms. Improved. Continue on oxybutynin. 4. Iron deficiency anemia. The patient's hemoglobin and hematocrit are trending down slowly. with oral iron supplementation. 5. Right femur fracture. Continue with external fixation. 6. Status post left nephroureterectomy. Aware. 7. Crohn's disease. Continue on methylamine. 8. Atrial fibrillation. Continue on the current medications. 9. Morbid obesity. Aware. 10. Diabetes mellitus type 2. Continue on sliding scale insulin. 11. Deep vein thrombosis prophylaxis. Continue on Eliquis. 12. Disposition. The patient has a bed at a long-term acute [facility] in [place]. The patient will be discharged once cleared by all specialists. cc: Pia Reyes MD [facility]
--- NOTE | 2018-12-05 16:32 | GENERAL SURGERY PROGRESS NOTE ---
DATE: 12/05/2018 SUBJECTIVE: Doing okay. Bowels are functioning. Urine is clear. Bladder spasms are better. Drainage from her wound is just more purulent, serosanguineous. No fevers. No tachycardia. OBJECTIVE: Blood pressure 114/61. Ostomy is functioning. Midline incisions are out. LABORATORY DATA: White count 4, hematocrit 26, creatinine is 1.0. ASSESSMENT AND PLAN: A 53-year-old female status post diverting colostomy for colocutaneous fistula. I think plans for LTAC soon. She is on antibiotics per Dr. Aceves. We will continue local wound care. Follow along. cc: Rakesh Beckwith MD
--- NOTE | 2018-12-05 17:04 | INFECTIOUS DISEASE PROGRESS NO ---
DATE: 12/05/2018 HISTORY OF PRESENT ILLNESS: The patient is status post diverting colostomy and drainage of an abdominal abscess. She also has a colocutaneous and colovesicular fistula. MEDICATIONS: The patient is on a combination of cefepime and daptomycin. PHYSICAL EXAMINATION: Vital Signs: Temperature is 98.5 degrees, pulse 68, respirations 16, blood pressure is 114/61. General: This is an obese, middle-aged female. She is in no acute distress and some of the pain she was having in her back and abdomen is better. HEENT: She can hear my spoken words and see near objects. She does not have any white patches in her mouth. Neck: No pain when she moves her head. Lungs: Clear to auscultation. Cardiovascular: Heart rate is regular. Thorax: The patient has a Port-A-Cath on the right side. The site is not swollen or tender. Abdomen: Soft and nontender. The midline incision is intact. The colostomy is working well. In the left lower part of the abdomen, the drain unfortunately came out, but she still is draining through the lower left abdominal wound. Neurologic: The patient is alert and can move her extremities. It is very difficult for her to move her right leg because of the large external fixator in place. LABS AND X-RAY: CBC shows a white count of 4580, hemoglobin 7.9, and platelet count a 160,000. Creatinine is 1.0. GFR is 58. ASSESSMENT AND PLAN: The patient has an abdominal abscess and urinary tract infection. The patient's antibiotics have been switched to cefepime and daptomycin. I am going to get a CK level tomorrow. COMORBIDITIES: Morbid obesity, diabetes mellitus, partial right nephrectomy, and left ureteral nephrectomy. cc: Drew Aceves MD
[2018-12-05] MEDS: LANOXIN PO SCH (22:14)
[2018-12-05] MEDS: DESYREL PO SCH (22:15)
[2018-12-05] MEDS: TYLENOL PO PRN (22:16)
[2018-12-06] MEDS: DILAUDID IV PRN ×5 (06:08→20:56)
[2018-12-06] MEDS: PRILOSEC PO SCH (06:08)
[2018-12-06] MEDS: PERCOCET-10 PO PRN ×5 (06:08→20:54)
[2018-12-06] MEDS: MAXIPIME 2 GM in NS 100 ML IV SCH ×3 (06:08→20:54)
[2018-12-06 06:50] LABS: CALCIUM 9.3 mg/dL (8.8-10.2); POTASSIUM 4.1 mmol/L (3.5-5.1)
[2018-12-06] MEDS: HUMULIN R SUBQ SCH ×4 (06:51→23:01)
[2018-12-06 06:56] LABS: HEMATOCRIT 26.9 % (37.0-47.0); HEMOGLOBIN 8.1 g/dL (12.0-16.0); MCH 27.9 PG (27-31); MCHC 30.1 g/dL (33-37); MCV 92.8 FL (81-99); MPV 9.3 FL (7.4-10.4); RBC 2.9 XMIL (4.2-5.4); RDW 20.8 % (11.5-14.5); WBC 4.52 X1000 (4.8-10.8)
[2018-12-06] MEDS: ZYLOPRIM PO SCH (08:46)
[2018-12-06] MEDS: ELIQUIS PO SCH ×2 (08:46→20:56)
[2018-12-06] MEDS: BENTYL PO SCH ×2 (08:46→20:55)
[2018-12-06] MEDS: LOPRESSOR PO SCH ×2 (08:46→23:02)
[2018-12-06] MEDS: LIALDA PO SCH ×2 (08:46→20:56)
[2018-12-06] MEDS: LEXAPRO PO SCH (08:46)
[2018-12-06] MEDS: CULTURELLE PO SCH ×2 (08:46→20:56)
[2018-12-06] MEDS: GLUCOSAMINE 500 MG/CHONDROITIN 400 MG PO SCH (08:46)
[2018-12-06] MEDS: CUBICIN IV SCH (08:48)
[2018-12-06] MEDS: DITROPAN PO SCH ×3 (08:48→20:56)
[2018-12-06] MEDS: NEURONTIN PO SCH ×3 (08:48→20:56)
[2018-12-06] MEDS: NS IV SCH (08:48)
[2018-12-06] MEDS: LASIX IV SCH ×2 (08:48→20:55)
[2018-12-06] MEDS: MIRALAX PO SCH (08:48)
[2018-12-06] MEDS: CARDIZEM CD PO SCH (08:50)
[2018-12-06] MEDS: HEMOCYTE-F TABLET PO SCH ×2 (08:54→20:56)
--- NOTE | 2018-12-06 17:21 | PROGRESS NOTE ---
DATE: 12/06/2018 SUBJECTIVE: Ms. Koch is feeling better. She feels like she is making good progress. Remains afebrile. OBJECTIVE: Temperature 98.4 degrees, pulse 85, respirations 18, blood pressure 135/55. Pupils are equal and round. Lungs are clear in all lung bryant. Cardiovascular: Regular rhythm and rate without murmur or S3. Abdomen is soft. Skin is warm and dry. ASSESSMENT AND PLAN: 1. Status post diverting colostomy and drainage of an abdominal abscess and she also has a colocutaneous and colovesicular fistula. Getting a combination cefepime and daptomycin. The patient's antibiotics have been switched to cefepime and daptomycin and continue. She continues to make progress. 2. Urinary tract infection secondary to Pseudomonas and Enterococcus. 3. Status post diverting loop transverse colostomy with partial omentectomy and drainage of an intra-abdominal and abdominal wall abscess secondary to Escherichia coli and Pseudomonas. 4. Bladder spasms, on oxybutynin. She says those are better. 5. Iron deficiency anemia. Continue to follow hemoglobin and hematocrit. 6. Right femur fracture. She has external fixation. 7. Status post left nephroureterectomy. 8. Crohn's disease. She is on mesalamine. 9. Morbid obesity. 10. Diabetes mellitus, type 2. 11. Deep venous prophylaxis. On Eliquis. 12. Looking for long-term care at [place]. Continue present care. Her orders were reviewed, and she is on Desyrel 100 mg at bedtime, Dilaudid 1 mg IV q.3 h. p.r.n. allopurinol 300 mg daily Eliquis 5 mg b.i.d., daptomycin 1000 mg IV q.24 h., Bentyl 20 mg b.i.d., Lanoxin 250 mg p.o. at bedtime, Cardizem CD 120 mg daily, vitamin D 50,000 units daily, Lexapro 10 mg a day, fentanyl 50 mcg of fentanyl patch q.72 h., ferrous fumarate and folic acid she takes 1 twice a day, Lasix 40 mg IV q.12 h., Neurontin 600 mg I think 3 times a day, glucosamine chondroitin 1 daily, lactobacillus 1 twice a day cefepime 2 g IV q.8 h[address] mes[address]amine DR 1.2 g p.o. b.i.d., and Lopressor 100 mg b.i.d., Ditropan 10 mg t.i.d., oxycodone 10 mg q.4 h. p.r.n., polyethylene glycol 17 g daily. cc: Moris Barakat MD
--- NOTE | 2018-12-06 20:22 | GENERAL SURGERY PROGRESS NOTE ---
DATE: 12/06/2018 SUBJECTIVE: Doing okay. Ostomy is functioning. OBJECTIVE: Abdomen is soft. Wound output is improving. No fevers. No tachycardia. In general, she is alert. Urine seems clear. Some purulent drainage from the left lower quadrant wound. Ostomy is pink, viable. I have reviewed her labs. White count is 4. Creatinine is 1.0. ASSESSMENT AND PLAN: A 53-year-old female with diverting colostomy. Plan is for LTAC soon. Otherwise, we will continue ostomy care and routine care for external fixator. cc: Rakesh Beckwith MD
[2018-12-06] MEDS: LANOXIN PO SCH (20:55)
[2018-12-06] MEDS: DESYREL PO SCH (20:56)
[2018-12-07] MEDS: PERCOCET-10 PO PRN ×6 (00:52→20:52)
[2018-12-07] MEDS: DILAUDID IV PRN ×7 (00:53→19:50)
[2018-12-07] MEDS: ZOFRAN IV PRN (03:46)
[2018-12-07] MEDS: MAXIPIME 2 GM in NS 100 ML IV SCH ×3 (05:00→20:54)
[2018-12-07] MEDS: PRILOSEC PO SCH ×2 (05:01→06:45)
[2018-12-07] MEDS: B & O 15A SUPP PR PRN ×2 (06:47→18:26)
[2018-12-07 06:59] LABS: HEMATOCRIT 27.6 % (37.0-47.0); HEMOGLOBIN 8.5 g/dL (12.0-16.0); MCH 27.8 PG (27-31); MCHC 30.8 g/dL (33-37); MCV 90.2 FL (81-99); MPV 9.6 FL (7.4-10.4); RBC 3.06 XMIL (4.2-5.4); RDW 20.3 % (11.5-14.5); WBC 4.61 X1000 (4.8-10.8)
[2018-12-07] MEDS: HUMULIN R SUBQ SCH ×4 (06:59→22:31)
--- NOTE | 2018-12-07 08:23 | PROGRESS NOTE ---
DATE: 12/07/2018 SUBJECTIVE: Ms. Koch had a good night. No complaints. Remains afebrile. OBJECTIVE: Vital Signs: Temperature 99.2 degrees, pulse 60, respirations 15, blood pressure 167/69. Urine output is 9000 mL. HEENT: Pupils are equal and round. Lungs: Clear in all lung bryant. Cardiovascular: Regular rhythm and rate without murmur or S3. Abdomen: Soft. Skin: Warm and dry. Extremities: External fixation on her right leg. ASSESSMENT AND PLAN: 1. Status post diverting colostomy. Plan is for long-term acute care soon. 2. Urinary tract infection, well treated Pseudomonas and Enterococcus. 3. Status post diverting loop transverse colostomy, partial omentectomy, and drainage of an intra- abdominal and abdominal wall abscess secondary to Escherichia coli and Pseudomonas. 4. Bladder spasms, better. 5. Iron-deficiency anemia. Continue following hemoglobin and hematocrit. 6. Right femur fracture, right now in external fixation for repair when able. 7. Status post left nephroureterectomy. 8. Crohn's disease, on mesalamine. 9. Morbid obesity. 10. Diabetes mellitus type 2. Sugar is under good control. 11. Deep venous thrombosis. cc: Moris Barakat MD
[2018-12-07] MEDS: MIRALAX PO SCH (09:56)
[2018-12-07] MEDS: DITROPAN PO SCH ×3 (09:56→20:52)
[2018-12-07] MEDS: DURAGESIC 50 MICROGM/HR PATCH TD SCH (09:56)
[2018-12-07] MEDS: LASIX IV SCH ×2 (09:56→20:53)
[2018-12-07] MEDS: LEXAPRO PO SCH (09:57)
[2018-12-07] MEDS: HEMOCYTE-F TABLET PO SCH ×2 (09:57→20:53)
[2018-12-07] MEDS: NEURONTIN PO SCH ×3 (09:57→20:52)
[2018-12-07] MEDS: ELIQUIS PO SCH ×2 (09:57→20:52)
[2018-12-07] MEDS: LIALDA PO SCH ×2 (09:57→20:53)
[2018-12-07] MEDS: ZYLOPRIM PO SCH (09:57)
[2018-12-07] MEDS: LOPRESSOR PO SCH ×2 (09:57→22:31)
[2018-12-07] MEDS: GLUCOSAMINE 500 MG/CHONDROITIN 400 MG PO SCH (09:57)
[2018-12-07] MEDS: CARDIZEM CD PO SCH (09:57)
[2018-12-07] MEDS: NS IV SCH (09:58)
[2018-12-07] MEDS: CULTURELLE PO SCH ×2 (09:58→20:52)
[2018-12-07] MEDS: CUBICIN IV SCH (09:58)
[2018-12-07] MEDS: BENTYL PO SCH ×2 (09:59→20:52)
--- NOTE | 2018-12-07 17:53 | INFECTIOUS DISEASE PROGRESS NO ---
DATE: 12/07/2018 PRESENT ILLNESS: Ms. Koch is being treated for an abdominal infection and is status post diverting colostomy for colocutaneous and colovesicular fistulas. She also has a urinary tract infection. MEDICATIONS: She is receiving cefepime 2 g IV every 8 hours and daptomycin 1000 mg IV every 24 hours. PHYSICAL EXAMINATION: Vital Signs: Temp is 99.2, pulse rate 60, respiratory rate 15, blood pressure 167/69. O2 sat is 93% on room air. General: This is a chronically ill-appearing, morbidly obese, middle-aged female. She is sitting up in bed currently in no acute distress. HEENT: Atraumatic, normocephalic. Oral mucous membranes are pink and moist. Conjunctivae are pale. Neck: Supple. Trachea is midline. Cardiovascular: Irregularly irregular. Atrial fibrillation on the monitor. Respiratory: Lung sounds are clear to auscultation and diminished bilaterally. No work of breathing is noted. Abdomen: Soft, obese and mildly tender. There is a dressing in place to the left lower quadrant which was not removed. There is also a colostomy with brown/green stool noted in the bag. There is a Port-A-Cath in place to the right chest. That site is without edema, erythema or drainage. Extremities: The right lower extremity has an external fixator in place. Neurologic: She is awake, alert and oriented. LABORATORY AND X-RAY: Today her white count is 4.61, hemoglobin 8.5, platelet count 169,000, creatine kinase 16. Her urine has grown an enterococcal faecium and a Pseudomonas aeruginosa. Her abdominal wound has grown a Pseudomonas aeruginosa and Escherichia coli. No imaging reports today. ASSESSMENT AND PLAN: Ms. Koch is being treated for multiple bacteria which are noted in her urine and her abdominal wound. The plan is to continue the cefepime and daptomycin as ordered. She is awaiting placement at an LTACH which will hopefully happen in the next day or two. These plans have been discussed with and recommended by Dr. Aceves. COMORBIDITIES: For Ms. Koch include morbid obesity, diabetes mellitus, Crohn's disease and left nephroureterectomy. Dictated by PETER Salgado for Drew Aceves MD cc: Drew Aceves MD [facility]
[2018-12-07] MEDS: DESYREL PO SCH (20:52)
[2018-12-07] MEDS: LANOXIN PO SCH (20:53)
[2018-12-08] MEDS: DILAUDID IV PRN ×3 (05:49→12:26)
[2018-12-08] MEDS: MAXIPIME 2 GM in NS 100 ML IV SCH ×2 (05:50→12:26)
[2018-12-08] MEDS: PRILOSEC PO SCH ×2 (05:50→07:49)
[2018-12-08] MEDS: PERCOCET-10 PO PRN ×2 (05:50→09:29)
[2018-12-08] MEDS: ZOFRAN IV PRN (06:34)
[2018-12-08] MEDS: HUMULIN R SUBQ SCH ×2 (07:49→11:06)
[2018-12-08] MEDS: CARDIZEM CD PO SCH (09:02)
[2018-12-08] MEDS: LOPRESSOR PO SCH (09:02)
[2018-12-08] MEDS: LIALDA PO SCH (09:02)
[2018-12-08] MEDS: CULTURELLE PO SCH (09:02)
[2018-12-08] MEDS: DITROPAN PO SCH (09:02)
[2018-12-08] MEDS: ZYLOPRIM PO SCH (09:02)
[2018-12-08] MEDS: NEURONTIN PO SCH (09:02)
[2018-12-08] MEDS: LEXAPRO PO SCH (09:03)
[2018-12-08] MEDS: GLUCOSAMINE 500 MG/CHONDROITIN 400 MG PO SCH (09:03)
[2018-12-08] MEDS: BENTYL PO SCH (09:03)
[2018-12-08] MEDS: LASIX IV SCH (09:04)
[2018-12-08] MEDS: MIRALAX PO SCH (09:04)
[2018-12-08] MEDS: ELIQUIS PO SCH (09:05)
[2018-12-08] MEDS: HEMOCYTE-F TABLET PO SCH (09:05)
[2018-12-08] MEDS: NS IV SCH (09:30)
[2018-12-08] MEDS: CUBICIN IV SCH (09:30)
--- NOTE | 2018-12-08 10:34 | DISCHARGE SUMMARY ---
ADMISSION DATE: 11/13/2018 DISCHARGE DATE: 12/06/2018 PRIMARY CARE PHYSICIAN: None. HISTORY OF PRESENT ILLNESS: She presented with intra-abdominal abscess. Very complicated medical history. She was here back on 10/12/2018 to 11/01/2018 with an intra-abdominal abscess associated with colocutaneous fistula, which was related to Crohn's disease, which is a chronic diagnosis for her. She was discharged on IV antibiotics, followed by Dr. Aceves, and the report was that she was on daptomycin and Rocephin. She had been getting treatment. Unfortunately, on 12/01/2018, she fell off her recliner, and she had a mule kick her in the back, and she fell and essentially shattered her distal femur. That could not be handled locally. Transferred to [facility] for treatment, and she had open reduction internal fixation. I think she was there, and had a colocutaneous drainage, and she had an abscess which progressed in size, and on discussion with Dr. Rodriguez, she was transferred here for management. Also based on patient request, she had Dr. Beckwith handle her medication. She is still getting daptomycin and Rocephin. It looks like she grew out Enterococcus previously and VRE. She was on apixaban and had a fair anemia. She got 4 units of packed red blood cells. 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 She gets Eliquis chronically for atrial fibrillation. PAST MEDICAL HISTORY: 1. Crohn's disease with colocutaneous fistula. Additionally, she had colovesicular fistula. 2. She has renal cell carcinoma, which was resected per Dr. Coppola. 3. Atrial fibrillation, paroxysmal. 4. Hyperlipidemia. 5. Type 2 diabetes mellitus type 2. 6. Hypertension. 7. Ureteral cancer. 8. Cirrhosis. PAST SURGICAL HISTORY: 1. Status post partial nephrectomy of the right kidney. 2. She has had a ureteronephrectomy on the left side associated with ureteral cancer. 3. Had an I and D of her fistula. 4. Had a distal femur fracture repair in the past. HOSPITAL COURSE: A 52-year-old with pelvic abscess, apparently clinically worsened, so Dr. Beckwith was consulted. Planned on doing further drainage, and they did do a bypass colostomy. Kept her on IV antibiotics. Her cultures grew out Pseudomonas aeruginosa, Escherichia coli. That was cultured from the abdomen. Urine culture: Enterococcus faecium and Pseudomonas aeruginosa. She showed progress. She actually had external fixation on her leg, and so did not have internal fixation, but external fixation, and so wound management was involved. Atrial fibrillation, rate was controlled, and she on 11/16/2018 underwent diverting loop transverse colostomy, partial omentectomy, and drainage of deep intra-abdominal wall abscess with drain placement. She showed steady improvement, and followed by Dr. Ean Beckwith, continued ostomy care, and she was eligible to be transferred to LTAC. Dr. Benjamin was following her because of her anemia. Hemoglobin and hematocrit were low. Iron profile was adequate, so continue to watch her blood counts. Acute kidney injury resolved, and creatinine was 1.1. As far as her Crohn's disease, she is on Remicade, and plan to continue that on an outpatient basis. In regards to her severe protein calorie malnutrition, she was getting in good p.o. intake, and she felt much better. She is receiving cefepime 2 grams IV every 8 hours, and daptomycin 1000 mg every 24 hours. The patient and the crew felt that she was ready go to LTAC, so plan is to transfer to LTAC today, 12/06/2018. DISCHARGE MEDICATIONS: Allopurinol 300 mg daily, Eliquis 5 mg b.i.d., Tylenol 650 mg every 6 hours p.r.n., belladonna alkaloid opium 15A she will get 1 every 6 hours p.r.n. She will continue the cefepime 2 grams IV every 8 hours, Bentyl 20 mg b.i.d., Lanoxin 250 mg at bedtime, Cardizem CD 120 mg a day, vitamin D 50,000 units every week, Lexapro 10 mg a day, fentanyl 50 mcg every 72 hours, ferrous fumarate and folic acid combination 1 b.i.d., Lasix 40 mg IV every 12 hours, glucosamine chondroitin 1 daily. She is getting Dilaudid 1 mg IV every 3 hours p.r.n., Culturelle 1 b.i.d., Lialda which is mesalamine 1.2 grams p.o. b.i.d., Lopressor 100 mg b.i.d., Prilosec 40 mg a day, Ditropan 10 mg p.o. t.i.d., Percocet 10 one every 4 hours p.r.n., MiraLAX 17 grams daily, Desyrel 100 mg at bedtime, and she gets Phenergan 25 mg IV every 4 hours p.r.n. nausea. cc: Moris Barakat MD
[2018-12-08 11:58] VITALS: BP 150/68
== END 2018-12-08 13:41 | DRG 329 ==
LOC: DIRADM 12:15 → SUATTDRO 12:15 → ICU 17:20 → 4N 11-18 15:19
PROVIDERS: ATTEND Emergency Medicine
PROC: GE.OMEN (2018-11-16 12:55)
PROC: GE.COLS (2018-11-16 12:55)
CPT/HCPCS: 36430; 71010; 71045; 73552; 73562; 73590; 74177; 76775; 80048; 80053; 80069; 80162; 81001; 82306; 82550; 82570; 82607; 82728; 82746; 82948; 83036; 83540; 83550; 83735; 83935; 84156; 84300; 84439; 84443; 84540; 85025; 85027; 85045; 85610; 85730; 86850; 86900; 86901; 86920; 87040; 87070; 87077; 87088; 87186; 87205; 88305; 88313; 93005; 93010; 93970; 93971; 94761; 94799; 97110; 97162; 97167; 97530; A9270; J0330; J0692; J0696; J0878; J1100; J1160; J1170; J1644; J1940; J2250; J2270; J2405; J2550; J3010; J3243; J3370; J7030; J7040; P9016; P9047; Q9967; XXXXX

== ENCOUNTER 2019-08-17 18:48 | Inpatient (IN) ==
--- NOTE | 2019-08-17 19:31 | PROVIDER DOCUMENTATION ---
HPI-General Adult - General Chief Complaint: Abscess Stated Complaint: edema Time Seen by Provider: 08/17/19 18:54 Source: patient, family () Allergies/Adverse Reactions: Patient Allergies Allergy/AdvReac Type Severity Reaction Status Date / Time adhesive tape AdvReac Intermediate RASH Verified 11/08/18 15:37 latex AdvReac Intermediate RASH Verified 11/08/18 15:37 Home Medications: Home Medication List Medication Instructions Recorded Confirmed Last Taken Type Allopurinol 300 mg PO DAILY 09/27/15 11/13/18 11/08/18 History Dicyclomine [Bentyl] 20 mg PO BID 09/27/15 11/13/18 11/08/18 History Escitalopram Oxalate [Lexapro] 10 mg PO DAILY 09/27/15 11/13/18 11/08/18 History Gabapentin 600 mg PO TID 09/27/15 11/13/18 11/08/18 History Glucosam/MSM/Chond/Hyaluron AC [Sv 1 tab PO DAILY 09/27/15 11/13/18 11/07/18 History Glucosamine-Chondroitin Tab] Iron Fum,Ps/Folic/Bcomp,C No.9 1 cap PO BID 09/27/15 11/13/18 11/08/18 History [Integra Plus Capsule] Digoxin 250 mcg PO HS 12/17/17 11/13/18 11/07/18 History Mesalamine D.r. [Lialda] 1.2 gm PO BID 12/17/17 11/13/18 11/08/18 History Trazodone [Desyrel] 100 mg PO QHS 12/17/17 11/13/18 11/07/18 History Lactobacillus Rhamnosus GG 1 ea PO BID cap 11/01/18 11/13/18 11/08/18 Rx [Culturelle] Metoprolol [Lopressor] 100 mg PO BID #120 tab 11/01/18 11/13/18 11/08/18 Rx Omeprazole 40 mg PO DAILY #90 capsule. 11/01/18 11/13/18 11/07/18 Rx Oxycodone HCl/Acetaminophen 1 ea PO Q4H PRN #30 tab 11/01/18 11/13/18 11/08/18 Rx [Percocet 10-325 mg Tablet] Acetaminophen [Tylenol] 650 mg PO Q6H PRN PRN tab 12/08/18 Unknown Rx Apixaban [Eliquis] 5 mg PO BID tab 12/08/18 Unknown Rx Diltiazem C.d. [Cardizem Cd] 120 mg PO DAILY cap 12/08/18 Unknown Rx Ergocalciferol (Vitamin D2) 50,000 unit PO Q7D cap 12/08/18 Unknown Rx [Vitamin D] Fentanyl 50 Microgm/Hr Patch 1 ea TD Q72H patch 12/08/18 Unknown Rx [Duragesic 50 Microgm/Hr Patch] Furosemide [Lasix] 40 mg IV Q12H vial 12/08/18 Unknown Rx Hydromorphone [Dilaudid 1 mg/1 ml 1 mg IV Q3H PRN PRN syr 12/08/18 Unknown Rx syringe] Insulin Human Regular [Humulin R] 0 unit SUBQ 0700,1100,1600,2100 ml 12/08/18 Unknown Rx Menthol/Zinc Oxide Ointment 1 gm TOP PRN PRN tube 12/08/18 Unknown Rx [Calmoseptine Ointment] Metoprolol [Lopressor] 5 mg IV Q4H PRN PRN ampul 12/08/18 Unknown Rx Ondansetron [Zofran] 4 mg IV Q4H PRN PRN vial 12/08/18 Unknown Rx Opium/Belladonna Supp [B & O 15A 1 ea UT Q6H PRN PRN supp 12/08/18 Unknown Rx Supp] Oxybutynin [Ditropan] 10 mg PO TID tab 12/08/18 Unknown Rx Polyethylene Glycol 3350 [Miralax] 17 gm PO DAILY powder, packet 12/08/18 Unknown Rx Promethazine [Phenergan] 25 mg IV Q4H PRN PRN ampul 12/08/18 Unknown Rx - History of Present Illness -Gen Adult Nature of Presenting Problems: Patient c/o fever, redness on the left breast, started recently. She has coloscopy back with surgical wound on the left lower abdomen. She states she has develped fistulas on the left lower abdomen. Her has been doing wound dressing but now having lots of draining ( Pus + Blood +feaces) from all wound sites. states he has changed soaked dressing about 4x today Location of Pain/Injury: reports: none Pain Radiation: reports: no radiation Quality of Pain: reports: none Context/Activities at Onset: reports: none Modifying Factors: improves with: nothing Associated Symptoms: reports: fever/chills, rash Review of Systems - Adult - REVIEW OF SYSTEMS - ADULT Constitutional: reports: fever Eyes: reports: no symptoms reported Ears, Nose, Mouth & Throat: reports: no symptoms reported Cardiovascular: reports: no symptoms reported Respiratory: reports: no symptoms reported Gastrointestinal: reports: no symptoms reported Genitourinary: reports: no symptoms reported Musculoskeletal: reports: no symptoms reported Integumentary: reports: skin sores/ulcer, other (redness) Neurological: reports: no symptoms reported Psychiatric: reports: no symptoms reported Endocrine: reports: no symptoms reported Hematologic/Lymphatic: reports: no symptoms reported Allergic/Immunologic: reports: no symptoms reported All Other Systems: Reviewed and Negative Past History - Adult - PAST MEDICAL HISTORY-ADULT Review of Records: reports: Nursing Assessment Review, Medications Reviewed, Social history reviewed & non-contributory. Major Childhood Illnesses: reports: denies history Cardiovascular: reports: A-Fib, HTN, hyperlipidemia Respiratory: reports: denies history Gastrointestinal: reports: denies history Obstetrical/Gynecological: reports: denies history Genitourinary: reports: cancer (L sided renal cell carcinoma without mets), kidney disease, kidney stones, other (R ureteral mass) Musculoskeletal: reports: denies history Neurological: reports: denies history Endocrine/Immune: reports: anemia, Diabetes Other Conditions: reports: denies history - PRIOR SURGERIES/PROCEDURES Surgical/Procedure History: reports: none - IMMUNIZATION STATUS Childhood Immunizations: See Nurse Assessment Flu Vaccine: See Nurse Assessment - FAMILY HISTORY Family History: reviewed, not pertinent - SOCIAL HISTORY Smoking: quit greater than 1 year Substance Use: none/never Alcohol Use Frequency: never Living Situation: family (with ) Physical Exam-General - PHYSICAL EXAM-ADULT Initial Vital Signs Reviewed: Yes - CONSTITUTIONAL General Appearance: appears well, alert, no apparent distress - EYES Eyes: PERRL/EOMI - HEAD, EARS, NOSE, MOUTH & THROAT HENMT: normocephalic/atraumatic - NECK Neck: non-tender, full range of motion, supple - RESPIRATORY Respiratory: chest non-tender, lungs clear - CARDIOVASCULAR Cardiovascular: normal peripheral pulses, other (pedal edema) - GASTROINTESTINAL (ABDOMEN) Abdominal Exam: other (obese, colostomy bag intact, wound inspection of Left lower abdomen reveals soaked dressing at the surgical wound site also also from a big fistula on the left groin and less draining from a smaller fistular lateral aspect of left lower abdomen. 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 Discussed with Dr Dudley. He wants to come down to see patient. Dr Dudley did come to see patient. He wants her to be admitted to hospitalist service and for DR Beckwith to follow up) #2 Consult: Dr. Martinez Time Discussed: 22:48 Consult Disposition: Admit (accepts admission) Departure - Departure Date of Disposition Decision: 08/17/19 Time of Disposition Decision: 22:47 DIAGNOSIS: Wound check, abscess, Prerenal azotemia UTI (urinary tract infection) Qualifiers: Urinary tract infection type: site unspecified Hematuria presence: without hematuria Qualified Code(s): N39.0 - Urinary tract infection, site not specified Cellulitis Qualifiers: Site of cellulitis: trunk Site of cellulitis of trunk: chest wall Qualified Code(s): L03.313 - Cellulitis of chest wall Edema Qualifiers: Edema type: unspecified Qualified Code(s): R60.9 - Edema, unspecified Disposition: ADMITTED INPATIENT 09 Certified Medical Emergency: Emergent Condition: Stable - Critical Care Note This patient required my direct & personal management of CC.: No Attestation - Physician/ JOSE DAVID Attestation Patient care was provided by Advanced Practice Provider:: No The physician spent face to face time with patient:: Yes Advanced Practice Provider documentation review:: Supervising physician onsite and consulted in the evaluation and care of this patient. The physician did have a face to face encounter with the patient.
[2019-08-17 20:23] LABS: URINE SOURCE CATH
[2019-08-17 20:27] LABS: BILIRUBIN URINE NEGATIVE (NEGATIVE); BLOOD URINE MODERATE (NEGATIVE); COLOR YELLOW; GLUCOSE URINE NEGATIVE (NEGATIVE); KETONE URINE NEGATIVE (NEGATIVE); LEUKOCYTES URINE LARGE (NEGATIVE); NITRITE URINE POSITIVE (NEGATIVE); PH URINE 6.5; PROTEIN URINE TRACE mg/dL (NEGATIVE); SP GRAVITY URINE 1.009; TURBIDITY URINE TURBID (CLEAR); UROBILINOGEN URINE NORMAL (NORMAL)
[2019-08-17 20:57] LABS: ALB/GLOB RATIO 0.6; ALBUMIN 2.2 g/dL (3.5-5.0); BASO# 0.01 X1000 (0.0-0.2); BASO% 0.2 % (0.0-0.8); CALCIUM 8.7 mg/dL (8.8-10.2); CREATININE 1.7 mg/dL (0.5-0.9); EOS# 0.14 X1000 (0.0-0.7); EOS% 2.2 % (0.0-10.0); HEMATOCRIT 24.9 % (37.0-47.0); HEMOGLOBIN 6.8 g/dL (12.0-16.0); LYMPH# 0.59 X1000 (1.2-3.4); LYMPH% 9.4 % (20.5-51.1); MCH 22.7 PG (27-31); MCHC 27.3 g/dL (33-37); MCV 83.3 FL (81-99); MONO# 0.34 X1000 (0.11-0.59); MONO% 5.4 % (1.7-9.3); MPV 8.5 FL (7.4-10.4); NEUT# 5.17 X1000 (1.4-6.5); NEUT% 82.8 % (42.2-75.2); PLT 249 X1000 (130-400); RBC 2.99 XMIL (4.2-5.4); RDW 19.5 % (11.5-14.5); TOTAL BILIRUBIN 0.23 mg/dL (0.20-1.00); TOTAL PROTEIN 6.1 g/dL (6.3-8.3); WBC 6.25 X1000 (4.8-10.8)
[2019-08-17 20:57] LABS: UR EPITHELIAL CELLS <10 /HPF (<10); URINE BACTERIA 4+ /HPF; URINE RBC 20-40 /HPF (<10); URINE WBC TNTC /HPF (<10)
[2019-08-17 21:21] LABS: URINE YEAST NONE SEEN
[2019-08-17 21:22] LABS: URINE CASTS NONE SEEN; URINE CRYSTALS NONE SEEN
[2019-08-17] MEDS ORDERED: ROCEPHIN 1 GM in NS 50 ML IV ONE (22:38)
[2019-08-17] MEDS ORDERED: VANCOMYCIN IV PER PHARMACY MISC SCH (23:15)
[2019-08-17] MEDS ORDERED: TYLENOL PO PRN (23:15)
[2019-08-17] MEDS ORDERED: NS 1,000 ML IV ONE (23:17)
[2019-08-18] MEDS: NS 1,000 ML IV SCH ×4 (00:12→23:18)
[2019-08-18 01:13] LABS: HEMOGLOBIN A1C 4.7 % (4.8-6.0)
[2019-08-18] MEDS ORDERED: CUBICIN 600 MG in NS 100 ML IV SCH (01:30)
[2019-08-18] MEDS: MORPHINE IV PRN ×2 (03:13→09:04)
[2019-08-18] MEDS ORDERED: D50W SYRINGE IV ONE (06:48)
[2019-08-18] MEDS: HUMALOG SUBQ SCH ×4 (07:12→20:11)
--- NOTE | 2019-08-18 07:12 | CONSULTATION ---
DATE OF CONSULTATION: 08/17/2019 HISTORY: Ms. Padma Koch is a morbidly obese 53-year-old white female who has a complicated medical history. She has recently been taken care of by Dr. Ean Beckwith in our group with an end colostomy for soft tissue infection in her lower abdomen and groin. She still has open wounds in those areas that are draining. Most recently, she has noticed an increased swelling throughout her body. She has a history of a femur fracture on the right. Last year, she was hospitalized for months not only because of her end-colostomy and soft tissue infection, but because of her broken femur. Then, she went to rehab in [place]. She has missed several appointments with Dr. Beckwith to evaluate her wounds. She does get home health care. She presented to the emergency department because she thought she had increasing drainage from her lower abdominal wounds, and she was more swollen in left breast, left arm, and legs. She felt she had more swelling throughout. OBJECTIVE: On exam, Ms. Koch is in no acute distress. She is awake and cooperative. Morbidly obese. She has no jaundice. No oral lesions. No cervical or supraclavicular lymphadenopathy. Her heart has a regular rate. Lungs are clear to auscultation and percussion bilaterally. Her left breast is bigger than her right with swelling. There does not appear to be any acute infection. Her abdomen has a midline colostomy that appears to be functional. She has open wounds involving her left lower abdomen and her left groin, which are draining purulent material. She has chronic indwelling [place]. Rectal exam was not performed. She has edema involving both lower extremities. PLAN: Again, I will ask the hospitalist evaluation of this patient who is complicated medically. I suspect that they will admit her because of her diffuse edema. I will ask Dr. Beckwith to review her end-colostomy, and her chronic wounds. cc: Janeth Dudley MD
--- NOTE | 2019-08-18 07:20 | HISTORY AND PHYSICAL ---
CHIEF COMPLAINT: Abscess. HISTORY OF PRESENT ILLNESS: Ms. Koch is a 53-year-old female who came in with the complaint of fever and erythema to her left breast, which recently started. She had a surgical wound. It was a colocutaneous fistula with intraabdominal abscess related to Crohn's disease. She has had a chronic wound for which she has been seeing Dr. Beckwith. 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 Her has been doing wound dressings but she has continued to develop fistulas in her left lower abdomen, lots of drainage, purulent with blood and feces from the wound sites. Dr. Dudley evaluated the patient and recommended admission related to worsening discharge for consultation with Dr. Beckwith to follow up. She will be admitted to the medical floor for further evaluation and treatment. PAST MEDICAL HISTORY: Crohn's disease with colocutaneous fistula. Additionally she has had colovesical fistula, renal cell carcinoma, status post resection, paroxysmal atrial fibrillation, hyperlipidemia, diabetes mellitus type 2, hypertension, ureteral cancer, cirrhosis. PREVIOUS SURGICAL HISTORY: Status post partial nephrectomy of the right kidney, left-sided ureteronephrectomy secondary to ureteral cancer, I and D's of her fistula, distal femur fracture repair in the past. SOCIAL HISTORY: No tobacco, alcohol, or illicit drugs. FAMILY HISTORY: Reviewed and found to be noncontributory to this admission. ALLERGIES: Adhesive tape and latex. HOME MEDICATIONS: Tylenol 650 q.6 h. p.r.n., allopurinol 300 daily, Eliquis 5 mg p.o. b.i.d., BuSpar 10 mg p.o. t.i.d., dicyclomine 20 mg p.o. b.i.d., digoxin 0.25 mg p.o. daily, vitamin D2 50,000 units p.o. q. 7 days, Lexapro 20 mg p.o. b.i.d., Lasix 40 mg p.o. q.12 h., Neurontin 600 mg p.o. t.i.d., glucosamine and chondroitin one p.o. daily, regular insulin sliding scale, Integra Plus capsules one capsule p.o. b.i.d., Culturelle one p.o. b.i.d., Lialda 1.2 g p.o. b.i.d., metoprolol 25 mg p.o. t.i.d., omeprazole 40 mg p.o. daily, [place] 10 mg q.4 h., trazodone 100 mg p.o. at bedtime. REVIEW OF SYSTEMS: A 14-point review of systems was conducted with the patient. Pertinent positives are listed above in the HPI. All other systems are reviewed and found to be negative. PHYSICAL EXAMINATION: VITAL SIGNS: Temperature 98, pulse 68, respirations 18, blood pressure 131/71, and oxygen saturation 95% on room air. GENERAL: A morbidly obese 53-year-old female lying in the ER stretcher. She is alert and oriented x3. HEENT: The head is atraumatic an normocephalic. The pupils are equal, round, and reactive to light. Extraocular eye movement is intact. The sclerae are nonicteric. The conjunctivae are pale. The oral mucosa is dry. NECK: Short and thick. The trachea is midline. No cervical lymphadenopathy. CARDIAC: S1, S2 appreciated. No murmurs, gallops, or rubs. LUNGS: Clear to auscultation. No rhonchi, wheezes, or rales. Symmetric rise and fall with respirations. ABDOMEN: Obese, soft, nondistended. Colostomy bag intact. Left lower abdomen, old surgical site appears to have fistulas and smaller fistulas lateral to the aspect of the lower abdomen. Appears to be draining purulent drainage with stool. Cultures have been taken. INTEGUMENTARY: Warmth noted with erythema to the right breast. See abdomen for further examination. EXTREMITIES: No cyanosis or clubbing. 3+ pedal edema bilaterally. 1+ pedal pulses. NEUROLOGICAL: Alert and oriented x3. No focal motor deficits. Otherwise nonfocal examination. DIAGNOSTIC DATA: Chest x-ray: Cardiomegaly. Laboratory data: White blood cell count 6.25, hemoglobin 6.8, hematocrit 24.9, platelet count 249,000. Sodium 133, potassium 5, chloride 99, carbon dioxide 26, BUN 51, creatinine 1.7, glucose 94. Urine: Nitrites positive, leukocyte esterase positive, too numerous to count wbc's, 4+ bacteria. ASSESSMENT: 1. Cellulitis of the right breast. 2. Chronic surgical wound with new fistula formation. 3. Anemia. 4. Diabetes mellitus type 2. 5. Hypertension. 6. Hyperlipidemia. PLAN: Admit to the medical floor. We will type and screen the patient as she will probably need 1 unit of blood transfused. Consult Surgery to evaluate fistula. Sliding scale insulin with fingerstick blood sugars q.a.c. and at bedtime. Hold patient n.p.o. We will start daptomycin and Rocephin as the patient has had VRE in the past. Consult Drew Aceves MD. Lasix 40 mg IV b.i.d. Strict I's and O's. Continue home medications. Further recommendations based on the patient's clinical course. Dictated by PETER Perla for Howie Martinez MD I have performed a face to face diagnostic evaluation. Labs/xrays- reviewed. Exam: Chest-rhonchi, CV- regular. A/P- Rt breast cellulitis, surgical wound with fistula.- Admit, IV ABX, surgery consult. Dr. Martinez cc: PETER Perla MD [facility]
--- NOTE | 2019-08-18 07:24 | Diag Imaging Result Doc PS360 ---
EXAM: CHEST-PORTABLE HISTORY: admission TECHNIQUE: Single view COMPARISON: 11/30/2018 FINDINGS: The patient is rotated to the left. The heart is enlarged. Mild vascular distention. No consolidation. There is a right-sided portacatheter. No pneumothorax. IMPRESSION: Mild cardiomegaly with pulmonary edema. Electronically signed by Nikolai Noonan 08/18/2019 7:22 AM
--- NOTE | 2019-08-18 09:53 | PROGRESS NOTE ---
DATE: 08/18/2019 SUBJECTIVE: Ms. Koch was admitted yesterday, is a 53-year-old followed by Dr. Hall. A 53-year-old female came in with a complaint of fever, erythema in her left breast and swelling in her left arm and breast. Both arms they claim have been swelling. She had surgical wound. There was a colocutaneous fistula and intra-abdominal abscess related to Crohn disease. She has had chronic wound for this. Dr. Beckwith following. 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 has been doing the wound dressings. She continues to develop fistulas in the left lower abdomen, lots of drainage, purulent with blood in feces from the wound sites. Dr. Dudley evaluated, recommended admission related to worsening since discharge and so was put in the hospital. PAST MEDICAL HISTORY: Crohn disease and colocutaneous fistula. Additionally, she has had colovesical fistula, renal cell carcinoma status post resection, paroxysmal atrial fibrillation, hyperlipidemia, hyperlipidemia, diabetes mellitus type 2, hypertension, ureteral cancer, and cirrhosis. PAST SURGICAL HISTORY: Status post partial nephrectomy for right kidney, left-sided ureteral nephrectomy secondary to ureteral cancer and then distal femur fracture repair in the past. She had shattered her femur. I think they put a catrina in OBJECTIVE: General: She is awake and alert. was at the bedside. Vital Signs: Temperature 98.1 degrees, pulse 64, respirations 18, blood pressure 138/60. HEENT: Pupils are equal and round. Lungs: Clear in all lung bryant. Cardiovascular: Regular rhythm and rate without murmur or S3. Abdomen: Soft. Skin: Warm and dry. ASSESSMENT: 1. Cellulitis of left breast. Some swelling in the left breast and left arm. 2. Chronic surgical wound with new fistula formation. 3. Anemia. 4. Diabetes mellitus type 2. 5. Hypertension. 6. Hyperlipidemia. PLAN: 1. Plan on giving her 1 unit of packed red blood cells. Surgery to evaluate her fistula site. 2. Diabetes mellitus, plan on putting her on sliding scale pattern sugars. 3. Anemia, probably blood-loss anemia. Plan to give her 1 unit of packed blood cells. 4. We put her on daptomycin and Rocephin. Patient has had VRE in the past. Dr. Aceves will be on board. REVIEW OF HER ORDERS: Getting trazodone 100 mg at bedtime, allopurinol 300 mg daily, Eliquis 5 mg b.i.d., BuSpar 10 mg p.o. t.i.d., daptomycin 600 mg IV q.24 hours, Bentyl 20 mg p.o. b.i.d., digoxin 250 mcg p.o. daily, vitamin D 50,000 units p.o. q. week, Lexapro 20 mg p.o. b.i.d., Lasix 40 mg IV b.i.d., lactobacillus rhamnosus 1 tablet p.o. b.i.d., Lialda, which is mesalamine, 1.2 g p.o. b.i.d., Lopressor 25 mg p.o. t.i.d., IV fluids, normal saline at 60 mL an hour, Prilosec 40 mg a day, ceftriaxone 2 g IV q.24 hours, and she gets oxycodone 10 mg p.o. q.4 hours. cc: Moris Barakat MD
[2019-08-18] MEDS: LASIX IV SCH ×2 (10:27→20:11)
[2019-08-18] MEDS ORDERED: CUBICIN 400 MG in NS 100 ML IV ONE (12:00)
[2019-08-18] MEDS: MYCAMINE 100 MG in NS 100 ML IV SCH (12:05)
[2019-08-18] MEDS: BUSPAR PO SCH ×3 (12:10→20:08)
[2019-08-18] MEDS: LOPRESSOR PO SCH ×3 (12:10→20:09)
[2019-08-18 13:48] LABS: BASO# 0.01 X1000 (0.0-0.2); BASO% 0.2 % (0.0-0.8); EOS# 0.15 X1000 (0.0-0.7); EOS% 2.7 % (0.0-10.0); HEMATOCRIT 25.8 % (37.0-47.0); HEMOGLOBIN 7.1 g/dL (12.0-16.0); LYMPH# 0.58 X1000 (1.2-3.4); LYMPH% 10.5 % (20.5-51.1); MCHC 27.5 g/dL (33-37); MCV 83.5 FL (81-99); MONO# 0.27 X1000 (0.11-0.59); MONO% 4.9 % (1.7-9.3); MPV 8.3 FL (7.4-10.4); NEUT# 4.51 X1000 (1.4-6.5); NEUT% 81.7 % (42.2-75.2); PLT 219 X1000 (130-400); RBC 3.09 XMIL (4.2-5.4); RDW 18.9 % (11.5-14.5); WBC 5.52 X1000 (4.8-10.8)
[2019-08-18 13:54] LABS: CALCIUM 8.8 mg/dL (8.8-10.2); CREATININE 1.5 mg/dL (0.5-0.9); POTASSIUM 4.3 mmol/L (3.5-5.1)
[2019-08-18] MEDS: MAXIPIME 2 GM/NS 2 GM/100 ML IVPB IV SCH (13:59)
[2019-08-18 14:11] LABS: EOS 3 % (1-10); HYPOCHROM 1+; LYMPHS 9 % (21-51); MONO 2 % (1-9); SEGS 86 % (42-75)
[2019-08-18] MEDS: LANOXIN PO SCH (14:24)
[2019-08-18] MEDS: GLUCOSAMINE 500 MG/CHONDROITIN 400 MG PO SCH (14:25)
[2019-08-18] MEDS: BENTYL PO SCH ×2 (14:25→20:08)
[2019-08-18] MEDS: ELIQUIS PO SCH ×2 (14:26→20:10)
[2019-08-18] MEDS: LEXAPRO PO SCH ×2 (14:26→20:09)
[2019-08-18] MEDS: ZYLOPRIM PO SCH (14:26)
[2019-08-18] MEDS: CULTURELLE PO SCH ×2 (14:26→20:10)
[2019-08-18] MEDS: PRILOSEC PO SCH (14:27)
[2019-08-18] MEDS: THERA M PLUS PO SCH ×2 (14:27→20:09)
[2019-08-18] MEDS: PERCOCET-10 PO PRN ×3 (14:47→23:17)
[2019-08-18] MEDS: LIALDA PO SCH ×2 (14:49→20:11)
--- NOTE | 2019-08-18 16:46 | INFECTIOUS DISEASE CONSULT REP ---
DATE: 08/18/2019 CONCLUSION: Ms. Koch has a history of pelvic abscesses and currently has erythematous fistulas to her left abdomen x3 as well as cellulitis to her left arm, breast and pelvic area on the left side. There is also a fungal dermatitis, particularly to the groin and axilla areas. The abdominal fistulas have been cultured as well as a her urine and blood, which are pending. RECOMMENDATIONS: She had been started on daptomycin and Rocephin. We agree with the use of daptomycin, however, we will increase the dosage based on her weight to 1000 mg IV daily. She does have a currently low GFR. If it gets any lower, we will have to change that dosage to every 48 hours. We will check a creatine kinase total on Wednesday. The Rocephin, we will change to cefepime 2g IV every 12 hours as a renally modified dose. These will be broad-spectrum coverage due to her previous history of Pseudomonas and vancomycin-resistant enterococcus. We will also start her on micafungin 100 mg IV daily for the fungal dermatitis. We will continue to follow cultures and kidney function. These plans have been discussed with and recommended by Dr. Aceves. DISCUSSION: Ms. Koch has an extensive history of problems due to her Crohn's disease and previously has had surgery, most recently by Dr. Beckwith, for left lower quadrant deep abdominal and abdominal wall abscess with colocutaneous and colovesicular fistulas. She had those drained back in November of last year and states that the mid-pelvic fistula had closed up until about 3 or 4 days ago when it started opening and draining again. The other fistula to the left groin area has been open about 6 weeks and then the abdominal incision which continues to drain, has been open since the time of surgery back in November. At that time she did have a diverting loop transverse colostomy, as well as a partial omentectomy. For the last 2 and a half weeks she has noticed swelling to her left arm and breast which are much larger than the right. LABORATORY/X-RAY: Last night her white count was 6.25, hemoglobin 6.8, platelet count 249,000 creatinine 1.7, GFR 31. Total bilirubin 0.23 AST 13, ALT 9, alkaline phosphatase 69. Her urine urinalysis showed WBCs too numerous to count and 4+ urine bacteria. Pending cultures include blood, urine, abdominal fistula and abdominal wound. Chest x-ray done on admission shows mild cardiomegaly with pulmonary edema. PAST MEDICAL HISTORY/REVIEW OF SYSTEMS: Constitutional: She had a fever of 101 last week but states she has had no fever this week. Increased fluid weight in the last 2 weeks. She is bed bound and unable to walk due to previous fall and subsequent surgery to her right lower extremity. HEENT: Uses reading glasses and denies any issues with her hearing. Neck: She states there is some pain with movement at times but not currently. No stiffness or decrease in suppleness. Respiratory: She has had a cough but denies any sputum or shortness of breath. Positive orthopnea. History of sleep apnea with CPAP use. Cardiovascular: She denies any chest pain or palpitations. The patient has a history of atrial fibrillation and hypertension as well as hyperlipidemia. Gastrointestinal: The patient does have Crohn's disease. She has had some nausea but no vomiting. She has had intermittent abdominal pain due to the fistulas on the left side. There is a colostomy which did have some watery brown stool for a while last week but now she states it is more formed. Positive for GERD. Genitourinary: Denies dysuria or flank pain. History of left ureteral cancer and renal cell cancer. Neurologic: No history of seizures or strokes. Positive for paresthesias with numbness and tingling to the feet. Integumentary: Fungal dermatitis to the fat folds of the pannus and axilla. Psychiatric: Positive for depression and anxiety due to chronic illness. PREVIOUS HOSPITALIZATIONS AND SURGERIES: Include Labor and delivery, miscarriage, tubal ligation, left ureteronephrectomy, placement of Port-A-Cath, hand diverting colostomy with intra-abdominal abscess drainages MEDICAL DISEASES: Obstructive sleep apnea, chronic atrial fibrillation, hypertension, diabetes mellitus, hyperlipidemia, Crohn's disease, gastroesophageal reflux disease, morbid obesity, left ureteral cancer, renal cell cancer and long-standing history of enterocutaneous fistulas to the left groin. INFECTIOUS DISEASE: Positive for urinary tract infections, pelvic abscesses and pneumonia. SOCIAL HISTORY: She lives with her . She is bed-bound. She has cats at home and is unable to work at this point. Denies any tobacco, alcohol or illicit drugs. FAMILY HISTORY: Positive for diabetes, hypertension, stroke and cancer. ALLERGIES: Adhesive tape, and latex. HOME MEDICATIONS: Glucosamine chondroitin, allopurinol, gabapentin, multivitamin vitamin with iron, Lexapro, Bentyl, digoxin, mesalamine, Culturelle, omeprazole, Eliquis, Humulin-R insulin, Phenergan, Tylenol, vitamin D 2, Lasix, Zofran, BuSpar and Lopressor, and hydromorphone. PHYSICAL EXAMINATION: Vital Signs: Temperature is 98.6 degrees, pulse rate 77, respiratory rate 16, blood pressure 135/46. O2 saturation 100% on 2 L nasal cannula. General: This is a morbidly obese, chronically ill-appearing, middle-aged female. She is lying in bed, currently in no acute distress. HEENT: Atraumatic, normocephalic. Oral mucous membranes are pink and dry. Conjunctivae are pale. Neck: Supple. Trachea is midline. Cardiovascular: Irregularly irregular with atrial fibrillation on the monitor. Respiratory: Lung sounds are bilaterally diminished. No rhonchi, rales or wheezes noted. No work of breathing, at this time. Abdomen: Large, obese and tender to palpation. Bowel sounds are active. Integumentary: There is a fungal dermatitis to the axilla and groin areas as well as a cellulitis to the left upper arm and left breast with edema, erythema and warmth. The left-sided abdomen also shows cellulitis with a previous surgical site which is draining a white-bonilla colored drainage as well as 2 fistulas to the lower pelvic area which are erythematous and open, draining some bloody drainage. There is a Port-A-Cath in place to the right chest site without edema, erythema, or drainage. Neurologic: She is awake, alert, and oriented. Severely limited movement to lower extremities due to swelling, pain and previous surgeries. Thank you for allowing us to see Ms. Koch. Dictated by PETER Salgado for Drew Aceves MD cc: Drew Aceves MD [facility]
[2019-08-18] MEDS: DESYREL PO SCH (20:10)
--- NOTE | 2019-08-18 20:23 | GENERAL SURGERY PROGRESS NOTE ---
DATE: 08/18/2019 SUBJECTIVE: The patient's history and presenting issues were reviewed with the patient and the medical record. She feels some better. She is diffusely edematous. No fevers. No tachycardia. She has some drainage through 3 fistulous tracts, one suprapubic location, one in the left lower quadrant, and one more laterally in her pannus crease. Her urine has become clear over the course of the day today. I reviewed her labs. Her white count is improving. Her creatinine is 1.5 from 1.7. She has had no imaging of her abdomen. ASSESSMENT AND PLAN: This is a 53-year-old female with a complicated medical history. She has had renal cell carcinoma, a separate urothelial carcinoma requiring nephrectomy. She has Crohn disease with enterocolonic fistula initially, now colovesicular and colo-abdominal wall fistulas, status post diverting loop colostomy. She also has cirrhosis and she is morbidly obese, and is recovering from a right femur fracture. A very complicated history. Doubtful that surgically there is anything that could be done, but when her creatinine normalizes, I would recommend getting an oral contrasted as well as IV contrasted CT scan to better define the issues going on in her lower quadrants of her abdomen. We may ultimately need to get a fistulogram as well, but I would recommend continued hydration and observation of her renal function as she does only have one kidney, and normally her renal function is normal. Dr. Rodriguez is following over the weekend. I have discussed the patient with him. cc: Rakesh Beckwith MD
[2019-08-19] MEDS ORDERED: ROCEPHIN 2 GM in NS 50 ML IV SCH ×2
[2019-08-19] MEDS: MAXIPIME 2 GM/NS 2 GM/100 ML IVPB IV SCH ×2 (01:40→13:26)
[2019-08-19] MEDS: PERCOCET-10 PO PRN ×4 (03:39→22:38)
--- NOTE | 2019-08-19 06:27 | GENERAL SURGERY PROGRESS NOTE ---
DATE: 08/19/2019 SUBJECTIVE: Patient doing about the same. Reviewed notes. OBJECTIVE: Vital signs: Patient is currently afebrile. Her vital signs are stable. General: No acute distress. Cardiovascular: Regular rate and rhythm. Lungs: Grossly clear. Abdomen: Soft. Multiple previous surgical scars noted. LABORATORY: Reviewed from yesterday. Creatinine still 1.5. Labs from this morning are pending. We will get a BMP for today. ASSESSMENT AND PLAN: A 53-year-old female with significant intra-abdominal pathology with multiple fistulas to the skin. At this time, we are trying to resuscitate her so that her creatinine can come down so we can give p.o. and IV contrast with the CT scan. We will recheck her BMP today, and we have got it scheduled for tomorrow. We will need to make sure that it is coming down and essentially normalized before we hit her with contrast burden. cc: Neo Rodriguez MD
[2019-08-19] MEDS: HUMALOG SUBQ SCH ×4 (06:50→22:39)
[2019-08-19 08:59] LABS: CALCIUM 8.9 mg/dL (8.8-10.2); CREATININE 1.5 mg/dL (0.5-0.9); POTASSIUM 5.2 mmol/L (3.5-5.1)
[2019-08-19] MEDS: NS IV SCH (09:06)
[2019-08-19] MEDS: CUBICIN IV SCH (09:06)
[2019-08-19] MEDS: BUSPAR PO SCH ×3 (09:18→20:04)
[2019-08-19] MEDS: LEXAPRO PO SCH ×2 (09:18→20:03)
[2019-08-19] MEDS: LIALDA PO SCH ×2 (09:18→20:04)
[2019-08-19] MEDS: LOPRESSOR PO SCH ×3 (09:18→20:04)
[2019-08-19] MEDS: CULTURELLE PO SCH ×2 (09:18→20:04)
[2019-08-19] MEDS: GLUCOSAMINE 500 MG/CHONDROITIN 400 MG PO SCH (09:19)
[2019-08-19] MEDS: ZYLOPRIM PO SCH (09:19)
[2019-08-19] MEDS: PRILOSEC PO SCH (09:19)
[2019-08-19] MEDS: ELIQUIS PO SCH ×2 (09:19→20:04)
[2019-08-19] MEDS: THERA M PLUS PO SCH ×2 (09:19→20:04)
[2019-08-19] MEDS: LANOXIN PO SCH (09:19)
[2019-08-19] MEDS: BENTYL PO SCH ×2 (09:20→20:04)
[2019-08-19] MEDS: LASIX IV SCH ×2 (09:21→20:04)
--- NOTE | 2019-08-19 09:55 | PROGRESS NOTE ---
DATE: 08/19/2019 SUBJECTIVE: Ms. Koch feels better. The swelling has gone down in her left breast and left arm. She is making a lot of urine and she feels better overall. She would like to eat some food; probably advance her to a full liquid diet. OBJECTIVE: Vital Signs: Temperature is 98.2 degrees, pulse 74, respirations 16, blood pressure 125/62. Eyes: Her pupils are equal. Neurologic: She is awake and alert, oriented x3. Lungs: Lungs are clear anterolateral. Cardiovascular exam: Regular rhythm and rate without murmur or S3. Abdomen: Abdomen is soft. Skin: Skin is warm and dry. ASSESSMENT AND PLAN: 1. Significant intra-abdominal pathology with multiple fistulas to the skin. Trying to improve her renal function, so we can give her some oral and intravenous contrast with the CT scan. Creatinine is 1.5, so I think we would like it to come down a little more. She only has 1 kidney, history of left ureteral cancer I believe on the left side, so only has 1 functioning kidney. We will continue to continue present fluids and let her have full liquids. 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 Underlying Crohn disease. Enterocolonic fistula initially, now colovesicular and colo-abdominal wall fistulas, status post diverting loop colostomy. 2. Acute kidney injury. We will continue to hydrate. Urine output is good, which is encouraging. 3. 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 PRESENT ORDERS: She is on Desyrel 100 mg at bedtime, gets the morphine 2 mg IV q. 3 hours p.r.n., allopurinol 300 mg daily, Eliquis 3 mg p.o. b.i.d., BuSpar 10 mg p.o. t.i.d., daptomycin 1000 mg IV q. 24 hours, Bentyl 20 mg p.o. b.i.d., digoxin 250 mcg p.o. daily, vitamin D 50,000 units p.o. q. week, Lexapro 20 mg b.i.d., Lasix 40 mg IV twice a day, glucosamine chondroitin 1 a day, lactobacillus rhamnosus 1 p.o. b.i.d., cefepime 2 g IV q. [address] 1.2 g p.o. b.i.d., Lopressor 25 mg t.i.d., Micafungin 100 mg IV q. 24 hours, multivitamin 1 twice a day, Prilosec 40 mg a day. She takes oxycodone 10 mg q. 4 hours p.r.n., daptomycin 400 mg--she got just 1 dose in the emergency room. LABORATORY DATA: From today, white count 5520, hematocrit is 25, hemoglobin 7.1, platelet count was 219,000. She has MCV of 83. She got some blood yesterday, packed red blood cells, I think 1 unit. So, we will put her on full liquid diet and continue to watch her renal function. cc: Moris Barakat MD
[2019-08-19] MEDS: MYCAMINE 100 MG in NS 100 ML IV SCH (11:55)
[2019-08-19] MEDS: NS 1,000 ML IV SCH (17:53)
[2019-08-19] MEDS: DESYREL PO SCH (20:04)
[2019-08-20] MEDS: MAXIPIME 2 GM/NS 2 GM/100 ML IVPB IV SCH ×2 (01:28→13:47)
[2019-08-20] MEDS: PERCOCET-10 PO PRN ×5 (03:08→22:30)
--- NOTE | 2019-08-20 07:01 | GENERAL SURGERY PROGRESS NOTE ---
DATE: 08/20/2019 Reviewed labs from yesterday. Creatinine still at 1.5. Given her history of a single kidney, I do not think we want to try to give her the contrast burden yet. We will could continue local wound care. Continue supportive care. Recheck a BMP today. We will let Dr. Beckwith come back and evaluate her tomorrow for potential for imaging. cc: Neo Rodriguez MD
[2019-08-20] MEDS: HUMALOG SUBQ SCH ×4 (07:59→22:08)
[2019-08-20] MEDS: LEXAPRO PO SCH ×2 (08:11→22:07)
[2019-08-20] MEDS: GLUCOSAMINE 500 MG/CHONDROITIN 400 MG PO SCH (08:11)
[2019-08-20] MEDS: CULTURELLE PO SCH ×2 (08:11→22:10)
[2019-08-20] MEDS: BENTYL PO SCH ×2 (08:11→22:07)
[2019-08-20] MEDS: LANOXIN PO SCH (08:11)
[2019-08-20] MEDS: THERA M PLUS PO SCH ×2 (08:13→22:08)
[2019-08-20] MEDS: ELIQUIS PO SCH ×2 (08:13→22:08)
[2019-08-20] MEDS: BUSPAR PO SCH ×3 (08:13→22:07)
[2019-08-20] MEDS: PRILOSEC PO SCH (08:13)
[2019-08-20] MEDS: LOPRESSOR PO SCH ×3 (08:13→22:07)
[2019-08-20] MEDS: CUBICIN IV SCH (08:13)
[2019-08-20] MEDS: LASIX IV SCH ×2 (08:13→22:08)
[2019-08-20] MEDS: NS IV SCH (08:13)
[2019-08-20] MEDS: ZYLOPRIM PO SCH (08:13)
[2019-08-20] MEDS: LIALDA PO SCH ×2 (08:13→22:07)
[2019-08-20 08:17] LABS: BASO# 0.01 X1000 (0.0-0.2); BASO% 0.2 % (0.0-0.8); EOS# 0.12 X1000 (0.0-0.7); EOS% 2.8 % (0.0-10.0); HEMOGLOBIN 6.5 g/dL (12.0-16.0); LYMPH# 0.68 X1000 (1.2-3.4); MCH 22.9 PG (27-31); MCHC 27.1 g/dL (33-37); MCV 84.5 FL (81-99); MONO# 0.26 X1000 (0.11-0.59); MONO% 6.1 % (1.7-9.3); MPV 8.4 FL (7.4-10.4); NEUT# 3.18 X1000 (1.4-6.5); NEUT% 74.9 % (42.2-75.2); PLT 197 X1000 (130-400); RBC 2.84 XMIL (4.2-5.4); RDW 18.6 % (11.5-14.5); WBC 4.25 X1000 (4.8-10.8)
[2019-08-20 08:23] LABS: CALCIUM 8.3 mg/dL (8.8-10.2); CREATININE 1.4 mg/dL (0.5-0.9)
--- NOTE | 2019-08-20 09:35 | PROGRESS NOTE ---
DATE: 08/20/2019 SUBJECTIVE: Ms. Koch says she is feeling better today and that she is tolerating the full liquid diet well. OBJECTIVE: Temperature 98.3 degrees, pulse 70, respirations 19, blood pressure 127/56. Pupils are equal and round. Lungs are clear in all lung bryant. Cardiovascular Examination: Regular rhythm and rate without murmur or S3. Abdomen is soft, nondistended. Her urine output is close to 10 L. ASSESSMENT AND PLAN: 1. Creatinine still at 1.5. History of single kidney. Hoping to get a CT with contrast so hoping to continue fluids, trying to improve her renal function, tolerate the contrast. Today, it is down to 1.4 so it is encouraging. 2. Diabetes mellitus type 2. Blood sugars are well controlled. Last series of blood sugars 145, 127, 113, 110. 3. Significant intra-abdominal pathology, multiple fistulas to the skin. Trying to improve her renal function so we can do a CT scan. She only has one kidney. She has a history of left ureteral cancer on the left side, so only one functioning kidney, and she has underlying Crohn's disease with enterocolonic fistulas initially, now colovesicular and colo-abdominal wall fistulas, status post diverting loop colostomy. 4. Cirrhosis and morbid obesity. 5. Continue her present orders. It looks like her creatinine is coming down. Hopefully, it will come down significantly so we can do contrast study on Wednesday. cc: Moris Barakat MD
[2019-08-20] MEDS: MYCAMINE 100 MG in NS 100 ML IV SCH (12:07)
[2019-08-20] MEDS: NS 1,000 ML IV SCH (12:12)
[2019-08-20] MEDS: ROCEPHIN 2 GM in NS 50 ML IV SCH (15:05)
--- NOTE | 2019-08-20 15:15 | INFECTIOUS DISEASE PROGRESS NO ---
DATE: 08/20/2019 PRESENT ILLNESS: The patient has pelvic abscesses, fistulae, and draining sinuses. She may also have a fungal dermatitis in the groin and axillary areas. She also has left arm cellulitis. The patient also has a gram-positive coccal bacteremia. MEDICATIONS: The patient is on a combination now of daptomycin and cefepime. PHYSICAL EXAMINATION: Vital Signs: Temperature is 98.2 degrees, pulse 76, respirations 18, blood pressure 135/64. General: This is a morbidly obese, middle-aged female. She does not appear to be in any acute distress. HEENT: She can hear my spoken words and see near objects. She does not have any white coating on her tongue. Neck: No pain with movement. Lungs: Distant breath sounds. Cardiovascular: Distant heart sounds. Abdomen: Soft. In the pelvic area, there are fistulas, and there are some draining wounds too. The patient also has a colostomy. There is erythema in the pelvic area. Extremities: The patient's left arm cellulitis is better. It is less swollen and red. Breasts: The left breast is less erythematous and swollen also. LABORATORY DATA: The patient's CBC shows a white count of 4250, hemoglobin 6.5, platelet count 197,000. Creatinine is 1.4. GFR is 39. Blood cultures are growing gram-positive cocci. Urine culture grew Escherichia coli, and the patient's wounds grew Escherichia coli and Proteus. ASSESSMENT AND PLAN: The patient has pelvic abscesses, draining infected fistulas, a urinary tract infection, and wound infections. The plan is to continue daptomycin pending the identification and susceptibility testing of the bacteremia. I am going to switch the patient from cefepime to Rocephin for the Escherichia coli and Proteus wound infections. The infections also are for her urinary tract infection and her draining fistulae. The patient has a left arm and left breast cellulitis, which are improving with antibiotic therapy. COMORBIDITIES: The patient is morbidly obese. 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 cc: Drew Aceves MD
[2019-08-20] MEDS: DESYREL PO SCH (22:08)
[2019-08-21] MEDS: NS 1,000 ML IV SCH (06:18)
[2019-08-21] MEDS: PERCOCET-10 PO PRN ×4 (06:26→22:51)
[2019-08-21] MEDS: HUMALOG SUBQ SCH ×3 (07:52→22:42)
[2019-08-21 08:25] LABS: BASO# 0.01 X1000 (0.0-0.2); BASO% 0.2 % (0.0-0.8); EOS# 0.12 X1000 (0.0-0.7); EOS% 2.1 % (0.0-10.0); HEMATOCRIT 27.9 % (37.0-47.0); HEMOGLOBIN 7.9 g/dL (12.0-16.0); LYMPH# 0.65 X1000 (1.2-3.4); LYMPH% 11.2 % (20.5-51.1); MCH 23.4 PG (27-31); MCHC 28.3 g/dL (33-37); MCV 82.8 FL (81-99); MONO# 0.23 X1000 (0.11-0.59); MPV 8.5 FL (7.4-10.4); NEUT# 4.79 X1000 (1.4-6.5); NEUT% 82.5 % (42.2-75.2); PLT 197 X1000 (130-400); RBC 3.37 XMIL (4.2-5.4)
[2019-08-21 08:38] LABS: CALCIUM 8.7 mg/dL (8.8-10.2); CREATININE 1.3 mg/dL (0.5-0.9); MAGNESIUM 1.8 mg/dL (1.5-2.7); POTASSIUM 4.9 mmol/L (3.5-5.1)
[2019-08-21] MEDS: ELIQUIS PO SCH ×2 (08:46→22:43)
[2019-08-21] MEDS: NS IV SCH (08:47)
[2019-08-21] MEDS: LASIX IV SCH ×2 (08:47→22:43)
[2019-08-21] MEDS: CUBICIN IV SCH (08:47)
[2019-08-21] MEDS: CULTURELLE PO SCH ×2 (08:48→22:43)
[2019-08-21] MEDS: LOPRESSOR PO SCH ×3 (08:48→22:42)
[2019-08-21] MEDS: ZYLOPRIM PO SCH (08:49)
[2019-08-21] MEDS: BUSPAR PO SCH ×3 (08:49→22:43)
[2019-08-21] MEDS: LANOXIN PO SCH (08:50)
[2019-08-21] MEDS: THERA M PLUS PO SCH ×2 (08:51→22:43)
[2019-08-21] MEDS: GLUCOSAMINE 500 MG/CHONDROITIN 400 MG PO SCH (08:52)
[2019-08-21] MEDS: BENTYL PO SCH ×2 (08:52→22:43)
[2019-08-21] MEDS: LIALDA PO SCH ×2 (08:52→22:43)
[2019-08-21] MEDS: PRILOSEC PO SCH (08:54)
[2019-08-21] MEDS: LEXAPRO PO SCH ×2 (08:54→22:43)
[2019-08-21] MEDS: VITAMIN D PO SCH (09:00)
--- NOTE | 2019-08-21 09:56 | PROGRESS NOTE ---
DATE: 08/21/2019 SUBJECTIVE: Ms. Koch feels her feet are swelling more and uncomfortable. She would like to go back on her Neurontin. Her creatinine did come down to 1.3. She is hungry and would like to start eating and is hopeful she will get her CT scan soon. OBJECTIVE: Vital Signs: Temperature 99 degrees, pulse 96, respirations 16, blood pressure 127/47. HEENT: Pupils are equal and round. Neck: No distended neck veins. Lungs: Clear in all lung bryant. Cardiovascular: Regular rhythm and rate without murmur or S3. Abdomen: Soft, nondistended. Bandage in the left lower quadrant. Continues to have drainage from fistula. Urine output is 1600 mL, good urine output. Fluids are going at 60 mL. Normal saline q. hour. LABORATORY DATA: Blood sugar 102, 156, 91. ASSESSMENT AND PLAN: Patient with morbid obesity and has had numerous colon complications, multiple fistulas. We are hoping to get a CT scan and define her anatomy. We are waiting on her creatinine to come down as she has a solitary kidney. I will put her back on her Neurontin and continue present orders. Will let Surgery order CAT scan when ready. She is on daptomycin 1000 mg daily. She is on ceftriaxone 2 g IV q.24 hours and micafungin 100 mg IV q.24 hours. REVIEW OF LABS: Hematocrit is 27 hemoglobin 7.9. I did give her 2 units of packed red blood cells as her hemoglobin was 6.5 yesterday. Sodium 136, potassium 4.9, chloride 102, BUN 29, creatinine 1.3. Last several blood sugars 144, 156, 114, 99. cc: Moris Barakat MD
[2019-08-21] MEDS: NEURONTIN PO SCH ×3 (09:58→22:43)
--- NOTE | 2019-08-21 13:29 | Diag Imaging Result Doc PS360 ---
EXAM: CT ABDOMEN/PELVIS W/O CONTRAST INDICATION: colonic fistula TECHNIQUE: This exam was performed using automated exposure control, adjustment of mA or kV according to patient size, and/or use of iterative reconstruction technique. COMPARISON: 11/13/2018 FINDINGS: Note that this study is limited by excessive streak artifact related to body habitus and also likely body contrast. There are bilateral small pleural effusions with adjacent atelectasis, larger on the left. There has been a prior cholecystectomy. There is small to moderate volume ascites tracking around the liver and spleen and extending into the pelvis. The liver is grossly unremarkable as imaged. The spleen is enlarged measuring up to 16.4 cm axially. There has been a prior left nephrectomy. The right kidney is unremarkable as imaged. There is a Marshall catheter in urinary bladder and the bladder is grossly unremarkable. There is an upper ventral abdominal wall hernia at the midline containing mesenteric fat and a loop of the transverse colon. This loop of colon abuts the surface of the scan and there is skin thickening overlying. There is no evidence of colonic obstruction. The large abscess with intra-abdominal and extra-abdominal components seen on the previous study has overall decreased in size. There is still a fluid collection with what appears to be internal gas at the left side of the peritoneal cavity. Unfortunately, this is partially obscured by streak artifact. There is a droplet of gas in the left inguinal region where there was a sinus tract on the previous study that extended to the skin surface. A couple of fistulous tracts that extend from the skin surface to the subcutaneous fat at the left lower abdomen seen on image 142 of series 6 where larger on the previous study. There are still subcutaneous gas droplets associated with these tracts. There is prominent soft tissue anasarca. IMPRESSION: 1.Very limited study due to body habitus and lack of IV contrast. 2.Left lower quadrant abscess with cutaneous fistulous tracts as described is less prominent than the previous study. 3.New upper ventral abdominal wall hernia with a loop of the transverse colon extending to the skin surface. 4.Small to moderate volume ascites. 5.Body wall anasarca. 6.Small bilateral pleural effusions and bibasilar atelectasis. 7.Other incidental/nonacute findings detailed above. Electronically signed by Brock Zaragoza 08/21/2019 1:27 PM
[2019-08-21] MEDS: MYCAMINE 100 MG in NS 100 ML IV SCH (14:35)
--- NOTE | 2019-08-21 15:27 | INFECTIOUS DISEASE PROGRESS NO ---
DATE: 08/21/2019 PRESENT ILLNESS: The patient has pelvic abscesses, fistulae, and draining sinuses. She also has a gram-positive coccal bacteremia, and finally, she has a fungal dermatitis in the groin and axillary areas, as well as a left arm cellulitis and a breast cellulitis as well. MEDICATIONS: The patient is on a combination of daptomycin and Rocephin. The patient also has been on micafungin for 3 days. PHYSICAL EXAMINATION: Vital Signs: Temperature is 98.8 degrees, pulse 77, respirations 16, blood pressure is 136/56. The patient is 5 feet 3 inches tall, weighs 250 pounds. General: This is a morbidly obese, middle-aged female. She is in no acute distress. Head/Eyes/Ears/Nose/Throat: She can hear my spoken words and see near objects. She does not have any white patches in her mouth. Neck: No pain with movement. Lungs: Distant breath sounds, but I did not hear any rales. Cardiovascular: Heart sounds were distant also, but they appeared to be regular. Abdomen: Soft. In the pelvic area, there is erythema and indurated areas with draining sinuses and fistulae. The patient also has a colostomy. Extremities: The left arm is less red and swollen. Breasts: The left breast is less swollen and erythematous also. LAB AND RADIOLOGY: CBC-WBC 5.8, hgb 7.9, platelets 197. Creatinine-1.3. GFR-43. No radiology results for today. ASSESSMENT AND PLAN: The patient has a bacteremia. I am going to continue daptomycin for that pending final identification and susceptibility of the organisms. As far as the patient's fungal infections, we are going to continue fluconazole, as well as antifungal cream. For the fungal infection, the patient is on micafungin. COMORBIDITIES: The patient is morbidly obese. 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 cc: Drew Aceves MD MTDD
[2019-08-21] MEDS: ROCEPHIN 2 GM in NS 50 ML IV SCH (16:08)
[2019-08-21] MEDS: DESYREL PO SCH (22:42)
[2019-08-22] MEDS: NS 1,000 ML IV SCH ×2 (02:11→17:26)
--- NOTE | 2019-08-22 05:10 | GENERAL SURGERY PROGRESS NOTE ---
DATE: 08/21/2019 SUBJECTIVE: She is hungry. Overall, she says she feels about the same. Monica our wound nurse has seen her, and is taking care of the skin integrity of her panniculus. No fevers. No tachycardia documented. Blood pressure 136/56, oxygen saturation is 97% OBJECTIVE: In general, she is alert. Abdomen is soft. Dressings are in place. Urine is clear via her Marshall catheter. LABORATORY: White count 5, hematocrit 27, and creatinine is down to 1.3. ASSESSMENT AND PLAN: A 53-year-old female with complicated Crohn's related fistulas. Creatinine is normalizing, but is still above her baseline. As such, we will get a noncontrast CT scan with oral contrast, and a barium enema to help better define her fistulous tracts to guide further therapy although will be limited in what we can provide her given her multiple comorbidities. We will continue to follow along. cc: Rakesh Beckwith MD
[2019-08-22] MEDS: NEURONTIN PO SCH ×3 (05:42→21:32)
[2019-08-22] MEDS: PERCOCET-10 PO PRN ×4 (06:15→21:32)
[2019-08-22] MEDS: HUMALOG SUBQ SCH ×4 (06:49→22:51)
[2019-08-22] MEDS: ZYLOPRIM PO SCH (08:44)
[2019-08-22] MEDS: THERA M PLUS PO SCH ×2 (08:44→21:32)
[2019-08-22] MEDS: LEXAPRO PO SCH ×2 (08:44→21:32)
[2019-08-22] MEDS: CUBICIN IV SCH (08:44)
[2019-08-22] MEDS: NS IV SCH (08:44)
[2019-08-22] MEDS: LASIX IV SCH ×2 (08:44→21:33)
[2019-08-22] MEDS: LOPRESSOR PO SCH ×3 (08:44→21:34)
[2019-08-22] MEDS: GLUCOSAMINE 500 MG/CHONDROITIN 400 MG PO SCH (08:45)
[2019-08-22] MEDS: ELIQUIS PO SCH ×2 (08:45→21:33)
[2019-08-22] MEDS: PRILOSEC PO SCH (08:45)
[2019-08-22] MEDS: BUSPAR PO SCH ×3 (08:45→21:32)
[2019-08-22] MEDS: LANOXIN PO SCH (08:45)
[2019-08-22] MEDS: BENTYL PO SCH ×2 (08:46→21:32)
[2019-08-22] MEDS: LIALDA PO SCH ×2 (08:46→21:32)
[2019-08-22] MEDS: CULTURELLE PO SCH ×2 (09:30→21:32)
--- NOTE | 2019-08-22 11:48 | Diag Imaging Result Doc PS360 ---
EXAM: BARIUM ENEMA 08/22/2019 HISTORY: colonic fistula TECHNIQUE: Limited water-soluble enema. Seven images, 43 seconds fluoroscopy time, 2299.3 cGy. COMMENT: Water-soluble contrast was instilled in the rectum demonstrating the sigmoid descending and distal transverse colon. The study is markedly suboptimal due to the patient's body habitus and attenuation and the inability of the patient to be moved. Contrast eventually is seen in the colostomy bag which projects over the pelvis. There is also a vague collection of contrast seen over the lower iliac bone on the left. This was not present on the psychiatric technician assistant view and is likely related to a colocutaneous fistula which has been demonstrated previously and is also demonstrated on the CT scan which was performed directly after this examination. IMPRESSION: Colocutaneous fistula. Electronically signed by Clayton Linn 08/22/2019 11:46 AM
[2019-08-22] MEDS: MYCAMINE 100 MG in NS 100 ML IV SCH (12:20)
--- NOTE | 2019-08-22 12:36 | PROVIDER PROGRESS NOTE ---
Progress Note Subjective 53 year old morbidly obese with chrones disease presents with multiple draining pelvic abscesses. She has recently noticed left breast redness as well. She has a colostomy. She was diagnosed with chrones in 2014. She is not taking any immunotheraphy currently, she tried some medications before but they didn't seem to help. She can not afford to try any other medications at this time. She had a femur fracture in November 2018 and she has been immobilized since then. 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 Today she is feeling fine, she underwent a barium enema this morning to check for more fistulas. is at the bed side during the time of encounter Objective VS: Last Vital Signs Temp 98.7 F 08/22/19 08:00 Pulse 80 08/22/19 08:45 Resp 20 08/22/19 08:00 BP 136/59 08/22/19 08:00 Pulse Ox 96 08/22/19 08:00 Height 5 ft 7 in Weight 350 lb I/Os: Negative balnace 4268mL with 500mL via nice catheter and 100mL from colonostomy bag Physical Exam HEENT- mucosa moist, back of throat is erythematous, no anterior cervical lymphadenopathy, PEERL, nose has dried on blood in the left nares. Chest- Sternal port at midline, heart RRR n mgr Lungs- clear to auscultation bilaterally, no crackles or wheezing abdomen-midline colonostomy bag. There are 2 draining fistulas present along the left inguinal line, there is another one higher up on the panus that is covered by wound care. There are vertical raised striae leading to this abdominal fistula Pubic- there are multiple indentations that were reported to have bleed a few days ago. Extremity- Pedal pulses are not palpable. Severe 4+ pitting edema on her legs and dorsal feet. Labs: Barium enema from today should colocutaneous fistula Assessment: 1) Chrones disease with multiple fistulas 2) Multiple pelvic abcesses 3) status post colonostomy 4) Morbid obestity BMI 54.8 Plan: 1) continue antibiotics, repeat blood culture 2) Surgical management of fistulas if needed 3) Wound care for cutaneous abscesses
--- NOTE | 2019-08-22 12:39 | Diag Imaging Result Doc PS360 ---
EXAM: CT ABDOMEN/PELVIS W/O CONTRAST 08/22/2019 HISTORY: FISTULA TECHNIQUE: This exam was performed using automated exposure control, adjustment of mA or kV according to patient size, and/or use of iterative reconstruction technique. COMMENT: The current examination is compared with that of 08/21/2019. The examination was performed following instillation of water soluble contrast in the rectum. There continues to be atelectasis versus pneumonia in the left lower lobe. There is subcutaneous edema present particularly over the left chest and abdominal wall. There are bilateral pleural effusions. There is ascites. There is some dense contrast seen in the fistula extending to the skin laterally over the upper pelvis seen best on image 122. This presumably derives from the sigmoid colon in or around image 139. No contrast is seen in the urinary bladder. There is some gas in the bladder. There is a Marshall catheter. The contrast in the colon extends into the loop colostomy. There is also some dense contrast in the cecum and appendix which may be related to the oral contrast which was administered for the previous examination. IMPRESSION: Colocutaneous fistula on the left as described. Otherwise essentially stable since 08/21/2019. Electronically signed by Clayton Linn 08/22/2019 12:36 PM
[2019-08-22] MEDS: ROCEPHIN 2 GM in NS 50 ML IV SCH (13:19)
--- NOTE | 2019-08-22 13:41 | INFECTIOUS DISEASE PROGRESS NO ---
DATE: 08/22/2019 PRESENT ILLNESS: Ms. Koch is being treated for a colocutaneous fistula which has grown Proteus mirabilis. There is also an abdominal wound and urinary tract infection that have both grown Escherichia coli. She also has a Staphylococcus epidermidis bacteremia. The patient also has a fungal dermatitis to the groin and axilla which is improving. There is also left upper arm and left breast cellulitis which is also improving. MEDICATIONS: She is receiving daptomycin 1000 mg IV daily for her bacteremia, and Rocephin 2 g IV daily for the abdominal and fistula wounds and the urinary tract infection. She is also receiving micafungin 100 mg IV daily for the fungal dermatitis. PHYSICAL EXAMINATION: Vital Signs: Temperature is 98.2 degrees, pulse rate 86, respiratory rate 22, blood pressure 121/59, O2 saturation is 96% on room air. General: This is a chronically ill appearing middle-aged morbidly obese female. She is lying in bed, currently in no acute distress. HEENT: Atraumatic, normocephalic. Oral mucous membranes are pink and moist. Conjunctivae are pale. Neck: Supple. Trachea is midline. Cardiovascular: Irregularly irregular with atrial fibrillation on the monitor. Respiratory: Mild wheezes in the upper lobes and also mild rales to the bases with diminished breath sounds bilaterally. No work of breathing is noted. Abdomen: Soft, obese and tender to palpation particularly on the left. Bowel sounds are active. Integumentary: There is a Port-A-Cath in place to the right chest. That site is without edema, erythema, or drainage. The fungal dermatitis to the axilla and groin are resolving and the cellulitis to the left upper arm and left breast are also much improved with no erythema noted to the left upper arm but continuing but better to the left breast with some warmth. The left side of the abdomen has cellulitis with a previous surgical site that has some bonilla colored drainage as well as the 2 lower pelvic fistulas which are erythematous and open, draining bloody drainage. Neurologic: She is awake, alert, oriented, and able to move around with assistance in the bed. Lower extremity mobility is severely limited. LABORATORY AND X-RAY: No labs available today. However, she did have an abdominal and pelvic CT which showed a colocutaneous fistula on the left and a barium enema showed the same. ASSESSMENT AND PLAN: Ms. Koch is being treated for infected fistulae and draining sinuses to the left abdomen as well as a Staphylococcus epidermidis bacteremia, a fungal dermatitis and a left arm and breast cellulitis. Our plan is to continue the current medications which include daptomycin for her bacteremia and micafungin for the fungal dermatitis, which is improving significantly. Also, for the cellulitis, urinary tract infection, and infected wounds, she is receiving Rocephin, which we will also continue at this time. These plans have been discussed with and recommended by Dr. Aceves. COMORBIDITIES: For Ms. Koch include that she is bedridden and morbidly obese with obstructive sleep apnea, chronic atrial fibrillation, diabetes mellitus, Crohn's disease, gastroesophageal reflux disease, and history of nephrectomy with decreased kidney function. Dictated by PETER Salgado for Drew Aceves MD cc: Drew Aceves MD MTDDivine
[2019-08-22 15:55] LABS: CALCIUM 8.5 mg/dL (8.8-10.2); CREATININE 1.4 mg/dL (0.5-0.9); POTASSIUM 4.3 mmol/L (3.5-5.1)
[2019-08-22] MEDS: ALBUMIN 25% IV SCH (18:17)
--- NOTE | 2019-08-22 20:42 | GENERAL SURGERY PROGRESS NOTE ---
DATE: 08/22/2019 SUBJECTIVE: She says she feels okay. She says she is hungry. Ostomy function is normal. She has had a CT scan with rectal contrast along with a barium enema that demonstrated a colonic fistula to the abdominal wall. Urine remains clear. She is quite edematous in the lower extremities. She has no fevers, no tachycardia. OBJECTIVE: Blood pressure 135/63. General: She is alert. Her ostomy is pink with stool in the bag. Abdomen: Is soft, obese. There is diffuse anasarca across her abdominal wall and lower extremities. Creatinine is 1.4. Electrolytes are okay. I reviewed her imaging. ASSESSMENT AND PLAN: A 53-year-old female with Crohn's related abdominal wall and colovesicular fistula. She is diverted proximally. I suspect most of her ongoing issue is related to spillage of stool through the distal limb, but I think she is adequately diverted. I do not see any indication that there is enteric fistula on exam her imaging. As such, we will continue current. I have talked to Dr. Telles. He is working on her edema. He is going to administer gentle diuresis, albumin. I also asked Monica to place Unna wraps tomorrow and continue local wound care. We will follow along. cc: Rakesh Beckwith MD
[2019-08-22] MEDS: DESYREL PO SCH (21:32)
[2019-08-23] MEDS: PERCOCET-10 PO PRN ×5 (01:31→19:24)
[2019-08-23] MEDS: NS 1,000 ML IV SCH (05:32)
[2019-08-23] MEDS: NEURONTIN PO SCH ×3 (05:41→22:20)
[2019-08-23 07:04] LABS: BASO# 0.01 X1000 (0.0-0.2); BASO% 0.2 % (0.0-0.8); EOS# 0.13 X1000 (0.0-0.7); HEMATOCRIT 26.5 % (37.0-47.0); HEMOGLOBIN 7.4 g/dL (12.0-16.0); IMM GRAN# 0.02 X1000 (0.0-0.04); IMM GRAN% 0.5 % (0.0-0.5); LYMPH# 0.68 X1000 (1.2-3.4); LYMPH% 15.5 % (20.5-51.1); MCH 23.7 PG (27-31); MCHC 27.9 g/dL (33-37); MCV 84.9 FL (81-99); MONO% 4.5 % (1.7-9.3); MPV 8.7 FL (7.4-10.4); NEUT# 3.36 X1000 (1.4-6.5); NEUT% 76.3 % (42.2-75.2); PLT 181 X1000 (130-400); RBC 3.12 XMIL (4.2-5.4); RDW 18.5 % (11.5-14.5)
[2019-08-23] MEDS: HUMALOG SUBQ SCH ×4 (07:47→22:02)
[2019-08-23 07:52] LABS: CALCIUM 8.8 mg/dL (8.8-10.2); CREATININE 1.7 mg/dL (0.5-0.9); POTASSIUM 4.2 mmol/L (3.5-5.1)
--- NOTE | 2019-08-23 09:44 | PROVIDER PROGRESS NOTE ---
Progress Note Subjective 53 year old morbidly obese with chrones disease presents with multiple draining pelvic abscesses. She has recently noticed left breast redness and swelling as well. The breast swelling is better than it was on arrival PMH: She has a colostomy. She was diagnosed with chrones in 2014. She is not taking any immunotheraphy currently, she tried some medications before but they didn't seem to help. She can not afford to try any other medications at this time. She her right kidney removed due to renal cell carcinoma, so her nephrol ogist said she can not have any sulfa drugs. She had a femur fracture in November 2018 and she has been relatively immobilized since then, within the past 2 months she has been bed bound. 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 is at the bed side during the time of encounter Objective VS: Blood pressure 126/55 , pulse 65 , respirations 18 , temp 98.3 oral , O2 98% RA I/Os: negative balance 825mL, with 7,775mL removed from Marshall and colostomy bag Physical Exam general: Affect great, very pleasant to talk to and well informed about her condition, very supportive at the bedside. HEENT- mucosa moist, back of throat is erythematous, no anterior cervical lymphadenopathy, PEERL. Pinpoint bleed on superior hard palate on left side. Chest- Sternal port at midline, heart S1, S2 are distant RRR n mgr Breast- left marked redness past the aerola, marked tenderness upon palpation, redness expands under breast tissue. Right side is unremarkable Lungs- clear to auscultation bilaterally, no crackles or wheezing Abdomen-midline functioning colostomy bag. There are 2 draining fistulas present along the left inguinal line, there is a surgical incision for drainage higher up on the panus that is covered by wound care. There are vertical raised striae leading to this abdominal fistula that are markedly erythematous on the left side. Right side has stria but they are minimally raised and non erythematous. Pubic- there are multiple indentations that were reported to have bleed a few days ago. Extremity- Pedal pulses are not palpable. Severe 4+ pitting edema on her legs and dorsal feet. Labs: wbc 4.4, hemoglobin 8.1, hematocrit 26.5, platelets 181, sodium 136, chloride 100, BUN 26, Glucose 101, potassium 4.2, bicarb 28, creatinine 1.7, ca lcium 8.8 Blood cultures drawn from port yesterday pending Assessment: 53 year old morbidly obese female with multiple fistulas due to chrones disease, volume overload, and cellulitis. 1) Chrones disease with multiple fistulas 2) Multiple pelvic abcesses 3) status post colonostomy 4) Morbid obestity BMI 54.8 5) mastitis of left breast 6) unilateral nephrectomy previous 7) cellulitis on left abdomen 8) normocytic anemia Plan: 1) continue antibiotics, repeat blood culture 2) Surgical management of fistulas if needed 3) Wound care for cutaneous abscesses 4) Increase Furosemide from 40mg to 80mg 5) transfusion is hemoglobin trends down further below 7 6) Measure Serum Albumin (Rosa Mejia) I have seen and examined Ms Koch today. I agree with the above findings and plan. (Michael Telles)
[2019-08-23] MEDS: NS IV SCH (09:47)
[2019-08-23] MEDS: LEXAPRO PO SCH ×2 (09:47→22:04)
[2019-08-23] MEDS: BUSPAR PO SCH ×3 (09:47→22:04)
[2019-08-23] MEDS: CUBICIN IV SCH (09:47)
[2019-08-23] MEDS: BENTYL PO SCH ×2 (09:48→22:04)
[2019-08-23] MEDS: ZYLOPRIM PO SCH (09:48)
[2019-08-23] MEDS: LIALDA PO SCH ×4 (09:48→22:14)
[2019-08-23] MEDS: CULTURELLE PO SCH ×2 (09:48→22:03)
[2019-08-23] MEDS: LOPRESSOR PO SCH ×3 (09:48→22:03)
[2019-08-23] MEDS: GLUCOSAMINE 500 MG/CHONDROITIN 400 MG PO SCH (09:48)
[2019-08-23] MEDS: ELIQUIS PO SCH ×2 (09:48→22:03)
[2019-08-23] MEDS: PRILOSEC PO SCH (09:49)
[2019-08-23] MEDS: THERA M PLUS PO SCH ×2 (09:49→22:04)
[2019-08-23] MEDS: LASIX IV SCH ×2 (09:49→22:05)
[2019-08-23] MEDS: LANOXIN PO SCH (09:50)
[2019-08-23] MEDS: MYCAMINE 100 MG in NS 100 ML IV SCH (12:03)
--- NOTE | 2019-08-23 12:37 | INFECTIOUS DISEASE PROGRESS NO ---
DATE: 08/23/2019 PRESENT ILLNESS: The patient has the following infections: 1. Colocutaneous fistula, which has grown Proteus mirabilis. 2. Abdominal wound infections. 3. Urinary tract infection 4. Staphylococcus epidermidis bacteremia, which most likely originated from the patient's Port-A-Cath on the right side. 5. Fungal dermatitis involving the groin and axilla. 6. Cellulitis of the left arm and left breast, which is improving. MEDICATIONS: The patient has been on daptomycin for 4 days, and Rocephin for 3 days, and micafungin for 5 days. The patient also is receiving micafungin for presumed fungal dermatitis involving the abdominal wall and pelvic area. PHYSICAL EXAMINATION: Vital Signs: Temperature is 98.8 degrees, pulse 70, respirations 18, blood pressure is 125/60. General: This is a morbidly obese, middle-aged female. She does not appear to be in any acute distress. HEENT: She can hear my spoken words and see near objects. No drainage is noted from the nose or ears. Neck: No pain with movement. Lungs: Distant breath sounds. Cardiovascular: The patient also has distant heart tones. Abdomen: Soft. The patient has wounds and draining fistulae. Overall, the wounds are looking less erythematous, and in the case of the patient's left arm and breast, both the arm and breast are less erythematous and less swollen. Neurologic: Currently, the patient is sleeping. There is no tremor. Chest: Portacath is present on the right side. The site is not red or purulent. LABORATORY DATA: The patient's creatinine is 1.7. GFR is 31. CBC shows a white count of 4400, hemoglobin 7.4, and platelet count 181,000. ASSESSMENT AND PLAN: I will continue daptomycin, Rocephin and micafungin for the infections listed under Present Illness. Also a Ck will be ordered for tomorrow. COMORBIDITIES: She is morbidly obese. She is bedridden. She has obstructive sleep apnea, chronic atrial fibrillation, diabetes mellitus, Crohn's disease, gastroesophageal reflux disease, history of nephrectomy, and renal failure. cc: MD EULALIA Encinas
[2019-08-23] MEDS: ROCEPHIN 2 GM in NS 50 ML IV SCH (14:42)
[2019-08-23] MEDS: ALBUMIN 25% IV SCH (17:00)
[2019-08-23] MEDS: DESYREL PO SCH (22:03)
[2019-08-23] MEDS: DITROPAN PO SCH (22:04)
[2019-08-24] MEDS: PERCOCET-10 PO PRN ×5 (00:56→23:33)
[2019-08-24] MEDS: NEURONTIN PO SCH ×3 (06:48→23:12)
[2019-08-24 07:22] LABS: HEMATOCRIT 26.3 % (37.0-47.0); HEMOGLOBIN 7.4 g/dL (12.0-16.0); MCH 24.7 PG (27-31); MCHC 28.1 g/dL (33-37); MCV 87.7 FL (81-99); MPV 9.3 FL (7.4-10.4); RDW 18.7 % (11.5-14.5); WBC 3.67 X1000 (4.8-10.8)
[2019-08-24] MEDS: HUMALOG SUBQ SCH ×4 (07:38→23:21)
[2019-08-24 07:42] LABS: CREATININE 1.8 mg/dL (0.5-0.9); POTASSIUM 4.7 mmol/L (3.5-5.1)
--- NOTE | 2019-08-24 08:27 | PROVIDER PROGRESS NOTE ---
Progress Note Subjective 53 year old morbidly obese with chrones disease presents with multiple draining pelvic abscesses. She has recently noticed left breast redness and swelling as well. The breast swelling is better than it was on arrival PMH: She has a colostomy. She was diagnosed with chrones in 2014. She is not taking any immunotheraphy currently, she tried some medications before but they didn't seem to help. She can not afford to try any other medications at this time. She her right kidney removed due to renal cell carcinoma, so her nephrolo gist said she can not have any sulfa drugs. She had a femur fracture in November 2018 and she has been relatively immobilized since then, within the past 2 months she has been bed bound. 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 is at the bed side during the time of encounter Objective VS: Blood pressure , pulse , respirations , temp oral , O2 I/Os: negative balance with removed from Marshall and colostomy bag Physical Exam general: Affect great, very pleasant to talk to and well informed about her condition, very supportive at the bedside. HEENT- mucosa moist, back of throat is erythematous, no anterior cervical lymphadenopathy, PEERL. Pinpoint bleed on superior hard palate on left side. Chest- Sternal port at midline, heart S1, S2 are distant RRR n mgr Breast- left marked redness past the aerola, marked tenderness upon palpation, redness expands under breast tissue. Right side is unremarkable Lungs- clear to auscultation bilaterally, no crackles or wheezing Abdomen-midline functioning colostomy bag. There are 2 draining fistulas present along the left inguinal line, there is a surgical incision for drainage higher up on the panus that is covered by wound care. There are vertical raised striae leading to this abdominal fistula that are markedly erythematous on the left side. Right side has stria but they are minimally raised and non erythematous. Pubic- there are multiple indentations that were reported to have bleed a few days ago. Extremity- Pedal pulses are not palpable. Severe 4+ pitting edema on her legs and dorsal feet. Labs: wbc hemoglobin hematocrit platelets sodium chloride BUN Glucose potassium bicarb creatinine calcium Blood cultures drawn from port grew staph epidermadis Assessment: 53 year old morbidly obese female with multiple fistulas due to chrones disease, volume overload, and cellulitis. 1) Chrones disease with multiple fistulas 2) Multiple pelvic abcesses 3) status post colonostomy 4) Morbid obestity BMI 54.8 5) mastitis of left breast 6) unilateral nephrectomy previous 7) cellulitis on left abdomen 8) normocytic anemia Plan: 1) continue antibiotics, repeat blood culture 2) Surgical management of fistulas if needed 3) Wound care for cutaneous abscesses 4) Increase Furosemide from 40mg to 80mg 5) transfusion is hemoglobin trends down further below 7 6) Measure Serum Albumin (Rosa Mejia) I have seen and examined Ms Koch today. I agree with the above findings and plan. (Michael Telles)
[2019-08-24] MEDS: THERA M PLUS PO SCH ×2 (09:27→23:14)
[2019-08-24] MEDS: BENTYL PO SCH ×2 (09:27→23:13)
[2019-08-24] MEDS: PRILOSEC PO SCH (09:27)
[2019-08-24] MEDS: ELIQUIS PO SCH ×2 (09:27→23:13)
[2019-08-24] MEDS: LIALDA PO SCH ×3 (09:28→23:18)
[2019-08-24] MEDS: DITROPAN PO SCH ×2 (09:28→23:14)
[2019-08-24] MEDS: LEXAPRO PO SCH ×2 (09:28→23:13)
[2019-08-24] MEDS: LASIX IV SCH ×2 (09:28→23:12)
[2019-08-24] MEDS: LANOXIN PO SCH (09:29)
[2019-08-24] MEDS: GLUCOSAMINE 500 MG/CHONDROITIN 400 MG PO SCH (09:29)
[2019-08-24] MEDS: ZYLOPRIM PO SCH (09:29)
[2019-08-24] MEDS: CULTURELLE PO SCH ×2 (09:29→23:13)
[2019-08-24] MEDS: CUBICIN IV SCH (09:33)
[2019-08-24] MEDS: NS IV SCH (09:33)
[2019-08-24] MEDS: BUSPAR PO SCH ×3 (09:34→23:12)
[2019-08-24] MEDS: LOPRESSOR PO SCH ×3 (09:34→23:13)
[2019-08-24] MEDS: MYCAMINE 100 MG in NS 100 ML IV SCH (11:23)
--- NOTE | 2019-08-24 13:13 | PROGRESS NOTE ---
DATE: 08/24/2019 SUBJECTIVE: Ms. Koch is a 53-year-old morbidly obese female who presented to the emergency room with excessive swelling and multiple pelvic abscesses secondary to her Crohn's disease. Her comorbidity includes morbid obesity with a BMI of 54.8, Crohn's disease, obstructive sleep apnea, chronic atrial fibrillation, diabetes mellitus, gastroesophageal reflux, right nephrectomy. Today, she feels well. Her abscesses were dressed this morning with heavy fluid drainage from the medial abscess. Her feet hurt less today than they did yesterday from the swelling. OBJECTIVE: Vital signs: BP 145/67, pulse 79, temperature 98.5, 99% on room air, 16 respirations per minute. I/Os: She is a negative balance of 400 mL. She had 4725 taken off with her Marshall and 400 mL taken off with her colostomy. PHYSICAL EXAMINATION: General: She appears pleasant. She is responsive to questioning. HEENT:Mucosa is moist. Erythema in the posterior pharynx. She endorses that she has a really bad postnasal drip. There is no petechiae on the top of her palate that was noted yesterday. Cardiac: Her heart sounds are really distant. There is S1 and S2 faintly present. There is no murmur, gallop, or rub. Lungs: Today, she has an inspiratory wheeze at her lung bases Chest: On her anterior chest, she has a Port-A-Cath in the midline.There is a left breast cellulitis that goes into her axilla, from yesterday it is markedly different because there is now some thickening of the red skin. She is tender to palpation on the breast. Abdomen: Midline functioning colostomy and two draining colocutaneus fistulas along the inguinal line. Also on her abdomen, she has multiple vertical striae that are more pronounced and erythematous on the left side of her body. She has a surgical wound on the left side of her abdomen that was created to help drain the fistulas. In her pubic region, she has diffuse red splotches along the inguinal area, presumptively fungal Extremities: She has 4+ pitting edema in both of her legs. She is wearing multilayered compression wrap. There is no significant improvement of her edema since yesterday. LABORATORY: white blood cell count is 3.67, hemoglobin is 7.4, hematocrit is 26.3, platelet count is 145. Sodium level is 138, chloride is 101, BUN is 26, glucose is 125, potassium is 4.7, bicarbonate is 29, creatinine is 1.8, and calcium is 9.0. Repeat blood cultures that were taken 48 hours ago are negative today after 48 hours, so I think her port was infected with Staphylococcus epidermidis earlier. ASSESSMENT: She is a 53-year-old morbidly obese woman with swelling and multiple fistulas in her inguinal area. 1. Excessive edema 2. Morbid obesity, body mass index of 54.8. 3. Mastitis of the left breast, extending into axilla 4. Cutaneous fungal infection of her pelvic intertrigo region 5. Two draining pelvic abscesses with colocutaneous fistulas measuring 4-6 cm. 6. Staph epidermidis bacteremia, resolved, repeat blood cultures were negative PLAN: 1. Continue her antibiotics for her mastitis and her abscesses. 3. Continue antifungal treatment with cream and consult Dr. Aceves for any further adjustments. 4. Continue wound care until the patient is stable and ready for discharge. 5. Continue diuresis with furosemide. 6. Disposition: I think we will discharge her once we get her fluids under control and can see improvement in her fistulas. Dictated by Rosa Mejia, Medical Student for Michael Telles MD This chart was documented by, Rosa Mejia, Medical Student and accurately reflects the services performed, treatment plan and medical decisions as attested by the providers signature Michael Telles MD. cc: Michael Telles MD [facility]
[2019-08-24] MEDS: ROCEPHIN 2 GM in NS 50 ML IV SCH (14:09)
[2019-08-24] MEDS: ALBUMIN 25% IV SCH (18:09)
[2019-08-24] MEDS: DESYREL PO SCH (23:14)
[2019-08-25] MEDS: PERCOCET-10 PO PRN ×3 (03:46→16:17)
[2019-08-25] MEDS: NEURONTIN PO SCH ×2 (05:56→16:16)
[2019-08-25] MEDS: HUMALOG SUBQ SCH ×4 (06:42→20:10)
[2019-08-25] MEDS: LEXAPRO PO SCH ×2 (08:20→20:07)
[2019-08-25] MEDS: ZYLOPRIM PO SCH (08:21)
[2019-08-25] MEDS: PRILOSEC PO SCH (08:22)
[2019-08-25] MEDS: LIALDA PO SCH ×3 (08:22→20:24)
[2019-08-25] MEDS: CULTURELLE PO SCH ×2 (08:22→20:05)
[2019-08-25] MEDS: ELIQUIS PO SCH ×2 (08:23→20:07)
[2019-08-25] MEDS: BUSPAR PO SCH ×3 (08:23→20:04)
[2019-08-25] MEDS: GLUCOSAMINE 500 MG/CHONDROITIN 400 MG PO SCH (08:23)
[2019-08-25] MEDS: THERA M PLUS PO SCH ×2 (08:24→20:09)
[2019-08-25] MEDS: BENTYL PO SCH ×2 (08:24→20:02)
[2019-08-25] MEDS: DITROPAN PO SCH ×2 (08:24→20:06)
[2019-08-25] MEDS: LANOXIN PO SCH (08:27)
[2019-08-25] MEDS: LOPRESSOR PO SCH ×3 (08:28→20:08)
[2019-08-25] MEDS: LASIX IV SCH ×2 (09:12→20:07)
[2019-08-25] MEDS: NS IV SCH ×2 (09:12→11:27)
[2019-08-25] MEDS: CUBICIN IV SCH ×2 (09:12→11:27)
[2019-08-25] MEDS: ALBUMIN 25% IV SCH (10:25)
[2019-08-25 11:25] LABS: ALBUMIN 2.8 g/dL (3.5-5.0); CALCIUM 8.5 mg/dL (8.8-10.2); CREATININE 1.9 mg/dL (0.5-0.9); PHOSPHORUS 3.2 mg/dL (2.7-4.5); POTASSIUM 4.5 mmol/L (3.5-5.1)
--- NOTE | 2019-08-25 12:37 | PROGRESS NOTE ---
DATE: 08/25/2019 SUBJECTIVE: Ms. Koch is a 53-year-old morbidly obese female with Crohn's disease, obstructive sleep apnea, chronic atrial fibrillation, diabetes mellitus, gastroesophageal reflux disease, and renal failure. Today I got some more information about her past medical history to clarify some points. In 2010, her RESCUE WORKER, who is Dr. Ponce, he did an endometrial ablation for her because she had really bad periods. Possibly due to severe endometriosis. She has not gotten any screening mammogram since 2010. In 2014, she was diagnosed with renal cell carcinoma of her right kidney, and she had a surgery to remove just the cancer from her kidney. The cancer was removed from her right kidney. a while later, they found in her left ureter she had a tumor and her left kidney and urerter were removed. So she still has part of her right kidney. During this time, she also saw her GI Dr. Gann, who diagnosed her with Chron disease. Back in November of 2018, she fell and broke her right femur, so she has been relatively immobilized since then, Today she refers to be doing well. She looks better with her swelling. She is feeling a little bit better, but she is still not able to move like she used to. She says that she still has some nasal drainage, but it has gotten a little bit better. Her left breast is still really tender, but the swelling has gone down. She notes that the swelling had been bothering her for a week before she was admitted to the hospital. I have counseled her to see her RESCUE WORKER after she gets out of the hospital. OBJECTIVE: Vital signs: Blood pressure 129/66, heart rate 75 beats per minute, temperature 98.2, respirations 18, oxygen saturation 100% on room air. Her fluid is a negative balance of 1375 mL with 2350 mL in her Marshall and 625 mL in her fecal device. General: She is a pleasant, alert, oriented, responsive to questioning. HEENT: The back of her throat still has erythema. It looks a little bit worse than it did yesterday. Chest: She has a Port-A-Cath in her sternum midline. Her left breast remarkably looks concerning. She has mild nipple inversion when compared to the right side. She has "peau d' orange" of her skin, which looks like puckering. Cardio: regular rate and rhythm, but the heart sounds are very, very distant because of her body structure. I do not hear a murmur, gallop or rub. Lungs: diffuse expiratory wheeze in the lower lung bases. Abdomen: colostomy to the right of midline. Multiple raised vertical striae, erythematous on left, less raised than previosuly noted. She has 2 wounds in her left inguinal intertriginous region that are colocutaneous fistula secondary to her Crohn's disease. She has a surgical wound on her left side superior to the inguinal fistulas that was used by surgery to help drain with the abscesses. Extremity: The swelling in her legs would still be considered 4+, but it has been going down. There is visible wrinkling of the skin in her hands and in her feet. She is wearing the Unna boots, and they are going to redress them today. MEDICATIONS: She is being continued albumin, furosemide, and antibiotics. DIAGNOSTIC DATA: Labs: No new cbc. sodium 136, potassium 4.5, chloride 99, bicarbonate 28, creatinine 1.9, glucose 132, calcium 8.5 ASSESSMENT: Generally, she is a 53-year-old morbidly obese woman with swelling and multiple fistulas in her inguinal area. She has concern for possible mastitis in her left breast. 1. Excessive edema. 2. Morbid obesity with body mass index of 54.8. 3. Mastitis of left breast extending into the axilla with palpable axillary lymph nodes. 4. Cutaneous fungal infection of her pelvic intertriginous region. 5. Draining pelvis abscesses with colocutaneous fistulas measuring 4 to 6 cm. 6. Staphylococcus epidermidis bacteremia, resolved. Repeat blood cultures were negative. 7. Acute kidney injury,creatine 1.9 PLAN: 1. Antibiotics for her mastitis and her abscesses. 2. Antifungal treatment cream for the intertriginous region. 3. Wound care 4. Unna boots with regular changing 5. Furosemide for swelling 6. F/u with OBGYN for mamogram of both breasts DISPOSITION: I think we will discharge her once we get her fluids under control and can see improvement in her fistulas. Upon discharge, I would like her to go back to see Dr. Ponce to get a screening mammogram done for her left breast which is still relatively concerning but can be handled outpatient. Dictated by Rosa Mejia, Medical Student for Michael Telles MD This chart was documented by, Rosa Mejia, Medical Student and accurately reflects the services performed, treatment plan and medical decisions as attested by the providers signature Michael Telles MD. cc: Michael Telles MD [facility]
[2019-08-25] MEDS: MYCAMINE 100 MG in NS 100 ML IV SCH (12:58)
[2019-08-25] MEDS: ROCEPHIN 2 GM in NS 50 ML IV SCH (15:16)
--- NOTE | 2019-08-25 17:58 | INFECTIOUS DISEASE PROGRESS NO ---
DATE: 08/25/2019 PRESENT ILLNESS: Ms. Koch is being treated for an abdominal wound and urinary tract infection which have both grown Escherichia coli. She also has a colocutaneous fistula which has grown Proteus mirabilis. There is also a Staphylococcus epidermidis bacteremia. She has a fungal dermatitis to the groin and axilla which are improving and there is also a left upper arm and left breast cellulitis which is improving as well. MEDICATIONS: Based on her sterile blood cultures today is day 3 of treatment for her bacteremia using daptomycin 1000 mg IV daily. She is also on Rocephin 2 g IV every 24 hours and micafungin 100 mg IV every 24 hours. PHYSICAL EXAMINATION: Vital Signs: Temperature is 98.2 degrees, pulse rate 75, respiratory rate 18, blood pressure 129/66, O2 saturation 100% on room air. General: This is a chronically ill- appearing, morbidly obese, middle-aged female. She is lying in bed, currently in no acute distress. HEENT: Atraumatic, normocephalic. Oral mucous membranes are pink and moist. Conjunctivae are pale. Neck: Supple. Trachea is midline. Respiratory: Lung sounds are clear and diminished bilaterally. No work of breathing is noted. Cardiovascular: Irregularly irregular with atrial fibrillation on the monitor. Abdomen: Soft, obese and tender to palpation more so on the left. Bowel sounds are active. Integumentary: She has a Port-A-Cath to the right chest. Site is without edema, erythema, or drainage. There is a fungal dermatitis to the axilla and groin which is improving. Also the cellulitis to her left upper arm and left breast are improving. There is some erythema to the left upper arm and breast, however edema has gone down considerably. The left side of her abdomen also continues to have a cellulitis with two open fistulae under the abdominal pannus which are clean with bloody drainage noted. The abdominal wound has a small amount of bloody/bonilla drainage. Neurologic: She is awake, alert, oriented, and requires assistance to move side to side in the bed due to her size and lower extremity weakness. LABORATORY AND X-RAY: Today her white count is 3.67, hemoglobin 7.4, platelet count 145,000. Creatinine is 1.8. GFR is 29. Creatine kinase today was 27. She previously had a Staphylococcus epidermidis bacteremia as well as an Escherichia coli in her urine and abdominal wounds and a Proteus mirabilis that grew from her fistula. No imaging reports today. ASSESSMENT AND PLAN: Ms. Koch is being treated for a Staphylococcus bacteremia, colocutaneous fistulas, abdominal wound, a urinary tract infection, fungal dermatitis, and left upper extremity and left breast cellulitis. She is generally improving and is feeling better today. There is less redness to the areas of the fungal dermatitis to her axilla and groin. Also the cellulitis to the left breast and left upper arm are improving. The fistulas look very clean. The plan will be to continue her daptomycin. Unfortunately her GFR has gone below 30, so we will have to change the daptomycin to every 48 hours and will continue the Rocephin and micafungin as ordered. These plans have been discussed with and recommended by Dr. Aceves. COMORBIDITIES: For Ms. Koch include morbid obesity, obstructive sleep apnea, chronic atrial fibrillation, diabetes mellitus, Crohn disease, gastroesophageal reflux disease and history of nephrectomy with renal insufficiency. Dictated by PETER Salgado for Drew Aceves MD cc: Drew Aceves MD [facility]
--- NOTE | 2019-08-25 21:34 | GENERAL SURGERY PROGRESS NOTE ---
DATE: 08/25/2019 Clinically she is about the same. She is sleeping currently. I did not wake her. I do not see any fevers or tachycardia documented. On exam she is alert, in no acute distress. I reviewed her labs. Creatinine continues to worsen, it is up to 1.9. ASSESSMENT AND PLAN: This is a female with multiple issues. She has a Crohn's related fistula. She has been diverted. I do not see any evidence of undrained infection. She has worsening renal function in the setting of cirrhosis. Apparently, she has some cellulitis of the left breast. I have not been able to examine this yet but we will and she will need to follow this to resolution. Unclear when she had her last mammogram. We will follow along but continue local wound care and skin protection. I do not plan anything surgically at this juncture. cc: Rakesh Beckwith MD
[2019-08-26] MEDS: NEURONTIN PO SCH ×3 (00:30→17:00)
[2019-08-26] MEDS: PERCOCET-10 PO PRN ×5 (00:30→18:49)
[2019-08-26] MEDS: DESYREL PO SCH ×2 (00:30→21:03)
[2019-08-26] MEDS: HUMALOG SUBQ SCH ×4 (07:44→21:28)
[2019-08-26] MEDS: LASIX IV SCH ×2 (08:56→21:03)
[2019-08-26] MEDS: ELIQUIS PO SCH ×2 (08:56→21:03)
[2019-08-26] MEDS: LOPRESSOR PO SCH ×3 (08:57→21:03)
[2019-08-26] MEDS: DITROPAN PO SCH ×2 (08:57→21:02)
[2019-08-26] MEDS: THERA M PLUS PO SCH ×2 (08:57→21:03)
[2019-08-26] MEDS: BENTYL PO SCH ×2 (08:57→21:03)
[2019-08-26] MEDS: PRILOSEC PO SCH (08:57)
[2019-08-26] MEDS: BUSPAR PO SCH ×3 (08:58→21:03)
[2019-08-26] MEDS: CULTURELLE PO SCH ×2 (08:58→21:02)
[2019-08-26] MEDS: ZYLOPRIM PO SCH (08:58)
[2019-08-26] MEDS: LEXAPRO PO SCH ×2 (08:58→21:03)
[2019-08-26] MEDS: GLUCOSAMINE 500 MG/CHONDROITIN 400 MG PO SCH (08:59)
[2019-08-26] MEDS: LANOXIN PO SCH (08:59)
[2019-08-26] MEDS: LIALDA PO SCH ×2 (08:59→21:02)
[2019-08-26] MEDS: MYCAMINE 100 MG in NS 100 ML IV SCH (11:28)
--- NOTE | 2019-08-26 13:04 | PROGRESS NOTE ---
DATE: 08/26/2019 SUBJECTIVE: I have seen and examined Ms. Koch today. Ms. Kohc refers to be doing a lot better. Still has some lower extremity swelling, but she feels it is getting better. OBJECTIVE: Vital signs: Blood pressure is 120/40, pulse of 83, respirations 16, temperature is 100 degrees. The patient is saturating 97% on room air. General: Ms. Koch is a 53-year- old, morbidly obese, female. BMI is 54.8. She is in bed, no seemingly distress. Head/Neck: Mucosa is pink and moist. Anicteric. Acyanotic. Neck is supple. Chest: Good air entry bilaterally. There are no crepitations, no rhonchi. Cardiovascular: Regular rate and rhythm. No murmurs. Abdomen: Soft, is distended. Bowel sounds present. There is a colostomy on the right side of the abdominal wall. There is raised vertical striae. There are erythematous changes on the abdominal wall as well. There are multiple wounds on the lower abdomen from colocutaneous fistula from the Crohn's. The patient has a Marshall catheter in place. Extremities: About 4+ pedal edema bilaterally. The patient has Unna boots. The left breast is also minimally swollen, but it looks like it is getting better. LABORATORY DATA: Microbiology, repeat blood cultures from August 22 is negative. ASSESSMENT: 1. Infected colocutaneous fistulas with fistula culture showing Proteus mirabilis and Escherichia coli. The patient is on antimicrobial coverage. 2. Staphylococcus epidermidis bacteremia. Subsequent blood cultures have been negative. 3. Escherichia coli urinary tract infection. 4. Normocytic anemia. The patient is status post 2 packed red blood cells transfusions, hemoglobin and hematocrit are fairly stable. 5. Complicated Crohn disease with colocutaneous and colovesicular fistulas. 6. Left mastitis. We will continue with antimicrobial coverage. 7. Anasarca. We will continue with diuretics and albumin infusion. 8. Acute kidney injury. We will continue to monitor the patient's renal function. cc: Michael Telles MD
[2019-08-26] MEDS: ROCEPHIN 2 GM in NS 50 ML IV SCH (13:27)
--- NOTE | 2019-08-26 16:42 | GENERAL SURGERY PROGRESS NOTE ---
DATE: 08/26/2019 SUBJECTIVE: Feels okay, low-grade fever overnight of 100, urine is more particular this morning. Pulse 73, blood pressure 129/58, oxygen saturation 95%. General: She is alert. Cardiovascular: Normal rate. Abdomen: Is obese, soft, she has dressing in place lower abdomen. Breasts: She has some thickening of the skin on her left breast and fading cellulitis. No adenopathy, no discrete mass, no nipple discharge. Right breast is large but no skin changes, no mass, no lymphadenopathy. She has Unna boots in place bilaterally. I reviewed her labs. ASSESSMENT AND PLAN: A 53-year-old female with diffuse anasarca, worsening renal dysfunction. She has colocutaneous fistula, cirrhosis, Crohn disease as well as recent femur fracture, she also has mastitis unclear etiology. She has not had a mammogram in a long time due to immobility. I discussed importance of this and we may obtain this before she leaves. I suspect this is more diffuse anasarca. She has a lot of these changes over the left side of her abdomen and lower extremities as well but it is different from the contralateral side. Will follow along. cc: Rakesh Beckwith MD
[2019-08-26] MEDS: ALBUMIN 25% IV SCH (16:45)
[2019-08-27] MEDS: NEURONTIN PO SCH ×2 (03:37→08:28)
[2019-08-27] MEDS: PERCOCET-10 PO PRN ×2 (03:38→08:27)
[2019-08-27] MEDS: HUMALOG SUBQ SCH ×4 (06:30→20:54)
[2019-08-27 07:22] LABS: HEMATOCRIT 27.3 % (37.0-47.0); HEMOGLOBIN 7.4 g/dL (12.0-16.0); MCH 23.9 PG (27-31); MCHC 27.1 g/dL (33-37); MCV 88.1 FL (81-99); MPV 9.3 FL (7.4-10.4); RBC 3.1 XMIL (4.2-5.4); RDW 18.9 % (11.5-14.5); WBC 6.39 X1000 (4.8-10.8)
[2019-08-27 08:08] LABS: ALBUMIN 3.2 g/dL (3.5-5.0); CREATININE 2.4 mg/dL (0.5-0.9); PHOSPHORUS 3.4 mg/dL (2.7-4.5)
[2019-08-27 08:14] LABS: POTASSIUM 5.3 mmol/L (3.5-5.1)
[2019-08-27] MEDS: LOPRESSOR PO SCH ×3 (08:23→20:56)
[2019-08-27] MEDS: BUSPAR PO SCH ×2 (08:23→13:00)
[2019-08-27] MEDS: PRILOSEC PO SCH (08:23)
[2019-08-27] MEDS: CULTURELLE PO SCH ×2 (08:24→20:55)
[2019-08-27] MEDS: GLUCOSAMINE 500 MG/CHONDROITIN 400 MG PO SCH (08:25)
[2019-08-27] MEDS: LEXAPRO PO SCH (08:25)
[2019-08-27] MEDS: DITROPAN PO SCH (08:25)
[2019-08-27] MEDS: LIALDA PO SCH ×2 (08:25→20:55)
[2019-08-27] MEDS: ZYLOPRIM PO SCH (08:25)
[2019-08-27] MEDS: LANOXIN PO SCH (08:26)
[2019-08-27] MEDS: THERA M PLUS PO SCH ×2 (08:26→20:56)
[2019-08-27] MEDS: BENTYL PO SCH (08:26)
[2019-08-27] MEDS: ELIQUIS PO SCH ×3 (08:26→20:55)
[2019-08-27] MEDS: LASIX IV SCH (08:27)
[2019-08-27] MEDS: ALBUMIN 25% IV SCH (08:29)
[2019-08-27] MEDS ORDERED: NEURONTIN PO SCH (09:00)
[2019-08-27] MEDS: CUBICIN IV SCH (09:36)
[2019-08-27] MEDS: NS IV SCH (09:36)
[2019-08-27] MEDS: ZOFRAN IV PRN (11:35)
[2019-08-27 11:59] LABS: UR CREAT RANDOM 178.5 mg/dL (11-20)
[2019-08-27] MEDS: MYCAMINE 100 MG in NS 100 ML IV SCH (12:51)
--- NOTE | 2019-08-27 12:58 | Diag Imaging Result Doc PS360 ---
EXAM: US RENAL 2 (RETROPER) COMPLETE - 08/27/2019 HISTORY: rip/arf TECHNIQUE: Renal ultrasound COMPARISON: 11/22/2018 FINDINGS: The right kidney measures 12.8 x 6.5 x 6.6 cm in size, and has cortical thickness of approximately 2 cm. There is no right renal mass, stone, or hydronephrosis identified. The left kidney is surgically absent. The urinary bladder is apparently decompressed by Marshall catheter and/or obscure by bowel gas artifacts and is not visualized. IMPRESSION: No visible right renal abnormality. Electronically signed by Dereck Calderon 08/27/2019 12:56 PM
--- NOTE | 2019-08-27 13:15 | PROGRESS NOTE ---
DATE: 08/27/2019 SUBJECTIVE: This morning, Ms. Koch refers to be feeling sick. I understand she vomited one time. She is not as coherent as yesterday. OBJECTIVE: Vital Signs: Blood pressure is 115/45, pulse of 82, respirations are 16, temperature is 98.4 degrees, patient is saturating about 90%. General Examination: Ms. Koch is a 53- year-old, female, morbidly obese with a BMI of 54.8. She is in bed. She does not seems to be in any cardiopulmonary distress but she is not coherent as yesterday. Neck: Supple. There is positive JVD. Chest: Air entry is bilaterally reduced. Some crackles posteriorly. Cardiovascular: Regular rate and rhythm. No murmurs, no rubs, no gallops. GI: Abdomen is soft. It is remarkably distended globally. There is some old infraumbilical surgical scar. There is a colostomy on the mid right side of the abdominal wall. There is raised vertical striae. There are erythematous changes on the entire abdominal wall, lower abdominal wall, more so on the left side. There are multiple wounds in the lower abdomen from the colocutaneous fistulas from the Crohn's. Marshall catheter is in place. The patient has about 4+ pedal edema bilaterally. Unna boots are on board. There left breast swelling and erythematous as well. BAND CUTTER: The patient is lethargic. She would open her eyes and talk but then go right back to sleep. There is some jerking movement of the left upper extremity. Laboratory Data: Has been reviewed. CBC shows hemoglobin 7.4. Rest of CBC is normal. Chemistry showed potassium of 5.3, BUN is up to 36, and creatinine is up to 2.4, bicarbonate is 28. Urine studies have also been noted with a urine nitrogen of 156, urine sodium was 144. The patient used to be on Lasix. This has been discontinued today. Repeat blood cultures have been 48 hours negative. No recent imaging studies. ASSESSMENT: 1. 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 Patient is on antimicrobial coverage. Gastroenterology and infectious disease are on board. 2. Staphylococcus epidermidis bacteremia. The patient is on daptomycin. Repeat blood cultures have been 48 hours negative. 3. Normocytic anemia. Patient is status post 2 units of packed red blood cell transfusion. 4. Complicated Crohn's disease with colocutaneous and colovesicular fistulizations. 5. Left mastitis. 6. Anasarca. The patient continues to be on albumin. She is edematous everywhere except the upper extremities. Her urinalysis seems to suggest a FENA of less than 1% and the fraction of BUN also at 5.8%, which will all be consistent with an intravascular depletion. I think Ms. Koch is third-spacing. We are going to continue with the albumin. I have, however, discontinued the Lasix and nephrology has been consulted. 7. Worsening acute kidney injury. Would avoid any nephrotoxins at this point. Lasix has been discontinue and nephrology has been consulted. 8. Altered mental status. The patient is slightly lethargic this morning. I think that is probably all medication-induced in the setting of the renal failure. I have discontinued her gabapentin and the Percocet. 9. I have also review her medications and redosed the Eliquis. PLAN: In general, Ms. Koch looks remarkably sicker today. She is more lethargic. I think it is medication-induced, so I have discontinued the possible offending medications. Her kidney function continues to be worse. We have consulted nephrology and we have ordered urinary studies as well as a renal ultrasound. cc: Michael Telles MD
[2019-08-27] MEDS: ROCEPHIN 2 GM in NS 50 ML IV SCH (13:38)
--- NOTE | 2019-08-27 15:27 | Diag Imaging Result Doc PS360 ---
EXAM: CHEST-PORTABLE - 08/27/2019 HISTORY: sepsis TECHNIQUE: Portable chest COMPARISON: 08/18/2019 FINDINGS: The patient is rotated towards the left. There is cardiomegaly similar to prior. There are questionable infrahilar infiltrates versus artifacts from patient rotation and soft tissue overlap. There is no pleural effusion or pneumothorax identified. Central venous catheter remains in place. IMPRESSION: Stable cardiomegaly. Questionable infrahilar infiltrates versus artifacts. Electronically signed by Dereck Calderon 08/27/2019 3:25 PM
[2019-08-27 16:09] LABS: ALLEN TEST YES; BE 1.7 mmoll (-3.0-3.0); BLOOD TYPE ARTERIAL; HCO3-(ACT) 26.3 mmoll (20.0-26.0); METHB 0.3 % (0.0-1.5); O2(CT) 11.1 mL/dL (15.0-23.0); PO2(98.6) 134 mmHg (60-100); SAMPLE BLOOD; SAO2 97.4 % (95.0-100.0); pH(98.6) 7.32 (7.35-7.45)
[2019-08-27 16:10] LABS: MODALITY PRB; PCO2(98.6) 55 mmHg (35-45)
[2019-08-27 16:22] LABS: URINE SOURCE CATH
[2019-08-27 16:26] LABS: BILIRUBIN URINE NEGATIVE (NEGATIVE); BLOOD URINE LARGE (NEGATIVE); COLOR YELLOW; GLUCOSE URINE NEGATIVE (NEGATIVE); KETONE URINE TRACE mg/dL (NEGATIVE); LEUKOCYTES URINE LARGE (NEGATIVE); NITRITE URINE NEGATIVE (NEGATIVE); PH URINE 5.5; PROTEIN URINE 100 mg/dL (NEGATIVE); SP GRAVITY URINE 1.023; TURBIDITY URINE TURBID (CLEAR); UROBILINOGEN URINE NORMAL (NORMAL)
[2019-08-27 16:26] LABS: BASO# 0.01 X1000 (0.0-0.2); BASO% 0.1 % (0.0-0.8); EOS# 0.01 X1000 (0.0-0.7); EOS% 0.1 % (0.0-10.0); HEMATOCRIT 27.6 % (37.0-47.0); HEMOGLOBIN 7.5 g/dL (12.0-16.0); IMM GRAN# 0.02 X1000 (0.0-0.04); IMM GRAN% 0.3 % (0.0-0.5); LYMPH# 0.61 X1000 (1.2-3.4); LYMPH% 7.7 % (20.5-51.1); MCH 23.9 PG (27-31); MCHC 27.2 g/dL (33-37); MCV 87.9 FL (81-99); MONO# 0.17 X1000 (0.11-0.59); MONO% 2.1 % (1.7-9.3); MPV 9.3 FL (7.4-10.4); NEUT# 7.13 X1000 (1.4-6.5); NEUT% 89.7 % (42.2-75.2); PLT 204 X1000 (130-400); RBC 3.14 XMIL (4.2-5.4); RDW 18.7 % (11.5-14.5); WBC 7.95 X1000 (4.8-10.8)
[2019-08-27 16:28] LABS: UR EPITHELIAL CELLS <10 /HPF (<10); URINE BACTERIA 1+ /HPF; URINE RBC TNTC /HPF (<10); URINE WBC TNTC /HPF (<10)
[2019-08-27 16:40] LABS: URINE CASTS GRANULAR PRESENT; URINE CRYSTALS NONE SEEN; URINE YEAST PRESENT
[2019-08-27 16:50] LABS: ALB/GLOB RATIO 1.1; ALBUMIN 3.4 g/dL (3.5-5.0); CALCIUM 8.8 mg/dL (8.8-10.2); CREATININE 2.5 mg/dL (0.5-0.9); POTASSIUM 5.9 mmol/L (3.5-5.1); TOTAL BILIRUBIN 0.2 mg/dL (0.20-1.00); TOTAL PROTEIN 6.5 g/dL (6.3-8.3)
[2019-08-27 16:53] LABS: LYMPHS 2 % (21-51); MONO 1 % (1-9); SEGS 97 % (42-75)
[2019-08-27 16:54] LABS: ANISOCYTOSIS 1+; LARGE PLATELETS OCCASIONAL
[2019-08-27] MEDS ORDERED: CALCIUM GLUCONATE 2 GM in NS 100 ML IV ONE (16:57)
[2019-08-27] MEDS ORDERED: OFIRMEV 1000 MG/ISOTONIC SOLN 1,000 MG/100 ML BOTTLE IV PRN (16:57)
[2019-08-27] MEDS ORDERED: HUMULIN R SUBQ ONE (17:23)
[2019-08-27] MEDS ORDERED: D50W SYRINGE IV ONE (17:24)
[2019-08-27] MEDS ORDERED: ALBUTEROL 0.5% INH CONC FOR HYPERKALEMIA INH ONE (17:24)
[2019-08-27] MEDS: DOXYCYCLINE 100 MG in NS 250 ML IV SCH (18:33)
[2019-08-27] MEDS: MERREM 500 MG in NS 50 ML IV SCH (20:05)
[2019-08-27] MEDS ORDERED: NS 500 ML IV ONE (21:08)
[2019-08-27] MEDS ORDERED: ATROPINE SYRINGE IV PRN (21:10)
[2019-08-27] MEDS ORDERED: PERCOCET-5 PO ONE (23:23)
[2019-08-28 04:31] LABS: ALLEN TEST YES; BE 1.7 mmoll (-3.0-3.0); BLOOD TYPE ARTERIAL; HCO3-(ACT) 26.3 mmoll (20.0-26.0); PCO2(98.6) 42 mmHg (35-45); PO2(98.6) 116 mmHg (60-100); SAMPLE BLOOD; pH(98.6) 7.41 (7.35-7.45)
[2019-08-28 04:32] LABS: MODALITY BI PAP
[2019-08-28] MEDS: DOXYCYCLINE 100 MG in NS 250 ML IV SCH ×2 (05:52→18:20)
[2019-08-28 06:02] LABS: HEMATOCRIT 26.7 % (37.0-47.0); HEMOGLOBIN 7.3 g/dL (12.0-16.0); MCH 23.8 PG (27-31); MCHC 27.3 g/dL (33-37); MPV 9.9 FL (7.4-10.4); RBC 3.07 XMIL (4.2-5.4); RDW 18.7 % (11.5-14.5); WBC 5.75 X1000 (4.8-10.8)
[2019-08-28 06:05] LABS: C REACTIVE PROT QUANT 54.79 mg/L (0.00-5.00); CALCIUM 9.1 mg/dL (8.8-10.2); CREATININE 2.3 mg/dL (0.5-0.9); PHOSPHORUS 3.5 mg/dL (2.7-4.5); POTASSIUM 5.7 mmol/L (3.5-5.1)
[2019-08-28] MEDS: HUMALOG SUBQ SCH ×4 (06:07→21:05)
[2019-08-28] MEDS ORDERED: NS 500 ML IV ONE (06:16)
[2019-08-28] MEDS: LOKELMA POWDER PACKET PO SCH ×3 (08:38→16:21)
[2019-08-28] MEDS: MERREM 500 MG in NS 50 ML IV SCH ×2 (08:38→21:03)
[2019-08-28] MEDS: ALBUMIN 25% IV SCH (08:38)
[2019-08-28] MEDS: LIALDA PO SCH ×2 (08:39→21:02)
[2019-08-28] MEDS: VITAMIN D PO SCH (08:39)
[2019-08-28] MEDS: PRILOSEC PO SCH (08:39)
[2019-08-28] MEDS: ELIQUIS PO SCH ×2 (08:39→21:15)
[2019-08-28] MEDS: CULTURELLE PO SCH ×2 (08:39→21:03)
[2019-08-28] MEDS: LOPRESSOR PO SCH ×3 (08:39→21:01)
[2019-08-28] MEDS: THERA M PLUS PO SCH ×2 (08:40→21:02)
[2019-08-28] MEDS: LANOXIN PO SCH (08:40)
[2019-08-28] MEDS ORDERED: PERCOCET-5 PO PRN (11:14)
[2019-08-28] MEDS: PERCOCET-5 PO PRN ×2 (11:36→17:41)
[2019-08-28] MEDS: MYCAMINE 100 MG in NS 100 ML IV SCH (11:45)
--- NOTE | 2019-08-28 12:41 | PROGRESS NOTE ---
DATE: 08/28/2019 SUBJECTIVE: I have seen and examined Ms. Koch today. Ms. Koch is surprisingly much much better, looking more alert and conversational. She does say she does not really know what happened to her yesterday. She became fully aware at some point in the ICU, and she was questioning herself what she was doing there. Her was at the bedside at the time of the encounter. OBJECTIVE: Vital Signs: Blood pressure 129/69, pulse 74, respirations 19, and temperature 99 degrees. The patient's T-max is 101.6 degrees yesterday at 16:38. General: Ms. Koch is a 53-year-old female, morbidly obese, BMI of 59.8. She is in bed. She is not in any distress. HEENT: Mucosa is pink and moist. Anicteric. Acyanotic. Neck: Supple. Mild JVD is noted. Chest: Air entry is bilaterally reduced. There are some crackles in the posterior lung bryant. Cardiovascular: Regular rate and rhythm. No murmurs, no rubs, no gallops. GI: Abdomen is soft. It is remarkably distended. There is an old infraumbilical surgical scar. There is a colostomy on the middle right side of the abdominal wall. There is raised vertical striae noted. There are also some erythematous changes on the entire lower abdomen, more prominent on the left side going all the way to the left breast. There are multiple wounds in the lower abdomen from the colocutaneous fistulas. Marshall catheter is in place. Extremities: The patient also has about 4+ pedal edema. Unna opal in place bilateral. Breasts: The left breast continues to be swollen and erythematous. 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 She wants her pain medicines back. LABORATORY DATA: WBC is 5.75, hemoglobin 7.3, and platelet count of 176,000. ESR is 45. Chemistry is also reviewed. Sodium is 135, potassium is 5.7, BUN is 43, and creatinine is 2.3. C- reactive protein is also minimally elevated. Blood cultures so far have not shown anything. A repeat urine culture shows no growth. ASSESSMENT: 1. Altered mental status during the hospital course. I think it is probably medication induced in the setting of worsening renal failure. The patient's psychotropic medications were all withheld. This morning she looks more awake, alert, conversational, and she wants her medications back. 2. Infected colocutaneous fistula with cultures growing Proteus mirabilis and E. Coli. The patient is on antimicrobial coverage. 3. Staphylococcus epidermidis bacteremia. Patient is on daptomycin. Repeat blood cultures have been negative for 48 hours. Another blood culture was done yesterday when she was more confused and was spiking fever. We will follow up accordingly. 4. Bilateral infrahilar infiltrate concerning for pneumonia. The patient's antibiotics were changed yesterday to meropenem, and we have also added doxycycline with the hope to treat hospital associated pneumonia. 5. Complicated Crohn disease with colocutaneous and colovesicular fistulizations. The patient is on antimicrobial coverage. Surgery and GI on board. 6. Anasarca. We will continue with albumin infusion. Patient was also on Lasix however, her creatinine continues to get worse so this was withheld. 7. Acute on chronic renal failure in a single renal patient. Creatinine has been fairly stable overnight. Nephrology was consulted yesterday. 8. Electrolyte abnormality including hyperkalemia. The patient has been started on Lokelma. In general, Ms. Koch is a 53-year-old female who has been in the hospital for the past 11 days. Initially, she presented because of abscesses and fistulization from her Crohn's. She was found to have positive cultures, and she seems to have been doing well. However, during the hospital course, she was found to be remarkably volume overloaded so she was started on Lasix. However her kidney functions started to get worse. Lasix has been withheld. Yesterday, she became remarkably altered and confused, not recognizing anybody. We thought her regular home medications including gabapentin, Lexapro, trazodone, oxycodone, promethazine, and buspirone were causing some of her altered mentation. All of these medications were withheld. This morning she is a lot more awake and conversational. She is going to be transferred from the ICU to regular medical floor. We have started her back on a lower dose of oxycodone and gabapentin. We will continue to add her home medications as her mentation gets clearer. Her final disposition is going to depend on the rest of her hospital course. cc: Michael Telles MD [facility]
--- NOTE | 2019-08-28 15:54 | NEPHROLOGY CONSULTATION ---
DATE: 08/28/2019 REASON FOR ADMISSION: Abscess, chronic surgical wound. REASON FOR CONSULTATION: Acute on chronic kidney disease. CONSULTING PHYSICIAN: Dr. Shaw HISTORY OF PRESENT ILLNESS: This is a 53-year-old female known to our service for previous hospitalization and follow up with a solitary kidney and a baseline creatinine around . The patient has a colocutaneous fistula with intra-abdominal abscess related to her Crohn disease. History of Enterococcus in [facility] in the past. She came into the hospital for further workup and treatment. She did have a CT of the abdomen and pelvis without IV contrast secondary to her renal function. She has noted with a stable colocutaneous fistula. She has underwent a renal ultrasound the indicates right kidney size 12 cm and left kidney surgically removed. The patient has significant anasarca and has received albumin and Lasix. Urine output has been marginal, although her charting indicates she is significantly negative territory. It appears that earlier in the hospitalization she was putting out 3 to 4 to 6 L of urine a day. Again, over the last several days with this significant diuresis, creatinine has crept up. The patient, when I see her, remains significantly fluid overloaded. She has issues with perfusion and is currently on a BiPAP. PAST MEDICAL HISTORY: Crohn disease with colocutaneous fistula, colovesical fistula, renal cell carcinoma, paroxysmal atrial fibrillation, hyperlipidemia, diabetes type 2, hypertension, ureteral cancer and cirrhosis. 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 ALLERGIES: Adhesive tape and latex. HOME MEDICATIONS: Tylenol, Allopurinol, Eliquis, BuSpar, dicyclomine, digoxin, vitamin D2, Lexapro, Lasix, Neurontin, glucosamine, Integra, Culturelle, Lialda, delayed metoprolol, omeprazole, Neeses, Trazodone. FAMILY HISTORY: Noncontributory. SOCIAL HISTORY: She lives at home. She is essentially bedridden. No ETOH, tobacco, or illicit drug use. REVIEW OF SYSTEMS: Noted above in the HPI. PHYSICAL EXAMINATION: Vital Signs: Temperature 99 degrees, pulse 67, respiratory rate 18, blood pressure 110/58. Intake 1.3 L, output 1.2 L. 800 of this was urine output via Marshall catheter. General: This is a chronically ill-appearing, morbidly obese with anasarca female sitting up in bed. She is awake and alert. She is currently on a BiPAP. HEENT: Normocephalic, atraumatic. PERRL. Conjunctivae are pale. Oral mucosa appears dry. Neck: Thick, unable to determine JVD. Cardiovascular: Regular rate and rhythm. Pulmonary: She has decreased breath sounds. No wheezes, again on BiPAP. Abdomen: Morbidly obese. She has pitting edema up to the level of the breast bilaterally. : Marshall catheter. Extremities: She has Unna boots in place bilateral lower extremities with 4+ pitting edema. Integumentary: Skin is pale, warm, and dry. Colostomy bag intact. Dressing is in place. Neurologic: Nonfocal. LAB DATA: WBC of 5.7, hemoglobin 7.3. Sodium 135, potassium 5.7, CO2 25, BUN 43, creatinine 2.3. She has a FENA of 0.1 and FEUN at 4.6. ASSESSMENT AND PLAN: 1. Acute on chronic kidney disease. Her baseline creatinine is about 1-1/2, which is where she was when she came in the hospital. She had a modest increase in her creatinine. She has received albumin and diuretic and had significant diuresis over the course of the hospitalization. Patient remains with significant anasarca. We will continue her albumin and diuretics. It appears her creatinine possibly plateaued yesterday. She does not have any indications for intervention today other than her current treatment plan. We will continue this. Re-evaluate in the morning. 2. Crohn's disease with multiple fistulas, multiple pelvic abscesses, mastitis of the breast. She is currently on doxycycline, daptomycin, meropenem, micafungin. 3. Electrolytes, acid-base balance continue Lokelma. 4. Anemia followed by primary. Orders to transfuse if she drops below 7. 5. Hypertension, controlled. No hypotensive. Dictated by PETER Anton for Jeffrey Mcelroy MD Face to face encounter, data reviewed, discussed with Power Sexton on 08/28/19. I agree with the above assessment and plan of care. cc: Jeffrey Mcelroy MD [facility]
--- NOTE | 2019-08-28 18:52 | GENERAL SURGERY PROGRESS NOTE ---
DATE: 08/28/2019 SUBJECTIVE: She was moved to the ICU for altered mental status. Apparently, this is improved. She was felt to be somewhat hypovolemic and is likely third spacing given her cirrhosis and hypoalbuminemia. Her potassium is 5.7 and is better from 5.9. Her creatinine is 2.3, down to 2.5. OBJECTIVE: General: She is resting quietly. Cardiovascular: Normal rate. Abdomen: Obese, is soft. There seems to be somewhat improving anasarca. Her ostomy is pink and viable with formed stool in the bag. Urine is clear. Dressings are in place in the lower abdomen. ASSESSMENT AND PLAN: This is a 53-year-old female with multiple medical issues. I suspect she was getting a little intravascularly deplete. Her renal function is improving with hydration. She was being aggressively diuresed over the last several days. From a surgical perspective, I do not think we have any options further. She is diverted adequately but still having some issues related to her fistula, although the output is low. cc: Rakesh Beckwith MD
[2019-08-28] MEDS: NEURONTIN PO SCH (21:01)
[2019-08-29] MEDS: PERCOCET-5 PO PRN ×3 (04:09→16:49)
[2019-08-29] MEDS: DOXYCYCLINE 100 MG in NS 250 ML IV SCH ×2 (06:45→17:36)
[2019-08-29 07:46] LABS: BASO# 0.01 X1000 (0.0-0.2); BASO% 0.2 % (0.0-0.8); EOS# 0.08 X1000 (0.0-0.7); EOS% 1.5 % (0.0-10.0); HEMATOCRIT 26.9 % (37.0-47.0); HEMOGLOBIN 7.6 g/dL (12.0-16.0); LYMPH# 0.56 X1000 (1.2-3.4); LYMPH% 10.3 % (20.5-51.1); MCH 24.6 PG (27-31); MCHC 28.3 g/dL (33-37); MCV 87.1 FL (81-99); MONO# 0.18 X1000 (0.11-0.59); MONO% 3.3 % (1.7-9.3); MPV 9.5 FL (7.4-10.4); NEUT# 4.62 X1000 (1.4-6.5); NEUT% 84.7 % (42.2-75.2); PLT 189 X1000 (130-400); RBC 3.09 XMIL (4.2-5.4); RDW 19.5 % (11.5-14.5); WBC 5.45 X1000 (4.8-10.8)
[2019-08-29 08:02] LABS: ALBUMIN 3.1 g/dL (3.5-5.0); CALCIUM 9.3 mg/dL (8.8-10.2); CREATININE 2.2 mg/dL (0.5-0.9); MAGNESIUM 2.2 mg/dL (1.5-2.7); PHOSPHORUS 4.2 mg/dL (2.7-4.5); POTASSIUM 5.2 mmol/L (3.5-5.1); TOTAL BILIRUBIN 0.24 mg/dL (0.20-1.00); TOTAL PROTEIN 6.2 g/dL (6.3-8.3)
[2019-08-29] MEDS: HUMALOG SUBQ SCH ×4 (08:30→21:17)
--- NOTE | 2019-08-29 08:30 | PROGRESS NOTE ---
DATE: 08/29/2019 SUBJECTIVE: Patient continues to be alert and awake. No complaints at this time. OBJECTIVE: Vital Signs: Temperature 98.6 degrees, heart rate 75, respiratory rate 20, blood pressure 106/72, O2 saturation 100% on Venturi mask. General Examination: This is a chronically ill-looking, morbidly obese, 53-year-old female lying in bed, in no acute distress. HEENT: Head is normocephalic, atraumatic. Mucous membranes dry. Neck: Mild JVD noted. Cardiovascular: S1, S2 heard. No murmurs, gallops, or rubs. Regular rate and rhythm. Respiratory: Minimal crackles noted still in both pulmonary bases. Patient is not using any accessory muscles or having work of breathing. Abdomen: Soft, distended. Old infraumbilical surgical scar present. There is a colostomy bag noted on the middle right side of the abdominal wall. There are also some erythematosus changes noted in the entire lower abdomen more prominent on the left side. Multiple wounds in the lower abdomen from the colocutaneous fistula. Marshall catheter in place. Extremities: No clubbing or cyanosis. 4+ pitting edema noted. Breasts: The left breast continues to be swollen and edematous. Neurological: Patient is alert and oriented x3. Moves 4 extremities. LABORATORY DATA: Pending at the time of dictation. ASSESSMENT AND PLAN: 1. Altered mental status most likely related to medications and also probably associated to her hospital stay. In any case, the patient is definitely much more alert and awake so we will continue to monitor. 2. Infected colocutaneous fistula with cultures growing Proteus mirabilis and E. coli. We will continue with Merrem. Today is day #3 of that medication. 3. Staphylococcus epidermidis bacteremia. Patient is on daptomycin. Will continue with current management. ID has been following this patient. 4. Bilateral pneumonia. Patient is on doxycycline and meropenem day #3 for above medication. We will continue with the same management. 5. Complicated Crohn's disease with colovesicular fistulization. The patient has a colocutaneous fistula placed because of recurrent soft tissue infections in the lower abdomen and groin. At this point, we will continue to monitor. General Surgery following this patient. 6. Acute on chronic kidney disease. Patient has been on Lasix. 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 This is the reason we have held Lasix but we will check if renal function is better and then we will restart this medication. Nephrology is following this patient. 7. Electrolyte abnormalities including hyperkalemia. Patient's BMP is pending from today. We will correct potassium if needed. 8. Disposition. The patient has been in the hospital twelve days. Now with conditions mentioned above. At this point, because the patient is more awake and alert, we will consult physical therapy for compression therapy to see if this patient needs to go to rehab facility or not. cc: Devaughn Joya MD
[2019-08-29] MEDS: ELIQUIS PO SCH ×2 (08:49→21:18)
[2019-08-29] MEDS: PRILOSEC PO SCH (08:49)
[2019-08-29] MEDS: LOPRESSOR PO SCH ×3 (08:49→21:18)
[2019-08-29] MEDS: NEURONTIN PO SCH ×2 (08:50→21:18)
[2019-08-29] MEDS: LANOXIN PO SCH (08:50)
[2019-08-29] MEDS: CULTURELLE PO SCH ×2 (08:51→21:18)
[2019-08-29] MEDS: LIALDA PO SCH ×2 (08:52→21:17)
[2019-08-29] MEDS: LOKELMA POWDER PACKET PO SCH ×3 (08:53→17:32)
[2019-08-29] MEDS: MERREM 500 MG in NS 50 ML IV SCH (08:53)
[2019-08-29] MEDS: THERA M PLUS PO SCH ×2 (09:00→21:18)
[2019-08-29] MEDS: ZOFRAN IV PRN (10:29)
[2019-08-29] MEDS: CUBICIN IV SCH (11:03)
[2019-08-29] MEDS: NS IV SCH (11:03)
[2019-08-29] MEDS: MYCAMINE 100 MG in NS 100 ML IV SCH (12:46)
[2019-08-29] MEDS ORDERED: LASIX IV ONE (14:23)
--- NOTE | 2019-08-29 14:34 | PROVIDER PROGRESS NOTE ---
Progress Note Subjective: She denies any uremic complaints. Objective: she denies any uremic complaints. Temperature 98.6, pulse 64, respirations 20, blood pressure 133/64, 02 sat 98% on Venturi mask General: obese white female lying in bed in no acute distress HEENT: Normocephalic, atraumatic, mucous membranes moist, pupils equal and reactive. Skin: warm and dry, purple Striae noted to abdomen. Neck: supple, JVD observed. Cardiovascular: S1S2, regular rate and rhythm. No murmurs or gallops noted. Respiratory: clear with equal air entry anteriorly. Abdomen: soft, obese, nontender, nondistended. Bowel sounds active. Colostomy noted. : non inspected, nice in place. Extremities:3+ pitting edema that extends to abdominal wall. Becky boots in place to BLE. Neurological: alert and oriented to person, place, and time. Labs: WBC 5.45, hemoglobin 7.6, hematocrit 26.9, platelet count 189, sodium 133, potassium 5.2, chloride 98, carbon dioxide 27, BUN 47, creatinine 2.2. Intake 1200, output 1450. Impression: Acute on chronic kidney disease. Chronic edema likely related to obesity hypoventilation syndrome or (less likely) chronic pulmonary thromboembolic disease. Urine output 900ml with high dose lasix. Her Creatinine has plateaued. We will continue to push hard with lasix for the edema and order an echocardiogram and duplex dopplers. Blood pressure. Stable. Fluid volume. Expanded. Continue Albumin and order lasix. Anemia, low but stable. No need for transfusion as of now. Hyperkalemia. Continues with lokelma. Acid base balance. Stable. Medication review. No changes.
[2019-08-29] MEDS: ALBUMIN 25% IV SCH (14:55)
[2019-08-29] MEDS: MERREM 1 GM in NS 50 ML IV SCH (16:53)
--- NOTE | 2019-08-29 18:25 | INFECTIOUS DISEASE PROGRESS NO ---
DATE: 08/29/2019 PRESENT ILLNESS: Ms. Koch is being treated for a Staph epidermidis bacteremia. There is also an abdominal wound and urinary tract infection which grew Escherichia coli. Also, a Proteus has grown to one of the colocutaneous fistulas. She also has a fungal dermatitis to the groin and axilla, as well as a left upper arm and left breast cellulitis, which are improving. There is the possibility of pneumonia as seen on chest x-ray with questionable infrahilar infiltrates versus artifact in a morbidly obese patient. Patient has also had a bout of confusion, which has resolved, as well as acute on chronic kidney disease in a patient with a solitary kidney. MEDICATIONS: She is receiving daptomycin 1000 mg IV every 48 hours as a renally modified dose. Based on her sterile blood cultures, today is day 7 of treatment for her bacteremia. Also, for the possible pneumonia, as well as the other infections as listed, she is receiving doxycycline 100 mg IV every 12 hours and meropenem 500 mg IV every 12 hours as a renally modified dose. Today is day 11 of treatment with micafungin 100 mg IV daily. PHYSICAL EXAMINATION: Vital Signs: Temperature is 98.2 degrees, pulse rate 76, respiratory rate 20, blood pressure 129/98, O2 saturation is 100%, I believe that is on room air. General: This is a morbidly obese, chronically ill-appearing, middle-aged female. She is lying in bed, currently in no acute distress. HEENT: Atraumatic, normocephalic. Oral mucous membranes are pink and moist. Conjunctivae are pale. Neck: Supple. Trachea is midline. Cardiovascular: Irregularly irregular with atrial fibrillation on the monitor. Respiratory: Lung sounds are bilaterally clear in the upper lobes. Diminished in the mid and bases. Abdomen: Soft, obese, and tender to palpation on the left. Bowel sounds are active. Integumentary: There is a Port-A- Cath in place to the right chest. That site is without edema, erythema, or drainage. The fungal dermatitis to the axilla and groin is improving. Also the cellulitis to her left upper arm and left breast is still present with the erythema going down to the left side of the abdominal pannus. There are dressings in place to her fistulas and abdominal wound, which are not removed at this time. She does have a colostomy in place with soft, brown/green stool in the bag. There are Unna boots in place to her lower extremities bilaterally with 3 to 4+ pitting edema noted. Neurological: She is awake, alert, oriented, and very limited in her ability to move around due to her size and excess fluid accumulation. LABORATORY AND X-RAY: Today her white count is 5.45, hemoglobin 7.6, platelet count 189,000. Creatinine is 2.2, GFR 23. No imaging reports today. However, her last chest x-ray showed questionable infrahilar infiltrates versus artifact. ASSESSMENT AND PLAN: Ms. Koch is being treated for a Staph bacteremia and has colocutaneous fistulas an abdominal wound, urinary tract infection, fungal dermatitis, and cellulitis to her left upper extremity and left breast. Today she seems to be better. She is receiving daptomycin for her bacteremia, which is renally dosed every 48 hours. She denies any issues of increased muscle aches or pains more than her usual. She is also receiving doxycycline and meropenem to cover the other infections, as well as the possibility of pneumonia. The meropenem is renally dosed but her kidney function is improving, so I have increased that dose to 1 g every 12 hours, and we will continue the doxycycline as ordered. She is also receiving micafungin daily which we will continue. COMORBIDITIES: For Ms. Koch include morbid obesity, obstructive sleep apnea, chronic atrial fibrillation, diabetes mellitus, Crohn disease, gastroesophageal reflux disease, and acute on chronic kidney disease with solitary kidney. Dictated by PETER Salgado for Devon Garces MD cc: Drew Aceves MD, Devon Garces MD [facility]
[2019-08-30] MEDS: MERREM 1 GM in NS 50 ML IV SCH ×2 (04:17→17:12)
[2019-08-30] MEDS: DOXYCYCLINE 100 MG in NS 250 ML IV SCH ×2 (05:30→17:49)
[2019-08-30] MEDS: HUMALOG SUBQ SCH ×4 (06:28→20:25)
--- NOTE | 2019-08-30 06:35 | Diag Imaging Result Doc PS360 ---
CHEST-PORTABLE - 08/30/2019 INDICATION: pneumonia COMPARISON: 08/27/2019 FINDINGS: Stable cardiomegaly and pulmonary vascular congestion. Stable hazy pulmonary edema bilaterally. No large pleural effusion. IMPRESSION: Congestive heart failure. Electronically signed by Leon Méndez 08/30/2019 6:33 AM
[2019-08-30 07:05] LABS: BASO# 0.01 X1000 (0.0-0.2); BASO% 0.2 % (0.0-0.8); EOS# 0.11 X1000 (0.0-0.7); HEMATOCRIT 27.6 % (37.0-47.0); HEMOGLOBIN 7.5 g/dL (12.0-16.0); LYMPH# 0.49 X1000 (1.2-3.4); LYMPH% 8.9 % (20.5-51.1); MCH 23.7 PG (27-31); MCHC 27.2 g/dL (33-37); MCV 87.1 FL (81-99); MONO# 0.21 X1000 (0.11-0.59); MONO% 3.8 % (1.7-9.3); MPV 8.7 FL (7.4-10.4); NEUT# 4.66 X1000 (1.4-6.5); NEUT% 85.1 % (42.2-75.2); PLT 201 X1000 (130-400); RBC 3.17 XMIL (4.2-5.4); RDW 19.4 % (11.5-14.5); WBC 5.48 X1000 (4.8-10.8)
[2019-08-30] MEDS: PERCOCET-5 PO PRN (07:28)
[2019-08-30 07:33] LABS: EOS 2 % (1-10); LYMPHS 6 % (21-51); SEGS 92 % (42-75)
[2019-08-30 08:06] LABS: ALBUMIN 3.1 g/dL (3.5-5.0); CALCIUM 8.9 mg/dL (8.8-10.2); PHOSPHORUS 4.5 mg/dL (2.7-4.5); POTASSIUM 4.8 mmol/L (3.5-5.1)
[2019-08-30] MEDS: PRILOSEC PO SCH (08:57)
[2019-08-30] MEDS: LOPRESSOR PO SCH ×3 (08:57→20:34)
[2019-08-30] MEDS: ELIQUIS PO SCH ×2 (08:57→20:34)
[2019-08-30] MEDS: LANOXIN PO SCH (08:58)
[2019-08-30] MEDS: THERA M PLUS PO SCH ×2 (08:58→20:34)
[2019-08-30] MEDS: CULTURELLE PO SCH ×2 (08:58→20:34)
[2019-08-30] MEDS: NEURONTIN PO SCH ×2 (08:58→20:34)
[2019-08-30] MEDS: LIALDA PO SCH ×2 (08:58→21:44)
[2019-08-30] MEDS ORDERED: LASIX IV SCH (09:00)
--- NOTE | 2019-08-30 09:20 | PROGRESS NOTE ---
DATE: 08/30/2019 SUBJECTIVE: The patient reports having some abdominal pain, stomach fullness and nausea. Denies any other complaints. OBJECTIVE: Vital Signs: Temperature 98.8 degrees, heart rate 76, respiratory rate 20, blood pressure 117/74, O2 saturation 95% on room air. General examination: This is a chronically ill- looking, morbidly obese, 53-year-old female, lying in bed in no acute distress. Cardiovascular exam: S1, S2 heard. No murmurs, gallops, or rubs. Regular rate and rhythm. Respiratory exam: Numerous crackles noted still in both pulmonary bases. Patient not using any accessory muscles or having work of breathing. Abdomen: Soft. A little bit distended. It looks like she has some abdominal wall edema. All infraumbilical surgical scars present. There is a colostomy bag noted on the middle right side of the abdominal wall. There is some edematous changes noted in the entire lower abdomen, more prominent in the left side. Multiple wounds in the lower abdomen from colocutaneous fistula. Marshall catheter in place. Extremities: No clubbing, cyanosis, 3+ pitting edema noted. Breasts: Left breast continues to be a little bit swollen, not edematous. Neurological exam: Patient is alert and oriented x3. Moves 4 extremities. LABORATORY DATA: White cell count 5.40, hemoglobin 7.5, hematocrit 27.6, platelet 201. BMP that reveals creatinine 2.0 with sodium 148. ASSESSMENT AND PLAN: 1. Altered mental status most likely related to medication; that condition is completely resolved. 2. 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 We will continue with Merrem day #4 of this medication today. 3. Staphylococcus epidermidis bacteremia. Patient is on daptomycin as per Infectious Disease recommendation. We will continue with current management. 4. Bilateral pneumonia. Patient is on meropenem and doxycycline for this condition. We will continue with the same management. 5. Complicated Crohn disease with colovesicular fistulization. We will continue to monitor. 6. Acute on chronic kidney disease. The patient has been on Lasix. She has received 100 mg of Lasix yesterday as per Nephrology, and we are going to continue with 40 mg intravenous every 12 hours. We will continue to check renal profile daily. 7. Electrolyte abnormalities. Those have been resolved. 8. Disposition: The patient is complaining of abdominal pain. Not able to work with physical therapy today. We will continue to monitor this patient closely. cc: Devaughn Joya MD
[2019-08-30] MEDS: MYCAMINE 100 MG in NS 100 ML IV SCH (12:38)
[2019-08-30] MEDS: PERCOCET-10 PO PRN ×3 (13:09→21:42)
--- NOTE | 2019-08-30 17:03 | PROVIDER PROGRESS NOTE ---
Progress Note Subjective: She voices increased urine production with lasix dose. However, she remains short of breath and complains of feeling overloaded. Objective: Temperature 98.8, pulse 76, respirations 20, blood pressure 117/74, 02 sat 95% on a 15L mask. General: obese white female lying in bed in no acute distress HEENT: Normocephalic, atraumatic, mucous membranes moist, pupils equal and reactive. Skin: warm and dry, purple Striae noted to abdomen. Neck: supple, 8cm JVD observed. Cardiovascular: S1S2, regular rate and rhythm. No murmurs or gallops noted. Respiratory: clear with equal air entry anteriorly. Abdomen: soft, obese, nontender, nondistended. Bowel sounds active. Colostomy noted. : non inspected, nice in place. Extremities:3+ pitting edema that extends to abdominal wall. Becky boots in place to BLE. Neurological: alert and oriented to person, place, and time. Labs: WBC 5.48, hemoglobin 7.5, Hematocrit 27.6, platelet count 201, sodium 135, potassium 4.8, chloride 98, carbon dioxide 26, BUN 45, creatinine 2.0, Albumin 3.1. Intake 888, output 2000. Impression: Acute on chronic kidney disease. Chronic edema likely related to CKD, low albumin, venous insufficiency, and obesity hypoventilation syndrome. Urine output 1700 with high dose lasix. Her Creatinine and BUN have plateaued and may start seeing improvement. We will continue to give high dose lasix. rg Blood pressure. Stable. Fluid volume. Expanded. Continue Albumin and order lasix. Anemia, low but stable. No need for transfusion as of now. Electrolytes. Stable. Acid base balance. Stable. Medication review. Lokelma discontinued.
[2019-08-30] MEDS: LASIX IV SCH (20:34)
[2019-08-31] MEDS: MERREM 1 GM in NS 50 ML IV SCH ×2 (04:37→16:55)
[2019-08-31] MEDS: DOXYCYCLINE 100 MG in NS 250 ML IV SCH ×2 (05:12→17:29)
[2019-08-31] MEDS: HUMALOG SUBQ SCH ×4 (06:22→22:12)
[2019-08-31] MEDS: PERCOCET-10 PO PRN ×4 (06:35→18:24)
[2019-08-31 07:00] LABS: EOS# 0.09 X1000 (0.0-0.7); EOS% 1.7 % (0.0-10.0); HEMOGLOBIN 7.5 g/dL (12.0-16.0); LYMPH# 0.52 X1000 (1.2-3.4); LYMPH% 9.8 % (20.5-51.1); MCHC 27.8 g/dL (33-37); MCV 86.3 FL (81-99); MONO# 0.25 X1000 (0.11-0.59); MONO% 4.7 % (1.7-9.3); MPV 8.9 FL (7.4-10.4); NEUT# 4.42 X1000 (1.4-6.5); NEUT% 83.8 % (42.2-75.2); PLT 210 X1000 (130-400); RBC 3.13 XMIL (4.2-5.4); RDW 19.7 % (11.5-14.5); WBC 5.28 X1000 (4.8-10.8)
[2019-08-31 07:42] LABS: CALCIUM 9.4 mg/dL (8.8-10.2); CREATININE 1.9 mg/dL (0.5-0.9); PHOSPHORUS 4.1 mg/dL (2.7-4.5)
[2019-08-31] MEDS: LANOXIN PO SCH (09:34)
[2019-08-31] MEDS: LASIX IV SCH ×2 (09:34→21:48)
[2019-08-31] MEDS: PRILOSEC PO SCH (09:34)
[2019-08-31] MEDS: LOPRESSOR PO SCH ×3 (09:35→21:49)
[2019-08-31] MEDS: THERA M PLUS PO SCH ×2 (09:35→21:48)
[2019-08-31] MEDS: CULTURELLE PO SCH ×2 (09:35→21:48)
[2019-08-31] MEDS: ELIQUIS PO SCH ×2 (09:35→21:49)
[2019-08-31] MEDS: LIALDA PO SCH ×3 (09:35→21:54)
[2019-08-31] MEDS: NEURONTIN PO SCH ×2 (09:35→21:49)
[2019-08-31] MEDS: NS IV SCH (09:36)
[2019-08-31] MEDS: CUBICIN IV SCH (09:36)
--- NOTE | 2019-08-31 09:39 | PROGRESS NOTE ---
DATE: 08/31/2019 SUBJECTIVE: The patient reports abdominal pain is definitely much better. Denies any fever or chills, nausea or vomiting. OBJECTIVE: Vital signs: Temperature 97.2 degrees, heart rate 69, respiratory rate 17, blood pressure 128/55, O2 saturation 97% on room air. General: This is a chronically ill-looking and morbidly obese, 53-year-old, female, lying in bed in no acute distress. Cardiovascular: S1 and S2 heard. No murmurs, gallops, or rubs. Regular rate and rhythm. Respiratory: Crackles still noted in both pulmonary bases. The patient is not using any accessory muscles or having work of breathing. Abdomen: Soft, a little bit distended. She has definitely much better abdominal wall edema. Infraumbilical surgical scar present. There is a colostomy bag noted in the left. There are some edematous changes noted in the entire lower abdomen, more prominent on the left side. 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 Marshall catheter in place. Extremities: No clubbing or cyanosis, but there is 3+ pitting edema noted. Neurological: The patient is alert and oriented x3. Moves all 4 extremities. LABORATORY DATA: White cell count 5.3, hemoglobin 7.5, hematocrit 27.0, platelets 218,000. Renal function, creatinine 1.9. Sodium 134. ASSESSMENT AND PLAN: 1. Altered mental status, likely related to medication, resolved. 2. 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 Will continue with meropenem, day #5 with this medication. 3. Staphylococcus epidermidis bacteremia. Will continue with daptomycin as per Infectious Disease recommendation. Will continue with the same medication. 4. Bilateral pneumonia. Will continue with meropenem and doxycycline for this condition. Will continue with the same medications. 5. Acute on chronic kidney disease stage 3. The patient continues to be on Lasix. Renal function has stabilized. Will continue to monitor BMP daily. 6. Electrolyte abnormalities, resolved. 7. Disposition. At this point, will continue with Lasix, and will keep checking CBC and BMP daily. cc: Devaughn Joya MD [facility]
[2019-08-31] MEDS: MYCAMINE 100 MG in NS 100 ML IV SCH ×2 (10:25→12:56)
--- NOTE | 2019-08-31 15:21 | INFECTIOUS DISEASE PROGRESS NO ---
DATE: 08/31/2019 PRESENT ILLNESS: Ms. Koch is being treated for a Staph epidermidis bacteremia. Unfortunately, she does have a metal catrina in her right leg which will require her to complete 6 weeks of treatment due to the possibility that the catrina may have become infected while she was bacteremic. She is also being treated for E coli which has been isolated in her abdominal wound and urinary tract as well as a Proteus in one of the colocutaneous fistulas. She had a fungal dermatitis to the axilla and groin which seems to have resolved. There is also a left upper arm and breast cellulitis which are improving. There is a questionable pneumonia versus congestive heart failure. She also has acute kidney injury on top of chronic kidney disease, with a solitary kidney. MEDICATIONS: Based on her sterile blood cultures, today is day 9 of treatment for her bacteremia using daptomycin 1000 mg IV every 48 hours. She has almost had 2 weeks of micafungin 100 mg IV daily and she is also receiving doxycycline 100 mg IV every 12 hours and meropenem 1 g IV every 12 hours as a renally modified dose. PHYSICAL EXAMINATION: Vital Signs: Temperature is 98.3 degrees, pulse rate 82, respiratory rate 18, blood pressure 137/69, O2 saturation is 97% on room air. General: This is a morbidly obese, chronically ill-appearing, middle-aged female. She is lying in bed, currently in no acute distress. HEENT: Atraumatic, normocephalic. Oral mucous membranes are pink and moist. Conjunctivae are pale. Neck: Supple. Trachea is midline. Respiratory: Bilateral lung sounds are clear in the upper lobes and diminished in the mid and bases. No work of breathing is noted. Cardiovascular: Irregularly irregular with atrial fibrillation on the monitor. Abdomen: Soft, obese and tender to palpation on the left. Bowel sounds are active. There is a colostomy in place with green stool in the bag. Integumentary: Skin is warm and dry. Cellulitis to the left upper arm seems to have resolved and has improved tremendously to the left breast. There is still some induration and erythema noted to the left breast. She has a Port-A-Cath in place to the right chest. That site is without edema, erythema, or drainage. There are dressings in place to the left abdomen not removed at this time. Extremities: Unna boots are in place to her bilateral lower extremities with pitting edema noted. Neurologic: She is awake, alert, and oriented. Very weak to the lower extremities. LABORATORY AND X-RAY: Today her white count is 5.28, hemoglobin 7.5, platelet count 210,000. Creatinine is 1.9, GFR 28. Most recently, her blood cultures have been sterile and there has been a yeast in her last urine culture. No imaging reports today, but a chest x-ray done yesterday showed congestive heart failure, with pulmonary vascular congestion, and hazy pulmonary edema bilaterally. ASSESSMENT AND PLAN: Ms. Koch has a Staph bacteremia which will unfortunately require 6 weeks of treatment due to the metal catrina in her right lower extremity. Based on her sterile blood cultures, today is day 9 of treatment out of the 6 weeks required. I have talked to her about this and it will be difficult to figure out what to do when she is ready to be discharged, because she does not want to go to an LTACH or rehab, and cannot afford to do the medications at home. Also, she is unable to come in to the hospital for treatments due to the fact that she is bedridden. Her fungal dermatitis seems to have resolved at this point, so we will discontinue her micafungin, which she has had for the last 13 days. She is receiving doxycycline and meropenem for the possibility of pneumonia, as well as coverage for the urinary tract infection and fistula and abdominal wounds. Since the chest x-ray currently shows congestive heart failure, I have ordered a procalcitonin to be drawn to see if we can possibly rule out pneumonia. I have also put in an order for a creatine kinase to be drawn in the morning. Her acute kidney injury seems to be improving. For now, we will continue daptomycin, doxycycline and meropenem as ordered. She does have a yeast that grew in her urine, however this has 20,000 to 30,000 colonies and does not need to be treated. I will put in an order for [employer] to see if they can help with the possibility of patient assistance for home IV antibiotics with daptomycin once she is ready for discharge. COMORBIDITIES: For Ms. Koch include morbid obesity, obstructive sleep apnea, chronic atrial fibrillation, diabetes mellitus, Crohn's disease, gastroesophageal reflux disease, and acute on chronic kidney disease. Dictated by PETER Salgado for Michael Telles MD cc: Michael Telles MD I have seen and examined Ms. Koch today. I agree with the MANAGER SPRING notes above. I have discussed the plan as outlined above. MTDD
--- NOTE | 2019-08-31 16:31 | PROVIDER PROGRESS NOTE ---
Progress Note Subjective: She voices feeling better and continues to have excellent urine output. Objective: Temperature 97.2, pulse 69, respirations 17, blood pressure 128/55, 02 sat 97% on room air. General: obese white female lying in bed in no acute distress HEENT: Normocephalic, atraumatic, mucous membranes moist, pupils equal and reactive. Skin: warm and dry, purple Striae noted to abdomen. Neck: supple, 8cm JVD observed. Cardiovascular: S1S2, regular rate and rhythm. No murmurs or gallops noted. Respiratory: clear with equal air entry anteriorly. Abdomen: soft, obese, nontender, nondistended. Bowel sounds active. Colostomy noted. : non inspected, nice in place. Extremities:3+ pitting edema that extends to abdominal wall. Neurological: alert and oriented to person, place, and time. Labs: WBC 5.28, hemoglobin 7.5, Medicare 27.0, platelet count to 10, sodium 134, potassium 4.0, chloride 99, carbon dioxide 25, BUN 46, creatinine 1.9, albumin 3.0. Intake 2471, output 3050. Impression: Acute on chronic kidney disease with chronic edema. Multifactorial. Her BUN and Creatinine are stable and she is making excellent urine. We will continue to high dose lasix. Encouraged tighter fluid restrictions. Blood pressure. Stable. Fluid volume. Expanded. Lasix. Anemia, low but stable. No criteria for transfusion as of now. Electrolytes. Stable. Acid base balance. Stable. Medication review. No changes.
[2019-09-01] MEDS: MERREM 1 GM in NS 50 ML IV SCH ×2 (03:27→15:32)
[2019-09-01] MEDS: PERCOCET-10 PO PRN ×5 (06:33→23:57)
[2019-09-01] MEDS: DOXYCYCLINE 100 MG in NS 250 ML IV SCH ×2 (06:35→17:55)
[2019-09-01] MEDS: HUMALOG SUBQ SCH ×4 (06:39→21:59)
[2019-09-01 07:30] LABS: BASO# 0.01 X1000 (0.0-0.2); BASO% 0.2 % (0.0-0.8); EOS% 2.2 % (0.0-10.0); HEMATOCRIT 27.3 % (37.0-47.0); HEMOGLOBIN 7.6 g/dL (12.0-16.0); LYMPH# 0.57 X1000 (1.2-3.4); LYMPH% 12.4 % (20.5-51.1); MCH 23.9 PG (27-31); MCHC 27.8 g/dL (33-37); MCV 85.8 FL (81-99); MONO# 0.25 X1000 (0.11-0.59); MONO% 5.4 % (1.7-9.3); MPV 9.2 FL (7.4-10.4); NEUT# 3.66 X1000 (1.4-6.5); NEUT% 79.8 % (42.2-75.2); PLT 211 X1000 (130-400); RBC 3.18 XMIL (4.2-5.4); RDW 20.4 % (11.5-14.5); WBC 4.59 X1000 (4.8-10.8)
[2019-09-01 07:49] LABS: ALBUMIN 3.1 g/dL (3.5-5.0); CALCIUM 9.7 mg/dL (8.8-10.2); CREATININE 1.9 mg/dL (0.5-0.9); PHOSPHORUS 4.1 mg/dL (2.7-4.5); POTASSIUM 4.1 mmol/L (3.5-5.1)
[2019-09-01] MEDS: LASIX IV SCH ×2 (08:53→21:59)
[2019-09-01] MEDS: PRILOSEC PO SCH (08:53)
[2019-09-01] MEDS: ELIQUIS PO SCH ×2 (08:54→22:01)
[2019-09-01] MEDS: CULTURELLE PO SCH ×2 (08:54→21:59)
[2019-09-01] MEDS: NEURONTIN PO SCH ×2 (08:54→23:58)
[2019-09-01] MEDS: THERA M PLUS PO SCH ×2 (08:54→22:00)
[2019-09-01] MEDS: LOPRESSOR PO SCH ×3 (08:55→22:01)
[2019-09-01] MEDS: LANOXIN PO SCH (08:55)
[2019-09-01] MEDS: LIALDA PO SCH ×2 (08:57→22:01)
[2019-09-01] MEDS: LEXAPRO PO SCH ×2 (09:27→21:59)
--- NOTE | 2019-09-01 10:12 | PROGRESS NOTE ---
DATE: 09/01/2019 SUBJECTIVE: Patient reports abdominal pain is getting better. Denies any fever, chills, nausea, vomiting. OBJECTIVE: Vital Signs: Temperature 98.2 degrees, heart rate 75, respiratory rate 18, blood pressure 150/74, O2 saturation 95% on room air. General: This is a chronically ill-looking and morbidly obese, 53-year-old female, lying in bed, in no acute distress. Cardiovascular: S1, S2 heard. No murmurs, gallops, or rubs. Regular rate and rhythm. Respiratory: Crackles still noted in both pulmonary bases but definitely much better in comparing with previous days. Patient is not using any accessory muscles or having work of breathing. Abdomen: Soft, a little bit distended. Abdominal wall edema is getting better. Infraumbilical surgical scar present. There is a colostomy bag noted on the left. There are some erythematous changes noted in the entire lower abdomen, more prominent on the left side. 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 Genitourinary: Marshall catheter in place. Extremities: No clubbing, cyanosis, but there is 2+ pitting edema in both lower extremities. Neurological: Patient alert and oriented x3. Moves 4 extremities. LABORATORY DATA: White cell count 4.59, hemoglobin 7.6, hematocrit 27.3, platelets 211,000, with creatinine 1.9. ASSESSMENT AND PLAN: 1. Altered mental status, resolved. 2. 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 We will continue with meropenem, day #6 of this medication. We will continue with the same management. 3. Staphylococcus epidermidis bacteremia. We will continue with daptomycin as per Infectious Disease recommendations. 4. Bilateral pneumonia. As we mentioned before, we will continue with meropenem and doxycycline for this condition. 5. Acute on chronic kidney disease. The patient is on Lasix but, the dose has been increased to 100 mg IV q.12 hours. Patient continues to have excellent urine output. We will continue to monitor. 6. Volume overload secondary to condition #1, improving. 7. Electrolyte abnormalities. Potassium is completely normal. 8. Disposition. At this point, we will continue with current management. We will keep this patient over the weekend and we will see how this patient does on Wednesday. cc: Devaughn Joya MD
--- NOTE | 2019-09-01 10:49 | INFECTIOUS DISEASE PROGRESS NO ---
DATE: 09/01/2019 PRESENT ILLNESS: Ms. Koch has a Staph epidermidis bacteremia with a history of a metal catrina in her right leg, which will require 6 weeks of treatment due to the possibility of that catrina being hematogenously infected while she was bacteremic. There is also Escherichia coli to her urinary tract and abdominal wounds as well as a Proteus to the colocutaneous fistula. She also has a cellulitis to the left breast which is improving, as well as acute kidney injury on chronic kidney disease in a patient with a solitary kidney. It seems as though her pneumonia has cleared and her last x-ray has shown congestive heart failure. MEDICATIONS: She is receiving daptomycin 1000 mg IV every 48 hours. Based on her sterile blood cultures, today is day 8 of treatment for her bacteremia. She is also receiving doxycycline 100 mg IV every 12 hours, and meropenem 1 g IV every 12 hours as renally modified dose. PHYSICAL EXAMINATION: Vital Signs: Temperature is 98.2 degrees, pulse rate 75, respiratory rate 18, blood pressure 150/74, O2 saturation is 95% on room air. General: This is a middle-aged, morbidly obese, chronically ill-appearing female. She is sitting up in bed, currently in no acute distress. HEENT: Atraumatic, normocephalic. Oral mucous membranes are pink and moist. Conjunctivae are pale. Neck: Supple. Trachea is midline. Cardiovascular: Irregularly irregular with atrial fibrillation noted on the monitor. Respiratory: Lung sounds are clear to the upper lobes and clear and diminished in the mid and bases. No work of breathing is noted. Abdomen: Soft, obese, and mildly tender on the left to palpation. Bowel sounds are active. There is a colostomy with green/brown stool in the bag. Neurologic: She is awake, alert, oriented, and has severe limitations to movement of her bilateral lower extremities. Integumentary: Skin is warm and dry with a Port-A-Cath in place to the right chest. That site is without edema, erythema, or drainage. There are abdominal dressings not removed at this time. Unna boots are in place to her bilateral lower extremities with pitting edema noted. The left breast is softer but does still have some induration and erythema noted. LABORATORY AND X-RAY: Today, her white count is 4.59, hemoglobin 7.6, platelet count 211,000. Creatinine is 1.9 with a GFR of 28. Her creatine kinase today is 20. No imaging reports today. ASSESSMENT AND PLAN: Ms. Koch has Staphylococcus epidermidis bacteremia and is currently receiving renal dosing of daptomycin which we will need to continue. If her GFR continues to improve, that dosing will need to increase to once a day, if the GFR is above 30. She is also receiving doxycycline and meropenem. These are to cover her other organisms which include Escherichia coli and Proteus mirabilis as well as any other organisms that may have not grown such as the area of her left breast cellulitis. Financially, she is concerned about how she will be able to pay for the medication at home. Finance Executive is working on finding a way to help with home IV antibiotics. The order for what she will need at home is already in the computer as well as a stop date. It may be difficult for her to come in, but if she is discharged, we would like to be able to see her at the 3 week gloria and then again at the 6 week gloria, at which time we should be able to stop the daptomycin and consider the use of low-dose prevention with doxycycline by mouth. COMORBIDITIES: For Ms. Koch include morbid obesity, obstructive sleep apnea, chronic atrial fibrillation, Crohn's disease, gastroesophageal reflux disease, diabetes mellitus, and acute on chronic kidney disease. Dictated by PETER Salgado for Michael Telles MD cc: Michael Telles MD I have seen and examined Ms. Koch. I agree with the plan outlined above. MTDD
[2019-09-01] MEDS: BUSPAR PO SCH ×2 (13:08→17:55)
--- NOTE | 2019-09-01 20:33 | NEPHROLOGY PROGRESS NOTE ---
DATE: 09/01/2019 SUBJECTIVE: She feels like her swelling is improved. No problems with shortness of breath. OBJECTIVE: Vital Signs: Blood pressure 160/63, heart rate 63, respiration 18, afebrile. Intake 1.2 L. Output 4 L. General: No acute distress. Skin: Warm and dry. Neck: Neck veins are not visible. Heart: Regular and distant. Lungs: Equal. Abdomen: Benign. Extremities: With 3+ edema. No change. IMPRESSION: Volume overload. She is responding well to diuretics and she has improved her p.o. intake. Continue same plan. Her creatinine has been stable despite aggressive diuretic therapy. cc: Jeffrey Mcelroy MD
[2019-09-02] MEDS: MERREM 1 GM in NS 50 ML IV SCH ×2 (04:53→16:57)
[2019-09-02] MEDS: PERCOCET-10 PO PRN ×5 (05:10→21:23)
[2019-09-02] MEDS: DOXYCYCLINE 100 MG in NS 250 ML IV SCH ×2 (06:07→18:01)
[2019-09-02] MEDS: HUMALOG SUBQ SCH ×4 (07:07→21:20)
[2019-09-02 08:20] LABS: CALCIUM 9.7 mg/dL (8.8-10.2); CREATININE 1.6 mg/dL (0.5-0.9); PHOSPHORUS 3.9 mg/dL (2.7-4.5)
[2019-09-02 08:58] LABS: BASO# 0.01 X1000 (0.0-0.2); BASO% 0.2 % (0.0-0.8); EOS# 0.11 X1000 (0.0-0.7); EOS% 2.7 % (0.0-10.0); HEMOGLOBIN 7.6 g/dL (12.0-16.0); LYMPH# 0.58 X1000 (1.2-3.4); LYMPH% 14.3 % (20.5-51.1); MCH 24.1 PG (27-31); MCHC 28.1 g/dL (33-37); MCV 85.7 FL (81-99); MONO# 0.31 X1000 (0.11-0.59); MONO% 7.6 % (1.7-9.3); MPV 9.5 FL (7.4-10.4); NEUT# 3.06 X1000 (1.4-6.5); NEUT% 75.2 % (42.2-75.2); PLT 225 X1000 (130-400); RBC 3.15 XMIL (4.2-5.4); RDW 20.6 % (11.5-14.5); WBC 4.07 X1000 (4.8-10.8)
[2019-09-02] MEDS: LASIX IV SCH ×2 (09:13→21:11)
[2019-09-02] MEDS: LOPRESSOR PO SCH ×3 (09:13→21:10)
[2019-09-02] MEDS: CULTURELLE PO SCH ×2 (09:13→21:10)
[2019-09-02] MEDS: BUSPAR PO SCH ×3 (09:14→16:57)
[2019-09-02] MEDS: PRILOSEC PO SCH (09:16)
[2019-09-02] MEDS: LEXAPRO PO SCH ×2 (09:17→21:10)
[2019-09-02] MEDS: LANOXIN PO SCH (09:18)
[2019-09-02] MEDS: ELIQUIS PO SCH ×2 (09:18→21:10)
[2019-09-02] MEDS: NEURONTIN PO SCH ×2 (09:18→21:10)
[2019-09-02] MEDS: THERA M PLUS PO SCH ×2 (09:19→21:11)
[2019-09-02] MEDS: LIALDA PO SCH ×2 (09:19→21:10)
--- NOTE | 2019-09-02 10:28 | PROGRESS NOTE ---
DATE: 09/02/2019 SUBJECTIVE: The patient reports abdominal distention and pain feeling much better. OBJECTIVE: Vital Signs: Temperature is 98.5, heart rate 75, respiratory rate 22, blood pressure 137/62, and O2 saturation 99% on 2 L nasal cannula. General: This is a chronically ill-looking and morbidly obese 53-year-old female lying in bed in no acute distress. Cardiovascular: S1, S2 heard. No murmurs, gallops, or rubs. Regular rate and rhythm. Respiratory: Minimal crackles noted in both pulmonary bases but definitely much better when compared with 3 to 4 days ago. Patient is not using any accessory muscles or having work of breathing. Abdomen: Soft and a little bit distended. Abdominal wall edema is getting better. Infraumbilical surgical scar is present. There is a colostomy bag noted on the left. There are some erythematous changes noted in the entire lower abdomen, more prominent on the left side. 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 Genitourinary: Marshall catheter in place. Extremities: No clubbing or cyanosis but there is 2+ pitting edema in both lower extremities. Neurological: Patient is alert and oriented times 3 and moves all extremities. LABORATORY DATA: White cell count is 4.07, hemoglobin 7.6, hematocrit 27, and platelets 224,000. BMP is remarkable for a creatinine of 1.3. ASSESSMENT AND PLAN: 1. Altered mental status, resolved. 2. 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 We will continue with meropenem that currently is day #7 of this medication. 3. Staphylococcus epidermidis bacteremia. We will continue with daptomycin. Infectious Disease is following this patient for this condition. 4. Bilateral pneumonia. We will continue with antibiotics as mentioned above. 5. Acute on chronic kidney disease. The patient appears to be on high doses of Lasix, 100 mg IV every 12 hours, and she is having good urine output. Over the last 24 hours she has made almost 6 L of urine. We will continue to monitor. 6. Volume overload secondary to condition #1, improving. 7. Electrolyte abnormalities, resolved. 8. Disposition. At this point, we will continue with the current management. cc: Devaughn Joya MD
[2019-09-02] MEDS: NS IV SCH (10:42)
[2019-09-02] MEDS: CUBICIN IV SCH (10:42)
[2019-09-02] MEDS: ALBUMIN 25% IV SCH (12:42)
--- NOTE | 2019-09-02 13:04 | NEPHROLOGY PROGRESS NOTE ---
DATE: 09/02/2019 SUBJECTIVE: She feels like she is improving daily. Good urine output. Less shortness of breath. Less swelling. OBJECTIVE: Vital Signs: Blood pressure 137/62, heart rate 75, respirations 22, afebrile. Intake 2.7 L. Output 6L. General: No acute distress. Skin: Warm and dry. Conjunctivae are pink. Neck: Neck veins are not readable. Heart: Regular, distant. Lungs: Equal. No crackles. Abdomen: Benign. Extremities: 3+ edema but clearly softer today. IMPRESSION: Acute kidney injury/volume overload/pulmonary hypertension, etc. Symptoms are improved. We will continue Lasix until such time as her creatinine trends back up. I will go ahead and give albumin for another 3 days. cc: Jeffrey Mcelroy MD
[2019-09-02] MEDS: PHENERGAN IV PRN (22:14)
[2019-09-02] MEDS: SODIUM CHLORIDE 0.9% INJ PRN (22:15)
[2019-09-03] MEDS: MERREM 1 GM in NS 50 ML IV SCH ×2 (03:35→17:54)
[2019-09-03] MEDS: DOXYCYCLINE 100 MG in NS 250 ML IV SCH ×2 (05:40→17:55)
[2019-09-03] MEDS: PERCOCET-10 PO PRN ×5 (06:26→22:48)
[2019-09-03] MEDS: HUMALOG SUBQ SCH ×2 (06:57→16:21)
[2019-09-03 07:38] LABS: BASO# 0.01 X1000 (0.0-0.2); BASO% 0.3 % (0.0-0.8); EOS% 2.7 % (0.0-10.0); HEMOGLOBIN 7.5 g/dL (12.0-16.0); LYMPH# 0.54 X1000 (1.2-3.4); LYMPH% 14.4 % (20.5-51.1); MCH 23.9 PG (27-31); MCHC 27.8 g/dL (33-37); MONO# 0.21 X1000 (0.11-0.59); MONO% 5.6 % (1.7-9.3); MPV 9.5 FL (7.4-10.4); NEUT# 2.88 X1000 (1.4-6.5); PLT 208 X1000 (130-400); RBC 3.14 XMIL (4.2-5.4); RDW 20.7 % (11.5-14.5); WBC 3.74 X1000 (4.8-10.8)
[2019-09-03 07:53] LABS: ALBUMIN 3.4 g/dL (3.5-5.0); CALCIUM 9.1 mg/dL (8.8-10.2); CREATININE 1.7 mg/dL (0.5-0.9); PHOSPHORUS 4.5 mg/dL (2.7-4.5); POTASSIUM 4.2 mmol/L (3.5-5.1)
--- NOTE | 2019-09-03 08:51 | PROGRESS NOTE ---
DATE: 09/03/2019 SUBJECTIVE: The patient reports every time she is eating, she is having some heartburn and also, her appetite is getting low. Denies any other complaints at this time. OBJECTIVE: Vital Signs: Temperature 98.7 degrees, heart rate 71, respiratory rate 16, blood pressure 150/61, O2 saturation 93% on CPAP machine. General Examination: This is a chronically ill-looking and morbidly obese, 53-year-old, female lying in bed, in no acute distress. Cardiovascular Examination: S1 and S2 heard. No murmurs, gallops, or rubs. Regular rate and rhythm. Respiratory Examination: Minimal crackles noted still in both pulmonary bases but definitely much better in comparing with previous days. Patient is not using any accessory muscles or having work of breathing. Abdomen: Soft. A little bit distended. Abdominal wall edema is definitely getting better. Infraumbilical surgical scar is present. There is a colostomy bag noted on the left. There are some erythematous changes noted in the entire lower abdomen, more prominent on the left side. Multiple wounds in the lower abdomen with a colocutaneous fistula. Genitourinary: Marshall catheter in place with yellowish urine. Extremities: No clubbing or cyanosis but there is still 2+ pitting edema in both lower extremities. Neurological Examination: The patient is alert and oriented x3. Moves 4 extremities. Laboratory Data: White cell count 3.74, hemoglobin 7.5, hematocrit 27.0, platelets 208,000, with BMP remarkable for creatinine 1.7 and potassium 4.2. ASSESSMENT AND PLAN: 1. Altered mental status, resolved. 2. 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 We will continue with meropenem. Today is day #8 of this medication. 3. Staphylococcus epidermidis bacteremia. The patient is on vancomycin and daptomycin. Infectious disease is following this patient for this condition. 4. Bilateral pneumonia. We will continue with antibiotics as above. 5. Acute on chronic kidney disease stage 4. The patient continues to be on high doses of Lasix; in this case, 100 mg intravenous every 12 hours and she is making good urine. Over the last 24 hours, she has made 4.4 L of urine so at this point, we will continue with the same management. 6. Volume overload secondary to condition #5, improved. 7. Electrolyte abnormalities, resolved. 8. Low appetite/abdominal pain. The patient reports having heartburn and sometimes abdominal pain that apparently is getting worse so, as per patient's request, we will consult gastroenterology. We will go from there. cc: Devaughn Joya MD
[2019-09-03] MEDS: ELIQUIS PO SCH ×2 (10:27→21:22)
[2019-09-03] MEDS: LOPRESSOR PO SCH ×3 (10:27→21:22)
[2019-09-03] MEDS: LANOXIN PO SCH (10:27)
[2019-09-03] MEDS: LASIX IV SCH ×2 (10:27→21:22)
[2019-09-03] MEDS: CULTURELLE PO SCH ×2 (10:28→21:21)
[2019-09-03] MEDS: THERA M PLUS PO SCH ×2 (10:28→21:21)
[2019-09-03] MEDS: LEXAPRO PO SCH ×2 (10:28→21:21)
[2019-09-03] MEDS: PRILOSEC PO SCH (10:28)
[2019-09-03] MEDS: NEURONTIN PO SCH ×2 (10:28→21:22)
[2019-09-03] MEDS: BUSPAR PO SCH ×3 (10:28→17:54)
[2019-09-03] MEDS: ALBUMIN 25% IV SCH (10:30)
[2019-09-03] MEDS: LIALDA PO SCH ×2 (10:30→21:22)
[2019-09-03] MEDS: PHENERGAN IV PRN (22:49)
[2019-09-03] MEDS: SODIUM CHLORIDE 0.9% INJ PRN (22:49)
[2019-09-04] MEDS: HUMALOG SUBQ SCH ×5 (00:47→21:18)
[2019-09-04] MEDS: MERREM 1 GM in NS 50 ML IV SCH ×2 (05:04→16:03)
[2019-09-04] MEDS: PERCOCET-10 PO PRN ×5 (05:11→22:07)
[2019-09-04] MEDS: DOXYCYCLINE 100 MG in NS 250 ML IV SCH (05:43)
[2019-09-04] MEDS: NEURONTIN PO SCH (07:59)
[2019-09-04] MEDS: BUSPAR PO SCH ×3 (07:59→16:02)
[2019-09-04] MEDS: LEXAPRO PO SCH ×2 (08:00→21:17)
[2019-09-04] MEDS: LIALDA PO SCH ×3 (08:00→21:18)
[2019-09-04] MEDS: LOPRESSOR PO SCH ×3 (08:00→21:17)
[2019-09-04] MEDS: PRILOSEC PO SCH (08:01)
[2019-09-04] MEDS: ELIQUIS PO SCH ×2 (08:01→21:17)
[2019-09-04] MEDS: VITAMIN D PO SCH (08:01)
[2019-09-04] MEDS: CULTURELLE PO SCH ×2 (08:01→21:17)
[2019-09-04] MEDS: THERA M PLUS PO SCH ×2 (08:01→21:17)
[2019-09-04] MEDS: LANOXIN PO SCH (08:01)
[2019-09-04] MEDS: LASIX IV SCH ×2 (08:02→21:17)
[2019-09-04 08:04] LABS: BASO# 0.01 X1000 (0.0-0.2); BASO% 0.3 % (0.0-0.8); EOS# 0.13 X1000 (0.0-0.7); EOS% 3.5 % (0.0-10.0); HEMATOCRIT 26.2 % (37.0-47.0); HEMOGLOBIN 7.3 g/dL (12.0-16.0); LYMPH# 0.55 X1000 (1.2-3.4); LYMPH% 14.7 % (20.5-51.1); MCH 24.2 PG (27-31); MCHC 27.9 g/dL (33-37); MCV 86.8 FL (81-99); MONO# 0.29 X1000 (0.11-0.59); MONO% 7.8 % (1.7-9.3); MPV 9.7 FL (7.4-10.4); NEUT# 2.76 X1000 (1.4-6.5); NEUT% 73.7 % (42.2-75.2); PLT 208 X1000 (130-400); RBC 3.02 XMIL (4.2-5.4); RDW 21.1 % (11.5-14.5); WBC 3.74 X1000 (4.8-10.8)
[2019-09-04 08:27] LABS: ALBUMIN 3.3 g/dL (3.5-5.0); CALCIUM 9.3 mg/dL (8.8-10.2); CREATININE 1.8 mg/dL (0.5-0.9); PHOSPHORUS 4.2 mg/dL (2.7-4.5)
[2019-09-04 09:01] LABS: BANDS 2 % (0-1); LYMPHS 14 % (21-51); MONO 2 % (1-9); SEGS 80 % (42-75)
[2019-09-04 09:02] LABS: HYPOCHROM 1+
[2019-09-04] MEDS: ALBUMIN 25% IV SCH (09:47)
[2019-09-04] MEDS: NS IV SCH (11:09)
[2019-09-04] MEDS: CUBICIN IV SCH (11:09)
--- NOTE | 2019-09-04 11:14 | GASTROENTEROLOGY CONSULTATION ---
DATE: 09/04/2019 REASON FOR CONSULT: Abdominal pain and low appetite. HISTORY OF PRESENT ILLNESS: Ms. Koch is a 53-year-old female who has been in the hospital since 08/17/2019. She came to the hospital complaining of fever, redness on the left breast and overall swelling. The patient has a surgical wound. It was a colocutaneous fistula with intraabdominal abscess, which was related to the Crohn disease. She has been having multiple fistulas. She has fistulas in the groin area, in the abdominal area, surgical fistulas, and she mentioned that her does the dressing at home, and he noticed that there was a lot of pus, blood, and feces coming out of the fistula. The patient has a colostomy on the left abdominal area. The patient complains that she now has a lot of gassy feeling and feels like she is bloated. C/o nausea, but has denied any vomiting. The patient has a history of Staphylococcus epidermidis bacteria with a metal catrina on the right leg that has been infected. She is being followed by the surgeon, infectious disease, and by security systems administrator. GI has been consulted because the patient complained of having abdominal pain in the epigastric area and some heartburn on Wednesday, but today the patient has denied having any major problems. She mentioned that she is feeling better, and she does not have any issues with the heartburn. PAST MEDICAL HISTORY: Crohn disease with colocutaneous fistula/colovesicular fistula, renal carcinoma, atrial fibrillation, type 2 diabetes, history of urethral cancer, hyperlipidemia, hypertension. PAST SURGICAL HISTORY: A partial nephrectomy of the right kidney, left-sided urethral nephrectomy secondary to urethral cancer, I and D's of the fistula, distal femur fracture with external fixation surgery, surgery with diverting loop transverse colostomy/omentectomy and drainage of intra-abdominal abscesses and drain placements. ALLERGIES: The patient is allergic to adhesive tapes and latex. FAMILY HISTORY: Positive for hypertension, diabetes, stroke and cancer. SOCIAL HISTORY: The patient is , has 3 kids. She has denied any tobacco, alcohol, or illicit drug. HOME MEDICATIONS: The patient's home medications are glucosamine 1 tablet p.o. daily, allopurinol 300 mg p.o. daily, gabapentin 600 mg p.o. 3 times a day, iron tablets 1 capsule p.o. twice a day, Lexapro 20 mg p.o. twice a day, Bentyl 20 mg p.o. twice a day, digoxin 250 mcg p.o. daily, Lialda 1.2 grams p.o. twice a day, trazodone 100 mg p.o. at bedtime, Culturelle 1 capsule p.o. twice a day, omeprazole 40 mg p.o. daily, Percocet 10/325 mg 1 tablet every 4 hours as needed, Eliquis 5 mg p.o. twice a day, Humulin regular 15 units, Phenergan 25 mg IV every 4 hours as needed, acetaminophen 650 mg p.o. every 6 hours as needed, vitamin D2 at 50,000 units once every 7 days, Dilaudid 1 mg IV every 3 hours as needed, Lasix 40 mg IV every 12 hours, Zofran 4 mg IV every 4 hours as needed, BuSpar 10 mg p.o. 3 times a day, metoprolol 25 mg p.o. 3 times a day, and Ditropan 5 mg p.o. twice a day. REVIEW OF SYSTEMS: As per HPI. Otherwise, a 12-point review of system is negative. PHYSICAL EXAMINATION: Vital Signs: Temperature 98.5 degrees, pulse 108, respirations 16, blood pressure 146/64, oxygen saturation 94% on room air. The patient's weight is 396 pounds. BMI is 62.1 kg/m2. General: The patient is morbidly obese, alert, oriented x3. Answering questions appropriately and in no acute distress. HEENT: Pale conjunctivae. No icterus. PERRL. Neck: Supple. Lungs: Mild crackles heard in the anterior lobes. Cardiovascular: Patient is tachycardic. Abdomen: Soft, obese, mildly tender in the epigastric area. Hypoactive bowel sounds heard in all 4 quadrants. Colostomy bag on the left side and dressing in the lower left part of the abdomen. Extremities: No clubbing and no cyanosis. There is 3+ pitting edema in the lower extremities with Unna boots bilaterally. Neurologic: Alert and oriented x3. Nonfocal. Cranial nerves 2 through 12 grossly intact. LABS: WBCs are 3.74, RBC 3.02, hemoglobin is 7.3, hematocrit is 26.2, platelet count is 208,000. Sodium 138, potassium 4, chloride 99, carbon dioxide 26, anion gap 13, BUN 43, creatinine 1.8, glucose 109, calcium 9.3, phosphorus 4.2, albumin is 3.3. IMPRESSION AND PLAN: Crohn's disease Colocutaneous fistula GERD Dyspepsia Acute on chronic kidney disease Volume overload Chronic anemia Morbid obesity PLAN: Ms. Koch is a 53-year-old female who has a history of multiple fistulas, h/o Crohn disease with a colostomy bag on the left quadrant, and GI has been consulted for abdominal pain and heartburn. Patient today denied any heartburn and mentioned that she had mild abdominal discomfort in the epigastric area. She currently does not want to do any procedures. The patient is currently on PPI PO daily. She is on multiple antibiotics. She is receiving Merrem, doxycycline, Cubicin. Patient has declined for any procedures for now. This plan was discussed with Dr. Boateng. We will sign off for now. Please call us for any further questions or concerns. Dictated by PETER Mckeon for Christopher Boateng MD Physician Attestation I have seen and examined the patient. I have discussed and reviewed the note by Dorcas GREEN and agree with findings and plan as documented. In brief, Ms. Koch is a 53 year old woman with history of fistulizing (colovesicular and colocutaneous) Crohn's disease with s/p diverting loop transverse colostomy and omentectomy s/p drain placements 2/2 intraabdominal abscesses who presented with intraabdominal abscess in setting of colocutaneous fistula. She is currently receiving antibiotics per ID recommendations. She was previously on remicade, which was discontinued after patient had fall. She has been bedbound since last year and has not been able to get to infusion center to continue anti-TNF. Prior to admission, she was not taking any medications for her Crohn's. I suspect she will need to be switched to Stelara +/- TPN to allow fistulas to heal. The patient reports improvement in GERD symptoms and dyspepsia. The patient would like to reestablish care with Dr. Gann when she returns. Will sign off. Please call with questions. [facility]
--- NOTE | 2019-09-04 12:03 | EKG Report ---
Test Performed on : 09/04/2019 11:51:27 AM Test Reason : IRREGULAR RHYTHM Blood Pressure : / mmHG Vent. Rate : 066 BPM Atrial Rate : 057 BPM P-R Int : 000 ms QRS Dur : 086 ms QT Int : 280 ms P-R-T Axes : 000 064 228 degrees QTc Int : 293 ms Atrial fibrillation. with a competing junctional pacemaker. Low voltage QRS Cannot rule out Anterior infarct , age undetermined Abnormal ECG When compared with ECG of 14-NOV-2018 10:59, QT has shortened Confirmed by Wai Barrientos MD ([id number]) on 09/06/2019 6:05:27 PM
--- NOTE | 2019-09-04 15:48 | PROVIDER PROGRESS NOTE ---
Progress Note Subjective: She voices feeling better and continues to have excellent urine output. Objective: Temperature 98.5, pulse 108, respirations 16, blood pressure 146/64, 02 sat 94% on room air. General: obese white female lying in bed in no acute distress HEENT: Normocephalic, atraumatic, mucous membranes moist, pupils equal and reactive. Skin: warm and dry, purple Striae noted to abdomen. Neck: supple, 6cm JVD observed. Cardiovascular: S1S2, irregular rate and rhythm. No murmurs or gallops noted. Respiratory: clear with equal air entry anteriorly. Abdomen: soft, obese, nontender, nondistended. Bowel sounds active. Colostomy noted. : non inspected, nice in place. Extremities:3+ pitting edema that extends to abdominal wall but has improved. Neurological: alert and oriented to person, place, and time. Labs: WBC 3.74, hemoglobin 7.3, hematocrit 26.2, platelet count 208, sodium 138, potassium 4.0, chloride 99, carbon dioxide 26, BUN 43, creatinine 1.8. Intake 885, output 5100. Impression: Acute on chronic kidney disease with chronic edema. Multifactorial. Her BUN and Creatinine are stable and she is making excellent urine. We will continue to high dose lasix. Blood pressure. Stable. Fluid volume. Expanded. Lasix. Anemia, low but stable. No criteria for transfusion as of now. Electrolytes. Stable. Acid base balance. Stable. Medication review. No changes.
--- NOTE | 2019-09-04 19:43 | PROGRESS NOTE ---
DATE: 09/04/2019 INTERVAL HISTORY: No acute events overnight. She has been experiencing some acid reflux and tightening of bilateral lower extremities. We discussed about rechecking digoxin level. We discussed about discontinuing doxycycline. We discussed about continuing other antibiotics. We discussed about her kidney function. Her is at bedside. All of their questions have been answered. VITALS: She has been afebrile with temperature of 98.5 degrees, pulse 69, respiratory rate 16, blood pressure 156/60. She is saturating 96% on room air. PHYSICAL EXAMINATION: General; Not in acute distress. HEENT: Oral cavity is moist. Lungs: Air entry bilaterally equal. No wheeze, rhonchi, or crackles. Cardiovascular: S1, S2 normal. Irregularly irregular. No murmur or gallop. Abdomen: Obese, soft. She has ascites. She has a left abdominal quadrant ostomy with yellowish green stool output. She also has a left groin dressing at the site of her colocutaneous fistula. Extremities: She has bilateral lower extremity edema. Genitourinary: She has urine catheter. Neurologic: She is alert and oriented x3. Input output suggest -4.2 L yesterday. LABORATORY DATA: Suggestive of WBC of 3.7, hemoglobin 7.3, platelets 208,000. BUN is 43, creatinine of 1.8. No new microbiological or imaging data. ASSESSMENT AND PLAN: 1. Infected colocutaneous fistula with Proteus and Escherichia coli, Escherichia coli urinary tract infection, Staphylococcus epidermidis bacteremia. I will continue intravenous daptomycin and start patient on intravenous ceftriaxone. Appreciate Infectious Disease team's recommendation regarding duration of intravenous antibiotic. Her pneumonia seems to have resolved. 2. Acute on chronic kidney disease stage 3 to stage IV, likely multiple contributing factors including varying levels of volume status. Currently, she is volume overloaded. Nephrology team on board. Continue current dose of intravenous Lasix and follow up with kidney function closely. 3. Epigastric discomfort, dyspepsia. This could likely be related to doxycycline-induced reflux esophagitis as well as acute gastritis. I will stop doxycycline. Continue the patient on omeprazole. I would also check digoxin levels and continue her on promethazine for nausea as needed. 4. History of chronic atrial fibrillation, currently rate well controlled. Continue home digoxin, metoprolol and renally adjusted dose of apixaban. Follow up with her digoxin levels tomorrow. 5. Others: Continue escitalopram for anxiety, gabapentin for neuropathic pain, mesalamine for Crohn disease, iron with multivitamin for chronic anemia, Percocet for chronic pain. 6. Patient has had history of Crohn disease status post enterocolonic, colovesical and colocutaneous fistula status post diverting colostomy. She also had history of renal cell carcinoma status post nephrectomy and chronic kidney disease. DISPOSITION: I will monitor patient inside the hospital. Plan of care discussed with her. Her questions have been answered. cc: Farhad Souza MD
--- NOTE | 2019-09-04 20:03 | INFECTIOUS DISEASE PROGRESS NO ---
DATE: 09/04/2019 PRESENT ILLNESS: Ms. Koch is being treated for a Staph epi bacteremia, and will require 6 weeks of treatment due to the catrina in her right leg, which could of been hematogenous infected while she was bacteremic. She also has an Escherichia coli to her abdominal wound and urinary tract, as well as a Proteus to the colocutaneous fistula. There is also a left breast cellulitis which is improving. She also has acute kidney injury on chronic kidney disease and is a patient with a solitary kidney. At this point, I believe the pneumonia has cleared. Her most recent procalcitonin was 0.16, which makes it unlikely that there is respiratory tract infection. MEDICATIONS: She is receiving daptomycin 1000 mg IV every 48 hours based on her sterile blood cultures. Today is day 13 of treatment for her bacteremia. Today is day 8 of doxycycline 100 mg IV every 12 hours and meropenem 1 g IV every 12 hours. PHYSICAL EXAMINATION: Vital Signs: Temperature is 98.5 degrees, pulse rate 69, respiratory rate 16, blood pressure 156/63, O2 saturation is 96% on room air. General: This is a morbidly obese, chronically ill-appearing, middle-aged female. She is sitting up in the bed currently in no acute distress. HEENT: Atraumatic, normocephalic. Oral mucous membranes are pink and moist. Conjunctivae are pale. Neck: Supple. Trachea is midline. Respiratory: Lung sounds are bilaterally clear to auscultation and diminished in the bases. No work of breathing is noted. Cardiovascular: Irregularly irregular with atrial fibrillation on the monitor. Abdomen: Soft, obese and mildly tender to the left. The bowel sounds are active. She has a colostomy in place. Integumentary: Skin is warm and dry with a Port-A-Cath to the right chest that is without edema, erythema, or drainage. There are dressings in place to her abdominal fistulas and wounds which were not removed at this time. The cellulitis to her left breast continues to improve with some erythema, but more softness noted to the breast at this point. Extremities: Unna boots are in place to her bilateral lower extremities with 2 to 3+ pitting edema noted. Neurologic: She is awake, alert, oriented, with difficulty in movement to her bilateral lower extremities. LABORATORY AND X-RAY: Today her white count is 3.74, hemoglobin 7.3, platelet count 208,000. Creatinine is 1.8 with a GFR of 29. EKG today shows atrial fibrillation versus a conjunctional rhythm on the unconfirmed report. No imaging reports today. ASSESSMENT AND PLAN: Ms. Koch is being treated for a Staphylococcus epidermidis bacteremia using daptomycin, which is renally dosed. Last CK total was low. We will continue daptomycin at this point. Ms. Koch was put on daptomycin and meropenem, I believe, for a pneumonia which seems to have resolved. She does have congestive heart failure and her procalcitonin level makes it unlikely that there is a respiratory tract infection. I have spoken with Dr. Souza about possibly downgrading her antibiotics to removing the meropenem and doxycycline and continuing her on Rocephin 2 g IV daily along with the daptomycin. We will leave any changes to his discretion. At this point, Mango-Mate is working on some trying to find a way that she can have IV antibiotics at home. Those orders have been put in the computer in order to cost out the pang of home infusions. The plan will be to see her back in our office at the end of her treatment with daptomycin and then discussed the possibility of low-dose prevention using doxycycline. COMORBIDITIES: For Ms. Koch include morbid obesity, obstructive sleep apnea, chronic atrial fibrillation, Crohn disease, gastroesophageal reflux disease, diabetes mellitus and acute on chronic kidney disease. Dictated by PETER Salgado for Michael Telles MD cc: Michael Telles MD I have seen and examined Ms Koch today. She is doing well. Tolerating her antimicrobials. I agree with the above findings and the plan discussed with the DENIAL RESOLUTION SPECIALIST. EULALIA
[2019-09-04] MEDS: PHENERGAN IV PRN (21:24)
[2019-09-05] MEDS: NEURONTIN PO SCH ×3 (02:23→22:10)
[2019-09-05] MEDS: ROCEPHIN 2 GM in NS 50 ML IV SCH (05:19)
[2019-09-05] MEDS: PERCOCET-10 PO PRN ×5 (05:40→22:10)
[2019-09-05] MEDS: HUMALOG SUBQ SCH ×4 (06:44→22:12)
[2019-09-05 07:09] LABS: BASO# 0.01 X1000 (0.0-0.2); BASO% 0.3 % (0.0-0.8); EOS# 0.14 X1000 (0.0-0.7); HEMATOCRIT 25.9 % (37.0-47.0); HEMOGLOBIN 7.3 g/dL (12.0-16.0); LYMPH% 17.3 % (20.5-51.1); MCH 24.4 PG (27-31); MCHC 28.2 g/dL (33-37); MCV 86.6 FL (81-99); MONO# 0.24 X1000 (0.11-0.59); MONO% 6.9 % (1.7-9.3); MPV 9.6 FL (7.4-10.4); NEUT# 2.48 X1000 (1.4-6.5); NEUT% 71.5 % (42.2-75.2); PLT 208 X1000 (130-400); RBC 2.99 XMIL (4.2-5.4); RDW 21.2 % (11.5-14.5); WBC 3.47 X1000 (4.8-10.8)
[2019-09-05 08:05] LABS: ALBUMIN 3.3 g/dL (3.5-5.0); CALCIUM 9.4 mg/dL (8.8-10.2); CREATININE 2.1 mg/dL (0.5-0.9); PHOSPHORUS 4.5 mg/dL (2.7-4.5); POTASSIUM 4.2 mmol/L (3.5-5.1)
[2019-09-05] MEDS: LASIX IV SCH (09:34)
[2019-09-05] MEDS: LEXAPRO PO SCH ×2 (09:34→22:11)
[2019-09-05] MEDS: LOPRESSOR PO SCH ×3 (09:35→22:11)
[2019-09-05] MEDS: LANOXIN PO SCH (09:35)
[2019-09-05] MEDS: BUSPAR PO SCH ×3 (09:35→17:42)
[2019-09-05] MEDS: THERA M PLUS PO SCH ×2 (09:37→22:11)
[2019-09-05] MEDS: CULTURELLE PO SCH ×2 (09:37→22:11)
[2019-09-05] MEDS: PRILOSEC PO SCH (09:37)
[2019-09-05] MEDS: LIALDA PO SCH ×2 (09:38→22:14)
[2019-09-05] MEDS: ELIQUIS PO SCH ×2 (09:42→22:11)
--- NOTE | 2019-09-05 18:53 | INFECTIOUS DISEASE PROGRESS NO ---
DATE: 09/05/2019 PRESENT ILLNESS: Ms. Koch has a Staphylococcus epidermidis bacteremia. There is also an Escherichia coli to her abdominal wound and urinary tract, as well as a proteus to the colocutaneous fistula. She has a left breast cellulitis, which is improving. There is also an acute kidney injury on chronic kidney disease. MEDICATIONS: Based on her sterile blood cultures, today is day 14 of treatment for her bacteremia using daptomycin 1000 mg IV every 48 hours. Today is day #1 of treatment with ceftriaxone 2 g IV every 24 hours. PHYSICAL EXAMINATION: Vital signs: Temperature is 97.5 degrees, pulse rate 61, respiratory rate 18, blood pressure 150/62. O2 saturation is 93% on room air.General: This is a morbidly obese, chronically ill-appearing female. She is lying in bed, currently in no acute distress. HEENT: Atraumatic, normocephalic. Oral mucous membranes are pink and moist. Conjunctivae are pale. Neck is supple. Trachea is midline. Cardiovascular: Irregularly irregular with atrial fibrillation on the monitor. Respiratory: Lung sounds are clear to auscultation bilaterally. Diminished in the bases. No work of breathing is noted. Abdomen is soft, obese, and tender to the left side. Bowel sounds are active. There is a colostomy in place with brown-green stool in the bag. Neurologic: She is awake, alert and oriented, and movement is limited particularly to her lower extremities. Integumentary: Skin is warm and dry with a Port-A-Cath site to the right chest, without edema, erythema or drainage. Abdominal dressings were removed, and the abdominal incision shows no drainage with a white-bonilla wound bed that seems to be mildly kamran. The fistula to her midabdominal pannus is dry with an erythematous wound bed. This fistula to the left abdominal pannus shows some bonilla purulent drainage on the dressing. The left breast cellulitis is about the same, with mostly soft tissue and some erythema to the breast. Extremities: Lower extremities have Unna boots in place bilaterally, with 2 to 3+ pitting edema. LABORATORY DATA: Today her white blood cell count is 3.47, hemoglobin is 7.3, platelet count is 208,000. Creatinine is 2.1, GFR 25. No imaging reports today. ASSESSMENT AND PLAN: Ms. Koch is being treated for Staphylococcus epidermidis bacteremia, using daptomycin every 48 hours due to her renal insufficiency. She will need to complete a total of 6 weeks, due to the possibility of the metal catrina in her right leg being hematogenously infected while she was bacteremic. Orders have been put in to consult [facility] for assistance with home intravenous antibiotics when she is ready to be discharged. She is also receiving Rocephin, which we will continue for the bacteria that have grown to her abdomen, urinary tract and fistula. Today she states she is feeling better, with less stomach issues due to the discontinuation of doxycycline. I have put in some lab work for in the morning to include a CK total. COMORBIDITIES: for Ms. Koch include morbid obesity, obstructive sleep apnea, chronic atrial fibrillation, Crohn's disease, gastroesophageal reflux disease, congestive heart failure, diabetes mellitus, and acute kidney injury on chronic kidney disease with solitary kidney. Dictated by PETER Salgado for Michael Telles MD cc: Michael Telles MD I have seen and examined Ms Koch today. She is doing well. Tolerating his antimicrobials. I agree with the above findings and the plan discussed with the SUPPLY CHAIN PROCUREMENT MANAGER. EULALIA
--- NOTE | 2019-09-05 19:04 | PROGRESS NOTE ---
DATE: 09/05/2019 SUBJECTIVE: The patient is resting comfortably in bed. She states that the swelling has improved significantly. She has no complaints at this time. OBJECTIVE: Vital Signs: Temperature 97.5 degrees, blood pressure 150/62, heart rate 61, respirations 18, O2 saturation 93% on room air. Intake 909, output 2.8 L. General: This is a morbidly obese female lying in bed in no acute distress. Heart: S1, S2 normal. Regular rate and rhythm. Lungs: Equal air entry bilaterally. No wheezing. No rales. No rhonchi. Abdomen: Positive bowel sounds. Soft, obese, nontender, nondistended. Extremities: 3+ edema in the lower extremities. Neurologic: The patient is alert and oriented x3. LABS: White blood cell count 3.4, hemoglobin 7.3, hematocrit 25, platelets 208,000. Sodium 134, potassium 4.2, chloride 96, CO2 25, BUN 45, creatinine 2.1, glucose 110. ASSESSMENT AND PLAN: 1. 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 Continue with antibiotic therapy. 2. Urinary tract infection secondary to Escherichia coli. The patient is currently on antibiotic therapy. 3. Bacteremia secondary to Staphylococcus epidermidis. The patient will continue on daptomycin for a total of six weeks as per Infectious Disease. System Archive Analyst is working on arranging home intravenous antibiotics for the patient. Upon discharge, the patient will follow up with Dr. Aceves in his clinic. 4. Acute on chronic kidney disease, stage 3. The patient's diuretic dosage has been switched to a lower dose and it is now oral. Continue to monitor closely. Nephrology is following. 5. Chronic atrial fibrillation. The patient is rate controlled. Continue on the current cardiac regimen. 6. Anxiety disorder. Continue on Lexapro. 7. History of Crohn's disease with a colocutaneous fistula. Aware. 8. History of renal cell carcinoma, status post nephrectomy. Aware. 9. Morbid obesity. The patient has been counseled about weight loss and proper diet. 10. Suspected obstructive sleep apnea. Aware. 11. Disposition. We will plan to discharge the patient home once intravenous antibiotics have been arranged for outpatient continuation. cc: Pia Reyes MD
--- NOTE | 2019-09-05 20:03 | PROVIDER PROGRESS NOTE ---
Progress Note Subjective: She voices no changes. She remains feeling well with good urine output. Objective: Temperature 98.0, pulse 65, respiration 16, blood pressure 140/57, 02 sat 95% on room air. General: obese white female lying in bed in no acute distress HEENT: Normocephalic, atraumatic, mucous membranes moist, pupils equal and reactive. Skin: warm and dry, purple Striae noted to abdomen. Neck: supple, 6cm JVD observed. Cardiovascular: S1S2, irregular rate and rhythm. No murmurs or gallops noted. Respiratory: clear with equal air entry anteriorly. Abdomen: soft, obese, nontender, nondistended. Bowel sounds active. Colostomy noted. : non inspected, nice in place. Extremities: 3+ pitting edema that extends to abdominal wall but has improved. Neurological: alert and oriented to person, place, and time. Labs: WBC 3.47, hemoglobin 7.3, hematocrit 25.9, platelet count 208, sodium 134, potassium 4.2, chloride 96, carbon dioxide 25, BUN 45, creatinine 2.1. Intake 909, output 2825. Impression: Acute on chronic kidney disease with chronic edema. Multifactorial. Her Creatinine has marginally increased, we will decrease her lasix and observe labs. Blood pressure. Stable. Fluid volume. Expanded. We will change her lasix 40mg PO Daily. Anemia, low but stable. No criteria for transfusion as of now. Electrolytes. Stable. Acid base balance. Stable. Nutrition. Change to Renal diet Physical deconditioning. Patient was evaluated last week but was found to be in too much pain to participate. We will re-consult them. Medication review. No changes. OK to discharge from my perspective. chevy
[2019-09-05] MEDS: SODIUM CHLORIDE 0.9% INJ PRN (22:44)
[2019-09-05] MEDS: PHENERGAN IV PRN (22:44)
[2019-09-06] MEDS: ROCEPHIN 2 GM in NS 50 ML IV SCH (06:37)
[2019-09-06] MEDS: PERCOCET-10 PO PRN ×5 (06:37→22:46)
[2019-09-06] MEDS: HUMALOG SUBQ SCH ×4 (06:45→20:59)
[2019-09-06 07:09] LABS: BASO# 0.01 X1000 (0.0-0.2); BASO% 0.3 % (0.0-0.8); EOS# 0.17 X1000 (0.0-0.7); EOS% 4.4 % (0.0-10.0); HEMATOCRIT 25.6 % (37.0-47.0); HEMOGLOBIN 7.3 g/dL (12.0-16.0); LYMPH# 0.59 X1000 (1.2-3.4); LYMPH% 15.2 % (20.5-51.1); MCH 24.8 PG (27-31); MCHC 28.5 g/dL (33-37); MCV 87.1 FL (81-99); MONO# 0.24 X1000 (0.11-0.59); MONO% 6.2 % (1.7-9.3); MPV 9.6 FL (7.4-10.4); NEUT# 2.86 X1000 (1.4-6.5); NEUT% 73.9 % (42.2-75.2); PLT 206 X1000 (130-400); RBC 2.94 XMIL (4.2-5.4); RDW 21.3 % (11.5-14.5); WBC 3.87 X1000 (4.8-10.8)
[2019-09-06 07:31] LABS: POTASSIUM 4.3 mmol/L (3.5-5.1)
[2019-09-06] MEDS: PRILOSEC PO SCH (09:06)
[2019-09-06] MEDS: BUSPAR PO SCH ×3 (09:06→17:25)
[2019-09-06] MEDS: LEXAPRO PO SCH ×2 (09:06→20:58)
[2019-09-06] MEDS: LOPRESSOR PO SCH ×3 (09:06→20:59)
[2019-09-06] MEDS: THERA M PLUS PO SCH ×2 (09:06→20:58)
[2019-09-06] MEDS: NEURONTIN PO SCH ×2 (09:07→20:58)
[2019-09-06] MEDS: LASIX PO SCH (09:07)
[2019-09-06] MEDS: CULTURELLE PO SCH ×2 (09:07→20:59)
[2019-09-06] MEDS: ELIQUIS PO SCH ×2 (09:07→20:58)
[2019-09-06] MEDS: LIALDA PO SCH ×2 (09:09→20:59)
[2019-09-06] MEDS: LANOXIN PO SCH (09:09)
[2019-09-06] MEDS: CUBICIN IV SCH (10:29)
[2019-09-06] MEDS: NS IV SCH (10:29)
[2019-09-06] MEDS ORDERED: NS 500 ML ONE (10:35)
--- NOTE | 2019-09-06 16:32 | PROVIDER PROGRESS NOTE ---
Progress Note Subjective: She denies any complaints and remains comfortable breathing without supplemental oxygen. Objective: Temperature any 8.1, pulse 71, respirations 17, blood pressure 138/52, 02 sat 93% on room air. General: obese white female lying in bed in no acute distress HEENT: Normocephalic, atraumatic, mucous membranes moist, pupils equal and reactive. Skin: warm and dry, purple Striae noted to abdomen. Neck: supple, 6cm JVD observed. Cardiovascular: S1S2, irregular rate and rhythm. No murmurs or gallops noted. Respiratory: clear with equal air entry anteriorly. Abdomen: soft, obese, nontender, nondistended. Bowel sounds active. Colostomy noted. : non inspected, nice in place. Extremities: 3+ pitting edema that extends to abdominal wall but has improved. Neurological: alert and oriented to person, place, and time. Labs: WBC 3.87, hemoglobin 7.3, hematocrit 25.6, platelet count 206, sodium 137, potassium 4.3, chloride 98, carbon dioxide 26, BUN 47, creatinine 2.0. Intake 500, output 2350. Impression: Acute on chronic kidney disease with chronic edema. Multifactorial. Her Creatinine is stable on decreased lasix dose. She continues to have excellent urine output. Blood pressure. Stable. Fluid volume. Expanded. Continue current treatment plan. Anemia, low but stable. No criteria for transfusion. Electrolytes. Stable. Acid base balance. Stable. Nutrition. Change to Renal diet Physical deconditioning. PT in place. Medication review. No changes.
--- NOTE | 2019-09-06 16:50 | PROGRESS NOTE ---
DATE: 09/06/2019 SUBJECTIVE: The patient is resting comfortably in bed. She has no complaints. No acute events noted overnight. OBJECTIVE: Vital Signs: Temperature 98.3 degrees, blood pressure 151/64, heart rate 77, respirations 18, O2 saturation 93% on room air. General: This is a morbidly obese female lying in bed in no acute distress. Heart: S1, S2 normal. Regular rate and rhythm. Lungs: Equal air entry bilaterally. No wheezing. No rales. Abdomen: Positive bowel sounds. Soft, obese. Extremities: 2+ edema in the lower extremities. Neurologic: The patient is alert oriented x4. LABS: Hemoglobin 7.2, hematocrit 25, platelets 206,000. Sodium 137, potassium 4.3, chloride 98, CO2 26, BUN 47, creatinine 2, glucose 110. ASSESSMENT AND PLAN: 1. 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 Continue on Rocephin. 2. Urinary tract infection secondary to Escherichia coli. The patient is currently on Rocephin therapy. 3. Bacteremia secondary to Staphylococcus epidermidis. Continue on daptomycin. The patient will follow up with Dr. Aceves in his clinic. Will arrange for patient to continue IV antibiotics at home and have already been arranged by [employer]. 4. Acute on chronic kidney disease, stage 3. Stable. The patient will follow will continue on oral Lasix at the current dosage. The patient will follow up with Dr. Mcelroy as outpatient. 5. Chronic atrial fibrillation. The patient is rate controlled. Continue on the current cardiac regimen. 6. History of Crohn's disease with colocutaneous fistula. Aware. 7. History of renal cell carcinoma, status post nephrectomy. Aware. 8. Morbid obesity. The patient has been counseled about weight loss and proper diet. 9. Obstructive sleep apnea. Aware. 10. Disposition. Arrangements have been made for the patient to continue with IV antibiotic therapy as outpatient at home. The patient will be discharged home tomorrow with home health services. cc: Pia Reyes MD MTDD
[2019-09-06] MEDS: LOTRIMIN 1% CREAM TOP SCH ×2 (17:26→20:59)
--- NOTE | 2019-09-06 19:22 | INFECTIOUS DISEASE PROGRESS NO ---
DATE: 09/06/2019 PRESENT ILLNESS: Ms. Koch has a Staphylococcus epidermidis bacteremia and is also being treated for an E. coli to her abdominal wound and urinary tract. There is also a Proteus that grew to her colocutaneous fistula. She also has a left breast cellulitis and acute kidney injury on chronic kidney disease. MEDICATIONS: She is receiving ceftriaxone 2 g IV every 24 hours and daptomycin 1000 mg IV every 48 hours. PHYSICAL EXAMINATION: Vital Signs: Temperature is 98.3 degrees, pulse rate 77, respiratory rate 18, blood pressure 151/64, O2 saturation is 93% on room air. General: This is a chronically ill- appearing, middle-aged, morbidly obese female. She is lying in the bed, currently in no acute distress. HEENT: Atraumatic, normocephalic. Oral mucous membranes are pink and moist. Conjunctivae are pale. Neck: Supple. Trachea is midline. Respiratory: Lung sounds are bilaterally clear and diminished to auscultation. Cardiovascular: Irregularly irregular with atrial fibrillation on the monitor. Abdomen: Soft, obese, and tender on the left side. There is a colostomy in place with brown-green stool in the bag. Bowel sounds are active. Integumentary: Skin is warm and dry. There is some erythema and induration noted to the left breast which continues to improve mildly. There is also a Port-A-Cath site to the right chest that is without edema, erythema, or drainage. Abdominal dressings were not removed at this time. She does have a new area of redness under her left breast which is fungal, as well as some redness to the groin areas. Neurologic: She is awake, alert, oriented, and movement in the bed is limited due to her size and lower extremity weakness. LABORATORY AND X-RAY: Today her white count is 3.87, hemoglobin 7.3, platelet count 206,000. Creatinine is 2. GFR is 26. Creatine kinase is 13. No imaging reports today. ASSESSMENT AND PLAN: Ms. Koch is being treated for Staphylococcus epidermidis bacteremia and is receiving renally dose daptomycin. Today is day #15 of a 6 week treatment that will be required due to the metal catrina in her right leg that could have been hematogenously infected while she was bacteremic. A publications sales representative from [facility] is coming to see her and her this afternoon. She will continue the daptomycin at home until the end of the month and will also take Rocephin daily through September 13. I have ordered some clotrimazole cream to be applied to her fungal rash twice a day. Unfortunately, she has medication interactions that prevent the use of fluconazole. The plan is for her to be discharged home tomorrow, and orders have been put in for her to see us back in the office on the of this month. COMORBIDITIES: For Ms. Koch include morbid obesity, obstructive sleep apnea, chronic atrial fibrillation, Crohn's disease, gastroesophageal reflux disease, congestive heart failure, diabetes, and acute kidney injury on chronic kidney disease. Dictated by PETER Salgado for Michael Telles MD cc: Michael Telles MD I have seen and examined Ms. Koch today. Antimicrobials have been reviewed. I agree with the above note and plan. Plan discussed with the INSTRUCTOR DANCING. EULALIA
[2019-09-06] MEDS: SODIUM CHLORIDE 0.9% INJ PRN (22:49)
[2019-09-06] MEDS: PHENERGAN IV PRN (22:49)
[2019-09-06] MEDS: DITROPAN PO SCH (23:49)
[2019-09-07] MEDS: ROCEPHIN 2 GM in NS 50 ML IV SCH (06:01)
[2019-09-07] MEDS: PERCOCET-10 PO PRN ×3 (06:01→13:55)
[2019-09-07] MEDS: HUMALOG SUBQ SCH ×2 (06:50→13:56)
[2019-09-07 07:24] LABS: HEMATOCRIT 25.3 % (37.0-47.0); HEMOGLOBIN 7.2 g/dL (12.0-16.0); MCH 24.7 PG (27-31); MCHC 28.5 g/dL (33-37); MCV 86.6 FL (81-99); MPV 9.4 FL (7.4-10.4); RBC 2.92 XMIL (4.2-5.4); RDW 21.1 % (11.5-14.5); WBC 4.09 X1000 (4.8-10.8)
[2019-09-07 07:56] LABS: CALCIUM 9.3 mg/dL (8.8-10.2); CREATININE 1.8 mg/dL (0.5-0.9); PHOSPHORUS 4.3 mg/dL (2.7-4.5); POTASSIUM 4.2 mmol/L (3.5-5.1)
[2019-09-07 08:49] VITALS: BP 144/59
[2019-09-07] MEDS: LASIX PO SCH (09:46)
[2019-09-07] MEDS: BUSPAR PO SCH ×2 (09:46→13:56)
[2019-09-07] MEDS: LOPRESSOR PO SCH ×2 (09:46→13:55)
[2019-09-07] MEDS: CULTURELLE PO SCH (09:47)
[2019-09-07] MEDS: NEURONTIN PO SCH (09:47)
[2019-09-07] MEDS: ELIQUIS PO SCH (09:47)
[2019-09-07] MEDS: DITROPAN PO SCH (09:47)
[2019-09-07] MEDS: THERA M PLUS PO SCH (09:47)
[2019-09-07] MEDS: LEXAPRO PO SCH (09:47)
[2019-09-07] MEDS: PRILOSEC PO SCH (09:47)
[2019-09-07] MEDS: LANOXIN PO SCH (09:47)
[2019-09-07] MEDS: LIALDA PO SCH (09:47)
[2019-09-07] MEDS: LOTRIMIN 1% CREAM TOP SCH (13:57)
--- NOTE | 2019-09-07 13:57 | PROVIDER PROGRESS NOTE ---
Progress Note Subjective: she voices going home today. She denies any complaints. Objective: Temperature 98.3, pulse 74, respirations 17, blood pressure 144/59, 02 sat 92% on room air. General: obese white female lying in bed in no acute distress HEENT: Normocephalic, atraumatic, mucous membranes moist, pupils equal and reactive. Skin: warm and dry, purple Striae noted to abdomen. Neck: supple, 8cm JVD observed. Cardiovascular: S1S2, irregular rate and rhythm. No murmurs or gallops noted. Respiratory: clear with equal air entry anteriorly. Abdomen: soft, obese, nontender, nondistended. Bowel sounds active. Colostomy noted. : non inspected, nice in place. Extremities: 3+ pitting edema that extends to abdominal wall but has improved. Neurological: alert and oriented to person, place, and time. Labs: Wbc 4.09, hemoglobin 7.2, hematocrit 25.3, platelet count 213, sodium 133, potassium 4.2, chloride 95, carbon dioxide 26, BUN 49, creatinine 1.8. Intake 485, output 2355. Impression: Acute on chronic kidney disease with chronic edema. Multifactorial. Her creatinine and BUN are stable. Urine output adequate with PO dose of Lasix. She plans on discharging today. We will follow up with her in the office. Blood pressure. Stable. Fluid volume. Expanded. Encouraged to continue limited intake with salt restrictions. Continue current treatment plan. Anemia, low but stable. No criteria for transfusion. Electrolytes. Stable. Acid base balance. Stable. Nutrition. Renal diet Physical deconditioning. PT in place. Medication review. Ditropan
--- NOTE | 2019-09-17 16:41 | DISCHARGE SUMMARY ---
ADMISSION DATE: 08/17/2019 DISCHARGE DATE: 09/07/2019 FINAL DISCHARGE DIAGNOSES: 1. 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 2. Staphylococcus epidermidis bacteremia. 3. Urinary tract infection secondary to Escherichia coli. 4. Acute on chronic kidney disease stage 3. 5. Anasarca. 6. Chronic atrial fibrillation. 7. Morbid obesity. 8. Crohn disease. 9. Situational depression. 10. History of renal cell carcinoma status post nephrectomy. 11. Hypertension 12. Anemia of chronic disease. CONSULTATIONS: 1. ID consultation with Dr. Aceves. 2. Nephrology consultation with Dr. Mcelroy. 3. General Surgery consultation Dr. Beckwith. IMAGIN. Portable chest x-ray performed on 08/17/2019 which revealed pulmonary edema and cardiomegaly. 2. CT of the abdomen and pelvis performed on 09/19/2019 which revealed a left lower quadrant abscess with a cutaneous fistulous tract. Body wall anasarca. Moderate volume ascites. 3. Renal ultrasound performed on 08/27/2019 which revealed no visible right renal abnormality. 4. Chest x-ray performed on 08/30/2019 which revealed congestive heart failure. HOSPITAL COURSE: Ms. Koch is a 53-year-old female with a history of Crohn disease with resulting colocutaneous fistula status post diverting colostomy, renal cell carcinoma status post nephrectomy and chronic kidney disease, who presented to the ER with a chief complaint of erythema involving the left breast as well as fever. The patient was admitted to the hospitalist service. Blood cultures were obtained as well as a culture of the fistula and her urine. In the meantime the patient was started on broad-spectrum antibiotics. Given the patient's complicated surgical history, General Surgery was consulted as well as ID. The patient was started on broad-spectrum antibiotics while awaiting the culture results. On admission the patient was noted to be in acute kidney injury with a creatinine of 1.7 and she was noted to be edematous with anasarca. In light of this finding, nephrology was consulted for assistance with volume management given the patient's renal impairment. The patient was started on diuretic therapy and monitored closely by the java grails developer. Ultimately, the blood cultures grew out Staphylococcus epidermidis, the urine culture grew out E coli and the culture from the fistula grew out Proteus mirabilis and the patient's antibiotic therapy was adjusted based on these culture results. Slowly over the course of the hospitalization the patient's clinical status improved. Also her swelling improved. Her renal function did rise again in response to diuretic therapy but then stabilized. The patient was also seen by the general surgeon during the hospital stay. The patient slowly continued to improve clinically. It was recommended by Dr. Aceves that the patient continue on Rocephin through September 13 and continue on daptomycin that is renally dosed for total of 6 weeks. The patient was ultimately cleared for discharge once the antibiotic regimen was made available through [facility]. The patient was discharged home with home health services. DISCHARGE MEDICATIONS: 1. Lotrimin 1 g topical twice a day to the affected areas. 2. Daptomycin 1000 mg IV every 48 hours. 3. Rocephin 2 g IV every 24 hours through September 13. 4. Lasix 40 mg p.o. daily. 5. Percocet 10/325 one tab oral every 6 hours p.r.n. for pain. 6. Allopurinol 300 mg oral daily. 7. Gabapentin 600 mg oral 3 times a day. 8. Lexapro 20 mg oral twice a day. 9. Bentyl 20 mg oral twice a day. 10. Digoxin 0.25 mg oral daily. 11. Mesalamine 1.2 g oral twice a day. 12. Trazodone 100 mg oral at bedtime. 13. Eliquis 5 mg oral twice a day. 14. Prilosec 40 mg p.o. daily. 15. Lactobacillus 1 tablet oral twice a day. 16. Trazodone 100 mg oral at bedtime. 17. Vitamin D2 50,000 units oral every 7 days. 18. BuSpar 10 mg oral 3 times a day. 19. Lopressor 25 mg oral 3 times a day. 20. Ditropan 5 mg oral twice a day. 21. Regular insulin sliding scale. DISCHARGE DIET: Low-sodium, low-cholesterol diet. ACTIVITY: As tolerated. FOLLOWUP INSTRUCTIONS: The patient will need to follow up with Dr. Aceves on 09/21/2019 at 11:15, the patient will need to follow up with Dr. Hall on 09/14/2019 at 12:15 p.m. The patient will need to follow up with Dr. Mcelroy as scheduled by his clinic. cc: Pia Reyes MD [facility]
== END 2019-09-07 15:23 | disposition home health service (06) | DRG 385 ==
LOC: ED 18:48 → 4N 18:49 → SUATTDRO 18:49 → 4N 08-19 17:07 → ICU 08-27 15:53 → 4N 08-28 16:52
PROVIDERS: ATTEND Internal Medicine